=== PATIENT | female | born 1950 | race Caucasian/White ===

== ENCOUNTER 2018-04-16 19:08 | Emergency (ER) | payer MEDICARE, SELFPAY ==
[2018-04-16 19:09] VITALS: BP 141/67; PULSE 94; RESP 16; TEMP 35.8; O2SAT 96; BMI 32.5
--- NOTE | 2018-04-16 19:22 | ED.VISSUMM ---
- ER Visit Summary Date of Service: 04/16/18 Chief Complaint: Rash History of Present Illness: The patient is a 68 F who presents for evaluation of a rash. Patient states that yesterday she [place]owed [place] lawn [place]. Around 4 in the afternoon she felt a firmness on the right posterior forearm. She looked in there is an area of swelling that has since progressed more swelling and some erythema. She notes some drainage from the area which is dried. She also notes the same type of lesion left mid clavicle and on the left mandible. The clavicle the mandible have much less erythema. They also have an area where some serosanguineous fluid have drained and dried. She has been using the Benadryl cream. No constitutional symptoms or shortness of breath. Physical Examination: Afebrile vital signs are stable Gen: Well-nourished well-developed Head: Normocephalic atraumatic Eyes: Perrl EOMI ENT: TMs clear no rhinorrhea moist mucous membranes Neck: Supple no lymphadenopathy no JVD nontender CVS: Regular rate rhythm no murmurs normal S1-S2 Respiratory: No distress clear to auscultation bilaterally chest nontender Abdomen: Soft nontender nondistended normal bowel sounds no masses Back: Nontender Extremity: Nontender no edema Skin: Normal color the left posterior forearm shows an area of firmness are about the size of a quarter in the center of this is some fluid that has crusted would not characterize it is impetigo. There is surrounding erythema of about 3 cm in all directions from it. There is a much smaller lesion on the left mid clavicle and on the left mandible. Neuro: alert orientated ?3 CN II-XII intact normal strength sensation reflexes gait cerebellar Psych: Normal affect normal mood Emergency Department Course and Treatment: This strongly resembles a local reaction to insect bite. Recommend continued use of the Benadryl cream I am also will place the patient on prednisone. She was advised that her blood sugars will most likely rise temporarily while she is on it. Impression: 1. Local reaction to insect bite This note was generated with [employer] dictation software. It may contain incorrect words, spelling, and punctuation that were not noted in review of the chart prior to signing ED Disposition - Plan for ED Patient: Disposition: Home or Assisted Living Chief Complaint: Rash Instructions: ED Bite Sting Insect Local Allergic React Prescriptions: Prednisone 60 mg PO DAILY 5 Days #15 tab Referrals: [facility] Doctor,Out of [Primary Care Provider] - Additional Instructions: Do not squeeze the lesions. Do not scratch. This would eventually lead to infection. Expect her blood sugars to rise while on the prednisone Return if worsening or concerns or signs of infection.
[2018-04-16 19:36] VITALS: BP 138/65; PULSE 78; RESP 16; O2SAT 96
== END 2018-04-16 19:51 | disposition home or self-care (01) ==
LOC: ED 19:48
PROVIDERS: Emergency Provider Emergency Medicine
DX: T63.481A Toxic effect of venom of other arthropod, accidental (unintentional), initial encounter (principal); M79.89 Other specified soft tissue disorders; Y92.833 Campsite as the place of occurrence of the external cause; Z79.02 Long term (current) use of antithrombotics/antiplatelets; Z79.899 Other long term (current) drug therapy
CPT/HCPCS: 99282

== ENCOUNTER 2019-05-08 09:54 | Emergency (ER) | payer MEDICARE, SELFPAY ==
[2019-05-08 09:55] VITALS: BP 141/74; PULSE 80; RESP 16; TEMP 36; BMI 31.6
--- NOTE | 2019-05-08 10:18 | ED.VISSUMM ---
- ER Visit Summary Date of Service: 05/08/19 Chief Complaint: [Redness and swelling to right eyelid] History of Present Illness: The patient is a 69 F [the emergency department with complaint of redness and swelling to her right eyelid x4 days. Patient states that she was using a weed eater in the yin 4 days ago when she felt something brushed up against her right eye. Patient used her wet hand to brush up against the eyelid and ever since then she has had redness, swelling, and itching. Patient is not sure if she got into some poison hetal or poison oak. Patient is a diabetic. She denies any change in vision. She denies any injury to her globe.] Physical Examination: [HEENT-PERRLA, EOMI. Cranial nerves II through XII grossly intact. TMs clear. Mucous membranes moist. No adenopathy. Right upper eyelid-patient has erythema and edema of the eyelid. Patient has some excoriation over the medial portion of the eyelid. No weeping noted. Eye movements are painless. No abscess noted. Cardiovascular-regular rate and rhythm without murmur or ectopy Lungs-clear to auscultation, chest wall stable without crepitus or subcu emphysema Abdomen-normoactive bowel sounds, soft, nontender, no rebound or rigidity, no peritoneal signs. Extremities-intact ?4, normal range of motion, normal pulses, atraumatic] Test Results: [None indicated] Emergency Department Course and Treatment: [Patient was started on Keflex and prednisone] Treatment Plan: [I suspect likely a contact dermatitis however cannot rule out a cellulitis. Patient will be treated with prednisone and Keflex. She will monitor her blood glucose given that she is diabetic. Patient has been on prednisone before and she knows how to manage her blood sugars and can monitor her blood sugars.] Disposition: [Discharged home in stable condition.] Impression: [Contact dermatitis right upper eyelid Cellulitis right upper eyelid] This note was generated with [employer] dictation software. It may contain incorrect words, spelling, and punctuation that were not noted in review of the chart prior to signing ED Disposition - Plan for ED Patient: Referrals: [facility] Doctor,Out of [Primary Care Provider] -
--- NOTE | 2019-05-08 10:20 | DCINST.ED_ITS ---
ED Disposition - Plan for ED Patient: Instructions: Contact Dermatitis, Cellulitis Prescriptions: Prednisone [Deltasone] 20 mg PO BID #10 tab Prescription Printed Cephalexin [Keflex] 500 mg PO Q6 #40 cap Prescription Printed Referrals: [facility] Doctor,Out of [Primary Care Provider] -
[2019-05-08] MEDS: predniSONE 20 MG Tablet 40 MG PO (10:22)
[2019-05-08] MEDS: Cephalexin 250 MG Capsule 500 MG PO (10:22)
[2019-05-08 10:32] VITALS: RESP 15
== END 2019-05-08 10:38 | disposition home or self-care (01) ==
LOC: ED 10:19
PROVIDERS: Emergency Provider Emergency Medicine
DX: H00.031 Abscess of right upper eyelid (principal); L25.9 Unspecified contact dermatitis, unspecified cause; E11.9 Type 2 diabetes mellitus without complications; Z72.0 Tobacco use; Z86.73 Personal history of transient ischemic attack (TIA), and cerebral infarction without residual deficits; Z79.4 Long term (current) use of insulin; Z79.02 Long term (current) use of antithrombotics/antiplatelets
CPT/HCPCS: 99283

== ENCOUNTER 2021-03-17 00:33 | Observation (INO) | payer MEDICARE, SELFPAY ==
[2021-03-17] VITALS (18 sets, daily range): BP systolic 109–149; BP diastolic 57–90; PULSE 77–93; RESP 15–20; TEMP 36.3–36.8; O2SAT 95–100; BMI 32.3; BMI 31.7
--- NOTE | 2021-03-17 00:57 | EKG12_ITS ---
Test Reason : NUMB/TINGLE Blood Pressure : / mmHG Vent. Rate : 083 BPM Atrial Rate : 083 BPM P-R Int : 168 ms QRS Dur : 074 ms QT Int : 362 ms P-R-T Axes : 061 015 031 degrees QTc Int : 425 ms Normal sinus rhythm Normal ECG Confirmed by TOM ROMERO, MOISES ([id number]), staff editor ELIO THOMAS ([id number]) on 03/19/2021 9:24:14 AM Referred By: ANIKA Confirmed By:MOISES SANTOS MD
--- NOTE | 2021-03-17 00:57 | CT_ITS ---
We are attempting to reach an attending provider to discuss findings. An addendum with communication details will be sent when the communication is complete. HISTORY: Neuro deficit, acute, stroke suspected Technique:CT Head Stroke Protocol W/O Contrast Injection. Sagittal and coronal 2-D reformats were performed on the acquisition scanner. Number of Images including paperwork:242 Comparison: None available. Findings: Periventricular deep and subcortical white matter disease is present. Abnormal decreased density with loss of snider-white differentiation without mass effect is present within the left occipital and parietal lobes. This area extends for 6.9 cm in craniocaudal dimensions. Paranasal sinuses are clear. The brain is atrophic. Calcific ASCVD involves intracranial arteries. No acute intracranial edema or hemorrhage. No acute abnormality of orbits. Middle ear cavities and mastoid air cells are well aerated. Skull is normal. CT/STROKE Brain/Head without Cont IMPRESSION: 6.9 cm area of decreased density with loss of snider-white differentiation within the left occipital and parietal lobes. It is difficult to discern if this is subacute or chronic. I favor that this is subacute ischemia.. Chronic changes as above. ASPECT 8. Individualized dose optimization techniques were used for this CT. at 0149 Reported and signed by: Marcelo Bush MD Electronically Signed: Marcelo Bush MD at 1:48 EDT Tel , Service support ,
--- NOTE | 2021-03-17 00:59 | EX.ED.DYSGE1 ---
HPI History of Present Illness Chief Complaint: Numb/Ting Narrative Narrative: Patient stated 1 hour ago she developed left arm numbness and left hand numbness and tingling. It lasted for an hour and resolved history of stroke in the past. She is on Plavix. Remote stroke was 3 years ago. Left her with difficulty seeing out of her right eye which is chronic per patient now. Her numbness and tingling have resolved. She feels back to normal. No history of TIA per patient. PFSH PFS Medical History Diabetes Hyperlipemia Hypertension Stroke/cerebrovascular accident Home Medications atorvastatin 40 mg PO DAILY 04/16/18 [History Last Taken Unknown] clopidogrel 75 mg PO DAILY 04/16/18 [History Last Taken Unknown] Novolin N 20 unit SQ DAILY 05/08/19 [History Last Taken Unknown] cephalexin 500 mg PO Q6 #40 cap 05/08/19 [Rx Last Taken Unknown] insulin regular human 8 - 10 unit SUBCUT TIDCM 05/08/19 [History Last Taken Unknown] prednisone 20 mg PO BID #10 tab 05/08/19 [Rx Last Taken Unknown] Allergy/AdvReac Type Severity Reaction Status Date / Time No Known Allergies Allergy Verified 03/17/21 00:37 Social History Smoking Status: Current every day smoker ROS ROS ED ROS Narrative ROS General: Denies fever, chills, sweats Eyes: Denies visual changes, blurred vision, double vision ENT: Denies ear pain, rhinorrhea, sore throat Cardiovascular: Denies chest pain, palpitations, heart racing Respiratory: Denies dyspnea, cough, sputum, dyspnea on exertion, orthopnea,PND GI: Denies abdominal pain, nausea, vomiting, diarrhea, constipation, melena : Denies dysuria, hematuria, frequency Musculoskeletal: Denies myalgias, arthralgias, neck pain, back pain Skin: Denies rash, abscess, abrasions Neuro: See HPI Psych: Denies depression, anxiety Endo: Denies polyuria, polydipsia, polyphagia Heme: Denies easy bruising, easy bleeding, lymphadenopathy Allergy: Denies hives, swelling EXAM Physical Exam Narrative Exam Narrative: Vital signs reviewed General: Well-nourished well-developed Head: Normocephalic atraumatic Eyes: Pupils equal round and reactive to light extraocular movements intact ENT: TMs clear no hemotympanum no trauma Neck: Nontender full range of motion Cardiovascular: Regular rate rhythm no murmurs normal S1-S2 Respiratory: No distress clear to auscultation bilaterally chest nontender Abdomen: Soft nontender nondistended normal bowel sounds no masses Back: Nontender no CVA tenderness Extremities: Nontender active range of motion ?4 extremities no trauma Skin: Normal color no trauma Neuro alert oriented cranial nerves II through XII intact normal strength sensation reflexes. NIH stroke scale 0 Const Vital Signs: 03/17/21 00:34 03/17/21 01:14 Temperature 98.1 F Temperature Source Oral Pulse Rate 92 84 Respiratory Rate 18 16 Blood Pressure 149/71 H Blood Pressure Mean 97 Pulse Ox 100 98 Oxygen Delivery Method Room Air Room Air MDM MDM MDM Narrative Medical decision making narrative: I believe the patient likely had a TIA. Lab work CT head obtained. Patient monitored. Lab work unremarkable including CBC BMP. Mildly low PTT. CT head shows chronic changes on the left side consistent with her previous stroke. I do not feel this is acute. On reevaluation she remained stable without symptoms. Discussed with the patient hospitalist. Due to her recurrent TIA she is comfortable being admitted to the hospital for further evaluation and neurologic evaluation. She is not a candidate for TPA at this time as she is asymptomatic Lab Data Labs: Laboratory Results - last 24 hr 03/17/21 03/17/21 03/17/21 01:00 01:00 01:00 WBC 10.2 RBC 4.96 Hgb 14.5 Hct 44.5 MCV 89.7 MCH 29.2 MCHC 32.6 RDW Std Deviation 41.6 RDW Coeff of Will 12.8 Plt Count 261 MPV 9.6 Immature Gran % (Auto) 0.200 Neut % (Auto) 61.2 Lymph % (Auto) 27.2 [place] % (Auto) 6.6 Eos % (Auto) 4.1 Baso % (Auto) 0.7 Absolute Neuts (auto) 6.2 Absolute Lymphs (auto) 2.76 Nucleated RBC % 0 PT 13.0 INR 1.0 APTT 23.7 L Sodium 137 Potassium 4.4 Chloride 103 Carbon Dioxide 30.0 Anion Gap 4 L BUN 20 H Creatinine 0.96 Estim Creat Clear Calc 38.05 Est GFR (MDRD) Af Amer 74 Est GFR (MDRD) Non-Af 61 BUN/Creatinine Ratio 20.9 H Glucose 87 Calcium 9.2 Radiography Diagnostic Testing: Radiology Impression Brain CT 03/17/21 00:57 IMPRESSION: 6.9 cm area of decreased density with loss of snider-white differentiation within the left occipital and parietal lobes. It is difficult to discern if this is subacute or chronic. I favor that this is subacute ischemia.. Chronic changes as above. ASPECT 8. Individualized dose optimization techniques were used for this CT. at 0149 Reported and signed by: Marcelo Bush MD Electronically Signed: Marcelo Bush MD at 1:48 EDT Tel , Service support , ADDENDUM: 03/17/21 0158 IMPRESSION: 6.9 cm area of decreased density with loss of snider-white differentiation within the left occipital and parietal lobes. It is difficult to discern if this is subacute or chronic. I favor that this is subacute ischemia.. Chronic changes as above. ASPECT 8. Individualized dose optimization techniques were used for this CT. at 0149 Reported and signed by: Marcelo Bush MD N.B. : The above information has been verbally conveyed by Marcelo Bush MD to Feliz Joyce MD, on 03/17/2021 01:52:01 (ET). Electronically Signed: Marcelo Bush MD at 1:48 EDT Tel , Service support , Discharge Plan Triage Chief Complaint: Numb/Ting ED Provider: Feliz Joyce Dx/Rx/DC Orders Prescriptions: No Action atorvastatin 40 MG tablet 40 mg PO DAILY RF: 0 clopidogrel 75 MG tablet 75 mg PO DAILY RF: 0 insulin regular human 100 UNIT/ML solution 8 - 10 unit subcut TIDCM RF: 0 Novolin N 20 unit SQ DAILY RF: 0 prednisone 20 MG tablet 20 mg PO BID Qty: 10 RF: 0 cephalexin 500 MG capsule 500 mg PO Q6 Qty: 40 RF: 0 Primary Care Provider: Care Physician,No Primary
[2021-03-17 01:16] LABS: Absolute Lymphocyte Count 2.76 X10^3/uL (0.83-4.51); Absolute Neutrophil Count 6.2 X10^3/uL (2.0-7.7); Basophil# 0.07 X10^3/uL; Basophil% 0.7 % (0-1); Eosinophil# 0.42 X10^3/uL; Eosinophils% 4.1 % (0-5); Hematocrit 44.5 % (37-47); Hemoglobin 14.5 g/dL (12.0-15.0); Lymphocyte # 2.76 X10^3/ul (0.83-4.51); Lymphocyte % 27.2 % (19-41); Mean Corp Hgb Conc 32.6 g/dL (32-36); Mean Corpuscular Hgb 29.2 pg (27.0-32.0); Mean Corpuscular Volume 89.7 fL (81-99); Mean Platelet Vol. 9.6 fl (6.2-12.0); Monocyte# 0.67 X10^3/uL; Monocyte% 6.6 % (0-10); NRBC Flagged by Analyzer 0 % (0-5); Neutrophil # 6.22 X10^3/uL (2.7-7.7); Neutrophil % 61.2 % (47-70); Platelet Count 261 K/mm3 (150-450); RBC Distribution Width CV 12.8 % (11.6-14.6); RBC Distribution Width SD 41.6 fl (35.1-43.9); Red Blood Count 4.96 M/mm3 (4.2-5.4); White Blood Count 10.2 K/mm3 (4.4-11.0)
[2021-03-17 01:26] LABS: Partial Thromboplast Time 23.7 Seconds (24.1-36.2)
[2021-03-17 01:32] LABS: Anion Gap 4 (5-15); BUN 20 mg/dL (7-18); BUN/Creat Ratio 20.9 RATIO (10-20); Calcium,Total 9.2 mg/dL (8.5-10.1); Chloride 103 mmol/L (98-107); Creatinine, Serum 0.96 mg/dL (0.55-1.02); EST Glomerular Filtration Rate 61 mL/min (>60); Est Glom Filt Rate - Afr Amer 74 mL/min (>60); Estimated Creatinine Clearance 38.05 ml/min; Glucose 87 mg/dL (74-106); Potassium 4.4 mmol/L (3.5-5.1); Sodium Level 137 mmol/L (136-145)
--- NOTE | 2021-03-17 02:58 | HP.PCM.HOS_ITS ---
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 She denies any other symptoms. She denies any focal weakness. [facility] Medical History Diabetes Hyperlipemia Hypertension Stroke/cerebrovascular accident Home Medications atorvastatin 40 mg PO QHS 04/16/18 [History Last Taken 03/15/21] clopidogrel 75 mg PO QHS 04/16/18 [History Last Taken 03/15/21] Novolin N 20 unit SQ DAILY 05/08/19 [History Last Taken 03/16/21] insulin regular human 8 - 10 unit SUBCUT TIDCM 05/08/19 [History Last Taken Unknown] Allergy/AdvReac Type Severity Reaction Status Date / Time No Known Allergies Allergy Verified 03/17/21 00:37 Family History Other Cancer Heart disease Surgical History H/O: hysterectomy S/P herniorrhaphy Social History Smoking Status: Current every day smoker ROS ROS Narrative 12 point review of system is negative except as stated in HPI. Vital Signs Vital Signs Vital Signs: 03/17/21 00:34 03/17/21 01:14 Temperature 98.1 F Temperature Source Oral Pulse Rate 92 84 Respiratory Rate 18 16 Blood Pressure 149/71 H Blood Pressure Mean 97 Pulse Ox 100 98 Oxygen Delivery Method Room Air Room Air Physical Exam Narrative Alert and oriented x3 Nontraumatic; normocephalic Lung clear to auscultate Heart sounds S1-S2. No murmur, gallop or rubs. Abdomen bowel sounds present soft, nontender nondistended Extremity without edema cyanosis or clubbing. Neurology: Sensation intact. Left eye Quadrantanopia. Right hemianopia. Motor strength 5 out of 5 throughout except left upper extremity with strength 3 out of 5 that patient attributes to history of shoulder pain. No dysmetria. Lab / Micro Data Result Diagrams: 03/17/21 01:00 03/17/21 01:00 Labs: Laboratory Results - last 24 hr 03/17/21 03/17/21 03/17/21 01:00 01:00 01:00 WBC 10.2 RBC 4.96 Hgb 14.5 Hct 44.5 MCV 89.7 MCH 29.2 MCHC 32.6 RDW Std Deviation 41.6 RDW Coeff of Will 12.8 Plt Count 261 MPV 9.6 Immature Gran % (Auto) 0.200 Neut % (Auto) 61.2 Lymph % (Auto) 27.2 [place] % (Auto) 6.6 Eos % (Auto) 4.1 Baso % (Auto) 0.7 Absolute Neuts (auto) 6.2 Absolute Lymphs (auto) 2.76 Nucleated RBC % 0 PT 13.0 INR 1.0 APTT 23.7 L Sodium 137 Potassium 4.4 Chloride 103 Carbon Dioxide 30.0 Anion Gap 4 L BUN 20 H Creatinine 0.96 Estim Creat Clear Calc 38.05 Est GFR (MDRD) Af Amer 74 Est GFR (MDRD) Non-Af 61 BUN/Creatinine Ratio 20.9 H Glucose 87 Calcium 9.[address] 03/17/21 00:57 IMPRESSION: 6.9 cm area of decreased density with loss of snider-white differentiation within the left occipital and parietal lobes. It is difficult to discern if this is subacute or chronic. I favor that this is subacute ischemia.. Chronic changes as above. ASPECT 8. Individualized dose optimization techniques were used for this CT. at 0149 Reported and signed by: Marcelo Bush MD Electronically Signed: Marcelo Bush MD at 1:48 EDT Tel , Service support , ADDENDUM: 03/17/21 0158 IMPRESSION: 6.9 cm area of decreased density with loss of snider-white differentiation within the left occipital and parietal lobes. It is difficult to discern if this is subacute or chronic. I favor that this is subacute ischemia.. Chronic changes as above. ASPECT 8. Individualized dose optimization techniques were used for this CT. at 0149 Reported and signed by: Marcelo Bush MD N.B. : The above information has been verbally conveyed by Marcelo Bush MD to Feliz Joyce MD, on 03/17/2021 01:52:01 (ET). 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 CT of the head with a 6.9 cm area of decreased density with loss of snider-white differentiation within the left occipital and parietal lobes that was difficult to discern whether it was a subacute or chronic. With patient history of CVA 3 years ago and with residual right peripheral vision loss likely this is chronic. -Check Hba1c, Lipid level Physical therapy, and occupational therapy to work with patient. N.p.o. until bedside swallow eval. Daily aspirin ordered. Plavix continued. High intensity statin continued Permissive hypertension. Control blood pressure with labetalol for systolic blood pressure of more than 220 or diastolic blood pressure of more than 120. MRI/MRAM of head; brain; and neck. Echocardiogram ordered. Diabetes mellitus Patient with euglycemic on presentation. Hold off home prandial and basal insulin because patient is at risk of hypoglycemia. Accu-Chek QA CHS with correction scale insulin ordered. DVT prophylaxis Subcutaneous Lovenox ordered
--- NOTE | 2021-03-17 03:28 | MRI_ITS ---
STUDY: MRI BRAIN WITHOUT CONTRAST REASON FOR EXAM: Female, 71 years old. TIA TECHNIQUE: Standardized multiplanar fat and water weighted pulse sequences were obtained. COMPARISON: CT 03/17/2021 FINDINGS: There is moderate cerebral atrophy with widening of the extra-axial spaces and ventricular dilatation. There are multiple white matter hyperintensities, distributed throughout the deep white matter tracts of the cerebral hemispheres, consistent with moderate chronic white matter ischemic changes. Insufflation gliosis in the left occipital lobe consistent with a chronic infarct. There is no evidence for recent intracranial ischemia or other cause of cytotoxic edema on diffusion weighted imaging (DWI). Normal T2* images of the brain without demonstrated susceptibility artifact. There is no demonstrated hemosiderin stain. Normal bilateral basal ganglia. Normal thalami. There is no extra-axial fluid accumulation. Normal flow voids within the major intracranial circulation suggesting patency by spin echo criteria. Normal sella turcica, pituitary gland, infundibular stalk, optic chiasm and hypothalamus. Normal tectal plate and pineal gland. Normal midbrain, janki and medulla. Normal cerebellum. Normal basal cisterns. Normal bilateral temporal bones. Normal bilateral internal auditory canals. There are bilateral ocular lens implants with otherwise normal intraorbital contents. Normal visualized paranasal sinuses. Normal calvarium and skull base. Normal visualized soft tissue structures. Normal visualized upper cervical spine. MRI/Brain without Contrast IMPRESSION: Involutional changes of the brain, as described above. No acute infarct. Electronically Signed: Antonio Sam MD at 11:03 EDT Tel , Service support ,
--- NOTE | 2021-03-17 03:28 | ECHOCS_ITS ---
Reason For Study: TIA/CVA Procedure This was a 2D Doppler, Color Flow transthoracic echocardiogram. Technically difficult study, contrast injection and bubble study performed. Exam performed portable in patient room. Left Ventricle Normal LV size. Left ventricular systolic function is normal. The estimated ejection fraction is 65 %. Stage 1 diastolic dysfunction. No regional wall motion abnormalities noted. Right Ventricle Normal RV size. Normal systolic function. Atria Normal left atrium. Normal right atrium. Bubble contrast study negative for right to left interatrial shunt. Mitral Valve Normal mitral valve. Tricuspid Valve Normal tricuspid valve. Trivial tricuspid valve insufficiency. Aortic Valve Trisinus/trileaflet aortic valve. Pulmonic Valve Normal pulmonic valve. Great Vessels Normal aortic root. The pulmonary artery is normal size. Normal inferior vena cava. Pericardium/Pleural No pericardial effusion. Medication Diluted definity 2ml given slow IV push to enhance endocardial definition. Performed a rapid injection of agitated mix of 9 cc saline and 1cc air to assess for atrial septal defect. MMode/2D Measurements & Calculations LVIDd: 3.1 cm IVSd: 0.95 cm Ao root diam: 3.0 cm LVIDs: 1.8 cm LVPWd: 0.82 cm LA dimension: 2.8 cm RVDd: 2.9 cm FS: 41.7 % LAV(MOD-bp): 40.1 ml LA A4 area: 16.9 cm2 RA A4 area: 12.5 cm2 LAV(MOD-bp) Indexed: 23.3 ml/m2 LAV(MOD-sp2): 33.3 ml LAV(MOD-sp4): 44.7 ml Time Measurements MV dec time: 0.31 sec Doppler Measurements & Calculations MV E max tomas: 82.0 cm/sec Lat Peak E' Tomas: 10.6 cm/sec Med Peak E' Tomas: 8.6 cm/sec MV A max otmas: 106.2 cm/sec E/E' lat: 7.7 E/E' med: 9.5 MV E/A: 0.77 MV V2 max: 99.7 cm/sec MV P1/2t max tomas: 97.7 cm/sec Ao V2 max: 121.3 cm/sec MV max P.0 mmHg MV P1/2t: 58.4 msec Ao max P.9 mmHg MV V2 mean: 65.5 cm/sec MV dec slope: 490.4 cm/sec2 MV mean P.9 mmHg MV V2 VTI: 28.7 cm MVA(P1/2t): 3.8 cm2 LV V1 max: 111.6 cm/sec PA V2 max: 97.3 cm/sec LV V1 max P.0 mmHg ECHO/Echo Complete W/ Contrast Interpretation Summary Normal LV size. Left ventricular systolic function is normal. The estimated ejection fraction is 65 %. Stage 1 diastolic dysfunction. Contrast injection was performed. Ordering Physician: Quentin Ronquillo Referring Physician: Alva PCP noted Performed By: Yefri De Leon RCS
--- NOTE | 2021-03-17 03:28 | MRI_ITS ---
STUDY: MRA NECK WITHOUT CONTRAST REASON FOR EXAM: Female, 71 years old. TIA TECHNIQUE: Source images were obtained, MIPs were performed. The study was performed unenhanced. COMPARISON: None. FINDINGS: RIGHT CAROTID ARTERIES: Normal right common carotid artery (CCA). Normal right common carotid bulb. Normal origin of the right internal carotid (ICA) artery without a hemodynamically significant stenosis. Normal visualized cervical portion of the right internal carotid artery. Normal origin of the right external carotid artery (ECA). LEFT CAROTID ARTERIES: Normal left common carotid artery (CCA). Normal left common carotid bulb. Normal origin of the left internal carotid (ICA) artery without a hemodynamically significant stenosis. Normal visualized cervical portion of the left internal carotid artery. Normal origin of the left external carotid artery (ECA). VERTEBRAL ARTERIES: Normal antegrade flow within the bilateral vertebral artery without a hemodynamically significant stenosis. MRI/MRA Neck without Contrast IMPRESSION: Normal bilateral cervical carotid and vertebral arteries. Electronically Signed: Antonio Sam MD at 12:14 EDT Tel , Service support ,
--- NOTE | 2021-03-17 03:28 | MRI_ITS ---
STUDY: MRA OF THE HEAD WITHOUT CONTRAST REASON FOR EXAM: Female, 71 years old. TIA TECHNIQUE: 3-D [id number] (TOF) imaging was performed with MIPs. The study was performed unenhanced. COMPARISON: None. FINDINGS: Normal bilateral petrous carotid arteries. Normal right cavernous carotid artery with a normal supraclinoid bifurcation. Normal left cavernous carotid artery with a normal supraclinoid bifurcation. Normal right A1 segments of the anterior cerebral artery. Normal left A1 segments of the anterior cerebral artery. Normal intact anterior communicating artery (ACOM). Normal bilateral A2 segments of the anterior cerebral arteries. Normal right M1 and M2 segments of the middle cerebral arteries, with a normal M1 bifurcation. Normal left M1 and M2 segments of the middle cerebral arteries, with a normal M1 bifurcation. Normal right posterior communicating artery (PCOM). Normal left posterior communicating artery (PCOM). Normal bilateral vertebral arteries. Normal basilar artery with a normal basilar bifurcation. The visualized bilateral superior cerebellar (SCA) arteries are normal. Normal bilateral P1, P2 and visualized P3 segments of the posterior cerebral arteries. There is no demonstrated aneurysm of the [place]. There is no major vessel occlusion or hemodynamically significant stenosis. There is no demonstrated abnormality of the visualized brain. MRI/MRA Head ONLY without Contrast IMPRESSION: Normal MRA of the head Electronically Signed: Antonio Sam MD at 11:00 EDT Tel , Service support ,
[2021-03-17 04:06] LABS: Cholesterol 175 mg/dL (200); High Density Lipoprotein 63 mg/dL; Triglycerides 142 mg/dL; Very Low Density Lipoprotein 28 mg/dL (5-40)
[2021-03-17 06:51] LABS: Bedside Glucose 136 mg/dL (70-110)
[2021-03-17 08:23] LABS: Hemoglobin A1c 7.5 % (3.8-5.6)
[2021-03-17] MEDS: Enoxaparin 40 MG/0.4 ML Syringe SC (08:43)
[2021-03-17] MEDS: Aspirin 81 MG TAB.CHEW PO (08:44)
[2021-03-17 09:10] LABS: Bedside Glucose 134 mg/dL (70-110)
[2021-03-17] MEDS: Insulin Lispro 100 UNIT/ML INSULN.PEN SC ×3 (12:01→21:47)
[2021-03-17] MEDS: Mag Hydrox/Al Hydrox/Simeth 30 ML UDC PO (12:45)
[2021-03-17 13:00] LABS: Bedside Glucose 218 mg/dL (70-110)
--- NOTE | 2021-03-17 16:26 | PN.HOSP_ITS ---
Subjective Subjective Feels better overall but still with some left tongue and left arm numbness. October to when she has had a stroke before as she was having ocular symptoms at that time. Objective Data Objective Data Vital Signs: Vital Signs Temp Pulse Resp BP Pulse Ox 36.8 C 80 15 117/63 97 03/17/21 15:45 03/17/21 15:45 03/17/21 15:45 03/17/21 15:45 03/17/21 15:45 Oxygen Delivery Method Room Air Weight: 73.8 kg Body Mass Index (BMI) 31.7 Intake & Output: Intake and Output for Last 24 Hours 03/15/21 03/16/21 03/17/21 23:59 23:59 23:59 Intake Total 600 / 600 Balance 600 / 600 Lab / Micro Data Attestation: I reviewed the patient's lab results. Result Diagrams: 03/17/21 01:00 03/17/21 01:00 Labs: Laboratory Results - last 24 hr 03/17/21 03/17/21 03/17/21 01:00 01:00 01:00 WBC 10.2 RBC 4.96 Hgb 14.5 Hct 44.5 MCV 89.7 MCH 29.2 MCHC 32.6 RDW Std Deviation 41.6 RDW Coeff of Will 12.8 Plt Count 261 MPV 9.6 Immature Gran % (Auto) 0.200 Neut % (Auto) 61.2 Lymph % (Auto) 27.2 Gove % (Auto) 6.6 Eos % (Auto) 4.1 Baso % (Auto) 0.7 Absolute Neuts (auto) 6.2 Absolute Lymphs (auto) 2.76 Nucleated RBC % 0 PT 13.0 INR 1.0 APTT 23.7 L Sodium 137 Potassium 4.4 Chloride 103 Carbon Dioxide 30.0 Anion Gap 4 L BUN 20 H Creatinine 0.96 Estim Creat Clear Calc 38.05 Est GFR (MDRD) Af Amer 74 Est GFR (MDRD) Non-Af 61 BUN/Creatinine Ratio 20.9 H Glucose 87 Hemoglobin A1c Calcium 9.2 Triglycerides Cholesterol LDL Cholesterol VLDL Cholesterol HDL Cholesterol POC Glucose 03/17/21 03/17/21 03/17/21 01:00 01:10 06:32 WBC RBC Hgb Hct MCV MCH MCHC RDW Std Deviation RDW Coeff of Will Plt Count MPV Immature Gran % (Auto) Neut % (Auto) Lymph % (Auto) Gove % (Auto) Eos % (Auto) Baso % (Auto) Absolute Neuts (auto) Absolute Lymphs (auto) Nucleated RBC % PT INR APTT Sodium Potassium Chloride Carbon Dioxide Anion Gap BUN Creatinine Estim Creat Clear Calc Est GFR (MDRD) Af Amer Est GFR (MDRD) Non-Af BUN/Creatinine Ratio Glucose Hemoglobin A1c 7.5 H Calcium Triglycerides 142 Cholesterol 175 LDL Cholesterol 84 VLDL Cholesterol 28 HDL Cholesterol 63 POC Glucose 136 H 03/17/21 03/17/21 08:34 11:44 WBC RBC Hgb Hct MCV MCH MCHC RDW Std Deviation RDW Coeff of Will Plt Count MPV Immature Gran % (Auto) Neut % (Auto) Lymph % (Auto) Gove % (Auto) Eos % (Auto) Baso % (Auto) Absolute Neuts (auto) Absolute Lymphs (auto) Nucleated RBC % PT INR APTT Sodium Potassium Chloride Carbon Dioxide Anion Gap BUN Creatinine Estim Creat Clear Calc Est GFR (MDRD) Af Amer Est GFR (MDRD) Non-Af BUN/Creatinine Ratio Glucose Hemoglobin A1c Calcium Triglycerides Cholesterol LDL Cholesterol VLDL Cholesterol HDL Cholesterol POC Glucose 134 H 218 H Radiography Diagnostic Testing: Radiology Impression Brain CT 03/17/21 00:57 IMPRESSION: 6.9 cm area of decreased density with loss of snider-white differentiation within the left occipital and parietal lobes. It is difficult to discern if this is subacute or chronic. I favor that this is subacute ischemia.. Chronic changes as above. ASPECT 8. Individualized dose optimization techniques were used for this CT. at 0149 Reported and signed by: Marcelo Bush MD Electronically Signed: Marcelo Bush MD at 1:48 EDT Tel , Service support , ADDENDUM: 03/17/21 0158 IMPRESSION: 6.9 cm area of decreased density with loss of snider-white differentiation within the left occipital and parietal lobes. It is difficult to discern if this is subacute or chronic. I favor that this is subacute ischemia.. Chronic changes as above. ASPECT 8. Individualized dose optimization techniques were used for this CT. at 0149 Reported and signed by: Marcelo Bush MD N.B. : The above information has been verbally conveyed by Marcelo Bush MD to Feliz Joyce MD, on 03/17/2021 01:52:01 (ET). Electronically Signed: Marcelo Bush MD at 1:48 EDT Tel , Service support , Brain MRI 03/17/21 03:28 IMPRESSION: Involutional changes of the brain, as described above. No acute infarct. Electronically Signed: Antonio Sam MD at 11:03 EDT Tel , Service support , Head MRA 03/17/21 03:28 IMPRESSION: Normal MRA of the head Electronically Signed: Antonio Sam MD at 11:00 EDT Tel , Service support , Neck MRA 03/17/21 03:28 IMPRESSION: Normal bilateral cervical carotid and vertebral arteries. Electronically Signed: Antonio Sam MD at 12:14 EDT Tel , Service support , Physical Exam Const alert HEENT Head and Scalp: normocephalic Eyes PERRL Resp normal respiratory effort and clear to auscultation bilaterally Cardio regular rate, regular rhythm, S1 normal heart sound and S2 normal heart sound GI normal to inspection, nondistended, normoactive bowel sounds, non-tender and non-distended Extremity normal to inspection Neuro Neuro Narrative: Some weakness of the left upper extremity but per that may be attributable to the patient's known rotator cuff tear on that side. Sensation grossly intact throughout. Psych affect normal Assessment & Plan Assessment/Plan (1) Brain TIA: PLAN: 1. Possible TIA * MRI negative for any strokelike process * Will consult [facility] teleneurology for further recommendations. Patient does endorse that she is having headaches so could this could be a migraine variant. * Follow-up echocardiogram * Started on clopidogrel 2. History of prior stroke * Patient with right-sided visual field deficits post that stroke. No new deficits in the visual lei at this time * Continue with aspirin and atorvastatin 3. Diabetes mellitus type 2 * Fair control * Signs scale insulin at this time 4. VTE prophylaxis with low millicurie heparin Visit Charges OBSV E&M: 46605 Subsequent observation care L2
--- NOTE | 2021-03-17 16:28 | TELEMED_ITS ---
SOC Telemed has confirmed receipt of a request for visit. This document confirms receipt of the order initiating the consult. To find the results of the consultation, please view the patient's reports for the scanned Telemed Consult.
[2021-03-17 17:26] LABS: Bedside Glucose 150 mg/dL (70-110)
[2021-03-17] MEDS: Clopidogrel Bisulfate 75 MG Tablet PO (21:37)
[2021-03-17] MEDS: Atorvastatin Calcium 40 MG Tablet PO (21:37)
[2021-03-17] MEDS: Famotidine 200 MG/20 ML MDV 20 MG in 0.9% Normal Saline (Pres. free 8 ML 300 MG IV (22:04)
[2021-03-17 22:05] LABS: Bedside Glucose 241 mg/dL (70-110)
[2021-03-17] MEDS: Ondansetron 4 MG/2 ML Vial IV (22:20)
[2021-03-18] VITALS (7 sets, daily range): BP systolic 111–139; BP diastolic 63–68; PULSE 68–82; RESP 15–16; TEMP 36.5–37.2; O2SAT 94–96; BMI 31.7
[2021-03-18] MEDS: Insulin Lispro 100 UNIT/ML INSULN.PEN SC ×2 (07:07→11:42)
[2021-03-18 07:16] LABS: Bedside Glucose 168 mg/dL (70-110)
[2021-03-18] MEDS: Aspirin 81 MG TAB.CHEW PO (08:46)
[2021-03-18] MEDS: 0.9% Saline Lock 10 ML Syringe IV (08:47)
[2021-03-18] MEDS: Enoxaparin 40 MG/0.4 ML Syringe SC (08:47)
[2021-03-18] MEDS: Famotidine 200 MG/20 ML MDV 20 MG in 0.9% Normal Saline (Pres. free 8 ML IV (08:47)
--- NOTE | 2021-03-18 11:37 | CASEMGMT ---
PHQ-9 completed. Though pt does not show on PHQ-9 that she struggles w/depression, pt did mention feeling down over the loss of a friend recently. Pt went on to speak about the loss of her mother 10 years ago, and the loss of her sister and brother in law 2 years ago. Support offered. SW offered counseling resources, pt declined. Overall pt states she has had a good life. She states she has five children who are supportive, and has many grandchildren and great grandchildren on the way. Pt expressed that family can bring on stress at times, but overall family is supportive. Pt did take information on the stroke support group, and agreed to be on the mailing list. No further social media editor needs anticipated. NAEEM Go
[2021-03-18 11:50] LABS: Bedside Glucose 249 mg/dL (70-110)
--- NOTE | 2021-03-18 11:52 | PCM.DC ---
Discharge Instructions Follow Up Care Test Results: Test results from this visit will be discussed in further detail at your follow-up appointment, if applicable. Discharge Plan Admission Admit Date/Time: 03/17/21 02:57 Attending Provider: Bogdan Vanegas Primary Care Provider: Devon Cuadra Discharge Orders/Prescriptions Prescriptions: New aspirin 81 mg tablet,delayed release (DR/EC) 81 mg PO DAILY Qty: 30 RF: 0 furosemide [Lasix] 40 mg tablet 40 mg PO DAILY Qty: 30 RF: 0 Continued atorvastatin 40 MG tablet 40 mg PO QHS RF: 0 clopidogrel 75 MG tablet 75 mg PO QHS RF: 0 insulin regular human 100 UNIT/ML solution 8 - 10 unit subcut TIDCM RF: 0 Novolin N 20 unit SQ DAILY RF: 0 omeprazole 20 mg Capsule,Delayed Release(Dr/Ec) 20 mg PO BID RF: 0 Referrals / Follow Up: Devon Cuadra MD [Primary Care Provider] - Care Physician,No Primary [NON-STAFF] - Disposition Disposition (needs filled in before D/C Order can be placed): Home, self care
--- NOTE | 2021-03-18 12:30 | CASEMGMT ---
Addendum entered by Elvia Mccarty 03/18/21 12:36: Noted outpt OT was recommended for pt. Pt states she does not want to do this. She is aware that if she should change her mind once home, she can contact her PCP. Pt verbalized understanding. Original Note: KEE PANG in to discuss PEREZ form with patient. KEE PANG explained PEREZ form, patient voiced understanding. Pt signed form and filed in chart. Pt provided with a copy of signed PEREZ form. Patient had no further questions or concerns at this time.
--- NOTE | 2021-03-18 12:31 | PHA.DC.MC ---
Pharmacy Service has performed discharge medication reconciliation and counseling for this patient. 1. ASPIRIN 81MG PO DAILY 2. FUROSEMIDE 40MG PO DAILY The patient's discharge medication list was reviewed for discrepancies and discrepancies were resolved. Home Medications atorvastatin 40 mg PO QHS 04/16/18 clopidogrel 75 mg PO QHS 04/16/18 Novolin N 20 unit SQ DAILY 05/08/19 insulin regular human 8 - 10 unit SUBCUT TIDCM 05/08/19 omeprazole 20 mg PO BID 03/17/21 aspirin 81 mg PO DAILY #30 tab 03/18/21 furosemide [Lasix] 40 mg PO DAILY #30 tab 03/18/21 The patient was counseled on the following discharge medications and changes in medications for homegoing were reviewed. The Reason for Use, instructions for use, and potential side effects were reviewed for all new medications. The patient's questions regarding all of their medications were answered. The patient was able to verbally demonstrate an understanding of their discharge medications. Patient was counseled by pharmacy informatics manager
--- NOTE | 2021-03-18 13:01 | DS.PCM_ITS ---
Providers Date of Admission: 03/17/21 Primary Care Physician: Dr. Devon Cuadra MD Reason For Visit: TIA Diagnosis Discharge Diagnosis (1) Brain TIA: Status: Acute Code(s): G45.9 - Transient cerebral ischemic attack, unspecified Medications at Discharge Home Medications atorvastatin 40 mg PO QHS 04/16/18 clopidogrel 75 mg PO QHS 04/16/18 Novolin N 20 unit SQ DAILY 05/08/19 insulin regular human 8 - 10 unit SUBCUT TIDCM 05/08/19 omeprazole 20 mg PO BID 03/17/21 aspirin 81 mg PO DAILY #30 tab 03/18/21 furosemide [Lasix] 40 mg PO DAILY #30 tab 03/18/21 Hospital Course Summary of Care Provided Minutes Spent on Discharge: 35 Hospital Course: 1) TIA Patient is a 71-year-old female who presented to the ED at [facility] on 03/17/2021 with a chief complaint of hand and oral numbness. Patient was admitted for possible CVA. Brain MRI, head MRA, neck MRA were unremarkable and showed no stenosis or acute infarct. SOC telemetry neurology consult recommended continuation of aspirin, Plavix and statin regimen. Patient does not wish to go to shelter facility for placement, and is recommended for outpatient therapy per PT/OT. Plan; continue Plavix and statin. Aspirin initiated on discharge. Follow-up with neurology upon discharge. 2) Diabetes Hemoglobin A1c 7.5, POC glucose 168. Patient reports that she has been working with her primary care provider to help manage her diabetes. Does not wish to have medications adjusted at this time. Plan; follow-up your primary care provider within the next 1 to 2 weeks. Patient seen by Dean Morin PA-C, under the supervision of Dr. Vanegas. Physical Exam Narrative Patient is a 71-year-old female comfortably resting in bed, alert and oriented x3. Patient reports resolution of her oral and hand numbness on admission. Denies any progression of symptoms. Denies chest pain, shortness of breath, headache, vision changes, fever, chills, N/V/D. Const alert, oriented x3 and no apparent distress HEENT normocephalic, head/scalp atraumatic and hearing grossly normal bilaterally Eyes PERRL and EOMs intact bilaterally Neck no lymphadenopathy, supple and no JVD Resp normal respiratory effort, no retractions, no use of accessory muscles and clear to auscultation bilaterally Cardio regular rate, regular rhythm, no murmurs and no JVD GI normal to inspection, nondistended, normoactive bowel sounds, soft to palpation, non-tender and non-distended Extremity normal to inspection, full ROM and no clubbing, cyanosis or edema Skin no rashes or lesions noted and no wounds Neuro CN's II-XII intact bilaterally Psych affect normal ABG / Lab / Microbiology Data Result Diagrams: 03/17/21 01:00 03/17/21 01:00 Laboratory: Laboratory Results - last 24 hr 03/17/21 03/17/21 03/18/21 16:28 21:45 07:05 POC Glucose 150 H 241 H 168 H 03/18/21 11:40 POC Glucose 249 H Meaningful Use Info Meaningful Use Diagnoses (Choose all that apply): None applicable CVA Therapy Assessed for PT,OT and/or ST?: Yes Ischemic Stroke Antithrombotic order at d/c?: Yes Dx of Atrial fib/flutter?: No Statins at discharge?: Yes Discharge Plan Admission Admit Date/Time: 03/17/21 02:57 Attending Provider: Bogdan Vanegas Primary Care Provider: Devon Cuadra Discharge Orders/Prescriptions Prescriptions: New aspirin 81 mg tablet,delayed release (DR/EC) 81 mg PO DAILY Qty: 30 RF: 0 furosemide [Lasix] 40 mg tablet 40 mg PO DAILY Qty: 30 RF: 0 Continued atorvastatin 40 MG tablet 40 mg PO QHS RF: 0 clopidogrel 75 MG tablet 75 mg PO QHS RF: 0 insulin regular human 100 UNIT/ML solution 8 - 10 unit subcut TIDCM RF: 0 Novolin N 20 unit SQ DAILY RF: 0 omeprazole 20 mg Capsule,Delayed Release(Dr/Ec) 20 mg PO BID RF: 0 Referrals / Follow Up: Devon Cuadra MD [Primary Care Provider] - Care Physician,No Primary [NON-STAFF] - Disposition Disposition (needs filled in before D/C Order can be placed): Home, self care
== END 2021-03-18 11:58 | disposition home or self-care (01) ==
LOC: ED 02:44 → PCU 03:07
PROVIDERS: Admitting Provider Hospitalist; Emergency Provider Emergency Medicine; PCP Family Medicine; Visit Provider Internal Medicine
DX: G45.9 Transient cerebral ischemic attack, unspecified (principal); I10 Essential (primary) hypertension; E78.5 Hyperlipidemia, unspecified; E11.9 Type 2 diabetes mellitus without complications; F17.200 Nicotine dependence, unspecified, uncomplicated; R29.700 NIHSS score 0; Z79.02 Long term (current) use of antithrombotics/antiplatelets; Z79.899 Other long term (current) drug therapy; Z79.52 Long term (current) use of systemic steroids; Z79.4 Long term (current) use of insulin; I69.398 Other sequelae of cerebral infarction; R20.2 Paresthesia of skin; H54.7 Unspecified visual loss; R53.1 Weakness
CPT/HCPCS: 70450; 70544; 70547; 70551; 80048; 80061; 82962; 83036; 85025; 85610; 85730; 93005; 93306; 94762; 96372; 96374; 96375; 96376; 97161; 97166; 97802; 99218; 99285; Q9957; A4216; C8929; G0378; J2405; J3490

== ENCOUNTER 2025-07-02 14:24 | Emergency (ER) | payer MEDICARE, SELFPAY ==
[2025-07-02 14:25] VITALS: BP 117/59; PULSE 111; RESP 15; TEMP 37.6; O2SAT 92; BMI 26.7
[2025-07-02 14:30] VITALS: BP 113/59; PULSE 107; RESP 16; O2SAT 94
--- NOTE | 2025-07-02 14:30 | EKG12_ITS ---
Test Reason : Blood Pressure : */* mmHG Vent. Rate : 103 BPM Atrial Rate : 103 BPM P-R Int : 164 ms QRS Dur : 68 ms QT Int : 296 ms P-R-T Axes : 47 17 8 degrees QTcB Int : 387 ms Sinus tachycardia Otherwise normal ECG Confirmed by Hector Trinidad ([id number]), general expeditor CLAUDIA CHANG ([id number]) on 07/04/2025 10:35:38 AM Referred By: Confirmed By: Hector Trinidad
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
[2025-07-02] MEDS: 0.9% Normal Saline (1000mL) 1,000 ML 999 ML IV (14:57)
[2025-07-02 15:00] LABS: Hematocrit 24.1 % (37-47); Hemoglobin 8.0 g/dL (12.0-15.0); Immature Granulocytes Count 0.270 X10^3/uL (0.0-0.0); Mean Corp Hgb Conc 33.2 g/dL (32-36); Mean Corpuscular Volume 81.7 fL (81-99); Mean Platelet Vol. 9.5 fl (6.2-12.0); NRBC Flagged by Analyzer 0.6 % (0-5); POSITIVE DIFFERENTIAL YES; POSITIVE MORPHOLOGY YES; Platelet Count 179 K/mm3 (150-450); RBC Distribution Width CV 13.4 % (11.6-14.6); RBC Distribution Width SD 37.1 fl (35.1-43.9); Red Blood Count 2.95 M/mm3 (4.2-5.4); White Blood Count 7.1 K/mm3 (4.4-11.0)
[2025-07-02 15:00] LABS: Mucous, Urine 0 SEEN /hpf (<or=2+); Red Blood Cells-Urine 0 SEEN /hpf (0-5); Squamous Epithelial Cells - UA 0 SEEN /hpf (5-10)
[2025-07-02 15:01] LABS: Color, Urine Yellow (Yellow); Glucose, Dipstick 250 mg/dl (Normal); Ketone-Dipstick Negative (Negative); Leukocyte Esterase-Dipstick Negative /ul (Negative); Nitrite-Dipstick Negative (Negative); Occult Blood-Urine Negative /ul (Negative); Protein-Dipstick 30 mg/dl (Negative); Specific Gravity, Urine 1.015 (1.002-1.030); Urine Bilirubin Dipstick Negative (Negative)
[2025-07-02 15:10] LABS: Prothrombin Time (Protime)PT. 15.1 SECONDS (11.7-14.9)
[2025-07-02 15:11] LABS: Partial Thromboplast Time 25.2 Seconds (24.1-36.2)
--- NOTE | 2025-07-02 15:14 | CT_ITS ---
PROCEDURE: CT BRAIN/HEAD WITHOUT CONTRAST 07/02/2025 REASON FOR EXAM: ALOC TECHNIQUE: Procedure Code: CTBR Modality: CT Procedure: BRAIN/HEAD WITHOUT CONTRAST Coronal and Sagittal reconstruction series were provided. One or more dose reduction techniques were used (e.g., Automated exposure control, adjustment of the mA and/or kV according to patient size, use of iterative reconstruction technique. RADIATION DOSE SUMMARY: CTDlvol: 44.99 mGy DLP: 812.98 mGycm COMPARISON: Brain MRI and CT dated 03/17/2021. FINDINGS: No acute intracranial hemorrhage, extra-axial collection, mass effect or evidence of acute infarct. Mild generalized brain parenchymal volume loss, and moderate chronic small- vessel ischemic changes throughout the supratentorial white matter, as well as stable appearing chronic encephalomalacia/gliosis in the left paramedian parieto-occipital lobes from remote infarct. Absent cachil dehe ocular lenses. Atherosclerotic vascular calcifications. Intact skull base and calvarium. Well-aerated paranasal sinuses and bilateral mastoid air cells. CT/Brain/Head without Contrast IMPRESSION: No evidence of acute intracranial pathology. Stable appearing moderate chronic small-vessel ischemic changes and chronic left parieto-occipital encephalomalacia/gliosis. Reading Location: [id number]
[2025-07-02 15:22] LABS: Differential Indicated SCAN CRITERIA MET
[2025-07-02 15:23] LABS: AST(SGOT) 15 U/L (<=31); Alanine Aminotransfer ALT/SGPT 15 U/L (<=34); Albumin, Serum 3.6 g/dL (3.4-4.8); Alkaline Phosphatase 118 U/L (35-104); Anion Gap 10 (5-15); BUN 22 mg/dL (4-19); BUN/Creat Ratio 18.4 RATIO (10-20); Calcium,Total 9.0 mg/dL (7.6-11.0); Carbon Dioxide 29.2 mmol/L (21.0-32.0); Chloride 92 mmol/L (98-108); Estimated Creatinine Clearance 32.28 ml/min (50-250); Globulin 2.9 g/dL (2.2-4.2); Glucose 223 mg/dL (70-99); Potassium 4.5 mmol/L (3.3-5.1)
[2025-07-02 15:25] LABS: Polychromasia 1+
--- NOTE | 2025-07-02 15:25 | RAD_ITS ---
PROCEDURE: CHEST PA AND LATERAL 07/02/2025 REASON FOR EXAM: WEAKNESS TECHNIQUE: Procedure Code: RADCXR Modality: DX Procedure: CHEST PA AND LATERAL COMPARISON: None FINDINGS: The cardiomediastinal silhouette is within normal limits. Mild atelectasis at the left lung base. Chronic appearing interstitial prominence. Exaggerated kyphosis of the thoracic spine. Generalized osteopenia. Chemo port is in place, distal catheter tip overlies right atrium. RAD/Chest PA and Lateral IMPRESSION: Left basilar atelectasis Reading Location: [id number]
--- OUTSIDE RECORDS SUMMARY | 2025-07-02 15:29 | XMS RPT_ITS | CCD ---
Author Organization [facility]iniSy[facility] Care Team Providers Care Clinical Documentation Nurse Name Role Phone Azul Huddleston Unavailable [phone] Dominick Sanchez Unavailable Unavail able Dominick Sanchez Unavailable Unavail able Bertram Esqueda Unavailable Unavailable Bertram Esqueda Unavailable Unavailable BrigidShanice murphy Unavailable Unavailable BrigidShanice murphyja Unavailable Unavailable SILVINO LACEY Unavailable Unavailable AZUL HUDDLESTON Unavailable Unavailabl e Navneet Villegas Unavailable Navneet Villegas Primary Care Provider [phone] Navneet Villegas Primary Care Provider Navneet Villegas Primary Care Provider Azul Huddleston Primary Care Provider [phone] Devon Cuadra Primary Care Provider [phone] Devon Cuadra MD Primary Care Provider Azul Huddleston MD Primary Care Provider Jose Luna MD Primary Care Provider Azul Huddleston MD Primary Care Provider Jose Luna MD Primary Care Provider Jose Luna MD Primary Care Provider [phone] JOSE MANUEL PRABHAKAR Attending Unavailable JOSE LUNA Primary Care Unavailable ZULEIKA WONG Attending Unavailable DENIZ ECHAVARRIA Referring Unavailabl e JOSE LUNA Primary Care Unavailable JOSE MANUEL PRABHAKAR Admitting Unavailable [place], JOSE Primary Care Unavailable JOSE MANUEL PRABHAKAR Attending Unavailable Jordi RN, Maria Fernanda Cheng Unavailable Un available SELF, SELF Referring Unavailable [facility], JOSE M Primary Care Unavailable [place], JOSE M Attending Unavailable SELF, SELF Referring Unavailable [place], JOSE M Primary Care Unavailable [place], JOSE M Attending Unavailable [place], JOSE M Primary Care Unavailable ZALOOL, JESSICA Nicole Attending Unavailable [place], JOSE M Referring Unavailable ZALOOL, JESSICA Nicole Attending Unavailable [place], JOSE M Primary Care Unavailable ZALOOL, JESSICA Nicole Referring Unavailable [place], JOSE M Attending Unavailable [place], JOSE M Primary Care Unavailable SELF, SELF Referring Unavailable [place], JOSE M Primary Care Unavailable ELIO SHIRLEY Attending Unavailable [place], JOSE M Referring Unavailable ZALOOL, JESSICA Nicole Attending Unavailable ZALOOL, JESSICA Nicole Referring Unavailable [place], JOSE M Primary Care Unavailable [facility], JOSE M Attending Unavailable [facility], JOSE M Primary Care Unavailable SELF, SELF Referring Unavailable GORDY POTTER Attending Unavailable [place], JOSE Primary Care Unavailable [facility], JOSE Primary Care Unavailable ITALIA, DENIZ Attending Unavailabl e ITALIA, DENIZ Attending Unavailabl e [facility], JOSE Primary Care Unavailable ANNY FERNANDEZ Admitting Unavailable ANNY FERNANDEZ Referring Unavailable ERMINY HOLLOWAY, AZUL Primary Care Unavailabl e ERMINY HOLLOWAY, AZUL Primary Care Unavailabl ANNY Martinez Attending Unavailable GORDY POTTER Attending Unavailable [facility], JOSE Primary Care Unavailable GORDY POTTER Attending Unavailable [facility], JOSE Primary Care Unavailable MYRA NICE Attending Unavailable ERMINY HOLLOWAY, AZUL Primary Care Unavailabl e [place], JOSE Primary Care Unavailable ITALIA, DENIZ Attending Unavailabl e [facility], JOSE Primary Care Unavailable ARSNEY, NICK ABHIJIT Referring Unavailable ARSHIAN, NICK ABHIJIT Admitting Unavailable [facility] Consulting Maricruz lew [facility] Attending Unavailable TODD DE LEON Admitting Unavailable [facility], JOSE Primary Care Unavailable ITALIA, DENIZ Consulting Unavailabl e EZIKE, JOCE SHANNAICETUS Consulting Unavaila ble ELLEN BONILLA Consulting Unavailab le Tylor ROMERO, [facility] Primary Care Provider Tylor ROMERO, [facility] Unavailable ELLEN BONILLA Admitting Unavailab le ELLEN BONILLA Attending Unavailab le [facility], [facility] Primary Care Unavailable FERMIN COVARRUBIAS Attending Unavailable ELLEN BONILLA Admitting Unavailab le [facility], [facility] Primary Care Unavailable [facility], [facility] Primary Care Unavailable [facility], DENIZ Referring Unavailabl e ITALIA, DENIZ Admitting Unavailabl e ITALIA, DENIZ Referring Unavailabl e ITALIA, DENIZ Admitting Unavailabl e [place], [facility] Primary Care Unavailable [facility], DENIZ Admitting Unavailabl e ITALIA, DENIZ Referring Unavailabl e [place], [facility] Primary Care Unavailable [facility], DENIZ Admitting Unavailabl e ITALIA, DENIZ Referring Unavailabl e [place], [facility] Primary Care Unavailable ELLEN BONILLA Attending Unavailab le [facility], [facility] Primary Care Unavailable ELLEN BONILLA Admitting Unavailab le ELLEN BONILLA Attending Unavailab le [facility], [facility] Primary Care Unavailable KIM SALGADO Attending Unavailable [facility] Admitting Unavailable [facility], [facility] Primary Care Unavailable [facility], DENIZ Consulting Unavailabl e ELLEN BONILLA Consulting Unavailab le [facility], [facility] Primary Care Unavailable [facility], DENIZ Referring Unavailabl e ITALIA, DENIZ Admitting Unavailabl e [facility], [facility] Primary Care Unavailable ELLEN BONILLA Admitting Unavailab le [facility], [facility] Primary Care Unavailable [facility], DENIZ Referring Unavailabl e ITALIA, DENIZ Admitting Unavailabl e [facility], [facility] Primary Care Unavailable ELLEN BONILLA Admitting Unavailab le condition, and creating a complication requiring operation were discussed with the patient. The patient concurred with the proposed plan, giving consent. Supporting Documentation Indications: pain Procedure Details Location: shoulder - L subacromial bursa Local Anesthetic Used: mL of ethyl chloride (cold spray) Preparation: Patient was prepped in the usual sterile fashion with alcohol. Needle size: 22 G Approach: posterior Medication Verification: I have personally verified and performed the final check of the medication(s) used in this procedure prior to administration. The following items were included during the verification process for medication(s) administered: drug name, strength, volume, expiration, physical integrity and appearance of the medication(s). Medications administered: 2 mL bupivacaine 0.5 %; 4 mL lidocaine 10 mg/mL; 40 mg methylPREDNISolone acetate 40 MG/ML Patient tolerance: patient tolerated the procedure well with no immediate complications [facility] Work Phone: CBC with Diffon 12-25-2017 Basophils Auto #/vol (Bld) 0.0 K/mcL Normal 0-0.2 [facility] Comment on above: Performed By: #### C BCWOD, PT, PTT, CHEM8, LIPID ####Unless otherwise noted, all testing performed by [address] [phone]: [id number] Director: Juan Mcbride M.D. Basophils/100 WBC Auto (Bld) 0.3 % Normal [facility] Comment on above: Performed By: #### C BCWOD, PT, PTT, CHEM8, LIPID ####Unless otherwise noted, all testing performed by [address] [phone]: [id number] Director: Juan Mcbride M.D. Eosinophils 0.0 K/mcL Normal 0-0.5 [facility] Comment on above: Performed By: #### C BCWOD, PT, PTT, CHEM8, LIPID ####Unless otherwise noted, all testing performed by [address] [phone]: [id number] Director: Juan Mcbride M.D. Eosinophils/100 leukocytes 0.1 % Normal [facility] Comment on above: Performed By: #### C BCWOD, PT, PTT, CHEM8, LIPID ####Unless otherwise noted, all testing performed by [phone]: [id number] Director: Juan Mcbride M.D. Erythrocyte distribution width Auto Ratio (RBC) 13.2 % Normal 10.0-14.4 [facility] Comment on above: Performed By: #### C BCWOD, PT, PTT, CHEM8, LIPID ####Unless otherwise noted, all testing performed by [place] [phone]: [id number] Director: Juan Mcbride M.D. Erythrocyte morphology Normal Normal Normal [facility] Comment on above: Performed By: #### C BCWOD, PT, PTT, CHEM8, LIPID ####Unless otherwise noted, all testing performed by [place] [phone]: [id number] Director: Juan Mcbride M.D. Erythrocytes (RBC) 5.05 M/mcL High 3.7-5.0 [facility] Comment on above: Performed By: #### C BCWOD, PT, PTT, CHEM8, LIPID ####Unless otherwise noted, all testing performed by [address] [phone]: [id number] Director: Juan Mcbride M.D. Hematocrit (HCT) 44.5 % Normal 34.4-44.8 [facility] Comment on above: Performed By: #### C BCWOD, PT, PTT, CHEM8, LIPID ####Unless otherwise noted, all testing performed by [address] [phone]: [id number] Director: Juan Mcbride M.D. Hemoglobin mass conc (Bld) 15.4 g/dL Normal 11.6-15.4 [facility] Comment on above: Performed By: #### C BCWOD, PT, PTT, CHEM8, LIPID ####Unless otherwise noted, all testing performed by [address] [phone]: [id number] Director: Juan Mcbride M.D. Lymphocytes 0.8 K/mcL Low 1.0-3.7 [facility] Comment on above: Performed By: #### C BCWOD, PT, PTT, CHEM8, LIPID ####Unless otherwise noted, all testing performed by [address] [phone]: [id number] Director: Juan Mcbride M.D. Lymphocytes/100 leukocytes 26.1 % Normal [facility] Comment on above: Performed By: #### C BCWOD, PT, PTT, CHEM8, LIPID ####Unless otherwise noted, all testing performed by [address] [phone]: [id number] Director: Juan Mcbride M.D. MCH 30.4 pg Normal 27.9-33.9 [facility] Comment on above: Performed By: #### C BCWOD, PT, PTT, CHEM8, LIPID ####Unless otherwise noted, all testing performed by [address] [phone]: [id number] Director: Juan Mcbride M.D. [facility] mass conc (RBC) 34.5 g/dL Normal 33.1-35.1 [facility] Comment on above: Performed By: #### C BCWOD, PT, PTT, CHEM8, LIPID ####Unless otherwise noted, all testing performed by [address] [phone]: [id number] Director: Juan Mcbride M.D. MCV 88.1 fL Normal 82.6-98.9 [facility] Comment on above: Performed By: #### C BCWOD, PT, PTT, CHEM8, LIPID ####Unless otherwise noted, all testing performed by [address] [phone]: [id number] Director: Juan Mcbride M.D. Monocytes 0.5 K/mcL Normal 0.1-0.6 [facility] Comment on above: Performed By: #### C BCWOD, PT, PTT, CHEM8, LIPID ####Unless otherwise noted, all testing performed by [address] [phone]: [id number] Director: Juan Mcbride M.D. Monocytes/100 leukocytes 15.6 % Normal [facility] Comment on above: Performed By: #### C BCWOD, PT, PTT, CHEM8, LIPID ####Unless otherwise noted, all testing performed by [address] [phone]: [id number] Director: Juan Mcbride M.D. Neutrophils 1.8 K/mcL Normal 1.2-6.9 [facility] Comment on above: Performed By: #### C BCWOD, PT, PTT, CHEM8, LIPID ####Unless otherwise noted, all testing performed by [place] [phone]: [id number] Director: Juan Mcbride M.D. Platelet mean volume (PMV) 7.9 fL Normal 7.0-10.6 [facility] Comment on above: Performed By: #### C BCWOD, PT, PTT, CHEM8, LIPID ####Unless otherwise noted, all testing performed by [phone]: [id number] Director: Juan Mcbride M.D. Platelets 143 K/mcL Low 162-402 [facility] Comment on above: Performed By: #### C BCWOD, PT, PTT, CHEM8, LIPID ####Unless otherwise noted, all testing performed by [address] [phone]: [id number] Director: Juan Mcbride M.D. Segmented Neut % 57.9 % Normal [facility] Comment on above: Result Comment: Smea r reviewed to verify automated differential> Performed By: #### C BCWOD, PT, PTT, CHEM8, LIPID ####Unless otherwise noted, all testing performed by [address] [phone]: [id number] Director: Juan Mcbride M.D. WBC (Leukocytes) 3.1 K/mcL Low 3.4-10.6 [facility] Comment on above: Performed By: #### C BCWOD, PT, PTT, CHEM8, LIPID ####Unless otherwise noted, all testing performed by [address] [phone]: [id number] Director: Juan Mcbride M.D. CHEST (ONE VIEW ONLY)on 12-04 CHEST (ONE VIEW ONLY) Final ReportAccession No: [id number] Performed: Dec 25 2017 6:44PMExamination: CHEST (ONE VIEW ONLY)EXAM: CHEST (ONE VIEW ONLY)CLINICAL HISTORY: 67-year-old female presenting with febrile illness.TECHNIQUE: 1 view chest x-ray.COMPARISON: None.FINDINGS: Lungs are hyperinflated with chronic coarsening of theinterstitium.No pneumothorax, pleural effusion or focal airspace consolidation. Heartisnormal in size. Bony thorax is unremarkable.IMPRESSION:1 . No focal airspace consolidation.2. Radiographic findings suggestive of COPD.Interpreting Physician: VIVIAN MAYA D.O.Trans: lwolfe : cc: Normal [facility] Comprehensive Metabolic Pane emi 12-25-2017 Alanine aminotransferase (ALT) 26 U/L Normal 14-65 [facility] Comment on above: Result Comment: This test result might be falsely depressed or falsely elevated onsamples drawn from patients taking Sulfasalazine and Sulfapyridine.Venipuncture should occur prior to taking either of these drugs. Performed By: #### C BCWOD, PT, PTT, CHEM8, LIPID ####Unless otherwise noted, all testing performed by [address] [phone]: [id number] Director: Juan Mcbride M.D. Albumin 3.5 g/dL Normal 3.2-5.2 [facility] Comment on above: Performed By: #### C BCWOD, PT, PTT, CHEM8, LIPID ####Unless otherwise noted, all testing performed by [address] [phone]: [id number] Director: Juan Mcbride M.D. Alkaline phosphatase (ALP) 97 U/L Normal 40-150 [facility] Comment on above: Performed By: #### C BCWOD, PT, PTT, CHEM8, LIPID ####Unless otherwise noted, all testing performed by [address] [phone]: [id number] Director: Juan Mcbride M.D. Aspartate aminotransferase (AST) 37 U/L Normal 0-45 [facility] Comment on above: Result Comment: This test result might be falsely depressed or falsely elevated onsamples drawn from patients taking Sulfasalazine and Sulfapyridine.Venipuncture should occur prior to taking either of these drugs. Performed By: #### C BCWOD, PT, PTT, CHEM8, LIPID ####Unless otherwise noted, all testing performed by [address] [phone]: [id number] Director: Juan Mcbride M.D. Bilirubin (total) 0.6 mg/dL Normal 0.3-1.2 [facility] Comment on above: Performed By: #### C BCWOD, PT, PTT, CHEM8, LIPID ####Unless otherwise noted, all testing performed by [address] [phone]: [id number] Director: Juan Mcbride M.D. Calcium 8.4 mg/dL Normal 8.4-10.2 [facility] Comment on above: Performed By: #### C BCWOD, PT, PTT, CHEM8, LIPID ####Unless otherwise noted, all testing performed by [address] [phone]: [id number] Director: Juan Mcbride M.D. Chloride 100 mmol/L Normal 98-108 [facility] Comment on above: Performed By: #### C BCWOD, PT, PTT, CHEM8, LIPID ####Unless otherwise noted, all testing performed by [address] [phone]: [id number] Director: Juan Mcbride M.D. CO2 22 mmol/L Normal 21-32 [facility] Comment on above: Performed By: #### C BCWOD, PT, PTT, CHEM8, LIPID ####Unless otherwise noted, all testing performed by [place] [phone]: [id number] Director: Juan Mcbride M.D. Creatinine 0.73 mg/dL Normal 0.60-1.20 [facility] Comment on above: Performed By: #### C BCWOD, PT, PTT, CHEM8, LIPID ####Unless otherwise noted, all testing performed by [address] [phone]: [id number] Director: Juan Mcbride M.D. eGFR (black) mL/min/{1.73_m2} Normal [facility] Comment on above: Result Comment: Afri can Syrian GFR Calc Performed By: #### C BCWOD, PT, PTT, CHEM8, LIPID ####Unless otherwise noted, all testing performed by [place] [address] [place], [place] [phone]: [id number] Director: Juan Mcbride M.D. eGFR (non-black) mL/min/{1.73_m2} Normal [facility] Comment on above: Result Comment: Non- GFR CalceGFR is an estimated Glomerular Filtration Rate based on the valueof the patient's serum creatinine. In outpatients, eGFR should be usedas a helpful tool in screening for CKD. In inpatients or patients withacute renal failure, eGFR represents the GFR at the moment of the drawand should be used with caution. Performed By: #### C BCWOD, PT, PTT, CHEM8, LIPID ####Unless otherwise noted, all testing performed by [address], [place] [phone]: [id number] Director: Juan Mcbried M.D. Glucose mass conc 104 mg/dL High 70-99 [facility] Comment on above: Result Comment: This test result might be falsely depressed or falsely elevated onsamples drawn from patients taking Sulfasalazine and Sulfapyridine.Venipuncture should occur prior to taking either of these drugs. Performed By: #### C BCWOD, PT, PTT, CHEM8, LIPID ####Unless otherwise noted, all testing performed by [place] [address] [facility].[place], [place] [phone]: [id number] Director: Juan Mcbride M.D. Potassium molar conc 4.0 mmol/L Normal 3.5-5.1 [facility] Comment on above: Performed By: #### C BCWOD, PT, PTT, CHEM8, LIPID ####Unless otherwise noted, all testing performed by [place] [address] [facility], [place] [phone]: [id number] Director: Juan Mcbride M.D. Protein 7.4 g/dL Normal 6.0-8.0 [facility] Comment on above: Performed By: #### C BCWOD, PT, PTT, CHEM8, LIPID ####Unless otherwise noted, all testing performed by [address] [phone]: [id number] Director: Juan Mcbride M.D. Sodium 132 mmol/L Low 135-145 [facility] Comment on above: Performed By: #### C BCWOD, PT, PTT, CHEM8, LIPID ####Unless otherwise noted, all testing performed by [address] [phone]: [id number] Director: Juan Mcbride M.D. Urea nitrogen 14 mg/dL Normal 8-25 [facility] Comment on above: Performed By: #### C BCWOD, PT, PTT, CHEM8, LIPID ####Unless otherwise noted, all testing performed by [address] [phone]: [id number] Director: Juan Mcbride M.D. Influenza A,B Rapid Molecula victor hugo 12-25-2017 Influenza A Rapid Molecular Not Detected Normal Not Detected [facility] Comment on above: Performed By: #### C BCWOD, PT, PTT, CHEM8, LIPID ####Unless otherwise noted, all testing performed by [address] [phone]: [id number] Director: Juan Mcbride M.D. Influenza B Rapid Molecular Detected Abnormal Not Detected [facility] Comment on above: Performed By: #### C BCWOD, PT, PTT, CHEM8, LIPID ####Unless otherwise noted, all testing performed by [address] [phone]: [id number] Director: Juan Mcbride M.D. Basic Metabolic Panelon - Calcium 8.4 mg/dL Normal 8.4-10.2 [facility] Comment on above: Performed By: #### C BCWOD, PT, PTT, CHEM8, LIPID ####Unless otherwise noted, all testing performed by [place] [phone]: [id number] Director: Juan Mcbride M.D. Chloride 105 mmol/L Normal 98-108 [facility] Comment on above: Performed By: #### C BCWOD, PT, PTT, CHEM8, LIPID ####Unless otherwise noted, all testing performed by [place] [phone]: [id number] Director: Juan Mcbride M.D. CO2 26 mmol/L Normal 21-32 [facility] Comment on above: Performed By: #### C BCWOD, PT, PTT, CHEM8, LIPID ####Unless otherwise noted, all testing performed by [address] [phone]: [id number] Director: Juan Mcbride M.D. Creatinine 0.91 mg/dL Normal 0.60-1.20 [facility] Comment on above: Performed By: #### C BCWOD, PT, PTT, CHEM8, LIPID ####Unless otherwise noted, all testing performed by [address] [phone]: [id number] Director: Juan Mcbride M.D. eGFR (black) mL/min/{1.73_m2} Normal [facility] Comment on above: Result Comment: Afri can Syrian GFR Calc Performed By: #### C BCWOD, PT, PTT, CHEM8, LIPID ####Unless otherwise noted, all testing performed by [address] [phone]: [id number] Director: Juan Mcbride M.D. eGFR (non-black) mL/min/{1.73_m2} Normal [facility] Comment on above: Result Comment: Non- GFR CalceGFR is an estimated Glomerular Filtration Rate based on the valueof the patient's serum creatinine. In outpatients, eGFR should be usedas a helpful tool in screening for CKD. In inpatients or patients withacute renal failure, eGFR represents the GFR at the moment of the drawand should be used with caution. Performed By: #### C BCWOD, PT, PTT, CHEM8, LIPID ####Unless otherwise noted, all testing performed by [address] [phone]: [id number] Director: Juan Mcbride M.D. Glucose mass conc 182 mg/dL High 70-99 [facility] Comment on above: Result Comment: This test result might be falsely depressed or falsely elevated onsamples drawn from patients taking Sulfasalazine and Sulfapyridine.Venipuncture should occur prior to taking either of these drugs. Performed By: #### C BCWOD, PT, PTT, CHEM8, LIPID ####Unless otherwise noted, all testing performed by [address], [place] [phone]: [id number] Director: Juan Mcbride M.D. Potassium molar conc 3.9 mmol/L Normal 3.5-5.1 [facility] Comment on above: Performed By: #### C BCWOD, PT, PTT, CHEM8, LIPID ####Unless otherwise noted, all testing performed by [address] [phone]: [id number] Director: Juan Mcbride M.D. Sodium 139 mmol/L Normal 135-145 [facility] Comment on above: Performed By: #### C BCWOD, PT, PTT, CHEM8, LIPID ####Unless otherwise noted, all testing performed by [place] [phone]: [id number] Director: Juan Mcbride M.D. Urea nitrogen 24 mg/dL Normal 8-25 [facility] Comment on above: Performed By: #### C BCWOD, PT, PTT, CHEM8, LIPID ####Unless otherwise noted, all testing performed by [address] [phone]: [id number] Director: Juan Mcbride M.D. CBC with Diffon 09-17-2017 Basophils Auto #/vol (Bld) 0.1 K/mcL Normal 0-0.2 [facility] Comment on above: Performed By: #### C BCWOD, PT, PTT, CHEM8, LIPID ####Unless otherwise noted, all testing performed by [address] [phone]: [id number] Director: Juan Mcbride M.D. Basophils/100 WBC Auto (Bld) 0.9 % Normal [facility] Comment on above: Performed By: #### C BCWOD, PT, PTT, CHEM8, LIPID ####Unless otherwise noted, all testing performed by [address] [phone]: [id number] Director: Juan Mcbride M.D. Eosinophils 0.4 K/mcL Normal 0-0.5 [facility] Comment on above: Performed By: #### C BCWOD, PT, PTT, CHEM8, LIPID ####Unless otherwise noted, all testing performed by [address] [phone]: [id number] Director: Juan Mcbride M.D. Eosinophils/100 leukocytes 5.4 % Normal [facility] Comment on above: Performed By: #### C BCWOD, PT, PTT, CHEM8, LIPID ####Unless otherwise noted, all testing performed by [address] [phone]: [id number] Director: Juan Mcbride M.D. Erythrocyte distribution width Auto Ratio (RBC) 12.9 % Normal 10.0-14.4 [facility] Comment on above: Performed By: #### C BCWOD, PT, PTT, CHEM8, LIPID ####Unless otherwise noted, all testing performed by [address] [phone]: [id number] Director: Juan Mcbride M.D. Erythrocytes (RBC) 4.88 M/mcL Normal 3.7-5.0 [facility] Comment on above: Performed By: #### C BCWOD, PT, PTT, CHEM8, LIPID ####Unless otherwise noted, all testing performed by [address] [phone]: [id number] Director: Juan Mcbride M.D. Hematocrit (HCT) 43.9 % Normal 34.4-44.8 [facility] Comment on above: Performed By: #### C BCWOD, PT, PTT, CHEM8, LIPID ####Unless otherwise noted, all testing performed by [address] [phone]: [id number] Director: Juan Mcbride M.D. Hemoglobin mass conc (Bld) 14.7 g/dL Normal 11.6-15.4 [facility] Comment on above: Performed By: #### C BCWOD, PT, PTT, CHEM8, LIPID ####Unless otherwise noted, all testing performed by [address] [phone]: [id number] Director: Juan Mcbride M.D. Lymphocytes 3.5 K/mcL Normal 1.0-3.7 [facility] Comment on above: Performed By: #### C BCWOD, PT, PTT, CHEM8, LIPID ####Unless otherwise noted, all testing performed by [address] [phone]: [id number] Director: Juan Mcbride M.D. Lymphocytes/100 leukocytes 49.5 % Normal [facility] Comment on above: Performed By: #### C BCWOD, PT, PTT, CHEM8, LIPID ####Unless otherwise noted, all testing performed by [place] [phone]: [id number] Director: Juan Mcbride M.D. MCH 30.1 pg Normal 27.9-33.9 [facility] Comment on above: Performed By: #### C BCWOD, PT, PTT, CHEM8, LIPID ####Unless otherwise noted, all testing performed by [address] [phone]: [id number] Director: Juan Mcbride M.D. MCHC mass conc (RBC) 33.5 g/dL Normal 33.1-35.1 [facility] Comment on above: Performed By: #### C BCWOD, PT, PTT, CHEM8, LIPID ####Unless otherwise noted, all testing performed by [address] [phone]: [id number] Director: Juan Mcbride M.D. MCV 89.9 fL Normal 82.6-98.9 [facility] Comment on above: Performed By: #### C BCWOD, PT, PTT, CHEM8, LIPID ####Unless otherwise noted, all testing performed by [address] [phone]: [id number] Director: Juan Mcbride M.D. Monocytes 0.6 K/mcL Normal 0.1-0.6 [facility] Comment on above: Performed By: #### C BCWOD, PT, PTT, CHEM8, LIPID ####Unless otherwise noted, all testing performed by [address] [phone]: [id number] Director: Juan Mcbride M.D. Monocytes/100 leukocytes 7.8 % Normal [facility] Comment on above: Performed By: #### C BCWOD, PT, PTT, CHEM8, LIPID ####Unless otherwise noted, all testing performed by [address]8509CLIA: [id number] Director: Juan Mcbride M.D. Neutrophils 2.6 K/mcL Normal 1.2-6.9 [facility] Comment on above: Performed By: #### C BCWOD, PT, PTT, CHEM8, LIPID ####Unless otherwise noted, all testing performed by [address]8509CLIA: [id number] Director: Juan Mcbride M.D. Platelet mean volume (PMV) 8.4 fL Normal 7.0-10.6 [facility] Comment on above: Performed By: #### C BCWOD, PT, PTT, CHEM8, LIPID ####Unless otherwise noted, all testing performed by [address]8509CLIA: [id number] Director: Juan Mcbride M.D. Platelets 226 K/mcL Normal 162-402 [facility] Comment on above: Performed By: #### C BCWOD, PT, PTT, CHEM8, LIPID ####Unless otherwise noted, all testing performed by [address]8509CLIA: [id number] Director: Juan Mcbride M.D. Segmented Neut % 36.4 % Normal [facility] Comment on above: Performed By: #### C BCWOD, PT, PTT, CHEM8, LIPID ####Unless otherwise noted, all testing performed by [address] [phone]: [id number] Director: Juan Mcbride M.D. WBC (Leukocytes) 7.1 K/mcL Normal 3.4-10.6 [facility] Comment on above: Performed By: #### C BCWOD, PT, PTT, CHEM8, LIPID ####Unless otherwise noted, all testing performed by [address] [phone]: [id number] Director: Juan Mcbride M.D. Glucose, POCon 09-17-2017 Glucose mass conc 221 mg/dL High 80-115 [facility] Comment on above: Performed By: #### C BCWOD, PT, PTT, CHEM8, LIPID ####Unless otherwise noted, all testing performed by [address] [phone]: [id number] Director: Juan Mcbride M.D. Glucose mass conc 87 mg/dL Normal 80-115 [facility] Comment on above: Performed By: #### C BCWOD, PT, PTT, CHEM8, LIPID ####Unless otherwise noted, all testing performed by [address] [phone]: [id number] Director: Juan Mcbride M.D. Glucose mass conc 175 mg/dL High 80-[address] [place] [address] Comment on above: Performed By: #### G LUX ####Unless otherwise noted, all testing performed by [address], [place] [phone]: [id number] Director: Juan Mcbride M.D. Basic Metabolic Panelon - Calcium 9.0 mg/dL Normal 8.4-10.2 [facility] Comment on above: Performed By: #### C BCWOD, PT, PTT, CHEM8, LIPID ####Unless otherwise noted, all testing performed by [address] [phone]: [id number] Director: Juan Mcbride M.D. Chloride 106 mmol/L Normal 98-108 [facility] Comment on above: Performed By: #### C BCWOD, PT, PTT, CHEM8, LIPID ####Unless otherwise noted, all testing performed by [address] [phone]: [id number] Director: Juan Mcbride M.D. CO2 27 mmol/L Normal 21-32 [facility] Comment on above: Performed By: #### C BCWOD, PT, PTT, CHEM8, LIPID ####Unless otherwise noted, all testing performed by [address] [phone]: [id number] Director: Juan Mcbride M.D. Creatinine 0.77 mg/dL Normal 0.60-1.20 [facility] Comment on above: Performed By: #### C BCWOD, PT, PTT, CHEM8, LIPID ####Unless otherwise noted, all testing performed by [address] [phone]: [id number] Director: Juan Mcbride M.D. eGFR (black) mL/min/{1.73_m2} Normal [facility] Comment on above: Result Comment: Afri can Syrian GFR Calc Performed By: #### C BCWOD, PT, PTT, CHEM8, LIPID ####Unless otherwise noted, all testing performed by [address] [phone]: [id number] Director: Juan Mcbride M.D. eGFR (non-black) mL/min/{1.73_m2} Normal [facility] Comment on above: Result Comment: Non- GFR CalceGFR is an estimated Glomerular Filtration Rate based on the valueof the patient's serum creatinine. In outpatients, eGFR should be usedas a helpful tool in screening for CKD. In inpatients or patients withacute renal failure, eGFR represents the GFR at the moment of the drawand should be used with caution. Performed By: #### C BCWOD, PT, PTT, CHEM8, LIPID ####Unless otherwise noted, all testing performed by [address] [phone]: [id number] Director: Juan Mcbride M.D. Glucose mass conc 94 mg/dL Normal 70-99 [facility] Comment on above: Result Comment: This test result might be falsely depressed or falsely elevated onsamples drawn from patients taking Sulfasalazine and Sulfapyridine.Venipuncture should occur prior to taking either of these drugs. Performed By: #### C BCWOD, PT, PTT, CHEM8, LIPID ####Unless otherwise noted, all testing performed by [address] [phone]: [id number] Director: Juan Mcbride M.D. Potassium molar conc 5.0 mmol/L Normal 3.5-5.1 [facility] Comment on above: Performed By: #### C BCWOD, PT, PTT, CHEM8, LIPID ####Unless otherwise noted, all testing performed by [address] [phone]: [id number] Director: Juan Mcbride M.D. Sodium 139 mmol/L Normal 135-145 [facility] Comment on above: Performed By: #### C BCWOD, PT, PTT, CHEM8, LIPID ####Unless otherwise noted, all testing performed by [address] [phone]: [id number] Director: Juan Mcbride M.D. Urea nitrogen 18 mg/dL Normal 8-25 [facility] Comment on above: Performed By: #### C BCWOD, PT, PTT, CHEM8, LIPID ####Unless otherwise noted, all testing performed by [address] [phone]: [id number] Director: Juan Mcbride M.D. CBC w/o Diffon 09-16-2017 Erythrocyte distribution width Auto Ratio (RBC) 12.9 % Normal 10.0-14.4 [facility] Comment on above: Performed By: #### C BCWOD, PT, PTT, CHEM8, LIPID ####Unless otherwise noted, all testing performed by [address] [phone]: [id number] Director: Juan Mcbride M.D. Erythrocytes (RBC) 5.34 M/mcL High 3.7-5.0 [facility] Comment on above: Performed By: #### C BCWOD, PT, PTT, CHEM8, LIPID ####Unless otherwise noted, all testing performed by [address] [phone]: [id number] Director: Juan Mcbride M.D. Hematocrit (HCT) 48.4 % High 34.4-44.8 [facility] Comment on above: Performed By: #### C BCWOD, PT, PTT, CHEM8, LIPID ####Unless otherwise noted, all testing performed by [address] [phone]: [id number] Director: Juan Mcbride M.D. Hemoglobin mass conc (Bld) 16.4 g/dL High 11.6-15.4 [facility] Comment on above: Performed By: #### C BCWOD, PT, PTT, CHEM8, LIPID ####Unless otherwise noted, all testing performed by [address] [phone]: [id number] Director: Juan Mcbride M.D. MCH 30.8 pg Normal 27.9-33.9 [facility] Comment on above: Performed By: #### C BCWOD, PT, PTT, CHEM8, LIPID ####Unless otherwise noted, all testing performed by [address] [phone]: [id number] Director: Juan Mcbride M.D. MCHC mass conc (RBC) 33.9 g/dL Normal 33.1-35.1 [facility] Comment on above: Performed By: #### C BCWOD, PT, PTT, CHEM8, LIPID ####Unless otherwise noted, all testing performed by [facility] [phone]: [id number] Director: Juan Mcbride M.D. MCV 90.7 fL Normal 82.6-98.9 [facility] Comment on above: Performed By: #### C BCWOD, PT, PTT, CHEM8, LIPID ####Unless otherwise noted, all testing performed by [address] [phone]: [id number] Director: Juan Mcbride M.D. Platelet mean volume (PMV) 8.1 fL Normal 7.0-10.6 [facility] Comment on above: Performed By: #### C BCWOD, PT, PTT, CHEM8, LIPID ####Unless otherwise noted, all testing performed by [address] [phone]: [id number] Director: Juan Mcbride M.D. Platelets 257 K/mcL Normal 162-402 [facility] Comment on above: Performed By: #### C BCWOD, PT, PTT, CHEM8, LIPID ####Unless otherwise noted, all testing performed by [address] [phone]: [id number] Director: Juan Mcbride M.D. WBC (Leukocytes) 7.0 K/mcL Normal 3.4-10.6 [facility] Comment on above: Performed By: #### C BCWOD, PT, PTT, CHEM8, LIPID ####Unless otherwise noted, all testing performed by [address] [phone]: [id number] Director: Juan Mcbride M.D. CT BRAIN STROKE PROTOCOLon 1 11-16-2016 CT BRAIN STROKE PROTOCOL Final ReportAccession No: [id number] Performed: Sep 16 2017 12:33PMExamination: CT BRAIN STROKE PROTOCOLCLINICAL HISTORY: 67-year-old female with unsteady gait, headache andright facial droop.CT BRAIN WITHOUT CONTRAST 09/16/2017 12:33 PMCOMPARISON: 01/26/[address]TECHNIQUE: Utilizing a multichannel CT scanner, contiguous helical axialimaging was performed, with subcentimeter collimation, from the skullbase through the skull vertex. Then 3 x 3 mm axial reformat images wereperformed.FINDINGS: The lateral ventricles are mildly enlarged. The third andfourth ventricles are normal size and position. There is periventricularand subcortical hypodensity. There is encephalomalacia of the left medialoccipital lobe. There are no masses or mass effect. There are noparenchymal hemorrhages or extra-axial fluid collections. The cerebellumand brainstem are normal. Visualized paranasal sinuses and mastoid aircells are clear. There is atherosclerotic calcification of theintracavernous portions of the internal carotid arteries. Osseouscalvarium is normal.IMPRESSION:1. No acute intracranial pathology.2. Mild cerebral atrophy.3. Periventricular and subcortical white matter changes consistent withdemyelination/dysmyel ination and/or microangiopathic ischemic changes ofaging.4. Remote left occipital lobe infarct.5. Atherosclerosis.Wet reading rendered per stroke protocol alert protocol. On 09/16/2017 at12:40, Anny Walters, Aligning Inspector in [facility] Emergency Roomconfirmed receipt of this Wet Reading report via [employer].Interpreting Physician: AVNI PLASCENCIA M.D.Trans: [id number] : cc: Normal [facility] Glucose, POCon 09-16-2017 Glucose mass conc 222 mg/dL High 80-115 [facility] Comment on above: Performed By: #### G LUX ####Unless otherwise noted, all testing performed by [place] [address], [place] [phone]: [id number] Director: Juan Mcbride M.D. Glucose mass conc 92 mg/dL Normal 80-115 [facility] Comment on above: Performed By: #### G LUX ####Unless otherwise noted, all testing performed by [address] [phone]: [id number] Director: Juan Mcbride M.D. Hemoglobin A1Con 09-16-2017 Hemoglobin A1c/Hemoglobin.total mass fraction (Bld) 7.4 % High 4.1-6.5 [facility] Comment on above: Performed By: #### H BA1C ####Unless otherwise noted, all testing performed by [address] [phone]: [id number] Director: Juan Mcbride M.D. Lipid Panelon 09-16-2017 Cholesterol 217 mg/dL High 100-199 [facility] Comment on above: Performed By: #### C BCWOD, PT, PTT, CHEM8, LIPID ####Unless otherwise noted, all testing performed by [address] [phone]: [id number] Director: Juan Mcbride M.D. Cholesterol in VLDL mass conc 26 mg/dL Normal 5-40 [facility] Comment on above: Performed By: #### C BCWOD, PT, PTT, CHEM8, LIPID ####Unless otherwise noted, all testing performed by [address] [phone]: [id number] Director: Juan Mcbride M.D. Cholesterol to HDL Ratio 4.0 {ratio} Normal 3.2-5.0 [facility] Comment on above: Result Comment: Jan mota Coronary Heart Disease Risk Factor (CHDRF):Average risk= 4.41/2 Average risk= 3.32 times Average risk= 7.1 Performed By: #### C BCWOD, PT, PTT, CHEM8, LIPID ####Unless otherwise noted, all testing performed by [place] [phone]: [id number] Director: Juan Mcbride M.D. HDL Cholesterol 55 mg/dL Normal 40-59 [facility] Comment on above: Performed By: #### C BCWOD, PT, PTT, CHEM8, LIPID ####Unless otherwise noted, all testing performed by [place] [phone]: [id number] Director: Juan Mcbride M.D. LDL Cholesterol 136 mg/dL Normal 10-150 [facility] Comment on above: Performed By: #### C BCWOD, PT, PTT, CHEM8, LIPID ####Unless otherwise noted, all testing performed by [phone]: [id number] Director: Juan Mcbride M.D. Triglyceride 130 mg/dL High 25-120 [facility] Comment on above: Performed By: #### C BCWOD, PT, PTT, CHEM8, LIPID ####Unless otherwise noted, all testing performed by [place] [phone]: [id number] Director: Juan Mcbride M.D. MRI BRAIN W/O CONTon -15-2 017 MRI BRAIN W/O CONT Final ReportAccession No: [id number] Performed: Sep 16 2017 7:31PMExamination: MRI BRAIN W/O [id number] female with headache, right facial droop and unsteady gait.MRI BRAIN WITHOUT CONTRAST 09/16/2017 7:31 PMTECHNIQUE: Multiplanar multisequence MR images of the brain withoutcontrast were obtained.COMPARISON: 01/24/2017 brain MRI.FINDINGS: The lateral ventricles are mildly enlarged. The third andfourth ventricles are normal size and position. Cortical sulci andsylvian fissures are prominent. There is periventricular and subcorticalhyperintense T2 signal. There is encephalomalacia involving the medialleft occipital lobe with adjacent gliosis. Increased T2 signal at theperiphery of this infarct on echo planar sequences is consistent with G8butct through. No restricted diffusion is appreciated. No masses or masseffect. No acute parenchymal hemorrhages or extra-axial fluidcollections. The cerebellum and brainstem are unremarkable. The paranasalsinuses and mastoid air cells are clear. The arterial and venous vascularflow voids are well-maintained. Osseous calvarium is normal.IMPRESSION:1. No acute intracranial pathology.2. Mild cerebral atrophy.3. Periventricular and subcortical white matter changes consistent withdemyelination/dysmyel ination and/or microangiopathic ischemic changes ofaging.4. Remote left occipital infarct.Interpreting Physician: AVNI PLASCENCIA M.D.Trans: : cc: Normal [facility] Partial Thromboplastin Timeo n 09-16-2017 aPTT 25.5 s Normal 22.0-36.0 [facility] Comment on above: Result Comment: Trice chung therapeutic range for PTT is 68-104 sec. Performed By: #### C BCWOD, PT, PTT, CHEM8, LIPID ####Unless otherwise noted, all testing performed by [place] [address] [place], [place] [phone]: [id number] Director: Juan Mcbride M.D. Protimeon 09-16-2017 INR Coag RelTime (PPP) 1.01 {INR} Normal [facility] Comment on above: Result Comment: The [employer] recommended therapeutic rangefor Warfarin (Coumadin) therapy goals:PROPHYLAXIS/TREATMENT of:INRVenous Thrombosis, Pulmonary Embolism2.0-3.0Prevention of VTE (Orthopedic Surgery)2.0-3.0Atrial Fibrillation2.0-3.0Myocardial Infarction2.0-3.0Mechanical Prosthetic Heart Valves (Aortic position)2.0-3.0Mechanical Prosthetic Heart Valves (Mitral Position)2.5-3.5American College of Chest [employer] evidence-based clinical practiceguidelines. CHEST. 2012 (9th ed) Performed By: #### C BCWOD, PT, PTT, CHEM8, LIPID ####Unless otherwise noted, all testing performed by [address] [phone]: [id number] Director: Juan Mcbride M.D. Prothrombin time (PT) Coag time (PPP) 13.0 s Normal 11.8-14.2 [facility] Comment on above: Performed By: #### C BCWOD, PT, PTT, CHEM8, LIPID ####Unless otherwise noted, all testing performed by [address] [phone]: [id number] Director: Juan Mcbride M.D. Vital Signs Date Time Vital Sign Value Performing Clinician Facility 06-28-2025 08:01-0400 Body temperature 98.29 [degF] Kim Salgado MD Work Phone: [facility] 06-28-2025 08:01-0400 Diastolic blood pressure 66 mm[Hg] Kim Salgado MD Work Phone: [facility] 06-28-2025 08:01-0400 Heart rate 80 /min Kim Salgado MD Work Phone: [facility] 06-28-2025 08:01-0400 Respiratory rate 18 /min Kim Salgado MD Work Phone: [facility] 06-28-2025 08:01-0400 SaO2% (BldA) [Mass fraction] 95 % Kim Salgado MD Work Phone: [facility] 06-28-2025 08:01-0400 Systolic blood pressure 107 mm[Hg] Kim Salgado MD Work Phone: [facility] 06-27-2025 20:03-0400 SaO2% (BldA) [Mass fraction] 93.7 % Kim Salgado MD Work Phone: [facility] 06-27-2025 00:17-0400 Body mass index (BMI) [Ratio] 27.38 kg/m2 Kim Salgado MD Work Phone: [facility] 06-27-2025 00:17-0400 Body weight 63.6 kg Kim Salgado MD Work Phone: [facility] 06-26-2025 20:52-0400 Body height 152.4 cm Kim Salgado MD Work Phone: [facility] 06-26-2025 15:05-0400 Body mass index (BMI) [Ratio] 23 kg/m2 Ellen Bonilla MD Work Phone: [facility] 06-26-2025 15:05-0400 Body weight 60.78 kg Ellen Bonilla MD Work Phone: [facility] 06-26-2025 15:05-0400 Diastolic blood pressure 66 mm[Hg] Ellen Bonilla MD Work Phone: [facility] 06-26-2025 15:05-0400 Heart rate 96 /min Ellen Bonilla MD Work Phone: [facility] 06-26-2025 15:05-0400 Systolic blood pressure 108 mm[Hg] Ellen Bonilla MD Work Phone: [facility] 06-22-2025 15:15-0400 Body mass index (BMI) [Ratio] 23.34 kg/m2 Ellen Bonilla MD Work Phone: [facility] 06-22-2025 15:15-0400 Body weight 61.69 kg Ellen Bonilla MD Work Phone: [facility] 06-22-2025 15:15-0400 Diastolic blood pressure 65 mm[Hg] Ellen Bonilla MD Work Phone: [facility] 06-22-2025 15:15-0400 Heart rate 75 /min Ellen Bonilla MD Work Phone: [facility] 06-22-2025 15:15-0400 SaO2% (BldA) [Mass fraction] 100 % Ellen Bonilla MD Work Phone: [facility] 06-22-2025 15:15-0400 Systolic blood pressure 109 mm[Hg] Ellen Bonilla MD Work Phone: [facility] 06-21-2025 09:20-0400 Body temperature 98.01 [degF] [facility] 06-21-2025 09:20-0400 Diastolic blood pressure 68 mm[Hg] [facility] 06-21-2025 09:20-0400 Heart rate 80 /min [facility] 06-21-2025 09:20-0400 Respiratory rate 18 /min [facility] 06-21-2025 09:20-0400 SaO2% (BldA) [Mass fraction] 98 % [facility] 06-21-2025 09:20-0400 Systolic blood pressure 117 mm[Hg] [facility] 06-20-2025 15:18-0400 Body mass index (BMI) [Ratio] 23.41 kg/m2 Fermin Covarrubias DO Work Phone: [facility] 06-20-2025 15:18-0400 Body weight 61.87 kg Fermin Covarrubias DO Work Phone: [facility] 06-20-2025 15:18-0400 Diastolic blood pressure 60 mm[Hg] Fermin Covarrubias DO Work Phone: [facility] 06-20-2025 15:18-0400 Heart rate 86 /min Enriqueakir Hasan DO Work Phone: [facility] 06-20-2025 15:18-0400 SaO2% (BldA) [Mass fraction] 99 % Shaakir Hasan DO Work Phone: [facility] 06-20-2025 15:18-0400 Systolic blood pressure 102 mm[Hg] Enriqueakir Hasan DO Work Phone: [facility] 06-16-2025 15:23-0400 Body mass index (BMI) [Ratio] 25.92 kg/m2 Shaakir Hasan DO Work Phone: [facility] 06-16-2025 15:23-0400 Body weight 68.49 kg Enriqueakir Hasan DO Work Phone: [facility] 06-16-2025 15:23-0400 Diastolic blood pressure 89 mm[Hg] Enriqueakir Hasan DO Work Phone: [facility] 06-16-2025 15:23-0400 Heart rate 85 /min Enriqueakir Hasan DO Work Phone: [facility] 06-16-2025 15:23-0400 SaO2% (BldA) [Mass fraction] 98 % Enriqueakir Hasan DO Work Phone: [facility] 06-16-2025 15:23-0400 Systolic blood pressure 139 mm[Hg] Enriqueakir Hasan DO Work Phone: [facility] 06-16-2025 12:18-0400 Diastolic blood pressure 79 mm[Hg] [facility] 06-16-2025 12:18-0400 Heart rate 84 /min [facility] 06-16-2025 12:18-0400 SaO2% (BldA) [Mass fraction] 96 % [facility] 06-16-2025 12:18-0400 Systolic blood pressure 131 mm[Hg] [facility] 06-16-2025 09:47-0400 Body temperature 97.5 [degF] [facility] 06-16-2025 09:47-0400 Respiratory rate 16 /min [facility] 06-15-2025 09:52-0400 Body temperature 97.39 [degF] [facility] 06-15-2025 09:52-0400 Diastolic blood pressure 65 mm[Hg] [facility] 06-15-2025 09:52-0400 Heart rate 66 /min [facility] 06-15-2025 09:52-0400 Respiratory rate 16 /min [facility] 06-15-2025 09:52-0400 SaO2% (BldA) [Mass fraction] 96 % [facility] [facility] 06-[facility]-2025 09:52-0400 Systolic blood pressure 100 mm[Hg] [facility] 06-14-2025 14:42-0400 Body mass index (BMI) [Ratio] 24.55 kg/m2 Enriqueakir Hasan DO Work Phone: [facility] 06-14-2025 14:42-0400 Body weight 64.86 kg Shaakir Hasan DO Work Phone: [facility] 06-14-2025 14:42-0400 Diastolic blood pressure 69 mm[Hg] Shaakir Hasan DO Work Phone: [facility] 06-14-2025 14:42-0400 Heart rate 81 /min Shaakir Hasan DO Work Phone: [facility] 06-14-2025 14:42-0400 SaO2% (BldA) [Mass fraction] 95 % Shaakir Hasan DO Work Phone: [facility] 06-14-2025 14:42-0400 Systolic blood pressure 126 mm[Hg] Shaakir Hasan DO Work Phone: [facility] 06-14-2025 09:53-0400 Body temperature 97.7 [degF] [facility] 06-14-2025 09:53-0400 Diastolic blood pressure 70 mm[Hg] [facility] 06-14-2025 09:53-0400 Heart rate 73 /min [facility] 06-14-2025 09:53-0400 SaO2% (BldA) [Mass fraction] 98 % [facility] 06-14-2025 09:53-0400 Systolic blood pressure 113 mm[Hg] [facility] 06-13-2025 15:14-0400 Body mass index (BMI) [Ratio] 24.48 kg/m2 [facility] 06-13-2025 15:14-0400 Body weight 64.7 kg [facility] 06-07-2025 14:12-0400 Body height 162.6 cm Deniz Echavarria MD Work Phone: [facility] 06-07-2025 14:12-0400 Body mass index (BMI) [Ratio] 23.69 kg/m2 Deniz Echavarria MD Work Phone: [facility] 06-07-2025 14:12-0400 Body temperature 97.59 [degF] Deniz Echavarria MD Work Phone: [facility] 06-07-2025 14:12-0400 Body weight 62.6 kg Deniz Echavarria MD Work Phone: [facility] 06-07-2025 14:12-0400 Diastolic blood pressure 76 mm[Hg] Deniz Echavarria MD Work Phone: [facility] 06-07-2025 14:12-0400 Heart rate 84 /min Deniz Echavarria MD Work Phone: [facility] 06-07-2025 14:12-0400 SaO2% (BldA) [Mass fraction] 98 % Deniz Echavarria MD Work Phone: [facility] 06-07-2025 14:12-0400 Systolic blood pressure 127 mm[Hg] Deniz Echavarria MD Work Phone: [facility] 06-01-2025 13:20-0400 Diastolic blood pressure 79 mm[Hg] Ellen Bonilla MD Work Phone: [facility] 06-01-2025 13:20-0400 Heart rate 88 /min Ellen Bonilla MD Work Phone: [facility] 06-01-2025 13:20-0400 SaO2% (BldA) [Mass fraction] 98 % Ellen Bonilla MD Work Phone: [facility] 06-01-2025 13:20-0400 Systolic blood pressure 135 mm[Hg] Ellen Bonilla MD Work Phone: [facility] 05-31-2025 13:47-0400 Body temperature 97.7 [degF] [facility] 05-31-2025 13:47-0400 Diastolic blood pressure 69 mm[Hg] [facility] 05-31-2025 13:47-0400 Heart rate 85 /min [facility] 05-31-2025 13:47-0400 Respiratory rate 14 /min [facility] 05-31-2025 13:47-0400 SaO2% (BldA) [Mass fraction] 98 % [facility] 05-31-2025 13:47-0400 Systolic blood pressure 112 mm[Hg] [facility] 05-26-2025 13:00-0400 Body temperature 97.7 [degF] [facility] 05-26-2025 13:00-0400 Diastolic blood pressure 74 mm[Hg] [facility] 05-26-2025 13:00-0400 Heart rate 65 /min [facility] 05-26-2025 13:00-0400 Respiratory rate 16 /min [facility] 05-26-2025 13:00-0400 SaO2% (BldA) [Mass fraction] 100 % [facility] 05-26-2025 13:00-0400 Systolic blood pressure 140 mm[Hg] [facility] 05-25-2025 13:05-0400 Body temperature 97.39 [degF] [facility] 05-25-2025 13:05-0400 Diastolic blood pressure 75 mm[Hg] [facility] 05-25-2025 13:05-0400 Heart rate 69 /min [facility] 05-25-2025 13:05-0400 Respiratory rate 18 /min [facility] 05-25-2025 13:05-0400 SaO2% (BldA) [Mass fraction] 100 % [facility] 05-25-2025 13:05-0400 Systolic blood pressure 148 mm[Hg] [facility] 05-24-2025 08:02-0400 Body mass index (BMI) [Ratio] 23.76 kg/m2 [facility] 05-24-2025 08:02-0400 Body weight 62.78 kg [facility] 05-22-2025 09:58-0400 Body height 152.4 cm Jose Luna MD Work Phone: [facility] 05-22-2025 09:58-0400 Body mass index (BMI) [Ratio] 26.13 kg/m2 Jose Luna MD Work Phone: [facility] 05-22-2025 09:58-0400 Body temperature 97 [degF] Jose Luna MD Work Phone: [facility] 05-22-2025 09:58-0400 Body weight 60.69 kg Jose Luna MD Work Phone: [facility] 05-22-2025 09:58-0400 Diastolic blood pressure 64 mm[Hg] Jose Luna MD Work Phone: [facility] 05-22-2025 09:58-0400 Heart rate 83 /min Jose Luna MD Work Phone: [facility] 05-22-2025 09:58-0400 Respiratory rate 18 /min Jose Luna MD Work Phone: [facility] 05-22-2025 09:58-0400 SaO2% (BldA) [Mass fraction] 98 % Jose Luna MD Work Phone: [facility] 05-22-2025 09:58-0400 Systolic blood pressure 122 mm[Hg] Jose Luna MD Work Phone: [facility] 05-15-2025 12:58-0400 Body mass index (BMI) [Ratio] 23.34 kg/m2 Gordy Rob DO Work Phone: [facility] 05-15-2025 12:58-0400 Body weight 61.69 kg Gordy Rob DO Work Phone: [facility] 05-15-2025 12:58-0400 Diastolic blood pressure 73 mm[Hg] Gordy Rob DO Work Phone: [facility] 05-15-2025 12:58-0400 Heart rate 78 /min Gordy Rob DO Work Phone: [facility] 05-15-2025 12:58-0400 SaO2% (BldA) [Mass fraction] 98 % Gordy Rob DO Work Phone: [facility] 05-15-2025 12:58-0400 Systolic blood pressure 128 mm[Hg] Gordy Rob DO Work Phone: [facility] 05-10-2025 09:27-0400 Body height 162.6 cm Deniz Echavarria MD Work Phone: [facility] 05-10-2025 09:27-0400 Body mass index (BMI) [Ratio] 23.48 kg/m2 Deniz cEhavarria MD Work Phone: [facility] 05-10-2025 09:27-0400 Body temperature 98.1 [degF] Deniz Echavarria MD Work Phone: [facility] 05-10-2025 09:27-0400 Body weight 62.05 kg Deniz Echavarria MD Work Phone: [facility] 05-10-2025 09:27-0400 Diastolic blood pressure 75 mm[Hg] Deniz Echavarria MD Work Phone: [facility] 05-10-2025 09:27-0400 Heart rate 82 /min Deniz Echavarria MD Work Phone: [facility] 05-10-2025 09:27-0400 SaO2% (BldA) [Mass fraction] 97 % Deniz Echavarria MD Work Phone: [facility] 05-10-2025 09:27-0400 Systolic blood pressure 134 mm[Hg] Deniz Echavarria MD Work Phone: [facility] 04-17-2025 14:19-0400 Body height 152.4 cm Ellen Bonilla MD Work Phone: [facility] 04-17-2025 14:19-0400 Body mass index (BMI) [Ratio] 26.95 kg/m2 Ellen Bonilla MD Work Phone: [facility] 04-17-2025 14:19-0400 Body weight 62.6 kg Ellen Bonilla MD Work Phone: [facility] 04-17-2025 14:19-0400 Diastolic blood pressure 79 mm[Hg] Ellen Bonilla MD Work Phone: [facility] 04-17-2025 14:19-0400 Heart rate 84 /min Ellen Bonilla MD Work Phone: [facility] 04-17-2025 14:19-0400 SaO2% (BldA) [Mass fraction] 10 % Ellen Bonilla MD Work Phone: [facility] 04-17-2025 14:19-0400 Systolic blood pressure 125 mm[Hg] Ellen Bonilla MD Work Phone: [facility] 04-13-2025 08:22-0400 Body height 152.4 cm Zuleika Wong ACADEMIC SUPPORT ASSISTANT Work Phone: [facility] 04-13-2025 08:22-0400 Body mass index (BMI) [Ratio] 26.17 kg/m2 Zuleika Wong ACADEMIC SUPPORT ASSISTANT Work Phone: [facility] 04-13-2025 08:22-0400 Body weight 60.78 kg Zuleika Wong ACADEMIC SUPPORT ASSISTANT Work Phone: [facility] 04-13-2025 08:22-0400 Diastolic blood pressure 77 mm[Hg] Zuleika Wong ACADEMIC SUPPORT ASSISTANT Work Phone: [facility] 04-13-2025 08:22-0400 Heart rate 83 /min Zuleika Wong ACADEMIC SUPPORT ASSISTANT Work Phone: [facility] 04-13-2025 08:22-0400 SaO2% (BldA) [Mass fraction] 96 % Zuleika Wong ACADEMIC SUPPORT ASSISTANT Work Phone: [facility] Comment on above: room air 04-13-2025 08:22-0400 Systolic blood pressure 133 mm[Hg] Zuleika Wong ACADEMIC SUPPORT ASSISTANT Work Phone: [facility] 04-07-2025 13:06-0400 Body height 152.4 cm Deniz Echavarria MD Work Phone: [facility] 04-07-2025 13:06-0400 Body mass index (BMI) [Ratio] 26.56 kg/m2 Deniz Echavarria MD Work Phone: [facility] 04-07-2025 13:06-0400 Body temperature 98.01 [degF] Deniz Echavarria MD Work Phone: [facility] 04-07-2025 13:06-0400 Body weight 61.69 kg Deniz Echavarria MD Work Phone: [facility] 04-07-2025 13:06-0400 Diastolic blood pressure 73 mm[Hg] Deniz Echavarria MD Work Phone: [facility] 04-07-2025 13:06-0400 Heart rate 88 /min Deniz Echavarria MD Work Phone: [facility] 04-07-2025 13:06-0400 SaO2% (BldA) [Mass fraction] 95 % Deniz Echavarria MD Work Phone: [facility] 04-07-2025 13:06-0400 Systolic blood pressure 111 mm[Hg] Deniz Echavarria MD Work Phone: [facility] 03-23-2025 14:53-0400 Body height 152.4 cm Jose Luna MD Work Phone: [facility] 03-23-2025 14:53-0400 Body mass index (BMI) [Ratio] 26.6 kg/m2 Jose Luna MD Work Phone: [facility] 03-23-2025 14:53-0400 Body temperature 96.91 [degF] Jose Luna MD Work Phone: [facility] 03-23-2025 14:53-0400 Body weight 61.78 kg Jose Luna MD Work Phone: [facility] 03-23-2025 14:53-0400 Diastolic blood pressure 62 mm[Hg] Jose Luna MD Work Phone: [facility] 03-23-2025 14:53-0400 Heart rate 74 /min Jose Luna MD Work Phone: [facility] 03-23-2025 14:53-0400 Respiratory rate 18 /min Jose Luna MD Work Phone: [facility] 03-23-2025 14:53-0400 SaO2% (BldA) [Mass fraction] 99 % Jose Luna MD Work Phone: [facility] 03-23-2025 14:53-0400 Systolic blood pressure 138 mm[Hg] Jose Luna MD Work Phone: [facility] 01-30-2025 13:12-0400 Body height 152.4 cm Jessica Boykin DO Work Phone: [facility] 01-30-2025 13:12-0400 Body mass index (BMI) [Ratio] 28.36 kg/m2 Jessica Boykin DO Work Phone: [facility] 01-30-2025 13:12-0400 Body weight 65.86 kg Jessica Boykin DO Work Phone: [facility] 01-18-2025 13:30-0400 Body height 152.4 cm Anny Fernandez CNP Work Phone: [facility] 01-18-2025 13:30-0400 Body mass index (BMI) [Ratio] 28.71 kg/m2 Anny Fernandez CNP Work Phone: [facility] 01-18-2025 13:30-0400 Body weight 66.68 kg Anny Fernandez CNP Work Phone: [facility] 11-14-2024 15:14-0500 Body height 152.4 cm Jose Luna MD Work Phone: [facility] [employer] [facility] 11-14-2024 15:14-0500 Body mass index (BMI) [Ratio] 28.2 kg/m2 Jose Luna MD Work Phone: [facility] [employer] [facility] 11-14-2024 15:14-0500 Body temperature 96.8 [degF] Jose Luna MD Work Phone: [facility] [employer] [facility] 11-14-2024 15:14-0500 Body weight 65.5 kg Jose Luna MD Work Phone: [facility] [employer] [facility] 11-14-2024 15:14-0500 Diastolic blood pressure 70 mm[Hg] Jose Luna MD Work Phone: [facility] [employer] [facility] 11-14-2024 15:14-0500 Heart rate 89 /min Jose Luna MD Work Phone: [employer] [facility] 11-14-2024 15:14-0500 SaO2% (BldA) [Mass fraction] 99 % Jose Luna MD Work Phone: [employer] [facility] 11-14-2024 15:14-0500 Systolic blood pressure 128 mm[Hg] Jose Luna MD Work Phone: [facility] 08-22-2024 14:04-0400 Body height 152.4 cm Jose Luna MD Work Phone: [facility] 08-22-2024 14:04-0400 Body mass index (BMI) [Ratio] 28.51 kg/m2 Jose Luna MD Work Phone: [facility] [employer] [facility] 08-22-2024 14:04-0400 Body temperature 97.81 [degF] Jose Luna MD Work Phone: [facility] 08-22-2024 14:04-0400 Body weight 66.22 kg Jose Luna MD Work Phone: [facility] 08-22-2024 14:04-0400 Diastolic blood pressure 68 mm[Hg] Jose Luna MD Work Phone: [facility] 08-22-2024 14:04-0400 Heart rate 84 /min Jose Luna MD Work Phone: [facility] 08-22-2024 14:04-0400 Respiratory rate 18 /min Jose Luna MD Work Phone: [facility] 08-22-2024 14:04-0400 SaO2% (BldA) [Mass fraction] 97 % Jose Luna MD Work Phone: [facility] 08-22-2024 14:04-0400 Systolic blood pressure 124 mm[Hg] Jose Luna MD Work Phone: [facility] 05-23-2024 14:07-0400 Body height 152.4 cm Jose Luna MD Work Phone: [facility] 05-23-2024 14:07-0400 Body mass index (BMI) [Ratio] 31.56 kg/m2 Jose Luna MD Work Phone: [facility] 05-23-2024 14:07-0400 Body temperature 97.7 [degF] Jose Luna MD Work Phone: [facility] 05-23-2024 14:07-0400 Body weight 73.3 kg Jose Luna MD Work Phone: [facility] 05-23-2024 14:07-0400 Diastolic blood pressure 58 mm[Hg] Jsoe Luna MD Work Phone: [facility] 05-23-2024 14:07-0400 Heart rate 107 /min Jose Luna MD Work Phone: [facility] 05-23-2024 14:07-0400 Respiratory rate 18 /min Jose Luna MD Work Phone: [facility] 05-23-2024 14:07-0400 SaO2% (BldA) [Mass fraction] 96 % Jose Luna MD Work Phone: [facility] 05-23-2024 14:07-0400 Systolic blood pressure 118 mm[Hg] Jose Luna MD Work Phone: [facility] 04-25-2024 14:13-0400 Body height 152.4 cm Marcio Joon Family Med Nurse [facility] 04-25-2024 14:13-0400 Body mass index (BMI) [Ratio] 32.22 kg/m2 Marcio Joon [facility] Nurse [facility] 04-25-2024 14:13-0400 Body temperature 97.39 [degF] Marcio Joon Family Med Nurse [facility] 04-25-2024 14:13-0400 Body weight 74.84 kg Marcio Joon Family [facility] Nurse [facility] 04-25-2024 14:13-0400 Diastolic blood pressure 62 mm[Hg] Marcio Joon Family Med Nurse [facility] 04-25-2024 14:13-0400 Heart rate 76 /min Marcio [facility] Med Nurse [facility] 04-25-2024 14:13-0400 Respiratory rate 18 /min Marcio Joon [facility] Med Nurse [facility] 04-25-2024 14:13-0400 SaO2% (BldA) [Mass fraction] 96 % Marcio Joon Family Med Nurse [facility] 04-25-2024 14:13-0400 Systolic blood pressure 130 mm[Hg] Marcio Joon Family Med Nurse [facility] 03-23-2024 14:09-0400 Body height 152.4 cm Marcio Joon Family Med Nurse [facility] 03-23-2024 14:09-0400 Body mass index (BMI) [Ratio] 32.61 kg/m2 Marcio Joon Family Med Nurse [facility] 03-23-2024 14:09-0400 Body temperature 97.7 [degF] Marcio Joon Family Med Nurse [facility] 03-23-2024 14:09-0400 Body weight 75.75 kg Marcio Joon Family Med Nurse [facility] 03-23-2024 14:09-0400 Diastolic blood pressure 60 mm[Hg] Marcio Joon Family Med Nurse [facility] 03-23-2024 14:09-0400 Heart rate 87 /min Marcio Joon Family Med Nurse [facility] 03-23-2024 14:09-0400 SaO2% (BldA) [Mass fraction] 98 % Marcio Joon Family Med Nurse [facility] 03-23-2024 14:09-0400 Systolic blood pressure 130 mm[Hg] Marcio Joon Family Med Nurse [facility] 02-19-2024 13:17-0400 Body height 152.4 cm Jose Luna MD Work Phone: [facility] 02-19-2024 13:17-0400 Body mass index (BMI) [Ratio] 31.29 kg/m2 Jose Luna MD Work Phone: [facility] 02-19-2024 13:17-0400 Body temperature 97 [degF] Jose Luna MD Work Phone: [facility] 02-19-2024 13:17-0400 Body weight 72.67 kg Jose Luna MD Work Phone: [facility] [employer] [facility] 02-19-2024 13:17-0400 Diastolic blood pressure 78 mm[Hg] Jose Luna MD Work Phone: [facility] [employer] [facility] 02-19-2024 13:17-0400 Heart rate 74 /min Jose Luna MD Work Phone: [facility] 02-19-2024 13:17-0400 Respiratory rate 18 /min Jose Luna MD Work Phone: [facility] 02-19-2024 13:17-0400 SaO2% (BldA) [Mass fraction] 98 % Jose Luna MD Work Phone: [facility] [employer] [facility] 02-19-2024 13:17-0400 Systolic blood pressure 126 mm[Hg] Jose Luna MD Work Phone: [facility] 11-16-2023 14:51-0500 Body height 152.4 cm Jose Luan MD Work Phone: [facility] 11-16-2023 14:51-0500 Body mass index (BMI) [Ratio] 32.19 kg/m2 Jose Luna MD Work Phone: [facility] [employer] [facility] 11-16-2023 14:51-0500 Body temperature 96.8 [degF] Jose Luna MD Work Phone: [facility] 11-16-2023 14:51-0500 Body weight 74.75 kg Jose Luna MD Work Phone: [facility] 11-16-2023 14:51-0500 Diastolic blood pressure 64 mm[Hg] Jose Luna MD Work Phone: [facility] 11-16-2023 14:51-0500 Heart rate 94 /min Jose Luna MD Work Phone: [facility] 11-16-2023 14:51-0500 SaO2% (BldA) [Mass fraction] 95 % Jose Luna MD Work Phone: [facility] 11-16-2023 14:51-0500 Systolic blood pressure 124 mm[Hg] Jose Luna MD Work Phone: [facility] 06-23-2022 13:51-0400 Body height 152.4 cm Jessica Boykin DO Work Phone: [facility] 06-23-2022 13:51-0400 Body mass index (BMI) [Ratio] 29.49 kg/m2 Jessica Boykin DO Work Phone: [facility] 06-23-2022 13:51-0400 Body weight 68.49 kg Jessica Boykin DO Work Phone: [facility] 06-23-2022 13:51-0400 Diastolic blood pressure 100 mm[Hg] Jessica Boykin DO Work Phone: [facility] 06-23-2022 13:51-0400 Systolic blood pressure 160 mm[Hg] Jessica Boykin DO Work Phone: [facility] 05-27-2022 11:29-0400 Body height 152.4 cm Devon Cuadra MD Work Phone: [facility] 05-27-2022 11:29-0400 Body mass index (BMI) [Ratio] 29.29 kg/m2 Devon Cuadra MD Work Phone: [facility] 05-27-2022 11:29-0400 Body temperature 97.39 [degF] Devon Cuadra MD Work Phone: [facility] 05-27-2022 11:29-0400 Body weight 68.04 kg Devon Cuadra MD Work Phone: [facility] 05-27-2022 11:29-0400 Diastolic blood pressure 76 mm[Hg] Devon Cuadra MD Work Phone: [facility] 05-27-2022 11:29-0400 Heart rate 80 /min Devon Cuadra MD Work Phone: [facility] 05-27-2022 11:29-0400 Respiratory rate 18 /min Devon Cuadra MD Work Phone: [facility] 05-27-2022 11:29-0400 SaO2% (BldA) [Mass fraction] 99 % Devon Cuadra MD Work Phone: [facility] 05-27-2022 11:29-0400 Systolic blood pressure 126 mm[Hg] Devon Cuadra MD Work Phone: [facility] 01-28-2022 13:43-0400 Body height 152.4 cm Devon Cuadra MD Work Phone: [facility] 01-28-2022 13:43-0400 Body mass index (BMI) [Ratio] 29.29 kg/m2 Devon Cuadra MD Work Phone: [facility] 01-28-2022 13:43-0400 Body temperature 98.2 [degF] Devon Cuadra MD Work Phone: [facility] 01-28-2022 13:43-0400 Body weight 68.04 kg Devon Cuadra MD Work Phone: [facility] 01-28-2022 13:43-0400 Diastolic blood pressure 70 mm[Hg] Devon Cuadra MD Work Phone: [facility] 01-28-2022 13:43-0400 Heart rate 93 /min Devon Cuadra MD Work Phone: [facility] 01-28-2022 13:43-0400 SaO2% (BldA) [Mass fraction] 97 % Devon Cuadra MD Work Phone: [facility] 01-28-2022 13:43-0400 Systolic blood pressure 124 mm[Hg] Devon Cuadra MD Work Phone: [facility] 01-04-2021 10:24-0500 BMI (Body Mass Index) 31.48 kg/m2 [facility] 01-04-2021 10:24-0500 Body Temperature 97.59 [degF] [facility] 01-04-2021 10:24-0500 Body weight 73.12 kg [facility] 01-04-2021 10:24-0500 BP Diastolic 80 mm[Hg] [facility] 01-04-2021 10:24-0500 BP Systolic 122 mm[Hg] [facility] 01-04-2021 10:24-0500 Height 152.4 cm [facility] 01-04-2021 10:24-0500 Pulse (Heart Rate) 84 /min [facility] 01-04-2021 10:24-0500 Pulse Oximetry 96 % [facility] 01-04-2021 10:24-0500 Respiratory Rate 16 /min [facility] 12-24-2020 14:45-0500 BMI (Body Mass Index) 30.46 kg/m2 [facility] 12-24-2020 14:45-0500 Body Temperature 97.3 [degF] [facility] 12-24-2020 14:45-0500 Body weight 73.12 kg [facility] 12-24-2020 14:45-0500 Height 154.9 cm [facility] 12-11-2020 13:33-0500 BMI (Body Mass Index) 30.35 kg/m2 [facility] 12-11-2020 13:33-0500 Body Temperature 97.59 [degF] [facility] 12-11-2020 13:33-0500 Body weight 72.39 kg [facility] 12-11-2020 13:33-0500 BP Diastolic 76 mm[Hg] [facility] 12-11-2020 13:33-0500 BP Systolic 118 mm[Hg] [facility] 12-11-2020 13:33-0500 Height 154.4 cm [facility] 12-11-2020 13:33-0500 Pulse (Heart Rate) 93 /min [facility] 12-11-2020 13:33-0500 Pulse Oximetry 98 % [facility] 12-11-2020 13:33-0500 Respiratory Rate 16 /min [facility] 08-21-2020 11:12-0400 BMI (Body Mass Index) 30.7 kg/m2 [facility] 08-21-2020 11:12-0400 Body Temperature 97.81 [degF] [facility] 08-21-2020 11:12-0400 Body weight 71.31 kg [facility] 08-21-2020 11:12-0400 Height 152.4 cm [facility] 05-22-2020 10:58-0400 BMI (Body Mass Index) 30.94 kg/m2 [facility] 05-22-2020 10:58-0400 Body Temperature 98.6 [degF] [facility] 05-22-2020 10:58-0400 Body weight 71.85 kg [facility] 05-22-2020 10:58-0400 Height 152.4 cm [facility] 02-21-2020 14:50-0400 BMI (Body Mass Index) 30.5 kg/m2 [facility] 02-21-2020 14:50-0400 Body Temperature 97.9 [degF] [facility] 02-21-2020 14:50-0400 Body weight 70.85 kg [facility] 02-21-2020 14:50-0400 Height 152.4 cm [facility] 11-04-2019 13:26-0500 BMI (Body Mass Index) 31.29 kg/m2 [facility] 11-04-2019 13:26-0500 Body weight 72.[address] [facility] 11-04-2019 13:26-0500 BP Diastolic 80 mm[Hg] [facility] 11-04-2019 13:26-0500 BP Systolic 132 mm[Hg] [facility] 11-04-2019 13:26-[address] [facility] 11-04-2019 13:26-0500 Pulse (Heart Rate) 82 /min [facility] 11-04-2019 13:26-0500 Pulse Oximetry 95 % [facility] 11-04-2019 13:26-0500 Respiratory Rate 16 /min [facility] 10-21-2019 08:49-0500 BMI (Body Mass Index) 31.83 kg/m2 [facility] 10-21-2019 08:49-0500 Body Temperature 97.7 [degF] [facility] 10-21-2019 08:49-0500 Body weight 73.94 kg [facility] 10-21-2019 08:49-0500 Height 152.4 cm [facility] 05-30-2019 14:34-0400 BMI (Body Mass Index) 32.09 kg/m2 [facility] 05-30-2019 14:34-0400 Body Temperature 98.71 [degF] [facility] 05-30-2019 14:34-0400 Body weight 74.53 kg [facility] 05-30-2019 14:34-0400 BP Diastolic 79 mm[Hg] [facility] 05-30-2019 14:34-0400 BP Systolic 123 mm[Hg] [facility] 05-30-2019 14:34-0400 Height 152.4 cm [facility] 05-30-2019 14:34-0400 Pulse (Heart Rate) 96 /min [facility] 03-14-2019 08:58-0400 BMI (Body Mass Index) 32.48 kg/m2 [facility] 03-14-2019 08:58-0400 Height 152.4 cm [facility] 03-14-2019 08:58-0400 Weight 75.43 kg [facility] 03-11-2019 08:49-0400 BMI (Body Mass Index) 32.48 kg/m2 [facility] 08:49-0400 BP Diastolic 70 mm[facility]Hg[facility] 08:49-0400 BP Systolic 124 mm[Hg] [facility] 03-11-2019 08:49-0400 Height 152.4 cm [facility] 03-11-2019 08:49-0400 Pulse (Heart Rate) 80 /min [facility] 03-11-2019 08:49-0400 Respiratory Rate 16 /[facility] 03-11-2019 08:49-0400 Weight 75.43 kg [facility] 03-02-2019 11:12-0400 BMI (Body Mass Index) 32.81 kg/m2 [facility] 03-02-2019 11:12-0400 Body Temperature 98.29 [degF] [facility] 03-02-2019 11:12-0400 BP Diastolic 84 mm[Hg] [facility] 03-02-2019 11:12-0400 BP Systolic 129 mm[Hg] [facility] 03-02-2019 11:12-0400 Height 152.4 cm [facility] 03-02-2019 11:12-0400 Pulse (Heart Rate) 90 /min [facility] 03-02-2019 11:12-0400 Pulse Oximetry 97 % [facility] 03-02-2019 11:12-0400 Weight 76.2 kg [facility] 02-25-2019 09:48-0400 BMI (Body Mass Index) 32.88 kg/m2 [facility] 02-25-2019 09:48-0400 Body Temperature 97.81 [degF] [facility] 02-25-2019 09:48-0400 Height 152.4 cm [facility] 02-25-2019 09:48-0400 Weight 76.37 kg [facility] 01-18-2019 09:50-0400 BMI (Body Mass Index) 33.14 kg/m2 [facility] 01-18-2019 09:50-0400 Body weight 76.97 kg [facility] 01-18-2019 09:50-0400 BP Diastolic 68 mm[Hg] [facility] 01-18-2019 09:50-0400 BP Systolic 114 mm[Hg] [facility] 01-18-2019 09:50-0400 Height 152.4 cm [facility] 01-18-2019 09:50-0400 Pulse (Heart Rate) 76 /min [facility] 01-18-2019 09:50-0400 Respiratory Rate 24 /min [facility] 12-08-2018 11:15-0500 BMI (Body Mass Index) 32.42 kg/m2 [facility] Work Phone: 12-08-2018 11:15-0500 Body Temperature 98.29 [degF] [facility] Work Phone: 12-08-2018 11:15-0500 Body weight 75.3 kg [facility] Work Phone: 12-08-2018 11:15-0500 BP Diastolic 79 mm[Hg] [facility] Work Phone: 12-08-2018 11:15-0500 BP Systolic 122 mm[Hg] [facility] Work Phone: 12-08-2018 11:15-0500 Height 152.4 cm [facility] Work Phone: 12-08-2018 11:15-0500 Pulse (Heart Rate) 87 /min [facility] Work Phone: 12-08-2018 11:15-0500 Pulse Oximetry 97 % [facility] Work Phone: 11-17-2018 13:01-0500 BMI (Body Mass Index) 32.75 kg/m2 Marlo Davenport [facility] Work Phone: 11-17-2018 13:01-0500 Body Temperature 97.9 [degF] [facility] [place] Work Phone: 11-17-2018 13:01-0500 Height 152.4 cm [facility] [place] Work Phone: 11-17-2018 13:01-0500 Weight 76.07 kg [facility] [place] Work Phone: 10-20-2018 08:32-0500 BMI (Body Mass Index) 32.75 kg/m2 [facility] Work Phone: 10-20-2018 08:32-0500 BP Diastolic 70 mm[Hg] [facility] Work Phone: 10-20-2018 08:32-0500 BP Systolic 124 mm[Hg] [facility] Work Phone: 10-20-2018 08:32-0500 Height 152.4 cm [facility] Work Phone: 10-20-2018 08:32-0500 Pulse (Heart Rate) 80 /min [facility] Work Phone: 10-20-2018 08:32-0500 Pulse Oximetry 97 % [facility] Work Phone: 10-20-2018 08:32-0500 Respiratory Rate 18 /min [facility] Work Phone: 10-20-2018 08:32-0500 Weight 76.07 kg [facility] Work Phone: 10-19-2018 10:07-0500 BMI (Body Mass Index) 32.6 kg/m2 [facility] Work Phone: 10-19-2018 10:07-0500 BP Diastolic 90 mm[Hg] [facility] Work Phone: 10-19-2018 10:07-0500 BP Systolic 136 mm[Hg] [facility] Work Phone: 10-19-2018 10:07-0500 Height 152.4 cm [facility] Work Phone: 10-19-2018 10:07-0500 Pulse (Heart Rate) 84 /min [facility] Work Phone: 10-19-2018 10:07-0500 Respiratory Rate 20 /min [facility] Work Phone: 10-19-2018 10:07-0500 Weight 75.7 kg [facility] Work Phone: Encounters Encounter Date Encounter Type Care Provider Facility Start: 06-30-2025 End: 06-30-2025 Orders Only Deniz Echavarria MD Work Phone: [facility] Start: 06-29-2025 End: 06-29-2025 Orders Only Mino Wilson [facility],PharmD [facility] Comment on above: 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) Start: 06-26-2025 End: 06-30-2025 Emergency department patient visit [facility] Start: 06-26-2025 End: 06-28-2025 Evaluation and management of inpatient [facility] Start: 06-26-2025 End: 06-26-2025 Patient encounter procedure Ellen Bonilla MD Work Phone: [facility] Start: 06-26-2025 End: 06-26-2025 ambulatory Ellen Bonilla MD Work Phone: [facility] Comment on above: 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) Start: 06-26-2025 End: 06-26-2025 [facility] Start: 06-23-2025 End: 06-23-2025 ambulatory ELLEN [facility] Start: 06-23-2025 End: 06-23-2025 ambulatory ELLEN WADDELL [facility] Start: 06-22-2025 End: 06-22-2025 Patient encounter procedure Ellen Bonilla MD Work Phone: [facility] Start: 06-22-2025 End: 06-22-2025 ambulatory Ellen Bonilla MD Work Phone: [facility] Comment on above: 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) Start: 06-22-2025 End: 06-22-2025 [facility] Start: 06-21-2025 End: 06-21-2025 Patient encounter procedure Deniz Echavarria MD Work Phone: [facility] Comment on above: 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) Start: 06-21-2025 End: 06-21-2025 ambulatory Chair 8 Oncology Infusion [facility] Start: 06-20-2025 End: 06-20-2025 Patient encounter procedure Fermin Covarrubias DO Work Phone: [facility] Start: 06-20-2025 End: 06-20-2025 ambulatory Ellen Bonilla MD Work Phone: [facility] Comment on above: 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) Start: 06-20-2025 End: 06-21-2025 Documentation procedure Jennifer Ryan CNP Work Phone: [facility] Start: 06-20-2025 ambulatory [facility] Start: 06-20-2025 End: 06-20-2025 Nursing evaluation of patient and report Deniz Echavarria MD Work Phone: [facility] Comment on above: 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) Start: 06-20-2025 End: 06-20-2025 ambulatory [facility] Start: 06-19-2025 End: 06-19-2025 [facility] Start: 06-19-2025 End: 06-19-2025 [facility] Start: 06-16-2025 End: 06-16-2025 Patient encounter procedure Fermin Covarrubias DO Work Phone: [facility] Start: 06-16-2025 End: 06-16-2025 ambulatory Fermin Covarrubias DO Work Phone: [facility] Comment on above: 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) Start: 06-16-2025 End: 06-16-2025 Documentation procedure Breana Hubbard RD [facility] Comment on above: Nutrition Counseling Start: 06-16-2025 End: 06-16-2025 Patient encounter procedure Deniz Echavarria MD Work Phone: [facility] Comment on above: 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) Start: 06-16-2025 End: 06-16-2025 ambulatory Chair 2 Oncology Infusion [facility] Start: 06-15-2025 End: 06-15-2025 Coordination of care plan Maria Fernanda Bacon RN [facility] Comment on above: 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) Start: 06-15-2025 End: 06-15-2025 ambulatory [facility] Start: 06-15-2025 End: 06-15-2025 ambulatory Chair 12 Oncology Infusion [facility] Start: 06-15-2025 End: 06-15-2025 Patient encounter procedure Deniz Echavarria MD Work Phone: [facility] Comment on above: 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) Start: 06-15-2025 End: 06-15-2025 ambulatory [facility] Start: 06-14-2025 End: 06-14-2025 ambulatory Ellen Bonilla MD Work Phone: [facility] Comment on above: 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) Start: 06-14-2025 End: 06-14-2025 Patient encounter procedure Fermin Rebeccashanna BOSTON Work Phone: [facility] Start: 06-14-2025 End: 06-14-2025 [facility] Start: 06-14-2025 End: 06-14-2025 Patient encounter procedure Deniz Echavarria MD Work Phone: [facility] Comment on above: 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); Abnormal glucose Start: 06-14-2025 End: 06-14-2025 ambulatory Chair 16 Oncology Infusion [facility] Start: 06-13-2025 End: 06-13-2025 [facility] Start: 06-13-2025 End: 06-13-2025 Nursing evaluation of patient and report Deniz Echavarria MD Work Phone: [facility] Comment on above: 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) Start: 06-09-2025 End: 06-09-2025 Patient encounter procedure Deniz Echavarria MD Work Phone: [facility] Comment on above: 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) Start: 06-09-2025 End: 06-09-2025 ambulatory Chair 1 Oncology Infusion [facility] Start: 06-08-2025 End: 06-08-2025 Orders Only Deniz Echavarria MD Work Phone: [facility] Comment on above: 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) Start: 06-07-2025 End: 06-07-2025 Patient encounter procedure Deniz Echavarria MD Work Phone: [facility] Comment on above: 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) Start: 06-07-2025 End: 06-07-2025 Office outpatient visit 25 minutes Deniz Echavarria MD Work Phone: [facility] Comment on above: 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) Start: 06-06-2025 End: 06-06-2025 ambulatory [facility] Start: 06-01-2025 End: 06-01-2025 ambulatory Ellen Bonilla MD Work Phone: [facility] Comment on above: Arrived Start: 06-01-2025 End: 06-01-2025 Patient encounter procedure Ellen Bonilla MD Work Phone: [facility] Start: 05-31-2025 End: 05-31-20[facility] Start: 05-31-2025 End: 05-31-2025 Patient encounter procedure Deniz Echavarria MD Work Phone: [facility] Comment on above: 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) Start: 05-31-2025 End: 05-31-2025 ambulatory Chair 4 Oncology Infusion [facility] Start: 05-30-2025 End: 05-30-2025 Nursing evaluation of patient and report Deniz Echavarria MD Work Phone: [facility] Comment on above: 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) Start: 05-30-2025 End[facility] Start: 05-29-2025 End: 05-29-2025 Orders Only Mino Wilson [facility],PharmD [facility] Comment on above: 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) Start: 05-26-2025 End: 05-26-2025 Telemedicine consultation with patient Gordy Potter DO Work Phone: [facility] Comment on above: Neoplasm related shana n (Primary Dx) Start: 05-26-2025 End: 05-26-2025 Patient encounter procedure Deniz Echavarria MD Work Phone: [facility] Comment on above: 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) Start: 05-26-2025 End: 05-26-2025 ambulatory Chair 3 Oncology Infusion [facility] Start: 05-25-2025 End: 05-25-2025 Patient encounter procedure Deniz Echavarria MD Work Phone: [facility] Comment on above: 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) Start: 05-25-2025 End: 05-25-2025 ambulatory Chair 13 Mh Oncology Infusion [facility] Start: 05-24-2025 End: 05-24-2025 Refill Ludy Geronimo RN [facility] Comment on above: 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) (Primary Dx) 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) Nutrition Counseling Start: 05-24-2025 ambulatory [facility] Start: 05-22-2025 End: 06-23-2025 Coordination of care plan Ronit Desai RN [facility] Start: 05-22-2025 End: 05-22-2025 Office outpatient visit 15 minutes Jose Luna MD Work Phone: [facility] Comment on above: Hyperlipidemia LDL g oal <70; Edema leg; Type 2 diabetes mellitus with hyperglycemia, with long-term current use of insulin; Seasonal allergic rhinitis due to pollen; Rash; Urinary incontinence, unspecified type Start: 05-22-2025 ambulatory [facility] Start: 05-19-2025 End: 05-19-2025 ambulatory [facility] Start: 05-17-2025 End: 06-17-2025 ambulatory [facility] Start: 05-15-2025 End: 05-15-2025 Office outpatient new 45 minutes Gordy Mandujanota Work Phone: [facility] Comment on above: Lumbar radiculopathy (Primary Dx); Neoplasm related pain Start: 05-15-2025 End: 05-15-2025 ambulatory [facility] Start: 05-15-2025 ambulatory [facility] Start: 05-11-2025 End: 05-11-2025 Orders Only Deniz Echavarria MD Work Phone: [facility] Start: 05-10-2025 End: 05-10-2025 Orders Only Mino Wilson [facility],PharmD [facility] Start: 05-10-2025 End: 05-10-2025 Office outpatient visit 40 minutes Deniz Echavarria MD Work Phone: [facility] Comment on above: 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) (Primary Dx); Other specified pleural conditions; Fatigue, unspecified type; Neuropathy; Goals of care, counseling/discussion Start: 05-09-2025 End: 05-09-2025 Documentation procedure Ellen Bonilla MD Work Phone: [facility] Start: 04-27-2025 End: 04-27-2025 [facility] Start: 04-25-2025 End: 04-25-2025 ambulatory JOSE MANUEL PRABHAKAR [facility] Start: 04-24-2025 End: 04-24-2025 Admission to same day surgery center Zuleika Wong CNP Work Phone: [facility] Start: 04-18-2025 End: 04-18-2025 ambulatory PURVI LONDONOGenie HUMPHREYS [facility] Start: 04-18-2025 End: 04-18-2025 ambulatory ZULEIKA KAY [facility] Start: 04-17-2025 End: 04-17-2025 Patient encounter procedure Ellen Bonilla MD Work Phone: [facility] Start: 04-17-2025 End: 05-18-2025 ambulatory Deniz Echavarria MD Work Phone: [facility] Comment on above: 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); Cavitating mass in right upper lung lobe; Paratracheal lymphadenopathy; Pulmonary mass Start: 04-13-2025 End: 04-13-2025 Office outpatient new 60 minutes Zuleika Wong [employer] Work Phone: [facility] Comment on above: Thoracic lymphadenop athy (Primary Dx); Cavitating mass in right upper lung lobe; Right upper lobe pulmonary nodule Start: 04-13-2025 End: 04-13-2025 ambulatory JOSE MANUEL PRABHAKAR [facility] Start: 04-07-2025 End: 04-07-2025 Office outpatient new 60 minutes Deniz Echavarria MD Work Phone: [facility] Comment on above: Cavitating mass in r ight upper lung lobe (Primary Dx); Paratracheal lymphadenopathy; Goals of care, counseling/discussion; Tobacco use disorder Start: 04-07-2025 End: 04-07-2025 ambulatory DENIZ WHITMANNATHAN [facility] Start: 04-06-2025 End: 04-06-2025 ambulatory PURVI HUMPHREYS [facility] Start: 03-28-2025 End: 03-28-2025 Documentation procedure Jennifer Ryan CNP Work Phone: [facility] [place] Start: 03-23-2025 ambulatory [facility] Start: 03-23-2025 End: 03-23-2025 Office outpatient visit 25 minutes Jose Luna MD Work Phone: [facility] Comment on above: Type 2 diabetes jones itus with hyperglycemia, with long-term current use of insulin (Primary Dx); Yeast infection of the skin; Class 1 obesity due to excess calories with body mass index (BMI) of 32.0 to 32.9 in adult, unspecified whether serious comorbidity present; Neuropathy; Gastroesophageal reflux disease without esophagitis; Pulmonary mass Start: 02-06-2025 ambulatory JESSICA BOYKIN [facility] Start: 02-06-2025 End: 02-06-2025 Subsequent hospital visit by physician Jessica Boykin DO Work Phone: [facility] CT Scan Comment on above: Arrived Start: 02-03-2025 ambulatory JESSICA BOYKIN [facility] Start: 01-30-2025 End: 01-30-2025 Office outpatient visit 25 minutes Jessica Boykin DO Work Phone: [facility] Comment on above: Abdominal pain, gene ralized (Primary Dx); Abdominal wall bulge Start: 01-30-2025 ambulatory JOSE M [facility] Start: 01-18-2025 End: 01-22-2025 ambulatory ANNY FERNANDEZ [facility] Start: 01-18-2025 End: 01-18-2025 Office outpatient new 45 minutes Anny Nury Fernandez [facility] Work Phone: [facility] Comment on above: Primary osteoarthrit is of left shoulder (Primary Dx) Start: 01-18-2025 ambulatory [facility] Start: 01-04-2025 ambulatory JOSE LUNA [facility] Start: 11-14-2024 End: 11-14-2024 Office outpatient visit 25 minutes Jose Luna MD Work Phone: [facility] Comment on above: Chronic venous insuf ficiency (Primary Dx); Hyperlipidemia LDL goal <70; Cerebral ischemia-Moderate to severe; Edema leg; Type 2 diabetes mellitus with hyperglycemia, with long-term current use of insulin; Seasonal allergic rhinitis due to pollen; Gastroesophageal reflux disease without esophagitis; Class 1 obesity due to excess calories with body mass index (BMI) of 32.0 to 32.9 in adult, unspecified whether serious comorbidity present; Neuropathy; Urinary incontinence, unspecified type Start: 11-14-2024 ambulatory SELF SELF [facility] Start: 08-22-2024 End: 08-22-2024 Patient encounter procedure Jose Luna MD Work Phone: [facility] Comment on above: Type 2 diabetes jones itus with hyperglycemia, with long-term current use of insulin (Primary Dx); Gastroesophageal reflux disease without esophagitis; Class 1 obesity due to excess calories with body mass index (BMI) of 32.0 to 32.9 in adult, unspecified whether serious comorbidity present; Neuropathy; Abdominal wall hernia; Family history of BRCA gene mutation Start: 08-22-2024 ambulatory SELF SELF [facility] Start: 05-23-2024 End: 05-23-2024 Office outpatient visit 25 minutes Jose Luna MD Work Phone: [facility] Comment on above: Hyperlipidemia LDL g oal <70; Cerebral ischemia-Moderate to severe; Type 2 diabetes mellitus with hyperglycemia, with long-term current use of insulin; Edema leg; Seasonal allergic rhinitis due to pollen; Class 1 obesity due to excess calories with body mass index (BMI) of 32.0 to 32.9 in adult, unspecified whether serious comorbidity present; Neuropathy; Urinary incontinence, unspecified type; Yeast infection of the skin Start: 05-03-2024 End: 05-03-2024 Subsequent hospital visit by physician Jose Luna MD Work Phone: [facility] Echocardiography Comment on above: Arrived Start: 04-25-2024 End: 04-25-2024 Clinical Support Encounter Jose Luna MD Work Phone: [facility] Comment on above: Class 1 obesity due to excess calories with body mass index (BMI) of 32.0 to 32.9 in adult, unspecified whether serious comorbidity present (Primary Dx) Start: 03-23-2024 End: 03-23-2024 Clinical Support Encounter [facility] Nurse [place] [facility] Comment on above: Class 1 obesity due to excess calories with body mass index (BMI) of 32.0 to 32.9 in adult, unspecified whether serious comorbidity present (Primary Dx) Start: 02-23-2024 End: 02-23-2024 Subsequent hospital visit by physician Jose Luna MD Work Phone: [facility] Mammography Comment on above: Arrived Start: 02-19-2024 End: 02-19-2024 Office outpatient visit 15 minutes Jose Luna MD Work Phone: [facility] Comment on above: Type 2 diabetes jones itus with hyperglycemia, with long-term current use of insulin (Primary Dx); Class 1 obesity due to excess calories with body mass index (BMI) of 32.0 to 32.9 in adult, unspecified whether serious comorbidity present; Neuropathy; Chronic obstructive pulmonary disease, unspecified COPD type; Osteoarthritis of spine with radiculopathy, lumbar region; Edema leg; Breast cancer screening by mammogram Start: 11-16-2023 End: 11-16-2023 Office outpatient visit 25 minutes Jose Luna MD Work Phone: [facility] Comment on above: Type 2 diabetes jones itus with hyperglycemia, with long-term current use of insulin (Primary Dx); Hyperlipidemia LDL goal <70; Anxiety; Cerebral ischemia-Moderate to severe; Edema leg; Seasonal allergic rhinitis due to pollen; Gastroesophageal reflux disease without esophagitis; Neuropathy; Class 1 obesity due to excess calories with body mass index (BMI) of 32.0 to 32.9 in adult, unspecified whether serious comorbidity present; Urinary incontinence, unspecified type; Yeast infection of the skin; Rash; Cigarette nicotine dependence without complication Start: 07-15-2022 End: 07-15-2022 Subsequent hospital visit by physician Jessica Boykin DO Work Phone: [facility] CT Scan Comment on above: Arrived Start: 06-23-2022 End: 06-23-2022 Office consultation new/estab patient 60 min Jessica Boykin DO Work Phone: [facility] General Surgery Comment on above: History of hernia re pair (Primary Dx); Epigastric pain Start: 05-27-2022 End: 05-27-2022 Office outpatient visit 25 minutes Devon Cuadra MD Work Phone: [facility] Comment on above: Type 2 diabetes jones itus with hyperglycemia, with long-term current use of insulin (Primary Dx); Hyperlipidemia LDL goal <70; Cerebral ischemia-Moderate to severe; Seasonal allergic rhinitis due to pollen; Gastroesophageal reflux disease without esophagitis; Neuropathy; Ventral hernia without obstruction or gangrene Start: 01-28-2022 End: 01-28-2022 Office outpatient visit 15 minutes Devon Cuadra MD Work Phone: [facility] Comment on above: Seasonal allergic rh initis due to pollen (Primary Dx); Class 1 obesity due to excess calories with serious comorbidity and body mass index (BMI) of 30.0 to 30.9 in adult Start: 01-04-2021 End: 01-04-2021 Office outpatient visit 25 minutes Puvri Humphreys Work Phone: [facility] Comment on above: Type 2 diabetes jones itus, uncontrolled, with neuropathy (Primary Dx); Chronic left shoulder pain; Family history of ischemic heart disease; Preop examination Start: 12-24-2020 End: 12-24-2020 Office outpatient visit 40 minutes Marlo Davenport Work Phone: [facility] Orthopedics Comment on above: Impingement syndrome of left shoulder (Primary Dx); Biceps tendinitis, left; Arthritis of left acromioclavicular joint Start: 12-11-2020 End: 12-11-2020 Office outpatient visit 15 minutes Devon Cuadra Work Phone: [facility] Family Medicine Comment on above: Type 2 diabetes jones itus, uncontrolled, with neuropathy (Primary Dx) Start: 12-08-2020 End: 12-08-2020 Orders Only Yesenia Montero Camille Work Phone: [facility] Start: 08-21-2020 End: 08-21-2020 Office outpatient visit 15 minutes Marlo Davenport Work Phone: [facility] Orthopedic Comment on above: Impingement syndrome of right shoulder (Primary Dx); Impingement syndrome of left shoulder Start: 05-22-2020 End: 05-22-2020 Office outpatient visit 15 minutes Marlo Davenport Work Phone: [facility] Orthopedic Comment on above: Impingement syndrome of right shoulder (Primary Dx); Impingement syndrome of left shoulder Start: 02-21-2020 End: 02-21-2020 Office outpatient visit 15 minutes Marlo Davenport Work Phone: [facility] Orthopedic Comment on above: Impingement syndrome of right shoulder (Primary Dx); Impingement syndrome of left shoulder Start: 11-04-2019 End: 11-04-2019 Office outpatient visit 15 minutes Sherry Bee Work Phone: [facility] Clinic Comment on above: Lumbar facet arthrop athy (Primary Dx); Chronic pain syndrome Start: 10-21-2019 End: 10-21-2019 Office outpatient visit 25 minutes Marlo Davenport Work Phone: [facility] Orthopedic Comment on above: Left shoulder pain, unspecified chronicity (Primary Dx); Impingement syndrome of left shoulder; Impingement syndrome of right shoulder Start: 10-21-2019 End: 10-21-2019 Subsequent hospital visit by physician Marlo Davenport Work Phone: [facility] Radiology Start: 09-06-2019 End: 09-06-2019 Letter encounter Navneet Armando Villegas Work Phone: [facility] Start: 09-06-2019 End: 09-06-2019 Patient encounter procedure Navneet Bakari [facility] Start: 05-30-2019 End: 05-30-2019 Office outpatient visit 25 minutes Navneet Villegas Work Phone: [facility] Comment on above: Type 2 diabetes jones itus, uncontrolled, with neuropathy- Insulin requiring (Primary Dx); Hyperlipidemia LDL goal <70; Vitamin D deficiency; Chronic midline low back pain with bilateral sciatica; Carotid artery stenosis, asymptomatic, bilateral-<50% bilateral stenosis; Chronic obstructive pulmonary disease, unspecified COPD type; Cerebral ischemia-Moderate to severe; Gastroesophageal reflux disease without esophagitis; Tinea cruris; Smoker; Tobacco abuse counseling Start: 05-25-2019 End: 05-25-2019 Letter encounter Navneet Villegas Work Phone: [facility] Start: 05-25-2019 End: 05-25-2019 Telephone encounter Navneet Villegas Work Phone: [facility] Comment on above: Appointment (Patient had to cancel her appt today) Start: 05-19-2019 End: 05-19-2019 Subsequent hospital visit by physician Jameson Cabrera Work Phone: [facility] Diagnostic Radiology Comment on above: Arrived Low back pain, unspe cified back pain laterality, unspecified chronicity, with sciatica presence unspecified; Cervicalgia Start: 04-09-2019 End: 04-09-2019 Telephone encounter Robbin Barrientos Work Phone: [facility] Neurology Comment on above: Results Start: 04-07-2019 End: 04-07-2019 Patient encounter procedure Robbin Barrientos Work Phone: [facility] Comment on above: Arrived Start: 03-14-2019 End: 03-14-2019 Office outpatient visit 15 minutes Marlo Davenport Work Phone: [facility] Orthopedics Comment on above: Shoulder impingement , left (Primary Dx); Osteoarthritis of AC (acromioclavicular) joint; Bicipital tendinitis, left; Rotator cuff tendinitis, left Start: 03-11-2019 End: 03-11-2019 Office outpatient visit 15 minutes Robbin Barrientos Work Phone: [facility] Neurology Comment on above: Left arm weakness (P rimary Dx); Pain of left arm; Small fiber polyneuropathy; Vasovagal syncope; History of arterial ischemic stroke; Nonintractable headache, unspecified chronicity pattern, unspecified headache type; Idiopathic small fiber peripheral neuropathy; Neuropathic pain Start: 03-09-2019 End: 03-09-2019 Patient encounter procedure Marlo Davenport Work Phone: [facility] Comment on above: Arrived Start: 03-02-2019 End: 03-02-2019 Telephone encounter Robbin Barrientos Work Phone: [facility] Neurology Comment on above: Other (Needs Surgica l Clearance ) Start: 03-02-2019 End: 03-02-2019 Office outpatient visit 25 minutes Navneet Villegas Work Phone: [facility] Medicine Comment on above: Type 2 diabetes jones itus, uncontrolled, with neuropathy- Insulin requiring (Primary Dx); Hyperlipidemia LDL goal <70; Chronic midline low back pain with bilateral sciatica; Carotid artery stenosis, asymptomatic, bilateral-<50% bilateral stenosis; Cerebral ischemia-Moderate to severe; Chronic obstructive pulmonary disease, unspecified COPD type; Chronic pain in left shoulder; Menopause; Urinary frequency; Smoker; Tobacco abuse counseling; Electronic cigarette use; Tinea cruris; Vitamin D deficiency Start: 02-25-2019 End: 02-25-2019 Office outpatient visit 15 minutes Marlo Davenport Work Phone: [facility] Orthopedics Comment on above: Acute pain of left s hillary Start: 02-13-2019 Refill Bertram Esqueda DO Work Phone: [facility] Primary Care Physicians Comment on above: Type 2 diabetes jones itus with other circulatory complication, with long-term current use of insulin (HCC) Start: 01-21-2019 End: 01-21-2019 Patient encounter procedure Other Other [facility] Start: 01-18-2019 End: 01-18-2019 Office outpatient visit 25 minutes Robbin Barrientos Work Phone: [facility] Neurology Comment on above: Idiopathic small fib er peripheral neuropathy (Primary Dx); Nonintractable headache, unspecified chronicity pattern, unspecified headache type; Neuropathic pain Start: 12-14-2018 End: 12-14-2018 Patient encounter procedure Navneet Villegas Work Phone: [facility] Mammography Comment on above: Arrived Start: 12-08-2018 End: 12-08-2018 Office outpatient visit 25 minutes Navneet Villegas Work Phone: [facility] Family Medicine Comment on above: Type 2 diabetes jones itus, uncontrolled, with neuropathy- Insulin requiring (Primary Dx); Hyperlipidemia LDL goal <70; Hemorrhagic cerebrovascular accident (CVA); Chronic obstructive pulmonary disease, unspecified COPD type; Gastroesophageal reflux disease without esophagitis; Chronic midline low back pain with bilateral sciatica; Menopause; Primary osteoarthritis of both hips; Polyp of colon, unspecified part of colon, unspecified type Start: 11-17-2018 End: 11-17-2018 Patient encounter procedure Marlo Davenport Work Phone: [facility] Radiology Start: 11-17-2018 End: 11-17-2018 Office outpatient new 30 minutes Marlo Davenport Work Phone: [facility] Orthopedics Comment on above: Left shoulder pain, unspecified chronicity (Primary Dx); Shoulder impingement, left Start: 10-27-2018 End: 10-27-2018 Patient encounter procedure Robbin Barrientos Work Phone: [facility] CT Scan Comment on above: Arrived Nonintractable heada matthew, unspecified chronicity pattern, unspecified headache type; Syncope, unspecified syncope type; Abnormal carotid duplex scan; Idiopathic small fiber peripheral neuropathy; Left arm weakness; Left shoulder pain, unspecified chronicity Start: 10-20-2018 End: 10-20-2018 Office outpatient visit 25 minutes Chantel Rice Work Phone: [facility] Cardiology Comment on above: Benign essential hyp ertension (Primary Dx); Dyslipidemia; Tobacco dependence due to cigarettes; Syncope, unspecified syncope type; Chest pain, unspecified type Start: 10-19-2018 End: 10-19-2018 Office outpatient visit 25 minutes Robbin Barrientos Work Phone: [facility] Neurology Comment on above: Nonintractable heada matthew, unspecified chronicity pattern, unspecified headache type (Primary Dx); Syncope, unspecified syncope type; Abnormal carotid duplex scan; Idiopathic small fiber peripheral neuropathy; Left arm weakness; Left shoulder pain, unspecified chronicity Start: 09-15-2018 End: 09-15-2018 Patient encounter procedure Robbin Barrientos Work Phone: [facility] Ultrasound Comment on above: Arrived Start: 12-25-2017 End: 12-25-2017 Emergency department patient visit Shanice Albertluz marina Rainey Facility:[facility] Start: 09-29-2017 Ambulatory Bertram Esqueda Facili ty:[facility] Start: 09-29-2017 End: 09-29-2017 Ambulatory Bertram Esqueda Work Phone: [facility] Start: 09-16-2017 End: 09-16-2017 Emergency department patient visit Dominick Sanchez Facility:[facility] Start: 09-16-2017 Ambulatory [facility] Procedures Date Procedure Procedure Detail Performing Clinician Start: 06-28-2025 Glucose measurement Todd De Leon MD Work Phone: Start: 06-28-2025 Glucose measurement Todd De Leon MD Work Phone: Start: 06-28-2025 Complete blood count with white cell differential, manual Britton Garcia ACADEMIC SUPPORT ASSISTANT Work Phone: Start: 06-28-2025 Comprehensive metabolic panel Britton Garcia CNP Work Phone: Start: 06-28-2025 Drug screen quantitative vancomycin Shakila Givens [facility],PharmD Start: 06-28-2025 Red blood cell morphology Britton pham ACADEMIC SUPPORT ASSISTANT Work Phone: Start: 06-28-2025 Glucose measurement Todd De Leon MD Work Phone: Start: 06-27-2025 Glucose measurement Todd De Leon MD Work Phone: Start: 06-27-2025 Glucose measurement Todd De Leon MD Work Phone: Start: 06-27-2025 OBTAIN ARTERIAL BLOOD GASES AND PERFORM Luis A Fischer DO Work Phone: Start: 06-27-2025 Ct thorax w/o contrast material Luis A Herson Fischer DO Work Phone: Start: 06-27-2025 Ct head/brain w/o contrast material Luis A Fischer DO Work Phone: Start: 06-27-2025 Complete blood count with white cell differential, manual Luis Aneftali Fischer DO Work Phone: Start: 06-27-2025 Comprehensive metabolic panel Luis A Herson Fischer DO Work Phone: Start: 06-27-2025 Red blood cell morphology Luis Aneftali Fischer DO Work Phone: Start: 06-27-2025 Gases blood ph direct jeremias xcpt pulse oximitry [facility] Start: 06-27-2025 End: 06-27-2025 Glucose measurement Todd De Leon MD Work Phone: Start: 06-27-2025 Basic metabolic panel calcium total Rosa Barrios MD Work Phone: Start: 06-27-2025 End: 06-27-2025 Glucose measurement Todd De Leon MD Work Phone: Start: 06-27-2025 End: 06-27-2025 Assay of lactate Rosa Barrios MD Work Phone: Start: 06-27-2025 Glucose measurement Todd De Leon MD Work Phone: Start: 06-27-2025 Glucose measurement Todd De Leon MD Work Phone: Start: 06-27-2025 Culture bacterial quanttative colony count urine Nick Garciaan DO Work Phone: Start: 06-27-2025 C-reactive protein Joce Arriola MD Work Phone: Start: 06-27-2025 Complete blood count with white cell differential, manual Todd De Leon MD Work Phone: Start: 06-27-2025 Comprehensive metabolic panel Todd De Leon MD Work Phone: Start: 06-27-2025 Red blood cell morphology Todd Evans Work Phone: Start: 06-27-2025 Glucose measurement Todd De Leon MD Work Phone: Start: 06-26-2025 Electrocardiogram Nick Garciaan D O Work Phone: Start: 06-26-2025 Iadna s aureus methicillin resist amp probe tq Kaela Reyes [facility],PharmD Start: 06-26-2025 Complete blood count with white cell differential, manual Nick Burgosn Demetriushian DO Work Phone: Start: 06-26-2025 Potassium serum plasma/whole blood Nick Romohian DO Work Phone: Start: 06-26-2025 Red blood cell morphology Nick Abhijit Ars hian DO Work Phone: Start: 06-26-2025 Gases blood ph direct jeremias xcpt pulse oximitry Nick Romohian DO Work Phone: Start: 06-26-2025 Assay of lactate Nick Burgosn Demetriushian D O Work Phone: Start: 06-26-2025 Culture bacterial blood aerobic w/id isolates Nick Abhijit Arshian DO Work Phone: Start: 06-26-2025 Blood group typing Nick Abhijit Arshian D O Work Phone: Start: 06-26-2025 Ecg routine ecg w/least 12 lds w/i&r Nick Qiu DO Work Phone: Start: 06-26-2025 Ct angio abd&plvis cntrst mtrl w/wo cntrst img Debra Hernandezir ACADEMIC SUPPORT ASSISTANT Work Phone: Start: 06-26-2025 Ct angiography neck w/contrast/noncontrast Debramalik Boudreauxis [place] ACADEMIC SUPPORT ASSISTANT Work Phone: Start: 06-26-2025 Ct cervical spine w/o contrast material Debra Glynnis [place] ACADEMIC SUPPORT ASSISTANT Work Phone: Start: 06-26-2025 Ct head/brain w/o contrast material Debra Glynnis [place] ACADEMIC SUPPORT ASSISTANT Work Phone: Start: 06-26-2025 Radiologic examination pelvis 1/2 views Nick Qiu DO Work Phone: Start: 06-26-2025 Radiologic exam chest single view Nick Qiu DO Work Phone: Start: 06-26-2025 Blood ethanol measurement Nick person DO Work Phone: Start: 06-26-2025 C-reactive protein Nick Garciaan D O Work Phone: Start: 06-26-2025 Comprehensive metabolic panel Debra Caballero ACADEMIC SUPPORT ASSISTANT Work Phone: Start: 06-26-2025 RADIATION THERAPY - UNVERIFIED DATA IMPORTED FROM [facility] Treatment Results Radiation Oncology Start: 06-23-2025 RADIATION THERAPY - UNVERIFIED DATA IMPORTED FROM [facility] Treatment Results Radiation Oncology Start: 06-20-2025 Complete blood count with white cell differential, manual Deniz Echavarria MD Work Phone: Start: 06-20-2025 Comprehensive metabolic panel Deniz Echavarria MD Work Phone: Start: 06-16-2025 Glucose measurement Deniz Echavarria MD Work Phone: Start: 06-16-2025 Glucose measurement Deniz Echavarria MD Work Phone: Start: 06-16-2025 End: 06-16-2025 Glucose measurement Deniz Echavarria MD Work Phone: Start: 06-14-2025 Glucose measurement Deniz Echavarria MD Work Phone: Start: 06-14-2025 Glucose measurement Deniz Echavarria MD Work Phone: Start: 06-13-2025 Complete blood count with white cell differential, manual Deniz Echavarria MD Work Phone: Start: 06-13-2025 Comprehensive metabolic panel Deniz Echavarria MD Work Phone: Start: 06-13-2025 Red blood cell morphology Deniz moreno MD Work Phone: Start: 06-06-2025 Complete blood count with white cell differential, manual Deniz Echavarria MD Work Phone: Start: 06-06-2025 Comprehensive metabolic panel Deniz Echavarria MD Work Phone: Start: 06-06-2025 Red blood cell morphology Deniz moreno MD Work Phone: Start: 05-30-2025 Complete blood count with white cell differential, manual Deniz Echavarria MD Work Phone: Start: 05-30-2025 Comprehensive metabolic panel Deniz Echavarria MD Work Phone: Start: 05-24-2025 Complete blood count with white cell differential, manual Deniz Echavarria MD Work Phone: Start: 05-24-2025 Comprehensive metabolic panel Deniz Echavarria MD Work Phone: Start: 05-22-2025 Hemoglobin glycosylated a1c Jose menard MD Work Phone: Start: 02-06-2025 Ct abdomen & pelvis w/contrast material Jessica Boykin DO Work Phone: Start: 01-19-2025 Arthrocentesis aspir&/inj major jt/bursa w/o us Anny Fernandez ACADEMIC SUPPORT ASSISTANT Work Phone: Start: 11-14-2024 Hemoglobin glycosylated a1c Jose menard MD Work Phone: Start: 08-22-2024 Hemoglobin glycosylated a1c Jose menard MD Work Phone: Start: 05-23-2024 Hemoglobin glycosylated a1c Jose menard MD Work Phone: Start: 02-23-2024 Mammography Marcio Joon [facility] Nurse [facility] Start: 11-16-2023 Hemoglobin glycosylated a1c Jose menard MD Work Phone: Start: 01-04-2021 Hemoglobin glycosylated a1c Purvi Delvisbe ll Work Phone: Start: 08-21-2020 Intra-articular injection Marlo Davenport Work Phone: Start: 08-21-2020 Intra-articular injection Marlo L Issac Work Phone: Start: 05-22-2020 Intra-articular injection Marlo L Issac Work Phone: Start: 05-22-2020 Intra-articular injection Marlo L Issac Work Phone: Start: 02-21-2020 Intra-articular injection Marlo L Issac Work Phone: Start: 02-21-2020 Intra-articular injection Marlo L Issac Work Phone: Start: 10-21-2019 Intra-articular injection Marlo L Issac Work Phone: Start: 10-21-2019 Intra-articular injection Marlo L Issac Work Phone: Start: 05-19-2019 LABS (OUTSIDE) Historical Provider Start: 05-19-2019 OUTSIDE RADIOLOGY Historical Provider Start: 03-14-2019 Intra-articular injection Marlo Davenport Work Phone: Start: 03-02-2019 PULMONARY FUNCTION TEST (SCANNED) Navneet Roberts Bakari Work Phone: Start: 12-15-2018 Mammography Robbin Barrientos Start: 12-14-2018 Mammography Navneet Villegas Start: 11-17-2018 End: 11-17-2018 Intra-articular injection Marlo Davenport Work Phone: Start: 09-15-2018 End: 09-15-2018 Imaging of carotid arteries Robbin hein Work Phone: Start: 06-08-2018 H/O: hysterectomy S/P hysterectomy with oophorectomy Devon Cuadra MD Work Phone: Start: 06-08-2018 H/O: surgery S/P hysterectomy with oophorectomy Jose Luna MD Work Phone: Start: 06-08-2018 History of cataract extraction Status post cataract extraction and insertion of intraocular lens Devon Cuadra MD Work Phone: Plan of Treatment Date Care Activity Detail Author Start: 06-26-2035 Tetanus vaccination Tetanus: Every 10yrs [facility] Start: 06-08-2028 Tetanus vaccination TETANUS [facility] Start: 06-28-2026 eGFR Diabetes eGFR Diabetes [facility] Start: 06-20-2026 eGFR Diabetes eGFR Diabetes [facility] Start: 06-13-2026 eGFR Diabetes eGFR Diabetes [facility] Start: 06-06-2026 eGFR Diabetes eGFR Diabetes [facility] Start: 05-30-2026 eGFR Diabetes eGFR Diabetes [facility] Start: 05-24-2026 eGFR Diabetes eGFR Diabetes [facility] Start: 05-10-2026 eGFR Diabetes eGFR Diabetes [facility] Start: 04-24-2026 eGFR Diabetes eGFR Diabetes [facility] Start: 04-12-2026 End: 04-13-2026 CT Chest WO contrast CT Chest Without Contrast Imaging Routine Cavitating mass in right upper lung lobe Expected: 04/12/2026, Expires: 04/13/2026 [facility] Comment on above: Expected: 04/12/2026, Expires: Start: 02-03-2026 Lipid panel LIPIDS [facility] Start: 02-03-2026 Potassium [Moles/volume] in Serum or Plasma POTASSIUM [facility] Start: 11-22-2025 Hemoglobin A1c measurement [facility] Start: 08-22-2025 End: 05-22-2026 CBC,PLATELETS CBC,PLATELETS Lab Routine Type 2 diabetes mellitus with hyperglycemia, with long-term current use of insulin Expected: 08/22/2025, Expires: 05/22/2026 [facility] Comment on above: Expected: 08/22/2025, Expires: Start: 08-22-2025 End: 05-22-2026 Comprehensive metabolic 2000 panel - Serum or Plasma COMPREHENSIVE METABOLIC PANEL Lab Routine Hyperlipidemia LDL goal <70 Type 2 diabetes mellitus with hyperglycemia, with long-term current use of insulin Expected: 08/22/2025, Expires: 05/22/2026 [facility] Comment on above: Expected: 08/22/2025, Expires: Start: 08-22-2025 End: 05-22-2026 Hemoglobin A1c/Hemoglobin.total in Blood HEMOGLOBIN A1C Lab Routine Type 2 diabetes mellitus with hyperglycemia, with long-term current use of insulin Expected: 08/22/2025, Expires: 05/22/2026 [facility] Comment on above: Expected: 08/22/2025, Expires: Start: 08-22-2025 End: 05-22-2026 LIPID PANEL W CALCULATED LDL LIPID PANEL W CALCULATED LDL Lab Routine Hyperlipidemia LDL goal <70 Type 2 diabetes mellitus with hyperglycemia, with long-term current use of insulin Expected: 08/22/2025, Expires: 05/22/2026 [facility] Comment on above: Expected: 08/22/2025, Expires: Start: 08-22-2025 Medicare Wellness Visit Medicare Wellness Visit [facility] Start: 08-22-2025 End: 08-22-2025 Patient encounter procedure 08/22/2025 2:00 PM EDT Office Visit [facility] Medicine [address] [place] [id number] Jose Luna MD [address] [place] [address] [facility] Start: 08-05-2025 Hemoglobin A1c measurement [facility] Start: 07-20-2025 End: 07-20-2025 ambulatory 07/20/2025 3:15 PM EDT Radiation Oncology [facility] Radiation Oncology [address] [place] [phone] Ellen Bonilla MD [address] [place] [address] [facility] Start: 07-13-2025 End: 07-13-2025 ambulatory 07/13/2025 3:15 PM EDT Radiation Oncology [facility] [address] [place] [phone] Ellen Bonilla MD [address] [place] [address] [facility] Start: 07-11-2025 End: 07-11-2025 ambulatory [facility] Start: 07-10-2025 End: 07-10-2025 ambulatory [facility] Start: 07-07-2025 End: 07-07-2025 Patient encounter procedure [facility] Start: 07-07-2025 End: 07-07-2025 ambulatory [facility] Start: 07-06-2025 End: 07-06-2025 ambulatory 07/06/2025 3:15 PM EDT Radiation Oncology [facility] [address] [place] [phone] Ellen Bonilla MD [address] [place] [address] [facility] Start: 07-06-2025 End: 07-06-2025 Patient encounter procedure 07/06/2025 2:15 PM EDT Office Visit [facility] [address] [place] [phone] Deniz Echavarria MD [address] [place] [address] [facility] Start: 07-06-2025 End: 07-06-2025 Patient encounter procedure 07/06/2025 10:30 AM EDT Infusion/Injection [address] [phone] Deniz Echavarria MD [address] [place] [address] Discharge Disposition: Home [facility] Start: 07-06-2025 End: 07-06-2025 ambulatory [facility] Start: 07-05-2025 End: 07-05-2025 ambulatory 07/05/2025 3:15 PM EDT Radiation Oncology [facility] [address] [place] [phone] Fermin Covarrubias, DO [address] [facility] [place] [address] [facility] Start: 07-05-2025 End: 07-05-2025 Patient encounter procedure [facility] Start: 07-05-2025 End: 07-05-2025 ambulatory [facility] Start: 07-04-2025 End: 07-04-2025 Nursing evaluation of patient and report 07/04/2025 9:30 AM EDT Nurse Only [address] [phone] Deniz Echavarria MD [address] [place] [address] Discharge Disposition: Home [facility] Start: 07-04-2025 End: 07-04-2025 ambulatory [facility] Start: 07-03-2025 Influenza vaccination [facility] [employer] [facility] Start: 06-30-2025 End: 06-30-2025 ambulatory [facility] Start: 06-29-2025 End: 06-29-2025 ambulatory 06/29/2025 3:15 PM EDT Radiation Oncology [facility] [address] [place] [address] Ellen Bonilla MD [address] [place] [address] [facility] Start: 06-29-2025 End: 06-29-2025 ambulatory [facility] Start: 06-28-2025 End: 06-28-2025 ambulatory [facility] Start: 06-27-2025 End: 06-27-2025 Nursing evaluation of patient and report [facility] Start: 06-27-2025 End: 06-27-2025 ambulatory [facility] Start: 06-26-2025 End: 06-26-2025 ambulatory 06/26/2025 3:15 PM EDT Radiation Oncology [facility] [address] [place] [address] Ellen Bonilla MD [address] [place] [address] [facility] Start: 06-26-2025 End: 06-26-2025 ambulatory [facility] Start: 06-23-2025 End: 06-23-2025 ambulatory [facility] Start: 06-22-2025 End: 06-22-2025 ambulatory 06/22/2025 3:15 PM EDT Radiation Oncology [facility] [address] [place] [address] Ellen Bonilla MD [address] [place] [address] [facility] Start: 06-22-2025 End: 06-22-2025 ambulatory [facility] Start: 06-21-2025 End: 06-21-2025 [facility]iation On[facility] Start: 06-20-2025 End: 06-20-2025 Nursing evaluation of patient and report 06/20/2025 9:00 AM EDT Nurse Only [facility] [address] [place] [phone] Deniz Echavarria MD [address] [facility] [place] [address] Discharge Disposition: Home [facility] Start: 06-20-2025 End: 06-20-2025 ambulatory [facility] Start: 06-19-2025 End: 06-19-2025 [facility]iation [facility] Start: 06-16-2025 End: 06-16-2025 ambulatory 06/16/2025 3:15 PM EDT Radiation Oncology [facility] [address] [place] [phone] Fermin Covarrubias, [address] [place] [address] [place] [address] [facility] Start: 06-16-2025 End: 06-16-2025 Patient encounter procedure [facility] Comment on above: 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) (Primary Dx) Start: 06-16-2025 End: 06-16-2025 ambulatory [facility] Start: 06-15-2025 End: 06-15-2025 Patient encounter procedure [facility] Start: 06-15-2025 End: 06-15-2025 ambulatory [facility] Comment on above: Arrived Start: 06-14-2025 End: 06-14-2025 Patient encounter procedure [facility] Comment on above: 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) (Primary Dx) Start: 06-14-2025 End: 06-14-2025 ambulatory [facility] Start: 06-13-2025 End: 06-13-2025 Patient encounter procedure 06/13/2025 3:30 PM EDT Appointment [facility] [address], 3rd [place] [address] Deniz Echavarria MD [address] [place] [address] [facility] Start: 06-13-2025 End: 06-13-2025 Nursing evaluation of patient and report [facility] Start: 06-09-2025 End: 06-09-2025 Patient encounter procedure [facility] Start: 06-08-2025 End: 06-08-2025 Patient encounter procedure 06/08/2025 10:30 AM EDT Infusion/Injection [facility] [place] [address] [place] [address] Deniz Echavarria MD [address] [place], [place] [address] [address] Discharge Disposition: Home [facility] Start: 06-07-2025 End: 06-07-2025 Patient encounter procedure [facility] Start: 06-06-2025 End: 06-06-2025 Nursing evaluation of patient and report [facility] Start: 06-01-2025 End: 06-01-2025 ambulatory [facility] Start: 05-31-2025 End: 05-31-2025 Patient encounter procedure 05/31/2025 3:45 PM EDT Appointment [facility] [address] [facility] [place] [address] Gordy Potter DO [address] [place] [address] [facility] Start: 05-31-2025 End: 05-31-2025 Patient encounter procedure 05/31/2025 1:30 PM EDT Infusion/Injection [facility] [place] [address] [place] [address] Deniz Echavarria MD [address] [facility] [place] [place] [address] Discharge Disposition: Home [facility] Start: 05-30-2025 End: 05-30-2025 Nursing evaluation of patient and report 05/30/2025 1:00 PM EDT Nurse Only [facility] [address] [place] [phone] Deniz Echavarria MD [address] [place] [address] Discharge Disposition: Home [facility] Start: 05-26-2025 End: 05-26-2025 Telemedicine consultation with patient 05/26/2025 1:45 PM EDT Telemedicine [facility] [address] [place] [address] Gordy Potter, [address] [place] [address] [facility] Start: 05-26-2025 End: 05-26-2025 Patient encounter procedure [facility] Start: 05-25-2025 End: 05-25-2025 Patient encounter procedure 05/25/2025 1:00 PM EDT Infusion/Injection [facility] [address] [phone] Deniz Echavarria MD [address] [place] [address] Discharge Disposition: [facility] Start: 05-23-2025 End: 05-23-2025 Nursing evaluation of patient and report 05/23/2025 2:30 PM EDT Nurse Only [facility] [address] [facility] [place] [place] [phone] [facility] Start: 05-22-2025 End: 05-15-2026 MR Lumbar spine WO and W contrast IV MR Lumbar Spine With And Without Contrast Imaging Routine Lumbar radiculopathy Expected: 05/22/2025 (Approximate), Expires: 05/15/2026 [facility] Work Phone: Comment on above: Expected: 05/22/2025 (Approximate), Expi res: 05/15/2026 Start: 05-19-2025 End: 05-19-2025 Admission to same day surgery center 05/19/2025 1:00 PM EDT - 05/19/2025 2:00 PM EDT Surgery [facility] [address] [place] [address] Generic, Radiologist [facility] Port Implant Chest [facility] Comment on above: [facility] Port Implant Chest Start: 05-19-2025 Subsequent hospital visit by physician 05/19/2025 1:00 PM EDT Hospital Encounter [facility] Procedural Care Unit [address] [place] [phone] [facility] Start: 05-17-2025 End: 05-17-2025 ambulatory 05/17/2025 10:00 PM EDT Radiation Oncology [facility] [address] [place] [phone] Ellen Bonilla MD [facility] [place] [address] [facility] Start: 05-14-2025 Hemoglobin A1c measurement [facility] Start: 05-11-2025 End: 07-11-2026 Echocardiography Echocardiogram complete Echocardiography Routine 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) Expected: 05/11/2025, Expires: 07/11/2026 [facility] Work Phone: Comment on above: Expected: 05/11/2025, Expires: Start: 05-11-2025 End: 05-10-2026 RF Guidance for percutaneous drainage and placement of drainage catheter of Biliary ducts IR [facility] Placement Imaging Routine 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) Other specified pleural conditions Expected: 05/11/2025, Expires: 05/10/2026 [facility] Comment on above: Expected: 05/11/2025, Expires: Start: 05-10-2025 End: 05-10-2025 Patient encounter procedure 05/10/2025 9:15 AM EDT Office Visit [facility] [address] [facility] [address] [place] [address] Deniz Echavarria MD [address] [facility] [place] [place] [address] [facility] Start: 05-04-2025 End: 05-04-2025 Patient encounter procedure 05/04/2025 11:45 AM EDT Office Visit [place] [address] [place] [phone] Jose Luna MD [address] [place] [address] [facility] Start: 04-27-2025 End: 04-27-2025 ambulatory 04/27/2025 1:15 PM EDT Radiation Oncology [facility] [address] [place] [phone] Ellen Bonilla MD [facility] [place] [address] [facility] Start: 04-25-2025 Potassium [Moles/volume] in Serum or Plasma POTASSIUM [facility] Start: 04-25-2025 End: 04-25-2025 Admission to same day surgery center [facility] Comment on above: ROBOTI BRONCHOSCOPY ENDOBRONCHIAL ULTRAS OUND, LUNG BIOPSY, LYMPH NODE BIOPSY, Start: 04-25-2025 End: 04-25-2025 Anesthesia consultation 04/25/2025 7:05 AM EDT Anesthesia Event [facility] [address] [place] [address] Juan Jose Verdin MD [address] [facility] [place] [address] [facility] Start: 04-25-2025 End: 04-25-2025 Bronchoscopy w/cptr-asst image-guided navigation [facility] Start: 04-25-2025 Subsequent hospital visit by physician [facility] Diagnostic [facility] Start: 04-18-2025 End: 04-18-2025 Patient encounter procedure [facility] Start: 04-17-2025 End: 04-17-2025 ambulatory 04/17/2025 10:00 PM EDT Radiation Oncology [facility] [address] [place] [phone] Ellen Bonilla MD [facility] [place] [address] Discharge Disposition: Home [facility] Start: 04-07-2025 End: 04-07-2025 Patient encounter procedure 04/07/2025 1:00 PM EDT Office Visit [facility] [address] [place] [address] [address] [place] [address] Deniz Echavarria MD [address] [place] [address] [facility] Start: 02-22-2025 Screening for malignant neoplasm of breast MAMMOGRAM [facility] Start: 02-20-2025 End: 08-22-2025 Complete blood count with white cell differential, automated CBC, EDIF, PLATELET Lab Routine Gastroesophageal reflux disease without esophagitis Expected: 02/20/2025, Expires: 08/22/2025 [facility] Comment on above: Expected: 02/20/2025, Expires: Start: 02-20-2025 Hemoglobin A1c measurement HBA1C TEST [facility] Start: 02-20-2025 End: 08-22-2025 Hemoglobin A1c/Hemoglobin.total in Blood HEMOGLOBIN A1C Lab Routine Type 2 diabetes mellitus with hyperglycemia, with long-term current use of insulin Expected: 02/20/2025, Expires: 08/22/2025 [facility] Comment on above: Expected: 02/20/2025, Expires: Start: 02-20-2025 End: 08-22-2025 LIPID PANEL W CALCULATED LDL LIPID PANEL W CALCULATED LDL Lab Routine Type 2 diabetes mellitus with hyperglycemia, with long-term current use of insulin Expected: 02/20/2025, Expires: 08/22/2025 [facility] Comment on above: Expected: 02/20/2025, Expires: Start: 02-20-2025 End: 08-22-2025 URINE PROTEIN/CREA RATIO, RANDOM URINE PROTEIN/CREA RATIO, RANDOM Fluids Routine Type 2 diabetes mellitus with hyperglycemia, with long-term current use of insulin Expected: 02/20/2025, Expires: 08/22/2025 [facility] Comment on above: Expected: 02/20/2025, Expires: Start: 02-08-2025 Lipid panel LIPIDS [facility] Start: 02-08-2025 Potassium [Moles/volume] in Serum or Plasma POTASSIUM [facility] Start: 02-08-2025 Urine screening for protein URINE MICROALBUMIN TEST [facility] Start: 01-30-2025 End: 01-30-2026 CT Abdomen and Pelvis W contrast IV CT ABDOMEN/PELVIS WITH CONTRAST Imaging Routine Abdominal pain, generalized Expected: 01/30/2025, Expires: 01/30/2026 [facility] Comment on above: Expected: 01/30/2025, Expires: Start: 12-19-2024 End: 12-19-2024 Patient encounter procedure 12/19/2024 1:00 PM EST Office Visit [facility] General Surgery [address] [place] [phone] Jessica Boykin DO [address] [place] [address] [facility] Start: 11-23-2024 Hemoglobin A1c measurement HBA1C TEST [facility] Start: 11-14-2024 End: 11-14-2024 Patient encounter procedure 11/14/2024 3:15 PM EST Office Visit [facility] Family Medicine [address] [place] [phone] Jose Luna MD [address] [place] [address] [facility] Start: 11-14-2024 End: 11-14-2025 US.doppler Lower extremity vein - bilateral VASC DUPLEX VENOUS WITH REFLUX BILATERAL LOWER Imaging Routine Chronic venous insufficiency Expected: 11/14/2024, Expires: 11/14/2025 [facility] Comment on above: Expected: 11/14/2024, Expires: Start: 08-22-2024 End: 08-22-2025 Comprehensive metabolic 2000 panel - Serum or Plasma COMPREHENSIVE METABOLIC PANEL Lab Routine Type 2 diabetes mellitus with hyperglycemia, with long-term current use of insulin Expected: 08/22/2024, Expires: 08/22/2025 [facility] Comment on above: Expected: 08/22/2024, Expires: Start: 08-22-2024 End: 08-22-2024 Patient encounter procedure 08/22/2024 2:00 PM EDT Office Visit [address] [phone] Jose Luna MD [address] [place] [address] [facility] Start: 08-20-2024 End: 02-16-2025 Complete blood count with white cell differential, automated CBC, EDIF, PLATELET Lab Routine Type 2 diabetes mellitus with hyperglycemia, with long-term current use of insulin Expected: 08/20/2024, Expires: 02/16/2025 [facility] Comment on above: Expected: 08/20/2024, Expires: Start: 08-20-2024 End: 02-16-2025 Comprehensive metabolic 2000 panel - Serum or Plasma COMPREHENSIVE METABOLIC PANEL Lab Routine Type 2 diabetes mellitus with hyperglycemia, with long-term current use of insulin Expected: 08/20/2024, Expires: 02/16/2025 [facility] Comment on above: Expected: 08/20/2024, Expires: Start: 08-20-2024 End: 02-16-2025 Hemoglobin A1c/Hemoglobin.total in Blood HEMOGLOBIN A1C Lab Routine Type 2 diabetes mellitus with hyperglycemia, with long-term current use of insulin Expected: 08/20/2024, Expires: 02/16/2025 [facility] Comment on above: Expected: 08/20/2024, Expires: Start: 08-10-2024 Hemoglobin A1c measurement HBA1C TEST [facility] Start: 07-03-2024 COVID-19 VACCINE ( season) COVID-19 VACCINE () [facility] Start: 07-03-2024 COVID-19 VACCINE () COVID-19 VACCINE () [facility] Start: 07-03-2024 Influenza vaccination [facility] Start: 05-23-2024 End: 05-23-2024 Patient encounter procedure 05/23/2024 2:00 PM EDT Office Visit [address] [phone] Jose Luna MD [address] [place] [address] [facility] [place] [address] [facility] Start: 05-16-2024 Hemoglobin A1c measurement HBA1C TEST [facility] Start: 05-03-2024 End: 05-03-2024 Patient encounter procedure 05/03/2024 2:00 PM EDT Appointment [facility] Echocardiography [address] [place] [phone] Jose Luna MD [address] [place] [address] [address] [facility] [place] [address] [facility]ocardi[facility] Start: 04-25-2024 End: 04-25-2024 Clinical Support Encounter 04/25/2024 2:00 PM EDT Clinical Support Encounter [address] [phone] [facility] Start: 03-23-2024 End: 03-23-2024 Clinical Support Encounter 03/23/2024 2:00 PM EDT Clinical Support Encounter [facility] Medicine [address] [place] [phone] [facility] Medicine Start: 2024 Respiratory Syncytial Virus Immunization: Risk, 60-74 Risk, or 75+ (1 - 1-dose 75+ series) Respiratory Syncytial Virus Immunization: Risk, 60-74 Risk, or 75+ (1 - 1-dose 75+ series) [facility] Start: 2024 RSV VACCINE (1 - 1-dose 75+ series) RSV VACCINE (1 - 1-dose 75+ series) [facility] Start: 02-23-2024 End: 02-23-2024 Patient encounter procedure 02/23/2024 1:45 PM EDT Appointment [facility] Mammography [address] [place] [phone] Jose Luna MD [address] [place] [address] [facility] Start: 02-19-2024 End: 02-18-2025 MG Breast - bilateral Screening MAMMO SCREENING WITH MAVERICK BILATERAL Imaging Routine Breast cancer screening by mammogram Expected: 02/19/2024, Expires: 02/18/2025 [facility] Comment on above: Expected: 02/19/2024, Expires: Start: 02-19-2024 End: 02-19-2024 Patient encounter procedure 02/19/2024 1:30 PM EDT Office Visit [facility] Medicine [address] [place] [phone] Jose Luna MD [address] [place] [phone] [facility] Start: 01-28-2024 Lipid panel LIPIDS [facility] Start: 01-28-2024 Potassium [Moles/volume] in Serum or Plasma POTASSIUM [facility] Start: 11-16-2023 End: 11-16-2024 CBC,PLATELETS CBC,PLATELETS Lab Routine Gastroesophageal reflux disease without esophagitis Expected: 11/16/2023, Expires: 11/16/2024 [facility] Comment on above: Expected: 11/16/2023, Expires: Start: 11-16-2023 End: 11-16-2024 Comprehensive metabolic 2000 panel - Serum or Plasma COMPREHENSIVE METABOLIC PANEL Lab Routine Type 2 diabetes mellitus with hyperglycemia, with long-term current use of insulin Expected: 11/16/2023, Expires: 11/16/2024 [facility] Comment on above: Expected: 11/16/2023, Expires: Start: 11-16-2023 End: 11-16-2024 Hemoglobin A1c/Hemoglobin.total in Blood HEMOGLOBIN A1C Lab Routine Type 2 diabetes mellitus with hyperglycemia, with long-term current use of insulin Expected: 11/16/2023, Expires: 11/16/2024 [facility] Comment on above: Expected: 11/16/2023, Expires: Start: 11-16-2023 End: 11-16-2024 LIPID PANEL W CALCULATED LDL LIPID PANEL W CALCULATED LDL Lab Routine Hyperlipidemia LDL goal <70 Expected: 11/16/2023, Expires: 11/16/2024 [facility] Comment on above: Expected: 11/16/2023, Expires: Start: 11-16-2023 End: 11-16-2024 MICROALBUMIN,RANDOM URINE MICROALBUMIN,RANDOM URINE Fluids Routine Type 2 diabetes mellitus with hyperglycemia, with long-term current use of insulin Expected: 11/16/2023, Expires: 11/16/2024 [facility] Comment on above: Expected: 11/16/2023, Expires: Start: 07-03-2023 COVID-19 VACCINE () COVID-19 VACCINE () [facility] Start: 07-03-2023 Influenza vaccination INFLUENZA VACCINE (#1) [facility] Start: 11-28-2022 LIPIDS LIPIDS [facility] Start: 08-30-2022 Hemoglobin A1c measurement HBA1C TEST [facility] Start: 08-12-2022 End: 08-12-2022 Patient encounter procedure 08/12/2022 Office Visit Family Medicine Devon Cuadra MD [address] [place] [phone] [facility] Medicine Start: 07-03-2022 Influenza vaccination INFLUENZA VACCINE (#1) [facility] Start: 06-23-2022 End: 06-23-2023 CT Abdomen and Pelvis WO contrast CT ABDOMEN/PELVIS WITHOUT CONTRAST Imaging Routine History of hernia repair Expected: 06/23/2022, Expires: 06/23/2023 [facility] Comment on above: Expected: 06/23/2022, Expires: Start: 05-28-2022 Hemoglobin A1c measurement HBA1C TEST [facility] Start: 05-27-2022 End: 05-27-2023 CBC,PLATELETS CBC,PLATELETS Lab Routine Cerebral ischemia-Moderate to severe Expected: 05/27/2022 (Approximate), Expires: 05/27/2023 [facility] Comment on above: Expected: 05/27/2022 (Approximate), Expi res: 05/27/2023 Start: 05-27-2022 End: 05-27-2023 Comprehensive metabolic 2000 panel - Serum or Plasma COMPREHENSIVE METABOLIC PANEL Lab Routine Hyperlipidemia LDL goal <70 Expected: 05/27/2022 (Approximate), Expires: 05/27/2023 [facility] Comment on above: Expected: 05/27/2022 (Approximate), Expi res: 05/27/2023 Start: 05-27-2022 End: 05-27-2023 Hemoglobin A1c/Hemoglobin.total in Blood HEMOGLOBIN A1C Lab Routine Type 2 diabetes mellitus with hyperglycemia, with long-term current use of insulin Expected: 05/27/2022 (Approximate), Expires: 05/27/2023 [facility] Comment on above: Expected: 05/27/2022 (Approximate), Expi res: 05/27/2023 Start: 05-27-2022 End: 05-27-2023 LIPID PANEL W CALCULATED LDL LIPID PANEL W CALCULATED LDL Lab Routine Hyperlipidemia LDL goal <70 Expected: 05/27/2022 (Approximate), Expires: 05/27/2023 [facility] Comment on above: Expected: 05/27/2022 (Approximate), Expi res: 05/27/2023 Start: 05-02-2022 Tetanus vaccination Tetanus: Every 10yrs [facility] Start: 02-28-2022 End: 02-28-2022 Patient encounter procedure 02/28/2022 Office Visit Family Medicine Purvi Humphreys, TELEPHONE RECORDER-ACADEMIC SUPPORT ASSISTANT [address] [facility] [place] [address] [facility] Medicine Start: 12-07-2021 LIPIDS LIPIDS [facility] Start: 07-07-2021 HbA1c (Bld) [Mass fraction] HBA1C TEST [facility] Start: 07-03-2021 Influenza vaccination INFLUENZA VACCINE (#1) [facility] Start: 06-06-2021 HbA1c (Bld) [Mass fraction] HBA1C TEST [facility] Start: 03-10-2021 End: 12-11-2021 HbA1c (Bld) [Mass fraction] HEMOGLOBIN A1C Lab Routine Type 2 diabetes mellitus, uncontrolled, with neuropathy Expected: 03/10/2021 (Approximate), Expires: 12/11/2021 [facility] Comment on above: Expected: 03/10/2021 (Approximate), Expi res: 12/11/2021 Start: 02-07-2021 End: 02-07-2021 Office Visit 02/07/2021 Office Visit Orthopaedics Mica Patel, TELEPHONE RECORDER-ACADEMIC SUPPORT ASSISTANT [address] [place] [address] [phone] [facility] Start: 01-24-2021 End: 01-24-2021 Hospital Encounter [facility] Comment on above: Impingement syndrome of left shoulder ARTHROSCOPY SHOULDER W/ ROTATOR CUFF REPAIR Start: 01-23-2021 End: 01-23-2021 Lab Encounter 01/23/2021 Lab Encounter Clinical Pathology/Laboratory Medicine Marlo Davenport MD [address] [place] [address] [phone] [facility] Clinical Lab Start: 01-17-2021 End: 01-17-2021 Office Visit 01/17/2021 Office Visit Family Medicine Petr Purvi, TELEPHONE RECORDER-ACADEMIC SUPPORT ASSISTANT [address] [facility] [place] [address] [phone] [facility] Medicine Start: 01-15-2021 End: 01-15-2021 Office Visit 01/15/2021 Office Visit Cardiovascular Medicine Max Pena MD [address] [place] [address], [place] [address] [phone] [facility] Card[facility] Start: 01-04-2021 End: 01-04-2021 Office Visit 01/04/2021 Office Visit Family Medicine Petr Purvi, TELEPHONE RECORDER-ACADEMIC SUPPORT ASSISTANT [address] [facility] [place] [address] [phone] [facility] Medicine Start: 12-24-2020 End: 12-24-2020 Office Visit 12/24/2020 Office Visit Orthopaedics Marlo Davenport MD [address] [place] [address], [place] [address] [phone] [facility] Start: 08-21-2020 End: 08-21-2020 Office Visit 08/21/2020 Office Visit Marlo Rehman MD [address] [place] [address], [place] [address] [phone] [facility] Start: 07-03-2020 Influenza vaccination [facility] Start: 05-30-2020 Colonoscopy [facility] Start: 05-30-2020 Screening for malignant neoplasm of colon COLORECTAL CANCER SCREENING DISCUSSION [facility] Start: 05-22-2020 End: 05-22-2020 Office Visit 05/22/2020 Office Visit Marlo Rehman MD [address] [place] [address] [phone] [facility] Start: 05-19-2020 LIPIDS LIPIDS [facility] Start: 01-30-2020 End: 01-30-2020 Office Visit 01/30/2020 Office Visit Marlo Rehman MD [address] [place] [address] [phone] [facility] Start: 12-15-2019 Mammography MAMMOGRAM [facility] Start: 12-14-2019 Mammography MAMMOGRAM [facility] Start: 12-14-2019 Screening for malignant neoplasm of breast MAMMOGRAM [facility] Start: 12-06-2019 LIPIDS LIPIDS [facility] Work Phone: Start: 11-19-2019 HbA1c (Bld) [Mass fraction] HBA1C TEST [facility] Start: 11-04-2019 End: 11-04-2019 Office Visit 11/04/2019 Office Visit Anesthesiology Pain Mgt Sherry Bee, TELEPHONE RECORDER-ACADEMIC SUPPORT ASSISTANT [address] [place] [address] [phone] [facility] Start: 10-21-2019 End: 10-20-2020 Radiography of shoulder [facility] Comment on above: Expected: 10/21/2019, Expires: 0 1 Occurrences starti ng 10/21/2019 until 10/21/2019 Start: 07-14-2019 Diabetic foot examination DIABETIC FOOT EXAM [facility] Start: 07-14-2019 Diabetic retinal eye exam [facility] Start: 07-14-2019 Glaucoma screening EYE EXAM [facility] Start: 07-14-2019 Microalbumin measurement, urine, quantitative URINE MICROALBUMIN TEST [facility] Start: 07-14-2019 Protein mass conc (U) URINE MICROALBUMIN TEST [facility] Work Phone: Start: 07-14-2019 Screening for malignant neoplasm of lung LUNG CANCER SCREENING [facility] Work Phone: Start: 07-14-2019 Urine screening for protein URINE MICROALBUMIN TEST [facility] Start: 07-03-2019 Influenza vaccination INFLUENZA VACCINE (#1) [facility] Start: 06-20-2019 End: 06-20-2019 Office Visit [facility] Start: 06-16-2019 LIPIDS LIPIDS [facility] Work Phone: Start: 06-14-2019 End: 06-14-2019 Office Visit 06/14/2019 Office Visit Neurology Robbin Barrientos, DO [address] [place] [address] [phone] [facility] Start: 06-10-2019 End: 06-10-2019 Office Visit [facility] Start: 06-08-2019 Colonoscopy COLON CANCER SCREENING DISCUSSION [facility] Work Phone: Start: 06-08-2019 Protein mass conc [facility] Work Phone: Start: 06-08-2019 Screening for malignant neoplasm of cervix PAP SMEAR DISCUSSION [facility] Work Phone: Start: 06-08-2019 Screening for osteoporosis DEXA SCAN DISCUSSION [facility] [employer] [facility] Start: 06-08-2019 Screening mammography MAMMOGRAM SCREENING DISCUSSION [facility] Work Phone: Start: 06-05-2019 Hemoglobin A1c/Hemoglobin.total mass fraction (Bld) HBA1C TEST [facility] Work Phone: Start: 06-03-2019 End: 06-03-2019 Office Visit [facility] Start: 06-01-2019 End: 06-01-2019 Office Visit 06/01/2019 Office Visit Anesthesiology Pain Mgt Nils Oliver MD [address] [place] [address] [facility] [place] [address] [phone] [facility] Start: 05-30-2019 End: 05-30-2019 Office Visit 05/30/2019 Office Visit Family Medicine Navneet Villegas DO [address] [place] [address] [address] [place] [address] [phone] [facility] Start: 05-25-2019 End: 05-25-2019 Office Visit [facility] Start: 05-23-2019 End: 05-23-2019 Office Visit [facility] Comment on above: Lumbar facet arthropathy (Primary Dx) Start: 05-13-2019 End: 05-13-2019 Office Visit [facility] Start: 04-15-2019 End: 04-15-2019 Office Visit 04/15/2019 Office Visit Anesthesiology Pain Mgt Sherry Bee, TELEPHONE RECORDER-ACADEMIC SUPPORT ASSISTANT [address] [place] [address] [phone] [facility] Start: 04-11-2019 End: 04-11-2019 Office Visit 04/11/2019 Office Visit Anesthesiology Pain Mgt Nils Oliver MD [address] [place] [address] [facility] Start: 03-25-2019 End: 03-25-2019 Office Visit 03/25/2019 Office Visit Anesthesiology Pain Mgt Sherry Bee, TELEPHONE RECORDER-ACADEMIC SUPPORT ASSISTANT [address] [place] [address] [phone] [facility] Start: 03-14-2019 End: 03-14-2019 Office Visit 03/14/2019 Office Visit Orthopaedics Marlo Davenport MD [address] [place] [address] [phone] [facility] Start: 03-11-2019 End: 03-11-2020 CK CK Lab Routine Left arm weakness Pain of left arm Small fiber polyneuropathy Vasovagal syncope History of arterial ischemic stroke Expected: 03/11/2019, Expires: 03/11/2020 [facility] Comment on above: Expected: 03/11/2019, Expires: 0 Start: 03-11-2019 End: 03-11-2020 Electromyography EMG & NERVE CONDUCTION Neurology Routine Left arm weakness Pain of left arm Small fiber polyneuropathy Vasovagal syncope History of arterial ischemic stroke Expected: 03/11/2019, Expires: 03/11/2020 [facility] Comment on above: Expected: 03/11/2019, Expires: 0 Start: 03-11-2019 End: 03-11-2020 MRI of cervical spine MRI SPINE CERVICAL WITHOUT CONTRAST Imaging Routine Left arm weakness Pain of left arm Small fiber polyneuropathy Vasovagal syncope History of arterial ischemic stroke Expected: 03/11/2019, Expires: 03/11/2020 [employer] Comment on above: Expected: 03/11/2019, Expires: 0 Start: 03-11-2019 End: 03-11-2019 Office Visit 03/11/2019 Office Visit Neurology Robbin Barrientos, DO [address] [place] [address] [phone] [facility] Start: 03-09-2019 End: 03-09-2019 Appointment 03/09/2019 Appointment Magnetic Resonance Imaging Marlo Davenport MD [address] [place] [address] [phone] [facility] MRI Start: 03-08-2019 Hemoglobin A1c/Hemoglobin.total mass fraction (Bld) HBA1C TEST [facility] Work Phone: Start: 03-02-2019 End: 03-01-2020 CBC, EDIF, PLATELET CBC, EDIF, PLATELET Lab Routine Type 2 diabetes mellitus, uncontrolled, with neuropathy-Insulin requiring Hyperlipidemia LDL goal <70 Chronic midline low back pain with bilateral sciatica Carotid artery stenosis, asymptomatic, bilateral-<50% bilateral stenosis Cerebral ischemia-Moderate to severe Chronic pain in left shoulder Tinea cruris Expected: 03/02/2019, Expires: 03/01/2020 [employer] Comment on above: Expected: 03/02/2019, Expires: 0 Start: 03-02-2019 End: 03-01-2020 Comprehensive metabolic 2000 panel COMPREHENSIVE METABOLIC PANEL Lab Routine Type 2 diabetes mellitus, uncontrolled, with neuropathy-Insulin requiring Hyperlipidemia LDL goal <70 Chronic midline low back pain with bilateral sciatica Carotid artery stenosis, asymptomatic, bilateral-<50% bilateral stenosis Cerebral ischemia-Moderate to severe Chronic pain in left shoulder Tinea cruris Expected: 03/02/2019, Expires: 03/01/2020 [employer] Comment on above: Expected: 03/02/2019, Expires: 0 Start: 03-02-2019 End: 03-01-2020 Hemoglobin A1c/Hemoglobin.total mass fraction (Bld) HEMOGLOBIN A1C Lab Routine Type 2 diabetes mellitus, uncontrolled, with neuropathy-Insulin requiring Tinea cruris Expected: 03/02/2019, Expires: 03/01/2020 [employer] Comment on above: Expected: 03/02/2019, Expires: 0 Start: 03-02-2019 End: 03-01-2020 LIPID PANEL W CALCULATED LDL LIPID PANEL W CALCULATED LDL Lab Routine Type 2 diabetes mellitus, uncontrolled, with neuropathy-Insulin requiring Hyperlipidemia LDL goal <70 Chronic midline low back pain with bilateral sciatica Carotid artery stenosis, asymptomatic, bilateral-<50% bilateral stenosis Cerebral ischemia-Moderate to severe Chronic pain in left shoulder Tinea cruris Expected: 03/02/2019, Expires: 03/01/2020 [employer] Comment on above: Expected: 03/02/2019, Expires: 0 Start: 03-02-2019 End: 03-01-2020 Thyrotropin Qn TSH Lab Routine Type 2 diabetes mellitus, uncontrolled, with neuropathy-Insulin requiring Hyperlipidemia LDL goal <70 Chronic midline low back pain with bilateral sciatica Carotid artery stenosis, asymptomatic, bilateral-<50% bilateral stenosis Cerebral ischemia-Moderate to severe Chronic pain in left shoulder Tinea cruris Expected: 03/02/2019, Expires: 03/01/2020 [employer] Comment on above: Expected: 03/02/2019, Expires: 0 Start: 03-02-2019 End: 03-01-2020 Urate mass conc URIC ACID Lab Routine Type 2 diabetes mellitus, uncontrolled, with neuropathy-Insulin requiring Chronic midline low back pain with bilateral sciatica Chronic pain in left shoulder Tinea cruris Expected: 03/02/2019, Expires: 03/01/2020 [employer] Comment on above: Expected: 03/02/2019, Expires: 0 Start: 03-02-2019 End: 03-01-2020 VITAMIN D (25-HYDROXY,TOTAL) VITAMIN D (25-HYDROXY,TOTAL) Lab Routine Vitamin D deficiency Expected: 03/02/2019, Expires: 03/01/2020 [employer] Comment on above: Expected: 03/02/2019, Expires: 0 Start: 02-28-2019 End: 02-28-2019 Office Visit 02/28/2019 Office Visit Anesthesiology Pain Mgt Nils Oliver MD [address] [place] [address] [facility] Management Start: 02-25-2019 End: 02-25-2019 Ambulatory [facility] Start: 02-15-2019 End: 02-15-2019 Office Visit 02/15/2019 Office Visit Neurology Robbin Barrientos, DO [address] [place] [address] [phone] [facility] Start: 02-09-2019 Zoster vaccine hzv live for subcutaneous use ZOSTER (SHINGLES) VACCINE (2 of 2) [facility] Start: 01-21-2019 End: 01-21-2019 Office Visit 01/21/2019 Office Visit Anesthesiology Pain Mgt Sherry Bee, TELEPHONE RECORDER-ACADEMIC SUPPORT ASSISTANT [address] [place] [address] [phone] [facility] Start: 01-18-2019 End: 01-18-2019 Ambulatory 01/18/2019 Office Visit Neurology Robbin Barrientos, DO [address] [place] [address] [phone] [facility] Start: 12-08-2018 End: 01-06-2020 MG Breast Views MAMMO SCREENING BILATERAL Routine Encounter for screening mammogram for breast cancer Expected: 12/08/2018, Expires: 01/06/[address] [facility] Work Phone: Comment on above: Expected: 12/08/2018, Expires: 0 Start: 12-08-2018 End: 12-08-2018 Ambulatory 12/08/2018 Office Visit Family Medicine Navneet Villegas DO [address] [address] [phone] [facility] Medicine Start: 12-01-2018 End: 12-01-2018 Ambulatory 12/01/2018 Office Visit Family Medicine Navneet Villgeas DO [address] [address] [phone] [facility] Medicine Start: 11-17-2018 End: 11-16-2019 Radiography of shoulder [facility] Work Phone: Comment on above: 1 Occurrences starting 11/17/2018 until 11/17/2018 Expected: 11/17/2018 , Expires: 11/16/2019 Start: 11-17-2018 End: 11-17-2018 Ambulatory 11/17/2018 Office Visit Orthopaedics Marlo Davenport MD [address] [place] [address] [phone] [facility] Start: 10-27-2018 End: 10-27-2019 CT angiography [facility] Work Phone: Comment on above: 1 Occurrences starting 10/27/2018 until 10/27/2018 Expected: 10/27/2018 , Expires: 10/27/2019 Start: 10-20-2018 End: 10-20-2018 Ambulatory 10/20/2018 Office Visit Cardiovascular Medicine Chantel Rice DO [address] [place] [address] [phone] [facility] Start: 10-19-2018 End: 10-19-2019 CREATININE SERUM CREATININE SERUM Routine Nonintractable headache, unspecified chronicity pattern, unspecified headache type Syncope, unspecified syncope type Abnormal carotid duplex scan Idiopathic small fiber peripheral neuropathy Left arm weakness Left shoulder pain, unspecified chronicity Expected: 10/19/2018, Expires: 10/19/[address] [facility] Work Phone: Comment on above: Expected: 10/19/2018, Expires: 9 Start: 10-19-2018 End: 10-19-2019 CT ANGIO CHEST (NONCORONARY) WITH AND WITHOUT CT ANGIO CHEST (NONCORONARY) WITH AND WITHOUT Routine Nonintractable headache, unspecified chronicity pattern, unspecified headache type Syncope, unspecified syncope type Abnormal carotid duplex scan Idiopathic small fiber peripheral neuropathy Left arm weakness Left shoulder pain, unspecified chronicity Expected: 10/19/2018, Expires: 10/19/[address] [facility] Work Phone: Comment on above: Expected: 10/19/2018, Expires: 9 Start: 10-19-2018 End: 10-19-2018 Ambulatory 10/19/2018 Office Visit Neurology Robbin Barrientos, DO [address] [place] [address] [phone] [facility] Start: 06-24-2018 eGFR Diabetes eGFR Diabetes [facility] Start: 06-24-2018 Urine screening for protein eGFR Diabetes [facility] Start: 2014 Fall risk assessment Falls Risk Assessment [facility] Start: 2009 RSV VACCINE (1 - 1-dose 60+ series) RSV VACCINE (1 - 1-dose 60+ series) [facility] Start: 1999 Administration of herpes zoster vaccine Zoster Vaccines (1 of 2) [facility] Start: 1999 Screening for malignant neoplasm of colon Flexible sigmoidoscopy [facility] Start: 1999 Zoster vaccine hzv live for subcutaneous use ZOSTER (SHINGLES) VACCINE (1 of 2) [facility] Start: 1968 Administration of herpes zoster vaccine Zoster Vaccines (1 of 2) [facility] Start: 1967 Hepatitis C screening Hepatitis C Screening [facility] Start: 1965 COVID-19 VACCINE (1 of 2) COVID-19 VACCINE (1 of 2) [facility] Start: 1965 COVID-19 VACCINE (1) COVID-19 VACCINE (1) [facility] Start: 1961 Depression screening using PHQ-9 (Patient Health Questionnaire 9) score Depression Screening/Follow-Up (PHQ-2/9) [facility] Start: 1959 Diabetic foot examination Diabetic Foot Exam [facility] Start: 1959 Glaucoma screening Diabetic Eye Exam [facility] Start: 1959 Urine screening for protein Urine (micro)albumin/creatini ne ratio - Diabetes [facility] Start: 1954 COVID-19 Vaccine (#1) COVID-19 Vaccine (#1) [facility] Start: 1954 COVID-19 VACCINE (1) COVID-19 VACCINE (1) [facility] Start: 1949 COVID-19 VACCINE (#1) COVID-19 VACCINE (#1) [facility] Start: 1949 Screening for malignant neoplasm of colon [facility] Start: 1949 Screening for osteoporosis Dexa Scan [facility] Bacteria identified in Blood by Culture Blood Culture Aerobic/Anaerobic Microbiology STAT 06/26/2025 5:59 PM EDT [facility] End: 04-13-2026 Basic metabolic 2000 panel - Serum or Plasma Basic Metabolic Panel Lab Routine Cavitating mass in right upper lung lobe 1 Occurrences starting 04/13/2025 until 04/13/2026 [facility] Comment on above: 1 Occurrences starting 04/13/2025 until 04/13/2026 End: 04-13-2026 CBC panel - Blood by Automated count CBC Lab Routine Cavitating mass in right upper lung lobe 1 Occurrences starting 04/13/2025 until 04/13/2026 [facility] Work Phone: Comment on above: 1 Occurrences starting 04/13/2025 until 04/13/2026 End: 05-24-2026 Complete blood count with white cell differential, manual CBC and Differential Lab STAT Primary malignant ne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) See Treatment Plan for 33 Occurrences starting 05/24/2025 until 05/24/2026, 1 completed [facility] Work Phone: Comment on above: See Treatment Plan for [address] arting 05/24/2025 until 05/24/2026, 1 completed End: 05-24-2026 Comprehensive metabolic 2000 panel - Serum or Plasma Comprehensive Metabolic Panel Lab STAT Primary malignant ne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) See Treatment Plan for 33 Occurrences starting 05/24/2025 until 05/24/2026, 1 completed [facility] Comment on above: See Treatment Plan for [address] arting 05/24/2025 until 05/24/2026, 1 completed End: 07-15-2022 CT Abdomen and Pelvis WO contrast [facility] Work Phone: Comment on above: 1 Occurrences starting 07/15/2022 until 07/15/2022 End: 10-27-2018 CT ANGIO CHEST (NONCORONARY) WITH AND WITHOUT CT ANGIO CHEST (NONCORONARY) WITH AND WITHOUT Routine Nonintractable headache, unspecified chronicity pattern, unspecified headache type Syncope, unspecified syncope type Abnormal carotid duplex scan Idiopathic small fiber peripheral neuropathy Left arm weakness Left shoulder pain, unspecified chronicity 1 Occurrences starting 10/27/2018 until 10/27/[address] [facility] Work Phone: Comment on above: 1 Occurrences starting 10/27/2018 until 10/27/[address] ANGIO CHEST (NONCORONARY) Routine Nonintractable headache, unspecified chronicity pattern, unspecified headache type Syncope, unspecified syncope type Abnormal carotid duplex scan Idiopathic small fiber peripheral neuropathy Left arm weakness Left shoulder pain, unspecified chronicity 10/27/2018 2:25 PM EST [facility] Work Phone: CT Chest WO contrast CT Chest Wi thout Contrast Imaging Routine Cavitating mass in right upper lung lobe 04/18/2025 10:34 AM EDT [facility] End: 05-19-2019 Diagnostic radiography of lumbar spine XR SPINE LUMBAR W BENDING Imaging Routine Low back pain, unspecified back pain laterality, unspecified chronicity, with sciatica presence unspecified 1 Occurrences starting 05/19/2019 until 05/19/2019 [employer] Comment on above: 1 Occurrences starting 05/19/2019 until 05/19/2019 Diagnostic radiograp hy of lumbar spine XR SPINE LUMBAR W BENDING Imaging Routine Low back pain, unspecified back pain laterality, unspecified chronicity, with sciatica presence unspecified 05/19/2019 3:05 PM EDT [employer] End: 05-03-2024 Echocardiography [facility] Comment on above: 1 Occurrences starting 05/03/2024 until 05/03/2024 Glucose [Mass/volume ] in Serum or Plasma POC Glucose Point of Care Testing Routine Primary malignant ne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) Abnormal glucose Ordered: 06/14/2025 [facility] Work Phone: Comment on above: Ordered: 06/14/2025 End: 04-13-2026 INR in Platelet poor plasma by Coagulation assay PT/INR Lab Routine Cavitating mass in right upper lung lobe 1 Occurrences starting 04/13/2025 until 04/13/2026 [facility] Comment on above: 1 Occurrences starting 04/13/2025 until 04/13/2026 LARGE JOINT INJECTIO N: L subacromial bursa LARGE JOINT INJECTION: L subacromial bursa Procedures Routine Shoulder impingement, left Rotator cuff tendinitis, left 03/14/2019 9:10 AM EDT [employer] End: 05-24-2026 Magnesium [Mass/volume] in Serum or Plasma Magnesium Lab STAT Primary malignant ne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) See Treatment Plan for 33 Occurrences starting 05/24/2025 until 05/24/2026, 1 completed [facility] Comment on above: See Treatment Plan for [address] arting 05/24/2025 until 05/24/2026, 1 completed End: 02-23-2024 MG Breast - bilateral Screening [facility] Comment on above: 1 Occurrences starting 02/23/2024 until 02/23/2024 End: 12-14-2018 MG Breast Views MAMMO SCREENING BILATERAL Imaging Routine Encounter for screening mammogram for breast cancer 1 Occurrences starting 12/14/2018 until 12/14/2018 [employer] Comment on above: 1 Occurrences starting 12/14/2018 until 12/14/2018 MG Breast Views MAMMO SCREENING BILATERAL Imaging Routine Encounter for screening mammogram for breast cancer 12/14/2018 3:00 PM EST [employer] End: 04-07-2019 MRI of cervical spine MRI SPINE CERVICAL WITHOUT CONTRAST Imaging Routine Left arm weakness Pain of left arm Small fiber polyneuropathy Vasovagal syncope History of arterial ischemic stroke 1 Occurrences starting 04/07/2019 until 04/07/2019 [employer] Comment on above: 1 Occurrences starting 04/07/2019 until 04/07/2019 MRI of cervical spine MRI SPINE CERVICAL WITHOUT CONTRAST Imaging Routine Left arm weakness Pain of left arm Small fiber polyneuropathy Vasovagal syncope History of arterial ischemic stroke 04/07/2019 3:08 PM EDT [employer] MRI of shoulder [employer] Comment on above: Ordered: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 May not reflect actual given/total prescription dose. TREATMENT INTENT: Curative SYSTEMIC THERAPY: Cisplatin / Etoposide Day 1-3 every 21-28 days x 4 cycles SUBJECTIVE Patient presents alone in clinic and continues to do reasonably well. She continues to have moderate fatigue but does not have any worsening esophagitis. Respiratory status is unchanged. OBJECTIVE PACU Vitals 06/26/25 150 BP: 108/66 Pulse: 96 Objective General: NAD. Alopecia. Appears fatigued. Respiratory: Breathing comfortably on room air. LABS Lab Results Component Value Date WBC 7.00 06/20/2025 HGB 11.5 (L) 06/20/2025 HCT 35.2 (L) 06/20/2025 MCV 84.6 06/20/2025 EXTMCV 88.5 04/24/2025 PLT 199 06/20/2025 RBC 4.16 06/20/2025 Lab Results Component Value Date GLUCOSE 237 (H) 06/20/2025 CALCIUM 9.0 06/20/2025 NA 131 (L) 06/20/2025 K 4.3 06/20/2025 CL 95 (L) 06/20/2025 BUN 25 06/20/2025 CREATININE 1.15 06/20/2025 LABS Toxicity Assessment Gastrointestinal Dysphagia: Grade 1 Esophagitis: Grade 1 General Disorders and Administration Site Conditions Fatigue: Grade 2 Respiratory, Thoracic, and Mediastinal Dyspnea: Grade 0 IMAGING AND SETUP Daily imaging reviewed, patient has been lining up well to date. Assessment: The patient is tolerating treatment as expected based on radiation dose to date. Plan: We will continue radiation therapy as planned, to a dose of 45 Gy. We will follow up next week or sooner if needed. No orders of the defined types were placed in this encounter. Please let me know if you have any questions. Ellen Bonilla M.D. Radiation Oncology 8:24 PM, 06/26/25 documented in this encounter [facility] 06-26-2025 Emergency department Note Category II Trauma, ETA 10 minutes 1640: 123 Called 1640: Trauma SHANA Called 1640: Dr. Cortes called 1642: 123 Paged overhead Trauma: Dr. Cortes ED Doctor: Dr. Qiu RN: Adiel Charge: Juliana [facility]: Fermín [facility] 06-23-2025 Note Addended by: ELLEN BONILLA on: 06/23/2025 03:14 PM Modules accepted: Orders [facility] 06-23-2025 Note Addended by: ELLEN BONILLA on: 06/23/2025 03:14 PM Modules accepted: Orders [facility] 06-23-2025 Miscellaneous Notes Addended by: ELLEN BONILLA on: 06/23/2025 03:14 PM Modules accepted: Orders documented in this encounter [facility] 06-22-2025 Note [facility] 06-22-2025 History of Present illness Narrative Images from the original note were not included. [facility] [address] [facility] [address] DO Ruth Rojas MD Praveen Dubey, MD Andrew Freeman, MD David Howell, MD Vijay Kudithipudi, MD Chelsea Miller, MD Michael Siedow, MD ON TREATMENT VISIT NOTE Patient Name: Mavis Jackson Date of : 1950 Date of Service: 06/22/2025 DIAGNOSIS: Primary malignant ne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) [C34.11] STAGE: Cancer Staging Primary malignant ne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) Staging form: Lung, AJCC V9 - Clinical stage from 04/17/2025: Stage IIIB (cT1c, cN3, cM0) - Signed by Ellen Bonilla MD on 06/02/2025 TREATMENT TO DATE: R LUNG MEDIA 06/22/2025 Value Treatment Date Reference Point R LUNG MEDIA 06/22/2025 Total Dose to Date (cGy) 2,100 06/22/2025 Prescription Dose (cGy) 4,500 06/22/2025 Fractions Treated to Date 14 06/22/2025 Total Fractions Prescribed 30 06/22/2025 Prescribed Dose per Fraction (cGy) 150 06/22/2025 Elapsed Days 8 06/22/2025 Unverified data imported from [employer]. May not reflect actual given/total prescription dose. TREATMENT INTENT: Curative SYSTEMIC THERAPY: Cisplatin / Etoposide Day 1-3 every 21-28 days x 4 cycles SUBJECTIVE Patient presents in clinic with her son-in-law and continues to have no significant side effects from her radiation therapy. She denies any respiratory charges or pain with swallowing. OBJECTIVE PACU Vitals 06/22/25 1515 BP: 109/65 Pulse: 75 SpO2: 100% PainLoc: Objective General: NAD. Alopecia. LABS Lab Results Component Value Date WBC 7.00 06/20/2025 HGB 11.5 (L) 06/20/2025 HCT 35.2 (L) 06/20/2025 MCV 84.6 06/20/2025 EXTMCV 88.5 04/24/2025 PLT 199 06/20/2025 RBC 4.16 06/20/2025 Lab Results Component Value Date GLUCOSE 237 (H) 06/20/2025 CALCIUM 9.0 06/20/2025 NA 131 (L) 06/20/2025 K 4.3 06/20/2025 CL 95 (L) 06/20/2025 BUN 25 06/20/2025 CREATININE 1.15 06/20/2025 LABS Toxicity Assessment Gastrointestinal Dysphagia: Grade 0 Esophagitis: Grade 0 General Disorders and Administration Site Conditions Fatigue: Grade 2 IMAGING AND SETUP Daily imaging reviewed, patient has been lining up well to date. Assessment: The patient is tolerating treatment as expected based on radiation dose to date. Plan: We will continue radiation therapy as planned, to a dose of 45 Gy. We will follow up next week or sooner if needed. No orders of the defined types were placed in this encounter. Please let me know if you have any questions. Ellen Bonilla M.D. Radiation Oncology 8:24 PM, 06/22/25 documented in this encounter [facility] 06-22-2025 History of Present illness Narrative Images from the original note were not included. [facility] [address] [facility] [address] DO Ruth Rojas MD Praveen Dubey, MD Andrew Freeman, MD David Howell, MD Vijay Kudithipudi, MD Chelsea Miller, MD Michael Siedow, MD ON TREATMENT VISIT NOTE Patient Name: Mavis Jackson Date of : 1950 Date of Service: 06/23/2025 DIAGNOSIS: Primary malignant ne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) [C34.11] STAGE: Cancer Staging Primary malignant ne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) Staging form: Lung, AJCC V9 - Clinical stage from 04/17/2025: Stage IIIB (cT1c, cN3, cM0) - Signed by Ellen Bonilla MD on 06/02/2025 TREATMENT TO DATE: R LUNG MEDIA 06/23/2025 Value Treatment Date Reference Point R LUNG MEDIA 06/23/2025 Total Dose to Date (cGy) 2,400 06/23/2025 Prescription Dose (cGy) 4,500 06/23/2025 Fractions Treated to Date 16 06/23/2025 Total Fractions Prescribed 30 06/23/2025 Prescribed Dose per Fraction (cGy) 150 06/23/2025 Elapsed Days 9 06/23/2025 Unverified data imported from [employer]. May not reflect actual given/total prescription dose. TREATMENT INTENT: Curative SYSTEMIC THERAPY: Cisplatin / Etoposide Day 1-3 every 21-28 days x 4 cycles SUBJECTIVE Patient presents in clinic with her son-in-law and continues to have no significant side effects from her radiation therapy. She denies any respiratory charges or pain with swallowing. OBJECTIVE PACU Vitals 06/22/25 1515 BP: 109/65 Pulse: 75 SpO2: 100% PainLoc: Objective General: NAD. Alopecia. LABS Lab Results Component Value Date WBC 7.00 06/20/2025 HGB 11.5 (L) 06/20/2025 HCT 35.2 (L) 06/20/2025 MCV 84.6 06/20/2025 EXTMCV 88.5 04/24/2025 PLT 199 06/20/2025 RBC 4.16 06/20/2025 Lab Results Component Value Date GLUCOSE 237 (H) 06/20/2025 CALCIUM 9.0 06/20/2025 NA 131 (L) 06/20/2025 K 4.3 06/20/2025 CL 95 (L) 06/20/2025 BUN 25 06/20/2025 CREATININE 1.15 06/20/2025 LABS Toxicity Assessment Gastrointestinal Dysphagia: Grade 0 Esophagitis: Grade 0 General Disorders and Administration Site Conditions Fatigue: Grade 2 IMAGING AND SETUP Daily imaging reviewed, patient has been lining up well to date. Assessment: The patient is tolerating treatment as expected based on radiation dose to date. Plan: We will continue radiation therapy as planned, to a dose of 45 Gy. We will follow up next week or sooner if needed. Patient was provided radiation esophagitis cocktail outlined below. Orders Placed This Encounter Radiation Therapy - unverified data imported from [employer] magic mouthwash susp equal parts viscous lidocaine 2%, diphenhydramine 12.5mg/5mL, maalox [id number]-[id number]-14st/5mL sucralfate (CARAFATE) 1 gram tablet omeprazole (PRILOSEC OTC) 20 MG tablet Please let me know if you have any questions. Ellen Bonilla M.D. Radiation Oncology 8:24 PM, 06/23/25 documented in this encounter [facility] 06-22-2025 History of Present illness Narrative Images from the original note were not included. [facility] [address] [facility] [address] DO Ruth Rojas MD Praveen Dubey, MD Andrew Freeman, MD David Howell, MD Vijay Kudithipudi, MD Chelsea Miller, MD Michael Siedow, MD ON TREATMENT VISIT NOTE Patient Name: Mavis Jackson Date of : 1950 Date of Service: 06/22/2025 DIAGNOSIS: Primary malignant ne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) [C34.11] STAGE: Cancer Staging Primary malignant ne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) Staging form: Lung, AJCC V9 - Clinical stage from 04/17/2025: Stage IIIB (cT1c, cN3, cM0) - Signed by Ellen Bonilla MD on 06/02/2025 TREATMENT TO DATE: R LUNG MEDIA 06/23/2025 Value Treatment Date Reference Point R LUNG MEDIA 06/23/2025 Total Dose to Date (cGy) 2,400 06/23/2025 Prescription Dose (cGy) 4,500 06/23/2025 Fractions Treated to Date 14 06/23/2025 Total Fractions Prescribed 30 06/23/2025 Prescribed Dose per Fraction (cGy) 150 06/23/2025 Elapsed Days 9 06/23/2025 Unverified data imported from [employer]. May not reflect actual given/total prescription dose. TREATMENT INTENT: Curative SYSTEMIC THERAPY: Cisplatin / Etoposide Day 1-3 every 21-28 days x 4 cycles SUBJECTIVE Patient presents in clinic with her son-in-law and continues to have no significant side effects from her radiation therapy. She denies any respiratory charges or pain with swallowing. OBJECTIVE PACU Vitals 06/22/25 1515 BP: 109/65 Pulse: 75 SpO2: 100% PainLoc: Objective General: NAD. Alopecia. LABS Lab Results Component Value Date WBC 7.00 06/20/2025 HGB 11.5 (L) 06/20/2025 HCT 35.2 (L) 06/20/2025 MCV 84.6 06/20/2025 EXTMCV 88.5 04/24/2025 PLT 199 06/20/2025 RBC 4.16 06/20/2025 Lab Results Component Value Date GLUCOSE 237 (H) 06/20/2025 CALCIUM 9.0 06/20/2025 NA 131 (L) 06/20/2025 K 4.3 06/20/2025 CL 95 (L) 06/20/2025 BUN 25 06/20/2025 CREATININE 1.15 06/20/2025 LABS Toxicity Assessment Gastrointestinal Dysphagia: Grade 0 Esophagitis: Grade 0 General Disorders and Administration Site Conditions Fatigue: Grade 2 IMAGING AND SETUP Daily imaging reviewed, patient has been lining up well to date. Assessment: The patient is tolerating treatment as expected based on radiation dose to date. Plan: We will continue radiation therapy as planned, to a dose of 45 Gy. We will follow up next week or sooner if needed. Patient was provided radiation esophagitis cocktail outlined below. Orders Placed This Encounter Radiation Therapy - unverified data imported from [employer] mouthwash susp equal parts viscous lidocaine 2%, diphenhydramine 12.5mg/5mL, maalox [id number]-05de/5mL sucralfate (CARAFATE) 1 gram tablet omeprazole (PRILOSEC OTC) 20 MG tablet Please let me know if you have any questions. Ellen Bonilla M.D. Radiation Oncology 8:24 PM, 06/23/25 documented in this encounter [facility] 06-21-2025 History of Present illness Narrative Mavis Jackson presents today for administration of magnesium replacement along with ordered pre-medications and post-medications. Patient's condition is currently appropriate to continue with administration of the medication as defined in the care plan. Medication(s) was administered and well-tolerated by the patient. Today's Vitals Blood pressure 117/68, pulse 80, temperature 98 F (36.7 C), temperature source Oral, resp. rate 18, SpO2 98%. Most recent labs Lab Results Component Value Date WBC 7.00 06/20/2025 HGB 11.5 (L) 06/20/2025 HCT 35.2 (L) 06/20/2025 MCV 84.6 06/20/2025 EXTMCV 88.5 04/24/2025 PLT 199 06/20/2025 RBC 4.16 06/20/2025 Lab Results Component Value Date GLUCOSE 237 (H) 06/20/2025 CALCIUM 9.0 06/20/2025 NA 131 (L) 06/20/2025 K 4.3 06/20/2025 CL 95 (L) 06/20/2025 BUN 25 06/20/2025 CREATININE 1.15 06/20/2025 Lab Results Component Value Date ALT 15 06/20/2025 AST 16 06/20/2025 ALKPHOS 122 06/20/2025 BILITOT 0.5 06/20/2025 Most recent external labs Lab Results Component Value Date EXTWBC 6.9 04/24/2025 EXTRBC 4.42 04/24/2025 EXTHGB 12.2 04/24/2025 EXTHCT 39.1 04/24/2025 EXTMCV 88.5 04/24/2025 EXTMCH 27.6 04/24/2025 EXTMCHC 31.2 (L) 04/24/2025 EXTRDW 15.2 (H) 04/24/2025 EXTPLATELETC 291 04/24/2025 EXTMPV 9.6 04/24/2025 EXTEOABS 0.0 12/25/2017 No results found for: EXTHEMOGLOBI Lab Results Component Value Date EXTCHOL 217 (H) 09/16/2017 EXTHDL 55 09/16/2017 EXTTRIG 130 (H) 09/16/2017 EXTCHOLHDL 4.0 09/16/2017 No results found for: EXTAST No results found for: EXTALT Lab Results Component Value Date EXTGLUCOSE 250 (H) 04/24/2025 EXTBUN 19 04/24/2025 EXTEGFR 79 04/24/2025 EXTBUNCREATR SEE NOTE: 04/24/2025 EXTNA 133 (L) 04/24/2025 EXTK 4.7 04/24/2025 EXTCL 100 04/24/2025 EXTCO2 27 04/24/2025 EXTCALCIUM 9.0 04/24/2025 documented in this encounter [facility] 06-21-2025 Note error AUTHENTICATED BY JENNIFER RYAN, ON 06/21/2025 07:56:32 [facility] 06-21-2025 History of Present illness Narrative error documented in this encounter [facility] 06-20-2025 Note [facility] 06-20-2025 History of Present illness Narrative Images from the original note were not included. [facility] [address] [facility] [address] Dept: [phone] Dept Loc: [phone] DO Ruth Rojas MD Praveen Dubey, MD Andrew Freeman, MD Shaakir Hasan, DO David Howell, MD Vijay Kudithipudi, MD Chelsea Miller, MD Michael Siedow, MD On Treatment Visit Note Patient Name: Mavis Jackson Date of : 1950 Date of Service: 06/20/2025 Diagnosis: Primary malignant ne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) [C34.11] Stage: Cancer Staging Primary malignant ne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) Staging form: Lung, AJCC V9 - Clinical stage from 04/17/2025: Stage IIIB (cT1c, cN3, cM0) - Signed by Ellen Bonilla MD on 06/02/2025 Treatment to Date: R LUNG MEDIA 06/20/2025 Value Treatment Date Reference Point R LUNG MEDIA 06/20/2025 Total Dose to Date (cGy) 1,500 06/20/2025 Prescription Dose (cGy) 4,500 06/20/2025 Fractions Treated to Date 10 06/20/2025 Total Fractions Prescribed 30 06/20/2025 Prescribed Dose per Fraction (cGy) 150 06/20/2025 Elapsed Days 6 06/20/2025 Unverified data imported from [employer]. May not reflect actual given/total prescription dose. Subjective Patient continues to tolerate treatment without any new or worsening complaints. Continued Lasix since last week and is back to normal weight. Objective PACU Vitals 06/20/25 1518 BP: 102/60 Pulse: 86 SpO2: 99% PainLoc: Wt Readings from Last 3 Encounters: 06/20/25 61.9 kg (136 lb 6.4 oz) 06/19/25 61.6 kg (135 lb 12.8 oz) 06/16/25 68.5 kg (151 lb) Physical Exam GENERAL: Patient appears like stated age, no acute distress HEENT: normocephalic, atraumatic, PEARLA Extremities: Bilateral +3 pitting edema Lab Results Component Value Date WBC 7.00 06/20/2025 HGB 11.5 (L) 06/20/2025 HCT 35.2 (L) 06/20/2025 MCV 84.6 06/20/2025 EXTMCV 88.5 04/24/2025 PLT 199 06/20/2025 RBC 4.16 06/20/2025 Lab Results Component Value Date GLUCOSE 413 (CH) 06/13/2025 CALCIUM 9.0 06/13/2025 NA 134 (L) 06/13/2025 K 4.3 06/13/2025 CL 96 (L) 06/13/2025 BUN 24 06/13/2025 CREATININE 1.12 06/13/2025 Toxicity Assessment Toxicity Assessment General Disorders and Administration Site Conditions Fatigue: Grade 1 Investigations Weight Loss: Grade 1 Imaging and Setup Daily image guidance been reviewed and approved with appropriate shifts. Assessment and Plan Patient tolerating treatment well thus far. Fermin Covarrubias DO Radiation Oncology documented in this encounter [facility] 06-16-2025 [facility] History of Present illness Narrative Images from the original note were not included. [facility] [address] [facility] [address] Dept: [phone] Dept Loc: [phone] DO Ruth Rojas MD Praveen Dubey, MD Andrew Freeman, MD Shaakir Hasan, DO David Howell, MD Vijay Kudithipudi, MD Chelsea Miller, MD Michael Siedow, MD On Treatment Visit Note Patient Name: Mavis Jackson Date of : 1950 Date of Service: 06/16/2025 Diagnosis: Primary malignant ne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) [C34.11] Stage: Cancer Staging Primary malignant ne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) Staging form: Lung, AJCC V9 - Clinical stage from 04/17/2025: Stage IIIB (cT1c, cN3, cM0) - Signed by Ellen Bonilla MD on 06/02/2025 Treatment to Date: R LUNG MEDIA 06/16/2025 Value Treatment Date Reference Point R LUNG MEDIA 06/16/2025 Total Dose to Date (cGy) 900 06/16/2025 Prescription Dose (cGy) 4,500 06/16/2025 Fractions Treated to Date 6 06/16/2025 Total Fractions Prescribed 30 06/16/2025 Prescribed Dose per Fraction (cGy) 150 06/16/2025 Elapsed Days 2 06/16/2025 Unverified data imported from [employer]. May not reflect actual given/total prescription dose. Subjective Patient continues to tolerate treatment without any new or worsening complaints. Of note the patient has gained approximately 8 pounds since last visit and she is quite edematous lower extremities. The patient notes that she has not taken her diuretic pills this week. Objective PACU Vitals 06/16/25 1523 BP: 139/89 Pulse: 85 SpO2: 98% Wt Readings from Last 3 Encounters: 06/16/25 68.5 kg (151 lb) 06/14/25 64.9 kg (143 lb) 06/13/25 64.7 kg (142 lb 10.2 oz) Physical Exam GENERAL: Patient appears like stated age, no acute distress HEENT: normocephalic, atraumatic, PEARLA Extremities: Bilateral +3 pitting edema Lab Results Component Value Date WBC 7.14 06/13/2025 HGB 10.5 (L) 06/13/2025 HCT 32.8 (L) 06/13/2025 MCV 85.9 06/13/2025 EXTMCV 88.5 04/24/2025 PLT 171 06/13/2025 RBC 3.82 (L) 06/13/2025 Lab Results Component Value Date GLUCOSE 413 (CH) 06/13/2025 CALCIUM 9.0 06/13/2025 NA 134 (L) 06/13/2025 K 4.3 06/13/2025 CL 96 (L) 06/13/2025 BUN 24 06/13/2025 CREATININE 1.12 06/13/2025 Toxicity Assessment Toxicity Assessment Gastrointestinal Dysphagia: Grade 0 Esophagitis: Grade 0 General Disorders and Administration Site Conditions Fatigue: Grade 1 Imaging and Setup Daily image guidance been reviewed and approved with appropriate shifts. Assessment and Plan Patient tolerating treatment well thus far. Advised to go back on standard medications especially diuretics. Fermin Covarrubias DO Radiation Oncology Pt ambulating independently in radiation. Denies any unsteadiness. Refusing to have blood sugar checked again and states I know my own body. Pt has also had an 8lb weight gain in the last 2 days. States she hasn't taken her water pill today. She states she will take it when she gets home. Dr Covarrubias notified. documented in this encounter [facility] 06-16-2025 History of Present illness Narrative Pt tx is complete. BS is now stable at 169. Pt is feeling stronger although still fatigued. Ambulated without assistance to front lobby where she wanted to wait for her ride to arrive. Will be assessed at Radiation appt soon as well. Mavis Jackson presents today for administration of Cisplatin, Etoposide and Normal Saline 0.9% along with ordered pre-medications and post-medications. Patient's condition is currently appropriate to continue with administration of the medication as defined in the care plan. Medication(s) was administered and well-tolerated by the patient. Today's Vitals Blood pressure 131/79, pulse 84, temperature 97.5 F (36.4 C), temperature source Oral, resp. rate 16, SpO2 96%. Most recent labs Lab Results Component Value Date WBC 7.14 06/13/2025 HGB 10.5 (L) 06/13/2025 HCT 32.8 (L) 06/13/2025 MCV 85.9 06/13/2025 EXTMCV 88.5 04/24/2025 PLT 171 06/13/2025 RBC 3.82 (L) 06/13/2025 Lab Results Component Value Date GLUCOSE 413 (CH) 06/13/2025 CALCIUM 9.0 06/13/2025 NA 134 (L) 06/13/2025 K 4.3 06/13/2025 CL 96 (L) 06/13/2025 BUN 24 06/13/2025 CREATININE 1.12 06/13/2025 Lab Results Component Value Date ALT 17 06/13/2025 AST 19 06/13/2025 ALKPHOS 150 06/13/2025 BILITOT 0.2 06/13/2025 Most recent external labs Lab Results Component Value Date EXTWBC 6.9 04/24/2025 EXTRBC 4.42 04/24/2025 EXTHGB 12.2 04/24/2025 EXTHCT 39.1 04/24/2025 EXTMCV 88.5 04/24/2025 EXTMCH 27.6 04/24/2025 EXTMCHC 31.2 (L) 04/24/2025 EXTRDW 15.2 (H) 04/24/2025 EXTPLATELETC 291 04/24/2025 EXTMPV 9.6 04/24/2025 EXTEOABS 0.0 12/25/2017 No results found for: EXTHEMOGLOBI Lab Results Component Value Date EXTCHOL 217 (H) 09/16/2017 EXTHDL 55 09/16/2017 EXTTRIG 130 (H) 09/16/2017 EXTCHOLHDL 4.0 09/16/2017 No results found for: EXTAST No results found for: EXTALT Lab Results Component Value Date EXTGLUCOSE 250 (H) 04/24/2025 EXTBUN 19 04/24/2025 EXTEGFR 79 04/24/2025 EXTBUNCREATR SEE NOTE: 04/24/2025 EXTNA 133 (L) 04/24/2025 EXTK 4.7 04/24/2025 EXTCL 100 04/24/2025 EXTCO2 27 04/24/2025 EXTCALCIUM 9.0 04/24/2025 1053 BS 104; pt resting comfortably in chair. States she is still cold and fatigued but the symptoms are slowly fading. RN provided Saud Castañeda RN in Radiation with this mornings blood sugars and symptoms upon her arrival to chemotherapy appt. post Radiation appt. Garry stated that she was with the patient this morning and she was not exhibiting these symptoms. Assuming at this time that the little physical exertion she had this morning exacerbated the hypoglycemic symptoms. This RN has asked for pts BS to be checked again when she is at her second Radiation apt today at 3pm to ensure her BS is stable prior to going home for the day d/t her increased fatigue. Pt arrived to apt appearing weak and sluggish. She stated she felt shaky and cold. Walked to bay with assistance with slow movements but is obvious she is weak. Pt stated she had not ate anything yet this morning. BS was immediately checked @0947, resulting with a 57. RN provided pt with orange juice and PB crackers as well as ordering pt a breakfast tray. Pt was able to eat 3 PB crackers and drank 8oz. [place] juice. Pt stated she was not able to eat dinner last night d/t feeling nauseated, took a PRN anti-emetic that she said helped and she went to bed. She stated her BS was low last night so she did not take any of her sugar medications. BS rechecked at 1009, resulting at 69. Pt did not like the omelet she ordered only eating a couple bites, she ate 1 piece of wheat toast with butter and is currently eating a chocolate covered granola bar with her coffee. Pt states she is feeling a little better but still cold and tired. Will continue to check BS through-out the appointment to ensure she is safe to discharge home. documented in this encounter [facility] 06-16-2025 History of Present illness Narrative OUTPATIENT ONCOLOGY DIETITIAN FOLLOW-UP Subjective/Interview: RDN met with patient briefly at infusion clinic this AM, pt had finished juice and was eating chocolate covered granola bar due to hypoglycemia this morning. RN reports pt did not eat last night or this morning prior to coming in for treatment. Pt reports she did attempt to eat last night but had 2 bites and felt nauseous so she stopped eating. She reports she took her nausea meds and felt better, but still did not attempt to eat anything else. She reports I eat when I want to, we don't do that breakfast lunch, dinner crap. She reports no current pain with swallowing and she does get relief from her anti-emetics when she uses them. Objective: Small Cell Lung Cancer, limited Stage receiving cisplatin /etoposide and RT Past Medical History: Diagnosis Date Diabetes mellitus (HCC) Type 2 Lung cancer (HCC) Lung mass Stroke (HCC) Wt Hx: Wt Readings from Last 5 Encounters: 06/14/25 64.9 kg (143 lb) 06/13/25 64.7 kg (142 lb 10.2 oz) 06/07/25 62.6 kg (138 lb) 05/24/25 62.8 kg (138 lb 6.4 oz) 05/19/25 61.2 kg (135 lb) Labs: Recent Labs 06/13/25 1517 NA 134* K 4.3 BICARB 25 CL 96* GLUCOSE 413* BUN 24 CREATININE 1.12 MG 1.6 HGB 10.5* HCT 32.8* Component Ref Range & Units 10:51 (06/16/25) 10:08 (06/16/25) 09:34 (06/16/25) 2 d ago (06/14/25) 2 d ago (06/14/25) Glucose 65 - 99 mg/dL 104 High 69 57 Low 245 High 350 High Estimated Nutritional Needs: (Based on weight of 63kg) Calorie needs: 7024-4309 kcal/day (25-28kcal/kg) Protein needs: 76 g pro/day (1.2g/kg) Fluid needs: 1750 ml/day (28ml/kg) Assessment: Weight is currently stable but she does remain at risk for inadequate nutrition and weight loss with issues of N/V and poor glucose control. Pt remains resistant to diet education to help with her symptoms and glucose control. Nutrition Diagnosis: Attitude Finding That Hinders Food and/or Nutrition Behavior Change related to pt acknowledging prior diet education but not following recommendations as evidenced by food recall of significantly high CHO, low PRO intake. Active Interventions: -MNT for Nausea & Vomiting discussed with pt: Make small frequent attempts at oral nutrition Choose bland, starchy foods and clear liquids, all served at room temperature Avoid greasy, high-fat foods and highly seasoned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 sounds. Abdominal: General: Bowel sounds are normal. Palpations: Abdomen is soft. Musculoskeletal: General: Normal range of motion. Cervical back: Normal range of motion and neck supple. Lymphadenopathy: Cervical: No cervical adenopathy. Skin: General: Skin is warm and dry. Neurological: Mental Status: She is alert and oriented to person, place, and time. Deep Tendon Reflexes: Reflexes are normal and symmetric. LABS / IMAGING Reviewed available labs and imaging IMPRESSION 75-year-old female smoker, diagnosed with limited stage small cell lung carcinoma. ASSESSMENT / PLAN Tx N3M0, stage IIIb at least, limited stage small cell lung carcinoma, reviewed the findings from EBUS at length, the histopathology, the radio and chemosensitive nature of the disease, option for concurrent chemoradiation therapy followed by maintenance immunotherapy. Discussed the chemotherapeutic agents, anticipated side effects, symptom management etc. In conversation with the radiation oncologist, it was felt prudent to initiate chemotherapy, reduce tumor volume to reduce the radiation lei and proceed with concurrent chemo RT with the second cycle of chemo. Reviewed the above plan with the patient and her daughter, patient is quite hesitant regarding the above plan and embarking on chemoradiation therapy, she had multiple questions regarding the potential complications, questioning whether she would be in pain , reviewed the anticipated side effects in detail, noted the curative intent of therapy etc. Daughter is very supportive, plan is for them to reviewed all of the above and update us in a day or 2 regarding decision to proceed with treatment versus not. small cell histology, noted the aggressive biology of the discussed the pros and cons of pursuing treatment versus not, rapid progression leading to metastasis and if definitive cancer directed therapy is not pursued. Recommend 1 CBC CMP today 2 port placement: 3. Chemo: Cisplatin (20% dose reduction due to pre-existing neuropathy) & Etoposide 4. Patient and family to discuss regarding overall goals of care and call us with decision Total time spent in [id number] conversation, record review, care coordination, documentation 45-minute 06/07/2025: Patient with history of limited stage small cell lung cancer, Tx N3M0, stage IIIb at least. Patient is tolerating chemotherapy extremely well except for cytopenias, growth factor support this week to enable keeping cycle 2 on schedule, discussed avoiding growth factor support during radiation therapy, she is being scheduled for twice daily radiation therapy, discussed potential anticipated side effects with concurrent chemoradiation therapy especially secondary to cytopenias with fatigue, mucositis, increased bruising etc. Patient to notify us of any worsening symptoms. Discussed goals of care. Patient and her son-in-law report that she is much more on board with the plan now and tolerating treatment very well. Increased bruising is secondary to thrombocytopenia and being on Plavix. Will hold Plavix if platelets less than 50K. Multiple questions answered. Recommendations: Proceed with chemotherapy/addition of growth factor support only with cycle 1. RTO in 4 weeks Thank you for the privilege of allowing me to participate in the care of Mavis Jackson. DENIZ ECHAVARRIA MD Template Design PNSHETH [1] Allergies Allergen Reactions Gabapentin Other (See Comments) Propoxyphene Itching Darvocett hives Darvocet Metformin Diarrhea Nsaids (Non-Steroidal Anti-Inflammatory Drug) Other (See Comments) Told not to take due to gerd [2] Social History Socioeconomic History Marital status: Tobacco Use Smoking status: Former Types: Cigarettes Smokeless tobacco: Never Tobacco comments: Stopped in 2021 Vaping Use Vaping status: Some Days Substances: Nicotine Substance and Sexual Activity Alcohol use: Not Currently Comment: occasional Drug use: Not Currently Sexual activity: Not Currently Partners: Male Social Drivers of Health Financial Resource Strain: Low Risk (03/23/2025) Received from [facility] Overall Financial Resource Strain (CARDIA) Difficulty of Paying Living Expenses: Not very hard Food Insecurity: No Food Insecurity (03/23/2025) Received from [facility] NCSS - Food Insecurity Worried About Running Out of Food in the Last Year: No Ran Out of Food in the Last Year: No Transportation Needs: No Transportation Needs (03/23/2025) Received from [facility] - Transportation Lack of Transportation: No Housing Stability: Not At Risk (03/23/2025) Received from [facility] - Housing/Utilities Has Housing: Yes Worried About Losing Housing: No Unable to Get Utilities: No documented in this encounter [facility] 06-06-2025 Note Radiation Oncology N [place]: Patient Name: Mavis Jackson Date of : 1950 Patient is known to my service and completed her radiation planning scan late last week. External beam radiation therapy details finalized, we are planning for 4500 cGy in 30 fractions delivered twice daily over 3 weeks given dose constraints associated with her 6600 cGy in 33 fraction plan. I discussed the above with the patient's daughter over the phone who will relay the information to her mother. She voiced understanding and fortunately the patient lives close to our facility in [place] making daily transportation more palatable. Please let me know if you have any questions. Ellen Bonilla M.D. Radiation Oncology 9:58 PM, 06/06/25 AUTHENTICATED BY ELLEN BONILLA, ON 06/06/2025 22:01:16 [facility] 06-06-2025 History of Present illness Narrative Radiation Oncology Note: Patient Name: Mavis Jackson Date of : 1950 Patient is known to my service and completed her radiation planning scan late last week. External beam radiation therapy details finalized, we are planning for 4500 cGy in 30 fractions delivered twice daily over 3 weeks given dose constraints associated with her 6600 cGy in 33 fraction plan. I discussed the above with the patient's daughter over the phone who will relay the information to her mother. She voiced understanding and fortunately the patient lives close to our facility in [place] making daily transportation more palatable. Please let me know if you have any questions. Ellen Bonilla M.D. Radiation Oncology 9:58 PM, 06/06/25 documented in this encounter [facility] 06-01-2025 Note [facility] 06-01-2025 History of Present illness Narrative Radiation Oncology Note: Patient Name: Mavis Jackson Date of : 1950 Patient is known to my service and was seen as an outpatient consult on 04/17/2025. Briefly, patient is a healthy 75-year-old female with limited stage small cell lung cancer. EBRT plan was generated from a planning scan in early May however given the bulk of disease it was decided to move forward with her first cycle of chemotherapy and aim to start concurrent chemoradiation with cycle 2. Patient initiated chemotherapy last week and appears to be tolerating this reasonably well. The patient completed radiation planning scan and we will aim to start concurrent chemoradiation the second week of June. Patient has my contact information with any questions or concerns forward. Please let me know if you have any questions. Ellen Bonilla M.D. Radiation Oncology 4:01 PM, 06/01/25 documented in this encounter [facility] 05-31-2025 History of Present illness Narrative Mavis Jackson presents today for administration of Magnesium along with ordered pre-medications and post-medications. Patient's condition is currently appropriate to continue with administration of the medication as defined in the care plan. Medication(s) was administered and well-tolerated by the patient. Today's Vitals Blood pressure 112/69, pulse 85, temperature 97.7 F (36.5 C), temperature source Oral, resp. rate 14, SpO2 98%. Most recent labs Lab Results Component Value Date WBC 5.55 05/30/2025 HGB 12.0 05/30/2025 HCT 38.0 05/30/2025 MCV 84.6 05/30/2025 EXTMCV 88.5 04/24/2025 PLT 180 05/30/2025 RBC 4.49 05/30/2025 Lab Results Component Value Date GLUCOSE 202 (H) 05/30/2025 CALCIUM 9.1 05/30/2025 NA 131 (L) 05/30/2025 K 5.5 (H) 05/30/2025 CL 97 (L) 05/30/2025 BUN 22 05/30/2025 CREATININE 0.77 05/30/2025 Lab Results Component Value Date ALT 17 05/30/2025 AST 21 05/30/2025 ALKPHOS 112 05/30/2025 BILITOT 0.3 05/30/2025 Most recent external labs Lab Results Component Value Date EXTWBC 6.9 04/24/2025 EXTRBC 4.42 04/24/2025 EXTHGB 12.2 04/24/2025 EXTHCT 39.1 04/24/2025 EXTMCV 88.5 04/24/2025 EXTMCH 27.6 04/24/2025 EXTMCHC 31.2 (L) 04/24/2025 EXTRDW 15.2 (H) 04/24/2025 EXTPLATELETC 291 04/24/2025 EXTMPV 9.6 04/24/2025 EXTEOABS 0.0 12/25/2017 No results found for: EXTHEMOGLOBI Lab Results Component Value Date EXTCHOL 217 (H) 09/16/2017 EXTHDL 55 09/16/2017 EXTTRIG 130 (H) 09/16/2017 EXTCHOLHDL 4.0 09/16/2017 No results found for: EXTAST No results found for: EXTALT Lab Results Component Value Date EXTGLUCOSE 250 (H) 04/24/2025 EXTBUN 19 04/24/2025 EXTEGFR 79 04/24/2025 EXTBUNCREATR SEE NOTE: 04/24/2025 EXTNA 133 (L) 04/24/2025 EXTK 4.7 04/24/2025 EXTCL 100 04/24/2025 EXTCO2 27 04/24/2025 EXTCALCIUM 9.0 04/24/2025 documented in this encounter [facility] 05-30-2025 History of Present illness Narrative Pt's daughter Jennifer notified of pt Mg and need for replacement. Pt scheduled to come in tomorrow prior to MRI. documented in this encounter [facility] 05-26-2025 History of Present illness Narrative Mavis Jackson presents today for administration of HYDRATION, CISPLATIN AND ETOPOSIDE along with ordered pre-medications and post-medications. Patient's condition is currently appropriate to continue with administration of the medication as defined in the care plan. Medication(s) was administered and well-tolerated by the patient. Today's Vitals Blood pressure (!) 140/74, pulse 65, temperature 97.7 F (36.5 C), temperature source Oral, resp. rate 16, SpO2 100%. Most recent labs Lab Results Component Value Date WBC 5.95 05/24/2025 HGB 11.7 (L) 05/24/2025 HCT 36.5 05/24/2025 MCV 84.3 05/24/2025 EXTMCV 88.5 04/24/2025 PLT 299 05/24/2025 RBC 4.33 05/24/2025 Lab Results Component Value Date GLUCOSE 353 (H) 05/24/2025 CALCIUM 9.5 05/24/2025 NA 139 05/24/2025 K 5.0 05/24/2025 CL 102 05/24/2025 BUN 14 05/24/2025 CREATININE 0.76 05/24/2025 Lab Results Component Value Date ALT 9 05/24/2025 AST 15 05/24/2025 ALKPHOS 139 05/24/2025 BILITOT 0.3 05/24/2025 Most recent external labs Lab Results Component Value Date EXTWBC 6.9 04/24/2025 EXTRBC 4.42 04/24/2025 EXTHGB 12.2 04/24/2025 EXTHCT 39.1 04/24/2025 EXTMCV 88.5 04/24/2025 EXTMCH 27.6 04/24/2025 EXTMCHC 31.2 (L) 04/24/2025 EXTRDW 15.2 (H) 04/24/2025 EXTPLATELETC 291 04/24/2025 EXTMPV 9.6 04/24/2025 EXTEOABS 0.0 12/25/2017 No results found for: EXTHEMOGLOBI Lab Results Component Value Date EXTCHOL 217 (H) 09/16/2017 EXTHDL 55 09/16/2017 EXTTRIG 130 (H) 09/16/2017 EXTCHOLHDL 4.0 09/16/2017 No results found for: EXTAST No results found for: EXTALT Lab Results Component Value Date EXTGLUCOSE 250 (H) 04/24/2025 EXTBUN 19 04/24/2025 EXTEGFR 79 04/24/2025 EXTBUNCREATR SEE NOTE: 04/24/2025 EXTNA 133 (L) 04/24/2025 EXTK 4.7 04/24/2025 EXTCL 100 04/24/2025 EXTCO2 27 04/24/2025 EXTCALCIUM 9.0 04/24/2025 documented in this encounter [facility] 05-26-2025 Instructions Gordy Potter DO - 05/26/2025 1:01 PM EDT If chronic opioids were prescribed, the risk of chronic opioid therapy includes, but not limited constipation, nausea, vomiting, hormonal changes, osteoporosis, developing a tolerance, dependence or addiction to the medication and the possibility of overdose and . Prior to initiating chronic opioid therapy, patient failed many non-opioid therapies including PT, injections/pain procedures, NSAIDs, Tylenol, muscle relaxers and nerve medications. The goal of opioid therapy is to reduce their chronic pain and improve their functional capacity and quality of life. The lowest effective dose will be utilized for the shortest duration possible. Weaning of opioids will always be considered whenever possible. The patient can NOT mix opioids with other sedating medications or substances including marijuana, benzodiazepines, muscle relaxers, nerve medication and alcohol. The patient can only take medication as prescribed. The patient can NOT sell, share or give away their medication. The patient must lock their medication in a safe location away from children and other family members. If patient has a history of sleep apnea or COPD, they are at increased risk of respiratory depression, overdose and given their underlying disease process. It is important to continue to using their CPAP and supplemental oxygen as prescribed. Patient should NOT take their pain medication if they have a respiratory illness as this puts them at increased risk of respiratory depression, overdose and . Narcan is the reversal agent for an opioid overdose. This should always be next to your opioid medication in the event of an opioid overdose. Narcan prescription was ordered upon initiation of chronic opioid therapy and will be offered or ordered at every follow-up visit or sooner if patient requests. Please refer to instructions on medication packet for proper use. Please discuss with your pharmacist if you have any further questions. Patient agrees to submit to drugs screens and pill counts as requested to ensure compliance and rule out any diversion, medication overuse, inappropriately taking other prescriptions medications or use of illicit substances. Patient understands if either a drug screen or pill count is inappropriate, they will be discharged from the practice. They have agreed to this by way of our mutually signed pain contract scanned into EMR. If a procedure was ordered, the risks of the procedure include, but not limited to, worsening pain, failure to improve pain, bruising, bleeding, infection, medication side effects or allergic reaction to the medications used, tissue injury, nerve injury, nerve palsy or paralysis, transient or permanent weakness, injection of local anesthetic intravascularly or intrathecally resulting in cardiac arrhythmias, fainting, respiratory arrest, spinal cord injury, heart attack, stroke and . If anesthesia or sedation will be used there is a risk for cardiac and respiratory complications including heart attack, stroke, cardiac arrest and . If steroid is given, this can increase blood sugar (if diabetic) and blood pressure (if history of high blood pressure) for several days following the injection.Patient should check both blood pressure and blood sugar regularly and if abnormal should follow-up with their primary care physician. If patient takes a blood thinner or anti-platelet medication, we will request written permission from the managing physician to hold the blood thinner or anti-platelet medication per the JASIEL guidelines. If the managing physician does not give approval to hold the medication for the duration requested, the procedure will be cancelled. Holding blood thinner or anti-platelet medication can result in increased risk of stroke, heart attack or even when approval by the managing physician is given. documented in this encounter [facility] 05-26-2025 Note [facility] Interventional Pain Management Office Note Patient Name: Mavis Jackson Referring Physician: No ref. provider found Date of : 1950 PCP: Jose Luna MD Date of Service: 05/26/25 Assessment & Plan Virtual Visit Consent Statement: I discussed risks, benefits and alternatives of telemedicine consultation with the patient (and any accompanying persons) including the risks that the patient's personal health details and medical records will be discussed over interactive video/audio/telecommunication technology, may be recorded, and that there are inherent diagnostic limitations compared to [id number] evaluations. They elected to proceed with the telemedicine visit. Today's visit was performed utilizing audio/video technology. Greater than 10 minutes was spent with the patient for evaluation, diagnosis and treatment. A level 4 MDM was billed today as we are managing multiple chronic medical conditions as well as prescription medication management. 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 This is a new diagnosis. She is scheduled to have her port placed on 05/19/2025. She will then start chemotherapy. After her first round of chemotherapy she will start concomitant radiation therapy. She is endorsing worsening lower back pain with radiation to her bilateral hips. She is also endorsing subjective leg weakness. CT of her chest and PET scan of her abdomen in March were reviewed. I do want to rule out any metastatic involvement of her lumbar spine. We did order an MRI of her lumbar spine with and without contrast that is scheduled for next week. She also has a component of diabetic peripheral polyneuropathy and is maintained on Lyrica 200 mg twice daily. Analgesia: Patient has adequate analgesia with the use of current opioid pain medication. Activities of Daily Living: Patient's activities of daily living and psychological functioning have improved sufficiently with use of the current opioid medication. Adverse Effects: Patient reports no adverse effects with use of the opioid pain medication. Aberrant Drug-Taking Behavior: Patient has demonstrated no aberrant drug taking behaviors with no deviation from prescription. She also has uncontrolled cancer related pain. She did trial oxycodone 5 mg which was not effective. UDS results reviewed today in office. Plan: Medications: Continue Oxycocone 10 mg BID prn; Continue Lyrica 200 mg BID prn Follow-up: Return in about 3 months (around 08/26/2025) for Follow-up. Compliance Pain Contract Signed: 05/26/25 OARRS/NARxCheck: 05/26/25 Drug Screen/Pill Count History: UDS 05/15/25: appropriate Narcan offered/ordered: 05/26/25 Opioid Risk Tool (ORT): Gender Male or Female: F (05/15/2025 12:00 PM) Family History of Substance Abuse (Alcohol): 0 (05/15/2025 12:00 PM) Family History of Substance Abuse (Illegal Drugs): 0 (05/15/2025 12:00 PM) Family History of Substance Abuse (Prescription Drugs): 0 (05/15/2025 12:00 PM) Personal History of Substance Abuse (Alcohol): 0 (05/15/2025 12:00 PM) Personal History of Substance Abuse (Illegal Drugs): 0 (05/15/2025 12:00 PM) Personal History of Substance Abuse (Prescription Drugs): 0 (05/15/2025 12:00 PM) History of Preadolescent Sexual Abuse: 0 (05/15/2025 12:00 PM) Psychological Disease: 0 (05/15/2025 12:00 PM) Psychological Disease (Depression): 0 (05/15/2025 12:00 PM) Total : 0 (05/15/2025 12:00 PM) Total Score Risk Category: Low Risk (0-3) (05/15/2025 12:00 PM) Oswestry Disability Index (JOMAR): Oswestry Low Back Disability Index My BACK PAIN at the moment is: 3 (05/15/2025 12:00 PM) Personal care: 1 (05/15/2025 12:00 PM) Lifitn (05/15/2025 12:00 PM) Walkin (05/15/2025 12:00 PM) Sittin (05/15/2025 12:00 PM) Standin (05/15/2025 12:00 PM) Sleepin (05/15/2025 12:00 PM) Sex Life: 0 (05/15/2025 12:00 PM) Social Life: 1 (05/15/2025 12:00 PM) Travelin (05/15/2025 12:00 PM) Oswestry Score: 15 (05/15/2025 12:00 PM) Oswestry Percentage Score: 30 (05/15/2025 12:00 PM) Current Opioid Misuse Measure (COMM): If chronic opioids were prescribed, the risk of chronic opioid therapy includes, but not limited constipation, nausea, vomiting, hormonal changes, osteoporosis, developing a tolerance, dependence or addiction to the medication and the possibility of overdose and . Prior to initiating chronic opioid therapy, patient failed many non-opioid therapies includin (more content not included)... [facility] 05-26-2025 History of Present illness Narrative [facility] Interventional Pain Management Office Note Patient Name: Mavis Jackson Referring Physician: No ref. provider found Date of : 1950 PCP: Jose Luna MD Date of Service: 05/26/25 Assessment & Plan Virtual Visit Consent Statement: I discussed risks, benefits and alternatives of telemedicine consultation with the patient (and any accompanying persons) including the risks that the patient s personal health details and medical records will be discussed over interactive video/audio/telecommunication technology, may be recorded, and that there are inherent diagnostic limitations compared to [id number] evaluations. They elected to proceed with the telemedicine visit. Today's visit was performed utilizing audio/video technology. Greater than 10 minutes was spent with the patient for evaluation, diagnosis and treatment. A level 4 MDM was billed today as we are managing multiple chronic medical conditions as well as prescription medication management. 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 This is a new diagnosis. She is scheduled to have her port placed on 05/19/2025. She will then start chemotherapy. After her first round of chemotherapy she will start concomitant radiation therapy. She is endorsing worsening lower back pain with radiation to her bilateral hips. She is also endorsing subjective leg weakness. CT of her chest and PET scan of her abdomen in March were reviewed. I do want to rule out any metastatic involvement of her lumbar spine. We did order an MRI of her lumbar spine with and without contrast that is scheduled for next week. She also has a component of diabetic peripheral polyneuropathy and is maintained on Lyrica 200 mg twice daily. Analgesia: Patient has adequate analgesia with the use of current opioid pain medication. Activities of Daily Living: Patient's activities of daily living and psychological functioning have improved sufficiently with use of the current opioid medication. Adverse Effects: Patient reports no adverse effects with use of the opioid pain medication. Aberrant Drug-Taking Behavior: Patient has demonstrated no aberrant drug taking behaviors with no deviation from prescription. She also has uncontrolled cancer related pain. She did trial oxycodone 5 mg which was not effective. UDS results reviewed today in office. Plan: Medications: Continue Oxycocone 10 mg BID prn; Continue Lyrica 200 mg BID prn Follow-up: Return in about 3 months (around 08/26/2025) for Follow-up. Compliance Pain Contract Signed: 05/26/25 OARRS/NARxCheck: 05/26/25 Drug Screen/Pill Count History: UDS 05/15/25: appropriate Narcan offered/ordered: 05/26/25 Opioid Risk Tool (ORT): Gender Male or Female: F (05/15/2025 12:00 PM) Family History of Substance Abuse (Alcohol): 0 (05/15/2025 12:00 PM) Family History of Substance Abuse (Illegal Drugs): 0 (05/15/2025 12:00 PM) Family History of Substance Abuse (Prescription Drugs): 0 (05/15/2025 12:00 PM) Personal History of Substance Abuse (Alcohol): 0 (05/15/2025 12:00 PM) Personal History of Substance Abuse (Illegal Drugs): 0 (05/15/2025 12:00 PM) Personal History of Substance Abuse (Prescription Drugs): 0 (05/15/2025 12:00 PM) History of Preadolescent Sexual Abuse: 0 (05/15/2025 12:00 PM) Psychological Disease: 0 (05/15/2025 12:00 PM) Psychological Disease (Depression): 0 (05/15/2025 12:00 PM) Total : 0 (05/15/2025 12:00 PM) Total Score Risk Category: Low Risk (0-3) (05/15/2025 12:00 PM) Oswestry Disability Index (JOMAR): Oswestry Low Back Disability Index My BACK PAIN at the moment is: 3 (05/15/2025 12:00 PM) Personal care: 1 (05/15/2025 12:00 PM) Lifitn (05/15/2025 12:00 PM) Walkin (05/15/2025 12:00 PM) Sittin (05/15/2025 12:00 PM) Standin (05/15/2025 12:00 PM) Sleepin (05/15/2025 12:00 PM) Sex Life: 0 (05/15/2025 12:00 PM) Social Life: 1 (05/15/2025 12:00 PM) Travelin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 , Rfl: insulin syringe-needle U-100 0.3 mL 30 gauge x 5/16 Syrg, Use qid to inject SC insulin ., Disp: 3 each, Rfl: 1 levocetirizine (XYZAL) 5 MG tablet, Take 1 (one) tablet (5 mg total) by mouth daily ., Disp: , Rfl: lidocaine-prilocaine (EMLA) cream, Apply topically as needed Apply a thin layer over port one hour prior to access as needed. ., Disp: 30 g, Rfl: 2 linaGLIPtin 5 mg Tab, Take 1 (one) tablet (5 mg total) by mouth daily ., Disp: , Rfl: meloxicam (MOBIC) 15 MG tablet, Take 1 (one) tablet (15 mg total) by mouth daily ., Disp: , Rfl: naloxone (NARCAN) 4 mg/actuation [place], Administer 1 spray into one nostril for known or suspected opioid overdose. If patient worsens or does not respond, may repeat in 2-3 minutes. ., Disp: 2 each, Rfl: 0 OLANZapine (ZYPREXA) 5 MG tablet, Take 1 (one) tablet (5 mg total) by mouth at bedtime Take once daily at bedtime for 6 days beginning day of chemotherapy ., Disp: 24 tablet, Rfl: 0 omeprazole (PRILOSEC) 20 MG capsule, TAKE 1 CAPSULE BY MOUTH TWICE DAILY BEFORE MEAL(S), Disp: , Rfl: ondansetron (ZOFRAN) 4 MG tablet, Take 1 (one) tablet (4 mg total) by mouth every 6 (six) hours as needed for nausea ., Disp: 30 tablet, Rfl: 2 oxyCODONE (ROXICODONE) 10 MG Tab, Take 1 (one) tablet (10 mg total) by mouth every 12 (twelve) hours as needed for pain (Days supply per fill: 14) ., Disp: 28 tablet, Rfl: 0 oxyCODONE-acetaminophen (PERCOCET) 5-325 mg per tablet, Take 1 (one) tablet by mouth every 6 (six) hours as needed for pain Prescribed by Dr Tylor Stafford ., Disp: , Rfl: pregabalin (LYRICA) 200 MG capsule, Take 1 (one) capsule (200 mg total) by mouth 2 (two) times a day ., Disp: 60 capsule, Rfl: 5 prochlorperazine (COMPAZINE) 5 MG tablet, Take 1 (one) tablet (5 mg total) by mouth every 6 (six) hours as needed (nausea and vomiting) ., Disp: 30 tablet, Rfl: 2 sitagliptin (Januvia) 100 MG tablet, Take 1 (one) tablet (100 mg total) by mouth daily . (Patient not taking: Reported on 05/10/2025 .), Disp: , Rfl: solifenacin (VESICARE) 10 MG tablet, Take 1 (one) tablet (10 mg total) by mouth daily ., Disp: , Rfl: No current facility-administered medications for this visit. Facility-Administered Medications Ordered in Other Visits: sodium chloride 0.9% (NS), 25 mL/hr, Intravenous, Continuous, Deniz Echavarria MD, Stopped at 05/24/25 1208 documented in this encounter [facility] 05-24-2025 History of Present illness Narrative Mavis Jackson presents today for administration of CISPLATIN/ETOPOSIDE along with ordered pre-medications and post-medications. Patient's condition is currently appropriate to continue with administration of the medication as defined in the care plan. Medication(s) was administered and well-tolerated by the patient. Today's Vitals Weight 62.8 kg (138 lb 6.4 oz). Most recent labs Lab Results Component Value Date WBC 5.95 05/24/2025 HGB 11.7 (L) 05/24/2025 HCT 36.5 05/24/2025 MCV 84.3 05/24/2025 EXTMCV 88.5 04/24/2025 PLT 299 05/24/2025 RBC 4.33 05/24/2025 Lab Results Component Value Date GLUCOSE 353 (H) 05/24/2025 CALCIUM 9.5 05/24/2025 NA 139 05/24/2025 K 5.0 05/24/2025 CL 102 05/24/2025 BUN 14 05/24/2025 CREATININE 0.76 05/24/2025 Lab Results Component Value Date ALT 9 05/24/2025 AST 15 05/24/2025 ALKPHOS 139 05/24/2025 BILITOT 0.3 05/24/2025 Most recent external labs Lab Results Component Value Date EXTWBC 6.9 04/24/2025 EXTRBC 4.42 04/24/2025 EXTHGB 12.2 04/24/2025 EXTHCT 39.1 04/24/2025 EXTMCV 88.5 04/24/2025 EXTMCH 27.6 04/24/2025 EXTMCHC 31.2 (L) 04/24/2025 EXTRDW 15.2 (H) 04/24/2025 EXTPLATELETC 291 04/24/2025 EXTMPV 9.6 04/24/2025 EXTEOABS 0.0 12/25/2017 No results found for: EXTHEMOGLOBI Lab Results Component Value Date EXTCHOL 217 (H) 09/16/2017 EXTHDL 55 09/16/2017 EXTTRIG 130 (H) 09/16/2017 EXTCHOLHDL 4.0 09/16/2017 No results found for: EXTAST No results found for: EXTALT Lab Results Component Value Date EXTGLUCOSE 250 (H) 04/24/2025 EXTBUN 19 04/24/2025 EXTEGFR 79 04/24/2025 EXTBUNCREATR SEE NOTE: 04/24/2025 EXTNA 133 (L) 04/24/2025 EXTK 4.7 04/24/2025 EXTCL 100 04/24/2025 EXTCO2 27 04/24/2025 EXTCALCIUM 9.0 04/24/2025 documented in this encounter [facility] 05-22-2025 History of Present illness Narrative Progress Note Mavis Manuel is here for Chief Complaint Patient presents with Diabetes Edema Urinary Incontinence Other Small Cell Carcinoma Hyperlipidemia Diabetes: Her last eye doctor visit was 2023. Her last HbA1c was done (date) 05/22/25 - 9.5. She admits to checking her blood sugar. If so, how often? 3 x a day(s). Current medication/treatments: glimepiride, Tresiba, Ozempic Edema: Located on her bilateral legs and she noticed it 2 year(s) ago. She denies seeping, denies redness, and She denies pain. She states: no to trying elevation, and no to trying elastic stockings/jimi hose for treatment. She would like refills on her solifenacin, which she uses for urinary incontinence. Hyperlipidemia: Her last lipid profile was done (date) 02/03/25 Ratio - 2.28. Current medication/treatments: Atorvastatin. She states: no to medication side effects. She states: no to other medications tried and failed? She would like refills on her Xyzal, which she uses for allergies. Review of Systems: Review of Systems Progress Note Mavis Jackson is here for Chief Complaint Patient presents with Diabetes Edema Urinary Incontinence Other Small Cell Carcinoma Hyperlipidemia Diabetes: Her last eye doctor visit was 2023. Her last HbA1c was done (date) 05/22/25 - 9.5. She admits to checking her blood sugar. If so, how often? 3 x a day(s). Current medication/treatments: glimepiride, Tresiba, Ozempic Edema: Located on her bilateral legs and she noticed it 2 year(s) ago. She denies seeping, denies redness, and She denies pain. She states: no to trying elevation, and no to trying elastic stockings/jimi hose for treatment. She would like refills on her solifenacin, which she uses for urinary incontinence. Hyperlipidemia: Her last lipid profile was done (date) 02/03/25 Ratio - 2.28. Current medication/treatments: Atorvastatin. She states: no to medication side effects. She states: no to other medications tried and failed? She would like refills on her Xyzal, which she uses for allergies. Review of Systems: Review of Systems Mavis Jackson is here for Chief Complaint Patient presents with Diabetes Edema Urinary Incontinence Other Small Cell Carcinoma Hyperlipidemia HPI: Mavis Jackson is a 75 y.o. year old female who presents to the office for Patient presents with: Diabetes Edema Urinary Incontinence Other: Small Cell Carcinoma Hyperlipidemia follow up and lab review. Diabetes She presents for her follow-up diabetic visit. She has type 2 diabetes mellitus. Disease course: A1C 9.5. Pertinent negatives for hypoglycemia include no headaches. Pertinent negatives for diabetes include no chest pain. There are no hypoglycemic complications. Symptoms are stable (A1C 9.5). There are no diabetic complications. Risk factors for coronary artery disease include post-menopausal, dyslipidemia and diabetes mellitus. Current diabetic treatment includes oral agent (monotherapy). She is compliant with treatment all of the time. Edema This is a chronic problem. The current episode started more than 1 year ago. The problem occurs rarely. The problem has been resolved. Pertinent negatives include no chest pain or headaches. Treatments tried: Furosemide. The treatment provided significant relief. Other This is a chronic problem. The current episode started more than 1 year ago. The problem occurs rarely. The problem has been unchanged. Pertinent negatives include no chest pain or headaches. Hyperlipidemia This is a chronic problem. The current episode started more than 1 year ago. The problem is controlled. Recent lipid tests were reviewed and are normal. Exacerbating diseases include diabetes. She has no history of chronic renal disease. There are no known factors aggravating her hyperlipidemia. Pertinent negatives include no chest pain. Current antihyperlipidemic treatment includes statins. The current treatment provides significant improvement of lipids. There are no compliance problems. Risk factors for coronary artery disease include diabetes mellitus, dyslipidemia and post-menopausal. Allergies: Allergies Allergen Reactions Gabapentin Abdominal Discomfort Propoxyphene Itching Darvocet Metformin Diarrhea Current Medications: Current Outpatient Medications: Atorvastatin 40 MG tablet, Take 1 tablet by mouth at bedtime., Disp: 90 tablet, Rfl: 1 cholecalciferol 50 MCG (1999 UT) capsule, Take 1 capsule by mouth daily., Disp: , Rfl: Clopidogrel (Plavix) 75 MG tablet, Take 1 tablet by mouth daily., Disp: 90 tablet, Rfl: 1 DISABILITY PLACARD, Disability placard end date 02/18/29, Disp: 1 Each, Rfl: 0 furOSEmide 20 MG tablet, Take 3 tablets by mouth daily., Disp: 90 tablet, Rfl: 5 gliMEPIride (Amaryl) 1 MG tablet, Take 1 tablet by mouth daily every morning., Disp: 90 tablet, Rfl: 1 GLUCOSE MONITOR LANCETS PRESCRIPTION, Test 1x a day, Disp: 100 Each, Rfl: 3 GLUCOSE MONITOR LANCETS PRESCRIPTION, Use to test daily, Disp: 100 Each, Rfl: 3 GLUCOSE MONITOR PRESCRIPTION, Insurance covered, Disp: 1 Each, Rfl: 0 GLUCOSE TEST STRIPS PRESCRIPTION, Testing 1x a day, Disp: 100 Each, Rfl: 3 Insulin Degludec (Tresiba FlexTouch) 100 UNIT/ML Solution Pen-injector injection, Inject 20 Units under the skin 2 times daily., Disp: 36 mL, Rfl: 0 Levocetirizine Dihydrochloride (Xyzal) 5 MG tablet, Take 1 tablet by mouth daily., Disp: 180 tablet, Rfl: 1 nystatin [id number] unit/gm Powder, Apply 1 Application topically every 8 hours as needed., Disp: 1 Bottle, Rfl: 2 omeprazole [address] capsule, Take 1 capsule by mouth 2 times daily (take before meals)., Disp: 180 capsule, Rfl: 1 oxyCODONE HCl 10 MG tablet, Take 1 tablet by mouth Every 12 hours as needed., Disp: , Rfl: Polyethylene glycol 17 g Pack packet, Take 1 packet by mouth daily., Disp: , Rfl: pregabalin 200 MG capsule, Take 1 capsule by mouth 2 times daily., Disp: 60 capsule, Rfl: 2 Semaglutide,0.25 or 0.5MG/DOS, (Ozempic, 0.25 or 0.5 MG/DOSE,) 2 MG/3ML Solution Pen-injector, Inject 0.25 mg under the skin once a week., Disp: 9 mL, Rfl: 1 solifenacin 10 MG tablet, Take 1 tablet by mouth daily., Disp: 90 tablet, Rfl: 1 triamcinolone 0.1 % Cream cream, Apply to affected area twice a day till clear (Patient taking differently: 2 times daily as needed. Apply to affected area twice a day till clear), Disp: 80 g, Rfl: 3 Zinc Sulfate (ZINC 15 PO), Take by mouth., Disp: , Rfl: Continuous Glucose Sensor (FreeStyle Jacque 3 Sensor) Misc, 1 Device by Unknown route every 14 days. (Patient not taking: Reported on 05/22/2025), Disp: 2 Each, Rfl: 1 phentermine 37.5 MG tablet, Take 1 tablet by mouth every morning before breakfast. 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 reports that she has quit smoking. Her smoking use included cigarettes. She has never used smokeless tobacco. She reports that she does not drink alcohol and does not use drugs. Past Surgical History: Procedure Laterality Date EXTRACTION EXTRACAPSULAR CATARACT W/ IMPLANT (ECCE IOL) Bilateral 2017 REPAIR HERNIA VENTRAL OPEN W/ MESH 1985 TUBAL LIGATION 1970 with reversal HYSTERECTOMY TOTAL ABDOMINAL OPEN (ISABEL) W/ REMOVAL TUBES/OVARIES 1970 TONSILLECTOMY ADENOIDECTOMY 1966 SECTION 1980,1982 Recent Labs: Recent Results (from the past 24 hours) POCT HEMOGLOBIN A1C Collection Time: 05/22/25 10:43 AM Result Value Ref Range POCT HEMOGLOBIN A1C 9.5 (A) 4.7 - 5.6 % Recent Imaging: No images are attached to the encounter. Physical Exam Physical Exam Vitals and nursing note reviewed. Constitutional: Appearance: Normal appearance. She is overweight. HENT: Head: Normocephalic and atraumatic. Nose: Nose normal. Mouth/Throat: Mouth: Mucous membranes are moist. Pharynx: Oropharynx is clear. Eyes: Extraocular Movements: Extraocular movements intact. Conjunctiva/sclera: Conjunctivae normal. Cardiovascular: Rate and Rhythm: Normal rate and regular rhythm. Pulses: Normal pulses. Heart sounds: Normal heart sounds. No murmur heard. No gallop. Pulmonary: Effort: Pulmonary effort is normal. No respiratory distress. Breath sounds: Normal breath sounds. No wheezing. Genitourinary: General: Normal vulva. Rectum: Normal. Musculoskeletal: General: Normal range of motion. Cervical back: Normal range of motion and neck supple. Skin: General: Skin is warm. Neurological: General: No focal deficit present. Mental Status: She is alert and oriented to person, place, and time. Mental status is at baseline. Psychiatric: Mood and Affect: Mood normal. Behavior: Behavior normal. Thought Content: Thought content normal. Judgment: Judgment normal. Assessment & Plan Mavis was seen today for diabetes, edema, urinary incontinence, other and hyperlipidemia. Diagnoses and all orders for this visit: Hyperlipidemia LDL goal <70 - Ratio 2.28, LDL 67. Continue current regimen at this time. - Atorvastatin 40 MG tablet; Take 1 tablet by mouth at bedtime. - COMPREHENSIVE METABOLIC PANEL; Future - LIPID PANEL W CALCULATED LDL; Future Edema leg - furOSEmide 20 MG tablet; Take 3 tablets by mouth daily. Type 2 diabetes mellitus with hyperglycemia, with long-term current use of insulin - A1C 9.5, uncontrolled. Patient reports januvia was too expensive so she did not start it. She would like to go back to Ozempic since it worked and had very little side effects at the lowest does. We will continue to monitor the medication and weight loss since she starts chemotherapy next week. - gliMEPIride (Amaryl) 1 MG tablet; Take 1 tablet by mouth daily every morning. - POCT HEMOGLOBIN A1C 9.5, - Semaglutide,0.25 or 0.5MG/DOS, (Ozempic, 0.25 or 0.5 MG/DOSE,) 2 MG/3ML Solution Pen-injector; Inject 0.25 mg under the skin once a week. - AMB REFERRAL TO PHARMACY MEDICATION ASSISTANCE - COMPREHENSIVE METABOLIC PANEL; Future - LIPID PANEL W CALCULATED LDL; Future - HEMOGLOBIN A1C; Future - CBC,PLATELETS; Future Seasonal allergic rhinitis due to pollen - Levocetirizine Dihydrochloride (Xyzal) 5 MG tablet; Take 1 tablet by mouth daily. Rash Urinary incontinence, unspecified type - solifenacin 10 MG tablet; Take 1 tablet by mouth daily. ICD-10-CM 1. Hyperlipidemia LDL goal <70 E78.5 2. Edema leg R60.0 3. Type 2 diabetes mellitus with hyperglycemia, with long-term current use of insulin E11.65 Z79.4 4. Seasonal allergic rhinitis due to pollen J30.1 5. Rash R21 6. Urinary incontinence, unspecified type R32 I would like to see Mavis Jackson back in 3 month(s) Jose Luna MD 05/22/2025 I spent at least 15 minutes in face to face time with patient, more than 50% of that time was spent on counseling and coordination of care. Plan discussed using plain language, and agreed to by team leader, and patient. Understanding in both team leader's and (when possible) patient's, verified by their paraphrasing them back to physician Total time: 20 minutes Pre-visit Charting time; min + Face to Face time: min + Post Visit Documentation Time: min = Total Time: Min documented in this encounter [facility]19[facility]2025 [facility] Instructions Gordy Potter DO - 05/15/2025 1:15 PM EDT If chronic opioids were prescribed, the risk of chronic opioid therapy includes, but not limited constipation, nausea, vomiting, hormonal changes, osteoporosis, developing a tolerance, dependence or addiction to the medication and the possibility of overdose and . Prior to initiating chronic opioid therapy, patient failed many non-opioid therapies including PT, injections/pain procedures, NSAIDs, Tylenol, muscle relaxers and nerve medications. The goal of opioid therapy is to reduce their chronic pain and improve their functional capacity and quality of life. The lowest effective dose will be utilized for the shortest duration possible. Weaning of opioids will always be considered whenever possible. The patient can NOT mix opioids with other sedating medications or substances including marijuana, benzodiazepines, muscle relaxers, nerve medication and alcohol. The patient can only take medication as prescribed. The patient can NOT sell, share or give away their medication. The patient must lock their medication in a safe location away from children and other family members. If patient has a history of sleep apnea or COPD, they are at increased risk of respiratory depression, overdose and given their underlying disease process. It is important to continue to using their CPAP and supplemental oxygen as prescribed. Patient should NOT take their pain medication if they have a respiratory illness as this puts them at increased risk of respiratory depression, overdose and . Narcan is the reversal agent for an opioid overdose. This should always be next to your opioid medication in the event of an opioid overdose. Narcan prescription was ordered upon initiation of chronic opioid therapy and will be offered or ordered at every follow-up visit or sooner if patient requests. Please refer to instructions on medication packet for proper use. Please discuss with your pharmacist if you have any further questions. Patient agrees to submit to drugs screens and pill counts as requested to ensure compliance and rule out any diversion, medication overuse, inappropriately taking other prescriptions medications or use of illicit substances. Patient understands if either a drug screen or pill count is inappropriate, they will be discharged from the practice. They have agreed to this by way of our mutually signed pain contract scanned into EMR. If a procedure was ordered, the risks of the procedure include, but not limited to, worsening pain, failure to improve pain, bruising, bleeding, infection, medication side effects or allergic reaction to the medications used, tissue injury, nerve injury, nerve palsy or paralysis, transient or permanent weakness, injection of local anesthetic intravascularly or intrathecally resulting in cardiac arrhythmias, fainting, respiratory arrest, spinal cord injury, heart attack, stroke and . If anesthesia or sedation will be used there is a risk for cardiac and respiratory complications including heart attack, stroke, cardiac arrest and . If steroid is given, this can increase blood sugar (if diabetic) and blood pressure (if history of high blood pressure) for several days following the injection.Patient should check both blood pressure and blood sugar regularly and if abnormal should follow-up with their primary care physician. If patient takes a blood thinner or anti-platelet medication, we will request written permission from the managing physician to hold the blood thinner or anti-platelet medication per the JASIEL guidelines. If the managing physician does not give approval to hold the medication for the duration requested, the procedure will be cancelled. Holding blood thinner or anti-platelet medication can result in increased risk of stroke, heart attack or even when approval by the managing physician is given. documented in this encounter [facility] 05-15-2025 Note [facility] Interventional Pain Management Office Note Patient Name: Mavis Jackson Referring Physician: No ref. provider found Date of : 1950 PCP: Jose Luna MD Date of Service: 05/15/25 Assessment & Plan Assessment: Metastatic non-small cell Lumbar degenerative disc disease Lumbar spondylosis Diabetic peripheral polyneuropathy Cancer related pain Chronic continuous opioid Anticoagulation: Plavix Diabetes: Yes; A1c 9.4 Smoking status: former, Quit 2022 Narrative: She presents today with chronic right rib cage pain secondary to metastatic non-small cell lung cancer. This is a new diagnosis. She is scheduled to have her port placed on 05/19/2025. She will then start chemotherapy. After her first round of chemotherapy she will start concomitant radiation therapy. She is endorsing worsening lower back pain with radiation to her bilateral hips. She is also endorsing subjective leg weakness. CT of her chest and PET scan of her abdomen in March were reviewed. I do want to rule out any metastatic involvement of her lumbar spine. I will order an MRI of her lumbar spine with and without contrast. She also has a component of diabetic peripheral polyneuropathy and is maintained on Lyrica 200 mg twice daily. We will take over managing this medication today. She also has uncontrolled cancer related pain. She did trial oxycodone 5 mg which was not effective. We will start a trial of oxycodone 10 mg twice daily as needed x 14 days. We will order a UDS today in office. We will see her back in 2 weeks to review the UDS and to discuss further medication adjustments Plan: Medications: Start Oxycocone 10 mg BID prn; Continue Lyrica 200 mg BID prn Follow-up: Return in about 2 weeks (around 05/29/2025). Compliance Pain Contract Signed: 05/15/25 OARRS/NARxCheck: 05/15/25 Drug Screen/Pill Count History: UDS 05/15/25: ordered Narcan offered/ordered: 05/15/25 Opioid Risk Tool (ORT): Gender Male or Female: F (05/15/2025 12:00 PM) Family History of Substance Abuse (Alcohol): 0 (05/15/2025 12:00 PM) Family History of Substance Abuse (Illegal Drugs): 0 (05/15/2025 12:00 PM) Family History of Substance Abuse (Prescription Drugs): 0 (05/15/2025 12:00 PM) Personal History of Substance Abuse (Alcohol): 0 (05/15/2025 12:00 PM) Personal History of Substance Abuse (Illegal Drugs): 0 (05/15/2025 12:00 PM) Personal History of Substance Abuse (Prescription Drugs): 0 (05/15/2025 12:00 PM) History of Preadolescent Sexual Abuse: 0 (05/15/2025 12:00 PM) Psychological Disease: 0 (05/15/2025 12:00 PM) Psychological Disease (Depression): 0 (05/15/2025 12:00 PM) Total : 0 (05/15/2025 12:00 PM) Total Score Risk Category: Low Risk (0-3) (05/15/2025 12:00 PM) Oswestry Disability Index (JOMAR): Oswestry Low Back Disability Index My BACK PAIN at the moment is: 3 (05/15/2025 12:00 PM) Personal care: 1 (05/15/2025 12:00 PM) Lifitn (05/15/2025 12:00 PM) Walkin (05/15/2025 12:00 PM) Sittin (05/15/2025 12:00 PM) Standin (05/15/2025 12:00 PM) Sleepin (05/15/2025 12:00 PM) Sex Life: 0 (05/15/2025 12:00 PM) Social Life: 1 (05/15/2025 12:00 PM) Travelin (05/15/2025 12:00 PM) Oswestry Score: 15 (05/15/2025 12:00 PM) Oswestry Percentage Score: 30 (05/15/2025 12:00 PM) Current Opioid Misuse Measure (COMM): If chronic opioids were prescribed, the risk of chronic opioid therapy includes, but not limited constipation, nausea, vomiting, hormonal changes, osteoporosis, developing a tolerance, dependence or addiction to the medication and the possibility of overdose and . Prior to initiating chronic opioid therapy, patient failed many non-opioid therapies including PT, injections/pain procedures, NSAIDs, Tylenol, muscle relaxers and nerve medications. The goal of opioid therapy is to reduce their chronic pain and improve their functional capacity and quality of life. The lowest effective dose will be utilized for the shortest duration possible. Weaning of opioids will always be considered whenever possible. The patient can NOT mix opioids with other sedating medications or substances including marijuana, benzodiazepines, muscle relaxers, nerve medication and alcohol. The patient can only take medication as prescribed. The patient can NOT sell, share or give away their medication. The patient must lock their medication in a safe location away from children and other family members. If patient has a history of sleep apnea or COPD, they are at increased risk of respiratory depression, overdose and given their underlying disease process. It is important to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 GLUCOSE MONITOR PRESCRIPTION, Insurance covered, Disp: 1 Each, Rfl: 0 GLUCOSE TEST STRIPS PRESCRIPTION, Testing 1x a day, Disp: 100 Each, Rfl: 3 Insulin Degludec (Tresiba FlexTouch) 100 UNIT/ML Solution Pen-injector injection, Inject 20 Units under the skin 2 times daily., Disp: 36 mL, Rfl: 0 Levocetirizine Dihydrochloride (Xyzal) 5 MG tablet, Take 1 tablet by mouth daily., Disp: 180 tablet, Rfl: 1 nystatin 820751 unit/gm Powder, Apply 1 Application topically every 8 hours as needed., Disp: 1 Bottle, Rfl: 2 omeprazole (PriLOSEC) [address] capsule, Take 1 capsule by mouth 2 times daily (take before meals)., Disp: 180 capsule, Rfl: 0 phentermine 37.5 MG tablet, Take 1 tablet by mouth every morning before breakfast., Disp: 30 tablet, Rfl: 2 pregabalin 200 MG capsule, Take 1 capsule by mouth 2 times daily., Disp: 60 capsule, Rfl: 2 solifenacin 10 MG tablet, Take 1 tablet by mouth daily., Disp: 90 tablet, Rfl: 1 triamcinolone 0.1 % Cream cream, Apply to affected area twice a day till clear (Patient taking differently: 2 times daily as needed. Apply to affected area twice a day till clear), Disp: 80 g, Rfl: 3 Zinc Sulfate (ZINC 15 PO), Take by mouth., Disp: , Rfl: [START ON 12/12/2024] Semaglutide,0.25 or 0.5MG/DOS, (Ozempic, 0.25 or 0.5 MG/DOSE,) 2 MG/3ML Solution Pen-injector, Inject 0.5 mg under the skin once a week., Disp: 3 mL, Rfl: 5 Current Facility-Administered Medications: lidocaine (PF) 2 % injection 10 mL, 10 mL, Other, Once (Outpt Clinic), Nils Oliver MD History: Past Medical History: Diagnosis Date Arthritis Bulging lumbar disc L3,4,5 COPD (chronic obstructive pulmonary disease) Depression Diabetes mellitus insulin dependent GERD (gastroesophageal reflux disease) Hyperlipidemia Lumbago with sciatica, unspecified side Migraine Stroke 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 reports that she has quit smoking. Her smoking use included cigarettes. She has never used smokeless tobacco. She reports that she does not drink alcohol and does not use drugs. Past Surgical History: Procedure Laterality Date EXTRACTION EXTRACAPSULAR CATARACT W/ IMPLANT (ECCE IOL) Bilateral 2017 REPAIR HERNIA VENTRAL OPEN W/ MESH 1985 TUBAL LIGATION 1970 with reversal HYSTERECTOMY TOTAL ABDOMINAL OPEN (ISABEL) W/ REMOVAL TUBES/OVARIES 1970 TONSILLECTOMY ADENOIDECTOMY 1966 SECTION 1980,1982 Recent Labs: Recent Results (from the past 24 hour(s)) POCT HEMOGLOBIN A1C Collection Time: 11/14/24 3:58 PM Result Value Ref Range POCT HEMOGLOBIN A1C 7.8 (A) 4.7 - 5.6 % Recent Imaging: No images are attached to the encounter. Physical Exam Physical Exam Vitals and nursing note reviewed. Constitutional: General: She is not in acute distress. Appearance: Normal appearance. She is obese. HENT: Head: Normocephalic and atraumatic. Nose: Nose normal. Mouth/Throat: Mouth: Mucous membranes are moist. Pharynx: Oropharynx is clear. Eyes: Extraocular Movements: Extraocular movements intact. Conjunctiva/sclera: Conjunctivae normal. Cardiovascular: Rate and Rhythm: Normal rate and regular rhythm. Pulses: Normal pulses. Heart sounds: Normal heart sounds. No murmur heard. No gallop. Pulmonary: Effort: Pulmonary effort is normal. No respiratory distress. Breath sounds: Normal breath sounds. No wheezing. Genitourinary: General: Normal vulva. Rectum: Normal. Musculoskeletal: General: Normal range of motion. Cervical back: Normal range of motion and neck supple. Skin: General: Skin is warm. Neurological: General: No focal deficit present. Mental Status: She is alert and oriented to person, place, and time. Mental status is at baseline. Psychiatric: Mood and Affect: Mood normal. Behavior: Behavior normal. Thought Content: Thought content normal. Judgment: Judgment normal. Assessment & Plan Mavis was seen today for hyperlipidemia, other, edema, diabetes, allergic rhinitis, gastroesophageal reflux disease, obesity, neuropathy and urinary incontinence. Diagnoses and all orders for this visit: Chronic venous insufficiency - VASC DUPLEX VENOUS WITH REFLUX BILATERAL LOWER; Future Hyperlipidemia LDL goal <70 - Atorvastatin 40 MG tablet; Take 1 tablet by mouth at bedtime. - Ratio 2.71, well controlled. History of CVA Cerebral ischemia-Moderate to severe - Clopidogrel (Plavix) 75 MG tablet; Take 1 tablet by mouth daily. Edema leg - furOSEmide 20 MG tablet; Take 3 tablets by mouth daily. Type 2 diabetes mellitus with hyperglycemia, with long-term current use of insulin - A1C 7.8, patient reports not taking ozempic for the past month due to cost. Will try resending medication as well as a referral to medication assistance. - gliMEPIride (Amaryl) 1 MG tablet; Take 1 tablet by mouth daily every morning. - Insulin Degludec (Tresiba FlexTouch) 100 UNIT/ML Solution Pen-injector injection; Inject 20 Units under the skin 2 times daily. - POCT HEMOGLOBIN A1C - Semaglutide,0.25 or 0.5MG/DOS, (Ozempic, 0.25 or 0.5 MG/DOSE,) 2 MG/3ML Solution Pen-injector; Inject 0.5 mg under the skin once a week. - AMB REFERRAL TO PHARMACY MEDICATION ASSISTANCE Seasonal allergic rhinitis due to pollen - Levocetirizine Dihydrochloride (Xyzal) 5 MG tablet; Take 1 tablet by mouth daily. Gastroesophageal reflux disease without esophagitis - omeprazole (PriLOSEC) [address] capsule; Take 1 capsule by mouth 2 times daily (take before meals). Class 1 obesity due to excess calories with body mass index (BMI) of 32.0 to 32.9 in adult, unspecified whether serious comorbidity present - phentermine 37.5 MG tablet; Take 1 tablet by mouth every morning before breakfast. - BMI 28.20 kg/m^2 - Patient reports loss of 4 lb recently but due to water weight gain from edema she has regained that in the past 2 days. She has been instructed to restart the furosemide 60 mg for the next 3 days. Also a venous duplex has been ordered. Neuropathy - pregabalin 200 MG capsule; Take 1 capsule by mouth 2 times daily. Urinary incontinence, unspecified type - solifenacin 10 MG tablet; Take 1 tablet by mouth daily. ICD-10-CM 1. Chronic venous insufficiency I87.2 2. Hyperlipidemia LDL goal <70 E78.5 3. Cerebral ischemia-Moderate to severe I67.82 4. Edema leg R60.0 5. Type 2 diabetes mellitus with hyperglycemia, with long-term current use of insulin E11.65 Z79.4 6. Seasonal allergic rhinitis due to pollen J30.1 7. Gastroesophageal reflux disease without esophagitis K21.9 8. Class 1 obesity due to excess calories with body mass index (BMI) of 32.0 to 32.9 in adult, unspecified whether serious comorbidity present E66.811 E66.09 Z68.32 9. Neuropathy G62.9 10. Urinary incontinence, unspecified type R32 I would like to see Mavis Jackson back in 6 month(s) Jose Luna MD 11/14/2024 I spent at least 15 minutes in face to face time with patient, more than 50% of that time was spent on counseling and coordination of care. Plan discussed using plain language, and agreed to by team leader, and patient. Understanding in both team leader's and (when possible) patient's, verified by their paraphrasing them back to physician Total time: 20 minutes Pre-visit Charting time; min + Face to Face time: min + Post Visit Documentation Time: min = Total Time: Min documented in this encounter [facility] 11-14-2024 Instructions Jose Luna MD - 11/14/2024 3:15 PM EST [email or web address] Go to website and enter information to obtain co-pay card Referral to medication management to see if we can get Ozempic more affordable. Central scheduling number [phone] documented in this encounter [facility] 08-22-2024 History of Present illness Narrative Progress Note Mavis Hoytdaphneyjasvir is here for Chief Complaint Patient presents with Diabetes Gastroesophageal Reflux Disease Obesity Neuropathy Diabetes: Her last eye doctor visit was 2023. Her last HbA1c was done (date) today 08/22/24 Last Micro albumin- 02/09/24. She admits to checking her blood sugar. If so, how often? 1 x a day(s). Current medication/treatments: Gen Acevedo Adipex: She is completing her 3 rd month of Adipex. She has lost 15 lbs in the past 3 month and her current Body mass index is 28.51 kg/m .. She states: yes to exercising regularly, and no to having any medication side effects. She started this on 02/19/24. Wt Readings from Last 3 Encounters: 08/22/24 66.2 kg (146 lb) 05/23/24 73.3 kg (161 lb 9.6 oz) 04/25/24 74.8 kg (165 lb) GERD: She denies heartburn, and she denies regurgitation, while being on her medication. Current medication/treatments: omeprazole Neuropathy: Located in her feet. She denies numbness/tingling, and she denies open sores. Current medication/treatments: pregabalin Patient has been having frequent pain to left lower back that radiates down her leg. Review of Systems: Review of Systems Cardiovascular: Positive for leg swelling (at times). Musculoskeletal: Positive for back pain (frequent). All other systems reviewed and are negative. Progress Note Mavis Jackson is here for Chief Complaint Patient presents with Diabetes Gastroesophageal Reflux Disease Obesity Neuropathy Diabetes: Her last eye doctor visit was 2023. Her last HbA1c was done (date) today 08/22/24 Last Micro albumin- 02/09/24. She admits to checking her blood sugar. If so, how often? 1 x a day(s). Current medication/treatments: Ed Acevedosiclaude Adipex: She is completing her 3 rd month of Adipex. She has lost 15 lbs in the past 3 month and her current Body mass index is 28.51 kg/m .. She states: yes to exercising regularly, and no to having any medication side effects. She started this on 02/19/24. Wt Readings from Last 3 Encounters: 08/22/24 66.2 kg (146 lb) 05/23/24 73.3 kg (161 lb 9.6 oz) 04/25/24 74.8 kg (165 lb) GERD: She denies heartburn, and she denies regurgitation, while being on her medication. Current medication/treatments: omeprazole Neuropathy: Located in her feet. She denies numbness/tingling, and she denies open sores. Current medication/treatments: pregabalin Patient has been having frequent pain to left lower back that radiates down her leg. Review of Systems: Review of Systems Cardiovascular: Positive for leg swelling (at times). Musculoskeletal: Positive for back pain (frequent). All other systems reviewed and are negative. Mavis Jackson is here for Chief Complaint Patient presents with Diabetes Gastroesophageal Reflux Disease Obesity Neuropathy HPI: Mavis Jackson is a 74 year old female who presents to the clinic for diabetes, GERD, weight management and neuropathy follow up. Diabetes She presents for her follow-up diabetic visit. She has type 2 diabetes mellitus. Her disease course has been stable. Pertinent negatives for hypoglycemia include no confusion or nervousness/anxiousness. Pertinent negatives for diabetes include no chest pain, no polydipsia, no polyphagia and no polyuria. Symptoms are stable. Diabetic complications include peripheral neuropathy. Risk factors for coronary artery disease include post-menopausal and dyslipidemia. Current diabetic treatment includes insulin injections. Neuropathy She has lost 15 lbs in 3 months which is >5% of 161 lb starting weight. Weight loss has been encouraged by following dietary restrictions (a balanced diet of mainly whole food plant-based diet with less animal protein, no refined CHO's (including wheat products), and fat), and aerobic exercise. BP and heart rate are in normal range. We discussed the state guidelines on the use of Adipex and that She may continue on the Adipex for an additional 3 months. She is to continue with the recommended low calorie diet and exercise program. I have checked an [place] report on this patient today and there is no/low risk with the prescribing of a controlled medication based on my review of the report. Allergies: Allergies Allergen Reactions Gabapentin Abdominal Discomfort Propoxyphene Itching Darvocet Metformin Diarrhea Current Medications: Current Outpatient Medications: Atorvastatin 40 MG tablet, Take 1 tablet by mouth at bedtime., Disp: 90 tablet, Rfl: 1 cholecalciferol 50 MCG (1999 UT) capsule, Take 1 capsule by mouth daily., Disp: , Rfl: Clopidogrel (Plavix) 75 MG tablet, Take 1 tablet by mouth daily., Disp: 90 tablet, Rfl: 1 DISABILITY PLACARD, Disability placard end date 02/18/29, Disp: 1 Each, Rfl: 0 furOSEmide 20 MG tablet, Take 3 tablets by mouth daily. (Patient taking differently: Take 3 tablets by mouth daily as needed.), Disp: 90 tablet, Rfl: 5 gliMEPIride (Amaryl) 1 MG tablet, Take 1 tablet by mouth daily every morning., Disp: 90 tablet, Rfl: 1 GLUCOSE MONITOR LANCETS PRESCRIPTION, Test 1x a day, Disp: 100 Each, Rfl: 3 GLUCOSE MONITOR PRESCRIPTION, Insurance covered, Disp: 1 Each, Rfl: 0 GLUCOSE TEST STRIPS PRESCRIPTION, Testing 1x a day, Disp: 100 Each, Rfl: 3 Insulin Degludec (Tresiba FlexTouch) 100 UNIT/ML Solution Pen-injector injection, Inject 20 Units under the skin 2 times daily., Disp: 36 mL, Rfl: 0 Levocetirizine Dihydrochloride (Xyzal) 5 MG tablet, Take 1 tablet by mouth daily., Disp: 180 tablet, Rfl: 1 nystatin 199302 unit/gm Powder, Apply 1 Application topically every 8 hours as needed., Disp: 1 Bottle, Rfl: 2 omeprazole (PriLOSEC) [address] capsule, Take 1 capsule by mouth 2 times daily (take before meals)., Disp: 180 capsule, Rfl: 0 phentermine 37.5 MG tablet, Take 1 tablet by mouth every morning before breakfast., Disp: 30 tablet, Rfl: 2 pregabalin 200 MG capsule, Take 1 capsule by mouth 2 times daily., Disp: 60 capsule, Rfl: 2 solifenacin 10 MG tablet, Take 1 tablet by mouth daily., Disp: 90 tablet, Rfl: 1 triamcinolone 0.1 % Cream cream, Apply to affected area twice a day till clear (Patient taking differently: 2 times daily as needed. Apply to affected area twice a day till clear), Disp: 80 g, Rfl: 3 Zinc Sulfate (ZINC 15 PO), Take by mouth., Disp: , Rfl: Continuous Glucose Sensor (FreeStyle Jacque 3 Sensor) Misc, 1 Device by Unknown route every 14 days. 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 reports that she has quit smoking. Her smoking use included cigarettes. She has never used smokeless tobacco. She reports that she does not drink alcohol and does not use drugs. Past Surgical History: Procedure Laterality Date EXTRACTION EXTRACAPSULAR CATARACT W/ IMPLANT (ECCE IOL) Bilateral 2017 REPAIR HERNIA VENTRAL OPEN W/ MESH 1985 TUBAL LIGATION 1971 with reversal HYSTERECTOMY TOTAL ABDOMINAL OPEN (ISABEL) W/ REMOVAL TUBES/OVARIES 1970 TONSILLECTOMY ADENOIDECTOMY 1966 SECTION 1980,1982 Recent Labs: Recent Results (from the past 24 hour(s)) POCT HEMOGLOBIN A1C Collection Time: 08/22/24 2:33 PM Result Value Ref Range POCT HEMOGLOBIN A1C 7.2 (A) 4.7 - 5.6 % Recent Imaging: No images are attached to the encounter. Physical Exam Physical Exam Vitals and nursing note reviewed. Constitutional: General: She is not in acute distress. Appearance: Normal appearance. She is normal weight. HENT: Head: Normocephalic and atraumatic. Nose: Nose normal. Mouth/Throat: Mouth: Mucous membranes are moist. Pharynx: Oropharynx is clear. Eyes: Extraocular Movements: Extraocular movements intact. Conjunctiva/sclera: Conjunctivae normal. Cardiovascular: Rate and Rhythm: Normal rate and regular rhythm. Pulses: Normal pulses. Heart sounds: Normal heart sounds. No murmur heard. No gallop. Pulmonary: Effort: Pulmonary effort is normal. No respiratory distress. Breath sounds: Normal breath sounds. No wheezing. Genitourinary: General: Normal vulva. Rectum: Normal. Musculoskeletal: General: Normal range of motion. Cervical back: Normal range of motion and neck supple. Skin: General: Skin is warm. Neurological: General: No focal deficit present. Mental Status: She is alert and oriented to person, place, and time. Mental status is at baseline. Psychiatric: Mood and Affect: Mood normal. Behavior: Behavior normal. Thought Content: Thought content normal. Judgment: Judgment normal. Assessment & Plan Mavis was seen today for diabetes, gastroesophageal reflux disease, obesity and neuropathy. Diagnoses and all orders for this visit: Type 2 diabetes mellitus with hyperglycemia, with long-term current use of insulin - Insulin Degludec (Tresiba FlexTouch) 100 UNIT/ML Solution Pen-injector injection; Inject 20 Units under the skin 2 times daily. - POCT HEMOGLOBIN A1C 7.2 (previously 9.3) patient's current regimen is helping with weight loss and glycemic control. Consider discontinuation of the glimeperide at her next scheduled visit. Repeat A1c and urine protein/cr ratio - Semaglutide, 1 MG/DOSE, 4 MG/3ML Solution Pen-injector; Inject 1 mg under the skin once a week. - HEMOGLOBIN A1C; Future - COMPREHENSIVE METABOLIC PANEL; Future - LIPID PANEL W CALCULATED LDL; Future - URINE PROTEIN/CREA RATIO, RANDOM; Future Gastroesophageal reflux disease without esophagitis - omeprazole (PriLOSEC) [address] capsule; Take 1 capsule by mouth 2 times daily (take before meals). - CBC, EDIF, PLATELET; Future Class 1 obesity due to excess calories with body mass index (BMI) of 32.0 to 32.9 in adult, unspecified whether serious comorbidity present - phentermine 37.5 MG tablet; Take 1 tablet by mouth every morning before breakfast. Neuropathy - pregabalin 200 MG capsule; Take 1 capsule by mouth 2 times daily. Abdominal wall hernia - AMB REFERRAL TO GENERAL SURGERY Family history of BRCA gene mutation - AMB REFERRAL TO GENETICS (CANCER) ICD-10-CM 1. Type 2 diabetes mellitus with hyperglycemia, with long-term current use of insulin E11.65 Z79.4 2. Gastroesophageal reflux disease without esophagitis K21.9 3. Class 1 obesity due to excess calories with body mass index (BMI) of 32.0 to 32.9 in adult, unspecified whether serious comorbidity present E66.811 E66.09 Z68.32 4. Neuropathy G62.9 5. Abdominal wall hernia K43.9 6. Family history of BRCA gene mutation Z84.81 I would like to see Mavis Jackson back in 3 month(s) Jose Luna MD 08/22/2024 I spent at least 15 minutes in face to face time with patient, more than 50% of that time was spent on counseling and coordination of care. Plan discussed using plain language, and agreed to by team leader, and patient. Understanding in both team leader's and (when possible) patient's, verified by their paraphrasing them back to physician Total time: 30 minutes Pre-visit Charting time; min + Face to Face time: min + Post Visit Documentation Time: min = Total Time: Min documented in this encounter [facility] 05-23-2024 History of Present illness Narrative Progress Note Mavis Jackson is here for Chief Complaint Patient presents with Hyperlipidemia Diabetes Edema Allergic Rhinitis Gastroesophageal Reflux Disease Obesity Neuropathy Urinary Incontinence Other Cerebral ischemia Hyperlipidemia: Her last lipid profile was done (date) 02/09/24 Ratio- 2.71. Current medication/treatments: atorvastain. She states: no to medication side effects. She states: no to other medications tried and failed? She would like refills on her clopidogrel, which she uses for cerebral ischemia. Diabetes: Her last eye doctor visit was 2023. Her last HbA1c was done (date) today 05/23/24 Last Micro albumin- 02/09/24. She admits to checking her blood sugar. If so, how often? 2 x a day(s). Current medication/treatments: Gen Acevedo Adipex: She is completing her 3rd month of Adipex. She has lost 4 lbs in the past month and her current Body mass index is 31.56 kg/m .. She states: yes to exercising regularly, and no to having any medication side effects. She started this on 02/19/24. Wt Readings from Last 3 Encounters: 05/23/24 73.3 kg (161 lb 9.6 oz) 04/25/24 74.8 kg (165 lb) 03/23/24 75.8 kg (167 lb) She would like refills on her levocetirizine, which she uses for allergies. GERD: She denies heartburn, and she denies regurgitation, while being on her medication. Current medication/treatments: omeprazole Neuropathy: Located in her feet. She denies numbness/tingling, and she denies open sores. Current medication/treatments: pregabalin Would like to discuss increasing d/t increased pain/burning. She would like refills on her solifenacin, which she uses for urinary incontinence. She would like refills on her nystatin powder, which she uses for rash under breasts.. Review of Systems: Review of Systems All other systems reviewed and are negative. Progress Note Mavis Jackson is here for Chief Complaint Patient presents with Hyperlipidemia Diabetes Edema Allergic Rhinitis Gastroesophageal Reflux Disease Obesity Neuropathy Urinary Incontinence Other Cerebral ischemia Hyperlipidemia: Her last lipid profile was done (date) 02/09/24 Ratio- 2.71. Current medication/treatments: atorvastain. She states: no to medication side effects. She states: no to other medications tried and failed? She would like refills on her clopidogrel, which she uses for cerebral ischemia. Diabetes: Her last eye doctor visit was 2023. Her last HbA1c was done (date) today 05/23/24 Last Micro albumin- 02/09/24. She admits to checking her blood sugar. If so, how often? 2 x a day(s). Current medication/treatments: Ed Acevedosiclaude Adipex: She is completing her 3rd month of Adipex. She has lost 4 lbs in the past month and her current Body mass index is 31.56 kg/m .. She states: yes to exercising regularly, and no to having any medication side effects. She started this on 02/19/24. Wt Readings from Last 3 Encounters: 05/23/24 73.3 kg (161 lb 9.6 oz) 04/25/24 74.8 kg (165 lb) 03/23/24 75.8 kg (167 lb) She would like refills on her levocetirizine, which she uses for allergies. GERD: She denies heartburn, and she denies regurgitation, while being on her medication. Current medication/treatments: omeprazole Neuropathy: Located in her feet. She denies numbness/tingling, and she denies open sores. Current medication/treatments: pregabalin Would like to discuss increasing d/t increased pain/burning. She would like refills on her solifenacin, which she uses for urinary incontinence. She would like refills on her nystatin powder, which she uses for rash under breasts.. Review of Systems: Review of Systems All other systems reviewed and are negative. Mavis Jackson is here for Chief Complaint Patient presents with Hyperlipidemia Diabetes Edema Allergic Rhinitis Gastroesophageal Reflux Disease Obesity Neuropathy Urinary Incontinence Other Cerebral ischemia HPI: Mavis Jackson is a 74 year old female who presents to the clinic for hyperlipidemia, diabetes, edema, allergic rhinitis, GERD, weight management, neuropathy and urinary incontinence follow up. Hyperlipidemia This is a chronic problem. The current episode started more than 1 year ago. The problem is controlled. Recent lipid tests were reviewed and are variable. Exacerbating diseases include diabetes and obesity. She has no history of chronic renal disease. Current antihyperlipidemic treatment includes statins. The current treatment provides significant improvement of lipids. There are no compliance problems. Risk factors for coronary artery disease include dyslipidemia, diabetes mellitus, hypertension, post-menopausal and obesity. Diabetes She presents for her follow-up diabetic visit. She has type 2 diabetes mellitus. Her disease course has been improving. Pertinent negatives for hypoglycemia include no dizziness. Associated symptoms include blurred vision, foot paresthesias and polyuria. Pertinent negatives for diabetes include no polydipsia and no polyphagia. Hypoglycemia complications include blackouts and required glucagon injection. Symptoms are improving. Diabetic complications include a CVA and peripheral neuropathy. Current diabetic treatment includes insulin injections and oral agent (dual therapy) (& Trulicity). She is compliant with treatment all of the time. An CHAVA inhibitor/angiotensin II receptor fabrice is being taken. She does not see a earth science technical officer.Eye exam is current. Edema This is a chronic problem. The current episode started more than 1 year ago. She has tried position changes (furosemide, compression stockings, BLE elevation) for the symptoms. The treatment provided significant relief. Neuropathy Allergies: Allergies Allergen Reactions Gabapentin Abdominal Discomfort Propoxyphene Itching Darvocet Metformin Diarrhea Current Medications: Current Outpatient Medications: Atorvastatin 40 MG tablet, Take 1 tablet by mouth at bedtime., Disp: 90 tablet, Rfl: 1 cholecalciferol 50 MCG (1999) capsule, Take 1 capsule by mouth daily., Disp: , Rfl: Clopidogrel (Plavix) 75 MG tablet, Take 1 tablet by mouth daily., Disp: 90 tablet, Rfl: 1 DISABILITY PLACARD, Disability placard end date 02/18/29, Disp: 1 Each, Rfl: 0 furOSEmide 20 MG tablet, Take 3 tablets by mouth daily., Disp: 90 tablet, Rfl: 5 gliMEPIride (Amaryl) 1 MG tablet, Take 1 tablet by mouth daily every morning., Disp: 90 tablet, Rfl: 1 GLUCOSE MONITOR LANCETS PRESCRIPTION, Test 1x a day, Disp: 100 Each, Rfl: 3 GLUCOSE MONITOR PRESCRIPTION, Insurance covered, Disp: 1 Each, Rfl: 0 GLUCOSE TEST STRIPS PRESCRIPTION, Testing 1x a day, Disp: 100 Each, Rfl: 3 Insulin Degludec (Tresiba FlexTouch) 100 UNIT/ML Solution Pen-injector injection, Inject 20 Units under the skin 2 times daily., Disp: 36 mL, Rfl: 1 Insulin Pen Needle (Ultra Henry Insulin Pen Sagola) 32G X 4 MM Misc, 1 Each by Unknown route 3 times daily as needed., Disp: 100 Each, Rfl: 5 Levocetirizine Dihydrochloride (Xyzal) 5 MG tablet, Take 1 tablet by mouth daily., Disp: 180 tablet, Rfl: 1 nystatin [id number] unit/gm Powder, Apply 1 Application topically every 8 hours as needed., Disp: 1 Bottle, Rfl: 2 omeprazole (PriLOSEC) [address] capsule, Take 1 capsule by mouth 2 times daily (take before meals)., Disp: 60 capsule, Rfl: 2 phentermine 37.5 MG tablet, Take 1 tablet by mouth every morning before breakfast., Disp: 30 tablet, Rfl: 2 pregabalin 100 MG capsule, Take 1 capsule by mouth 2 times daily., Disp: 60 capsule, Rfl: 2 solifenacin 10 MG tablet, Take 1 tablet by mouth daily., Disp: 90 tablet, Rfl: 1 triamcinolone 0.1 % Cream cream, Apply to affected area twice a day till clear, Disp: 80 g, Rfl: 3 Zinc Sulfate (ZINC 15 PO), Take by mouth., Disp: , Rfl: Continuous Glucose Sensor (FreeStyle Jacque 3 Sensor) Misc, 1 Device by Unknown route every 14 days., Disp: 2 Each, Rfl: 1 [START ON 07/18/2024] Semaglutide, 1 MG/DOSE, (Ozempic, 1 MG/DOSE,) 4 MG/3ML Solution Pen-injector, Inject 1 mg under the skin once a week., Disp: 3 mL, Rfl: 0 [START ON 06/20/2024] Semaglutide,0.25 or 0.5MG/DOS, (Ozempic, 0.25 or 0.5 MG/DOSE,) 2 MG/3ML Solution Pen-injector, Inject 0.5 mg under the skin once a week., Disp: 3 mL, Rfl: 0 Semaglutide,0.25 or 0.5MG/DOS, (Ozempic, 0.25 or 0.5 MG/DOSE,) 2 MG/3ML Solution Pen-injector, Inject 0.25 mg under the skin once a week., Disp: 3 mL, Rfl: 0 Current Facility-Administered Medications: lidocaine (PF) 2 % injection 10 mL, 10 mL, Other, Once (Outpt Clinic), Nils Oliver MD History: Past Medical History: Diagnosis Date Arthritis Bulging lumbar disc L3,4,5 COPD (chronic obstructive pulmonary disease) Depression Diabetes mellitus insulin dependent GERD (gastroesophageal reflux disease) Hyperlipidemia Lumbago with sciatica, unspecified side Migraine Stroke 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 reports that she has quit smoking. Her smoking use included cigarettes. She has never used smokeless tobacco. She reports that she does not drink alcohol and does not use drugs. Past Surgical History: Procedure Laterality Date EXTRACTION EXTRACAPSULAR CATARACT W/ IMPLANT (ECCE IOL) Bilateral 2017 REPAIR HERNIA VENTRAL OPEN W/ MESH 1985 TUBAL LIGATION 1970 with reversal HYSTERECTOMY TOTAL ABDOMINAL OPEN (ISABEL) W/ REMOVAL TUBES/OVARIES 1970 TONSILLECTOMY ADENOIDECTOMY 1966 SECTION 1980,1982 Recent Labs: Recent Results (from the past 24 hour(s)) POCT HEMOGLOBIN A1C Collection Time: 05/23/24 2:42 PM Result Value Ref Range POCT HEMOGLOBIN A1C 9.3 (A) 4.7 - 5.6 % Recent Imaging: No images are attached to the encounter. Physical Exam Physical Exam Vitals and nursing note reviewed. Constitutional: General: She is not in acute distress. Appearance: Normal appearance. She is obese. HENT: Head: Normocephalic and atraumatic. Nose: Nose normal. Mouth/Throat: Mouth: Mucous membranes are moist. Pharynx: Oropharynx is clear. Eyes: Extraocular Movements: Extraocular movements intact. Conjunctiva/sclera: Conjunctivae normal. Cardiovascular: Rate and Rhythm: Normal rate and regular rhythm. Pulses: Normal pulses. Heart sounds: Normal heart sounds. No murmur heard. No gallop. Pulmonary: Effort: Pulmonary effort is normal. No respiratory distress. Breath sounds: Normal breath sounds. No wheezing. Genitourinary: General: Normal vulva. Rectum: Normal. Musculoskeletal: General: Normal range of motion. Cervical back: Normal range of motion and neck supple. Right lower leg: No tenderness. 1+ Edema present. Left lower leg: No tenderness. 1+ Edema present. Skin: General: Skin is warm. Neurological: General: No focal deficit present. Mental Status: She is alert and oriented to person, place, and time. Mental status is at baseline. Psychiatric: Mood and Affect: Mood normal. Behavior: Behavior normal. Thought Content: Thought content normal. Judgment: Judgment normal. Assessment & Plan Mavis was seen today for hyperlipidemia, diabetes, edema, allergic rhinitis, gastroesophageal reflux disease, obesity, neuropathy, urinary incontinence and other. Diagnoses and all orders for this visit: Hyperlipidemia LDL goal <70 - Ratio 2.71 - Atorvastatin 40 MG tablet; Take 1 tablet by mouth at bedtime. Cerebral ischemia-Moderate to severe - Clopidogrel (Plavix) 75 MG tablet; Take 1 tablet by mouth daily. Type 2 diabetes mellitus with hyperglycemia, with long-term current use of insulin - gliMEPIride (Amaryl) 1 MG tablet; Take 1 tablet by mouth daily every morning. - Continue tresiba 20 units twice daily. - POCT HEMOGLOBIN A1C - Semaglutide,0.25 or 0.5MG/DOS, (Ozempic, 0.25 or 0.5 MG/DOSE,) 2 MG/3ML Solution Pen-injector; Inject 0.5 mg under the skin once a week. - Semaglutide,0.25 or 0.5MG/DOS, (Ozempic, 0.25 or 0.5 MG/DOSE,) 2 MG/3ML Solution Pen-injector; Inject 0.25 mg under the skin once a week. - Semaglutide, 1 MG/DOSE, (Ozempic, 1 MG/DOSE,) 4 MG/3ML Solution Pen-injector; Inject 1 mg under the skin once a week. - Discontinue trulicity due to side effects, substitute with ozempic and see back in 3 months. - Continuous Glucose Sensor (FreeStyle Jacque 3 Sensor) Misc; 1 Device by Unknown route every 14 days. - A1C 10.1 => 9.3, augmenting medication regimen to reach ultimate goal A1c 7.0 -7.5 Edema leg - furOSEmide 20 MG tablet; Take 3 tablets by mouth daily. - Continue wearing compression stocking and adhering to a reduced sodium diet. Continue leg elevation when available. Seasonal allergic rhinitis due to pollen - Levocetirizine Dihydrochloride (Xyzal) 5 MG tablet; Take 1 tablet by mouth daily. Class 1 obesity due to excess calories with body mass index (BMI) of 32.0 to 32.9 in adult, unspecified whether serious comorbidity present - phentermine 37.5 MG tablet; Take 1 tablet by mouth every morning before breakfast. Neuropathy - pregabalin 100 MG capsule; Take 1 capsule by mouth 2 times daily. Urinary incontinence, unspecified type - solifenacin 10 MG tablet; Take 1 tablet by mouth daily. Yeast infection of the skin - nystatin 400034 unit/gm Powder; Apply 1 Application topically every 8 hours as needed. ICD-10-CM 1. Hyperlipidemia LDL goal <70 E78.5 2. Cerebral ischemia-Moderate to severe I67.82 3. Type 2 diabetes mellitus with hyperglycemia, with long-term current use of insulin E11.65 Z79.4 4. Edema leg R60.0 5. Seasonal allergic rhinitis due to pollen J30.1 6. Class 1 obesity due to excess calories with body mass index (BMI) of 32.0 to 32.9 in adult, unspecified whether serious comorbidity present E66.09 Z68.32 7. Neuropathy G62.9 8. Urinary incontinence, unspecified type R32 9. Yeast infection of the skin B37.2 I would like to see Mavis Jackson back in 3 month(s) Jose Luna MD 05/23/2024 I spent at least 20 minutes in face to face time with patient, more than 50% of that time was spent on counseling and coordination of care. Plan discussed using plain language, and agreed to by team leader, and patient. Understanding in both team leader's and (when possible) patient's, verified by their paraphrasing them back to physician Total time: 31 minutes Pre-visit Charting time; min + Face to Face time: min + Post Visit Documentation Time: min = Total Time: Min documented in this encounter [facility] 04-25-2024 History of Present illness Narrative Mavis came in today for a weight check. She was concerned with swelling of her feet. This MA Finished getting vitals and going over medications, then went to speak with Dr. Luna regarding the swelling. Dr. Luna, advised she was ordering more labs and also an echo of her heart. Adipex is on hold for now. This MA called Mavis back advising of all the above information. Mavis voiced understanding and was going to get labs done now. documented in this encounter [facility] 03-23-2024 History of Present illness Narrative Obesity: She has not lost weight in the past 1 month(s) (Gained 7 lbs) She is following a recommended dietary plan of eating healthy and is exercising regularly. She is taking medication to help with weight loss ( Phentermine ). She denies having medication side effects. Wt Readings from Last 3 Encounters: 03/23/24 75.8 kg (167 lb) 02/19/24 72.7 kg (160 lb 3.2 oz) 11/16/23 74.8 kg (164 lb 12.8 oz) PATIENT STATES THAT SHE WEIGHED HERSELF AT HOME THIS MORNING AND SHE WAS 157 LBS.PATIENT HAS 2 + PITTING EDEMA TO BLLE'S.LEFT LOWER LEG APPEARS SHINY.PATIENT STATES IT IS HARD TO WALK AT TIMES.PATIENT HAS HAD EDEMA FOR A WHILE IT IS GETTING WORSE CURRENTLY ON LASIX 20 MG 3 TABS DAILY.PATIENT STATES SHE HAS BEEN FOLLOWING A DIET BUT WITH THE RETENTION OF FLUID IT IS HARD TO MONITOR WEIGHT LOSS.PLEASE ADVISE. documented in this encounter [facility] 02-19-2024 History of Present illness Narrative Diabetes: She is taking medications as ordered. She checks her sugars 4 times a day. The readings are elevated. Her last eye doctor visit was 6 months. Her last HgbA1C was 01/27/23 on 7.9. Today her HgbA1C was 9.5. She admits to having having polydipsia, admits to having polyuria, denies numbness of feet, denies visual disturbances. Complications of her diabetes include: none. States the Trulicity is giving her diarrhea, nausea, belching. She would like to discuss something else. Lab Results Component Value Date HGBA1C 10.1 (H) 02/09/2024 HGBA1C 9.5 (A) 11/16/2023 . Neuropathy: Her neuropathy is worsened. She is being treated for neuropathy. Symptoms include burning and pain. . Chief Complaint Patient presents with Diabetes Obesity Neuropathy Diabetes: She is taking medications as ordered. She checks her sugars 4 times a day. The readings are elevated. Her last eye doctor visit was 6 months. Her last HgbA1C was 01/27/23 on 7.9. Today her HgbA1C was 9.5. She admits to having having polydipsia, admits to having polyuria, denies numbness of feet, denies visual disturbances. Complications of her diabetes include: none. States the Trulicity is giving her diarrhea, nausea, belching. She would like to discuss something else. Lab Results Component Value Date HGBA1C 10.1 (H) 02/09/2024 HGBA1C 9.5 (A) 11/16/2023 . Neuropathy: Her neuropathy is worsened. She is being treated for neuropathy. Symptoms include burning and pain. . DONI Jackson is a 73 year old female who presents to the clinic for diabetes, obesity, and neuropathy follow up. Diabetes She presents for her follow-up diabetic visit. She has type 2 diabetes mellitus. Her disease course has been worsening. There are no hypoglycemic associated symptoms. Pertinent negatives for hypoglycemia include no dizziness or headaches. Associated symptoms include fatigue. Pertinent negatives for diabetes include no blurred vision, no chest pain, no polydipsia, no polyphagia and no polyuria. There are no hypoglycemic complications. Symptoms are worsening. Diabetic complications include peripheral neuropathy. Risk factors for coronary artery disease include diabetes mellitus, dyslipidemia, obesity and post-menopausal. Current diabetic treatment includes insulin injections (Trulicity). She is compliant with treatment most of the time. An CHAVA inhibitor/angiotensin II receptor fabrice is not being taken. She does not see a earth science technical officer.Eye exam is not current. Neuropathy The onset of symptoms is gradual. It is located in the RLE and LLE region. The distribution is symmetrical. Severity of pain: severe. Allergies Allergen Reactions Gabapentin Abdominal Discomfort Propoxyphene Itching Darvocet Metformin Diarrhea Outpatient Medications Prior to Visit Medication Sig Dispense Refill Atorvastatin 40 MG tablet Take 1 tablet by mouth at bedtime. 90 tablet 1 cholecalciferol 50 MCG (2000 UT) capsule Take 1 capsule by mouth daily. Clopidogrel (Plavix) 75 MG tablet Take 1 tablet by mouth daily. 90 tablet 1 Dulaglutide (Trulicity) 3 MG/0.5ML Solution Pen-injector Inject 3 mg under the skin once a week. 2 mL 5 GLUCOSE MONITOR PRESCRIPTION Insurance covered 1 Each 0 Levocetirizine Dihydrochloride (Xyzal) 5 MG tablet Take 1 tablet by mouth daily. 180 tablet 1 nystatin 208771 unit/gm Powder Apply 1 Application topically every 8 hours. 1 Bottle 2 omeprazole (PriLOSEC) [address] capsule Take 1 capsule by mouth 2 times daily (take before meals). 60 capsule 2 solifenacin 10 MG tablet Take 1 tablet by mouth daily. 90 tablet 1 triamcinolone 0.1 % Cream cream Apply to affected area twice a day till clear 80 g 3 Zinc Sulfate (ZINC 15 PO) Take by mouth. furOSEmide 40 MG tablet Take 1 tablet by mouth daily. 90 tablet 1 GLUCOSE MONITOR LANCETS PRESCRIPTION Test 1x a day 100 Each 3 GLUCOSE TEST STRIPS PRESCRIPTION Testing 1x a day 100 Each 3 Insulin Pen Needle (Pen Sagola 516) 30G X 8 MM Misc 1 Device by Unknown route at bedtime. 100 Each 3 Insulin Degludec (Tresiba FlexTouch) 100 UNIT/ML Solution Pen-injector injection Inject 40 Units under the skin at bedtime. 24 mL 0 phentermine 37.5 MG tablet Take 1 tablet by mouth every morning before breakfast. (Patient not taking: Reported on 02/19/2024) 30 tablet 2 pregabalin 75 MG capsule Take 1 capsule by mouth 2 times daily. 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 reports that she has been smoking cigarettes. She has never used smokeless tobacco. She reports that she does not drink alcohol and does not use drugs. Past Surgical History: Procedure Laterality Date EXTRACTION EXTRACAPSULAR CATARACT W/ IMPLANT (ECCE IOL) Bilateral 2017 REPAIR HERNIA VENTRAL OPEN W/ MESH 1984 TUBAL LIGATION 1970 with reversal HYSTERECTOMY TOTAL ABDOMINAL OPEN (ISABEL) W/ REMOVAL TUBES/OVARIES 1970 TONSILLECTOMY ADENOIDECTOMY 1966 SECTION 1980,1982 Review of Systems Visit Vitals BP 126/78 Pulse 74 Temp 97 F (36.1 C) (Temporal) Resp 18 Ht 1.524 m (5') Wt 72.7 kg (160 lb 3.2 oz) SpO2 98% BMI 31.29 kg/m Review of Systems Constitutional: Positive for fatigue. Negative for chills and fever. HENT: Negative for ear pain. Eyes: Negative for blurred vision and pain. Respiratory: Negative for cough, chest tightness, shortness of breath and wheezing. Cardiovascular: Negative for chest pain and leg swelling. Gastrointestinal: Negative for abdominal pain, blood in stool, constipation, diarrhea, nausea and vomiting. Endocrine: Negative. Negative for polydipsia, polyphagia and polyuria. Genitourinary: Negative for difficulty urinating and dysuria. Musculoskeletal: Negative for arthralgias and back pain. Skin: Negative for rash and wound. Neurological: Negative for dizziness, light-headedness and headaches. Hematological: Negative. Psychiatric/Behavioral: Negative for dysphoric mood and sleep disturbance. Physical Exam Physical Exam Vitals reviewed. Constitutional: General: She is not in acute distress. Appearance: Normal appearance. She is obese. HENT: Head: Normocephalic and atraumatic. Mouth/Throat: Mouth: Mucous membranes are moist. Pharynx: Oropharynx is clear. Eyes: Extraocular Movements: Extraocular movements intact. Pupils: Pupils are equal, round, and reactive to light. Cardiovascular: Rate and Rhythm: Normal rate and regular rhythm. Pulses: Normal pulses. Heart sounds: Normal heart sounds. No murmur heard. No friction rub. No gallop. Pulmonary: Effort: Pulmonary effort is normal. No respiratory distress. Breath sounds: Normal breath sounds. Skin: General: Skin is warm and dry. Neurological: General: No focal deficit present. Mental Status: She is alert and oriented to person, place, and time. Psychiatric: Mood and Affect: Mood normal. Behavior: Behavior normal. Assessment & Plan Problem List Items Addressed This Visit Respiratory Chronic obstructive pulmonary disease Relevant Medications DISABILITY PLACARD Nervous Osteoarthritis of spine with radiculopathy, lumbar region Relevant Medications DISABILITY PLACARD Other Visit Diagnoses Type 2 diabetes mellitus with hyperglycemia, with long-term current use of insulin - Primary Relevant Medications Insulin Degludec (Tresiba FlexTouch) 100 UNIT/ML Solution Pen-injector injection gliMEPIride (Amaryl) 1 MG tablet GLUCOSE TEST STRIPS PRESCRIPTION GLUCOSE MONITOR LANCETS PRESCRIPTION Continuous Glucose Sensor (Dexcom G7 Sensor) Misc Insulin Pen Needle (Ultra Henry Insulin Pen Sagola) 32G X 4 MM Misc Other Relevant Orders CBC, EDIF, PLATELET COMPREHENSIVE METABOLIC PANEL HEMOGLOBIN A1C 9.5 => 10.1 Class 1 obesity due to excess calories with body mass index (BMI) of 32.0 to 32.9 in adult, unspecified whether serious comorbidity present Relevant Medications phentermine 37.5 MG tablet Neuropathy Relevant Medications pregabalin 75 MG capsule Edema leg Relevant Medications furOSEmide 20 MG tablet (increased to 60 mg daily for increased edema) Breast cancer screening by mammogram Relevant Orders MAMMO SCREENING WITH MAEVRICK BILATERAL See back in 3 months for weight check after starting phentermine. Stopping Trulicity due to side effects. Will increase tresiba to 20 units twice daily. Adding Glimeperide 1 mg daily and repeat A1c in 3 months. Jose Luna MD 02/19/2024, 2:42 PM documented in this encounter [facility] 11-16-2023 History of Present illness Narrative Hyperlipidemia: She is taking medications as directed. Lab Results Component Value Date CHOLESTEROL 157 01/27/2023 TRIG 106 01/27/2023 HDL 55 01/27/2023 LDLCALC 81 01/27/2023 Her last lipid panel was done on 01/27/23, and her ratio of Total Cholesterol/HDL was 2.85. She is not having medication side effects. There is a FH of IHD or stroke. Anxiety: She Is taking her medication as ordered. She has not noticed a decrease in symptoms. Her symptoms include racing thoughts. She is taking Buspar for her anxiety and she denies side effects from medication. BRENDEN-7 score today is 21. Diabetes: She is taking medications as ordered. She checks her sugars 4 times a day. The readings are elevated. Her last eye doctor visit was 6 months. Her last HgbA1C was 01/27/23 on 7.9. Today her HgbA1C was 9.5. She received a letter stating that it is not being made any longer. She admits to having having polydipsia, admits to having polyuria, denies numbness of feet, denies visual disturbances. Complications of her diabetes include: none. Lab Results Component Value Date HGBA1C 7.9 (H) 01/27/2023 HGBA1C 6.9 (A) 02/28/2022 Edema: She has swelling of both lower legs(s). Her symptoms started years ago. Aggravating factors: increased salt intake. Relieving factors:diuretics and elevation of involved area. Associated symptoms include:nothing GERD: She admits to having heartburn, denies swallowing difficulties, denies chest pains, is taking her medication as prescribed. Neuropathy: Her neuropathy is worsened. She is being treated for neuropathy. Symptoms include burning and pain. She never started taking Vesicare for urinary incontinence. She didn't understand what it was for so she didn't take it. She would like to try it now. She has a umbilical hernia and another one on left side of ABD that she would like looked at. Chief Complaint Patient presents with Hyperlipidemia Anxiety Diabetes Edema Esophageal Reflux Neuropathy Urinary Incontinence Possible Hernia Hyperlipidemia: She is taking medications as directed. Lab Results Component Value Date CHOLESTEROL 157 01/27/2023 TRIG 106 01/27/2023 HDL 55 01/27/2023 LDLCALC 81 01/27/2023 Her last lipid panel was done on 01/27/23, and her ratio of Total Cholesterol/HDL was 2.85. She is not having medication side effects. There is a FH of IHD or stroke. Anxiety: She Is taking her medication as ordered. She has not noticed a decrease in symptoms. Her symptoms include racing thoughts. She is taking Buspar for her anxiety and she denies side effects from medication. BRENDEN-7 score today is 21. Diabetes: She is taking medications as ordered. She checks her sugars 4 times a day. The readings are elevated. Her last eye doctor visit was 6 months. Her last HgbA1C was 01/27/23 on 7.9. Today her HgbA1C was 9.5. She received a letter stating that it is not being made any longer. She admits to having having polydipsia, admits to having polyuria, denies numbness of feet, denies visual disturbances. Complications of her diabetes include: none. Lab Results Component Value Date HGBA1C 7.9 (H) 01/27/2023 HGBA1C 6.9 (A) 02/28/2022 Edema: She has swelling of both lower legs(s). Her symptoms started years ago. Aggravating factors: increased salt intake. Relieving factors:diuretics and elevation of involved area. Associated symptoms include:nothing GERD: She admits to having heartburn, denies swallowing difficulties, denies chest pains, is taking her medication as prescribed. Neuropathy: Her neuropathy is worsened. She is being treated for neuropathy. Symptoms include burning and pain. She never started taking Vesicare for urinary incontinence. She didn't understand what it was for so she didn't take it. She would like to try it now. She has a umbilical hernia and another one on left side of ABD that she would like looked at. DONI Jackson is a 73 year old female who presents to the clinic for hyperlipidemia, anxiety, diabetes, edema, esophageal reflux, urinary incontinence, neuropathy. Hyperlipidemia This is a chronic problem. The current episode started more than 1 year ago. The problem is controlled. Exacerbating diseases include diabetes and obesity. She has no history of hypothyroidism. Pertinent negatives include no chest pain or shortness of breath. Current antihyperlipidemic treatment includes statins. The current treatment provides significant improvement of lipids. There are no compliance problems. Risk factors for coronary artery disease include diabetes mellitus, dyslipidemia, obesity and post-menopausal. Anxiety Presents for follow-up visit. Symptoms include nervous/anxious behavior and palpitations. Patient reports no chest pain, dizziness, nausea or shortness of breath. Symptoms occur occasionally. The severity of symptoms is severe and interfering with daily activities. The quality of sleep is good. Nighttime awakenings: none. Compliance with medications is 76-100%. Diabetes She presents for her follow-up diabetic visit. She has type 2 diabetes mellitus. Her disease course has been worsening. Hypoglycemia symptoms include nervousness/anxiousness. Pertinent negatives for hypoglycemia include no dizziness or headaches. Pertinent negatives for diabetes include no chest pain, no fatigue, no polydipsia and no polyphagia. There are no hypoglycemic complications. Symptoms are stable. There are no diabetic complications. Risk factors for coronary artery disease include diabetes mellitus, dyslipidemia, obesity and post-menopausal. Current diabetic treatment includes insulin injections (+ trulicity). An CHAVA inhibitor/angiotensin II receptor fabrice is not being taken. She does not see a earth science technical officer.Eye exam is current. Edema Pertinent negatives include no abdominal pain, arthralgias, chest pain, chills, coughing, fatigue, fever, headaches, nausea, rash or vomiting. Esophageal Reflux She reports no abdominal pain, no chest pain, no coughing, no nausea or no wheezing. Pertinent negatives include no fatigue. Neuropathy Allergies Allergen Reactions Gabapentin Abdominal Discomfort Propoxyphene Itching Darvocet Metformin Diarrhea Outpatient Medications Prior to Visit Medication Sig Dispense Refill cholecalciferol 50 MCG (1999) capsule Take 1 capsule by mouth daily. GLUCOSE MONITOR LANCETS PRESCRIPTION Test 1x a day 100 Each 3 GLUCOSE TEST STRIPS PRESCRIPTION Testing 1x a day 100 Each 3 Insulin Pen Needle (Pen Sagola 5/16) 30G X 8 MM Misc 1 Device by Unknown route at bedtime. 100 Each 3 Zinc Sulfate (ZINC 15 PO) Take by mouth. Atorvastatin 40 MG tablet Take 1 tablet by mouth at bedtime. 90 tablet 1 busPIRone 10 MG tablet Take 1 tablet by mouth 2 times daily. 60 tablet 2 Clopidogrel (Plavix) 75 MG tablet Take 1 tablet by mouth daily. 90 tablet 1 Dulaglutide (Trulicity) 1.5 MG/0.5ML Solution Pen-injector injection Inject 0.5 mL under the skin once a week. 6 mL 1 furOSEmide 40 MG tablet Take 1 tablet by mouth daily. 30 tablet 3 GLUCOSE MONITOR PRESCRIPTION Insurance covered 1 Each 0 Insulin Degludec (Tresiba FlexTouch) 100 UNIT/ML Solution Pen-injector injection Inject 40 Units under the skin at bedtime. 24 mL 0 Levocetirizine Dihydrochloride (Xyzal) 5 MG tablet Take 1 tablet by mouth daily. 180 tablet 1 nystatin 843150 unit/gm Powder Apply 1 Application topically every 8 hours. As needed 1 Bottle 6 omeprazole (PriLOSEC) [address] capsule Take 1 capsule by mouth 2 times daily (take before meals). 60 capsule 2 pregabalin 75 MG capsule Take 1 capsule by mouth 2 times daily. 60 capsule 2 triamcinolone 0.1 % Cream cream Apply to affected area twice a day till clear 80 g 3 benzonatate 200 MG capsule Take 1 capsule by mouth 3 times daily as needed. (Patient not taking: Reported on 05/27/2022) 30 capsule 3 solifenacin 10 MG tablet Take 1 tablet by mouth daily. 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 reports that she has been smoking cigarettes. She has never used smokeless tobacco. She reports that she does not drink alcohol and does not use drugs. Past Surgical History: Procedure Laterality Date EXTRACTION EXTRACAPSULAR CATARACT W/ IMPLANT (ECCE IOL) Bilateral 2017 REPAIR HERNIA VENTRAL OPEN W/ MESH 1984 TUBAL LIGATION 1970 with reversal HYSTERECTOMY TOTAL ABDOMINAL OPEN (ISABEL) W/ REMOVAL TUBES/OVARIES 1971 TONSILLECTOMY ADENOIDECTOMY 1967 SECTION 1980,1982 Review of Systems Visit Vitals BP 124/64 Pulse 94 Temp 96.8 F (36 C) Ht 1.524 m (5') Wt 74.8 kg (164 lb 12.8 oz) SpO2 95% BMI 32.19 kg/m Review of Systems Constitutional: Negative for chills, fatigue and fever. HENT: Negative for ear pain. Eyes: Negative for pain. Respiratory: Negative for cough, chest tightness, shortness of breath and wheezing. Cardiovascular: Positive for palpitations. Negative for chest pain and leg swelling. Gastrointestinal: Negative for abdominal pain, blood in stool, constipation, diarrhea, nausea and vomiting. Endocrine: Negative. Negative for polydipsia and polyphagia. Genitourinary: Negative for difficulty urinating and dysuria. Musculoskeletal: Negative for arthralgias and back pain. Skin: Negative for rash and wound. Neurological: Negative for dizziness, light-headedness and headaches. Hematological: Negative. Psychiatric/Behavioral: Negative for dysphoric mood and sleep disturbance. The patient is nervous/anxious. Physical Exam Physical Exam Vitals reviewed. Constitutional: Appearance: Normal appearance. HENT: Head: Normocephalic and atraumatic. Mouth/Throat: Mouth: Mucous membranes are moist. Pharynx: Oropharynx is clear. Eyes: Extraocular Movements: Extraocular movements intact. Pupils: Pupils are equal, round, and reactive to light. Cardiovascular: Rate and Rhythm: Normal rate and regular rhythm. Pulses: Normal pulses. Heart sounds: Normal heart sounds. No murmur heard. No friction rub. No gallop. Pulmonary: Effort: Pulmonary effort is normal. No respiratory distress. Breath sounds: Normal breath sounds. Abdominal: General: Abdomen is flat. Bowel sounds are normal. There is no distension. Palpations: Abdomen is soft. There is no mass. Tenderness: There is no abdominal tenderness. There is no guarding. Skin: General: Skin is warm and dry. Neurological: General: No focal deficit present. Mental Status: She is alert and oriented to person, place, and time. Psychiatric: Mood and Affect: Mood normal. Behavior: Behavior normal. Assessment & Plan Problem List Items Addressed This Visit Cardiovascular Cerebral ischemia-Moderate to severe Relevant Medications Clopidogrel (Plavix) 75 MG tablet Digestive Gastroesophageal reflux disease without esophagitis Relevant Medications omeprazole (PriLOSEC) [address] capsule Other Relevant Orders CBC,PLATELETS Endocrine Hyperlipidemia LDL goal <70 Relevant Medications Atorvastatin 40 MG tablet Other Relevant Orders LIPID PANEL W CALCULATED LDL Other Visit Diagnoses Type 2 diabetes mellitus with hyperglycemia, with long-term current use of insulin - Primary Relevant Medications Insulin Degludec (Tresiba FlexTouch) 100 UNIT/ML Solution Pen-injector injection Dulaglutide (Trulicity) 3 MG/0.5ML Solution Pen-injector GLUCOSE MONITOR PRESCRIPTION Other Relevant Orders POCT HEMOGLOBIN A1C (Completed) HEMOGLOBIN A1C MICROALBUMIN,RANDOM URINE COMPREHENSIVE METABOLIC PANEL Anxiety Edema leg Relevant Medications furOSEmide 40 MG tablet Seasonal allergic rhinitis due to pollen Relevant Medications Levocetirizine Dihydrochloride (Xyzal) 5 MG tablet Neuropathy Relevant Medications pregabalin 75 MG capsule Class 1 obesity due to excess calories with body mass index (BMI) of 32.0 to 32.9 in adult, unspecified whether serious comorbidity present Relevant Medications phentermine 37.5 MG tablet Urinary incontinence, unspecified type Relevant Medications solifenacin 10 MG tablet Yeast infection of the skin Relevant Medications nystatin 181967 unit/gm Powder Rash Relevant Medications triamcinolone 0.1 % Cream cream Cigarette nicotine dependence without complication Relevant Orders MI SMOKE/TOBACCO COUNSELING, INTERMEDIATE, GREATER THAN 3 MINS UP TO 1O MINS Smoking cessation was discussed at this visit. Patient's current cigarette use is every day. Discussed health benefits of quitting and adverse effects of continuing smoking which includes COPD and cancer. Discussed in detail different modalities of smoking cessation intervention including pills, gum, patches and behavorial modification. Patient has chosen to continue cutting down at this time. We will discuss smoking cessation again at our next scheduled visit. Approximate time spent in discussion of 5 minutes. Increased trulicity to 3 mg weekly. Given information regarding low carb diet and discussed exercise changes that can be made to improve glycemic index. Jose Luna MD 11/16/2023, 5:37 PM documented in this encounter [facility] 06-23-2022 History and physical note CC: Chief Complaint Patient presents with New Patient HPI: She presents for evaluation of moderate epigastric pain. Onset of symptoms was several months ago, clinical course stable since that time. She describes the pain as aching and rates it at 5/10. The pain is associated with movement. The pain is worsened by: nothing. It is relieved by: nothing. Additional associated symptoms include: bulging. 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 90 tablet 1 cholecalciferol 50 MCG (2000 UT) capsule Take 2,000 Units by mouth daily. clopidogrel (Plavix) 75 MG tablet Take 1 tablet by mouth daily. 90 tablet 1 Dulaglutide (Trulicity) 1.5 MG/0.5ML Solution Pen-injector injection Inject 0.5 mL under the skin once a week. 6 mL 1 GLUCOSE MONITOR LANCETS PRESCRIPTION Test 1x a day 100 Each 3 GLUCOSE MONITOR PRESCRIPTION Insurance covered 1 Each 0 GLUCOSE TEST STRIPS PRESCRIPTION Testing 1x a day 100 Each 3 insulin detemir 100 UNIT/ML Solution Pen-injector injection Inject 13 Units under the skin at bedtime. 18 mL 3 Insulin Pen Needle (Pen Sagola 5/16) 30G X 8 MM Misc 1 Device by Unknown route at bedtime. 100 Each 3 Levocetirizine Dihydrochloride (Xyzal) 5 MG tablet Take 1 tablet by mouth daily. 180 tablet 1 nystatin [id number] unit/gm Powder Apply 1 Application topically every 8 hours. As needed 1 Bottle 6 omeprazole (PriLOSEC) [address] capsule Take 1 capsule by mouth 2 times daily (take before meals). 180 capsule 1 pregabalin 75 MG capsule Take 1 capsule by mouth 2 times daily. 180 capsule 0 Zinc Sulfate (ZINC 15 PO) Take by mouth. benzonatate 200 MG capsule Take 1 capsule by mouth 3 times daily as needed. (Patient not taking: No sig reported) 30 capsule 3 Insulin Degludec (Tresiba FlexTouch) 100 UNIT/ML Solution Pen-injector injection Inject 13 Units under the skin at bedtime. (Patient not taking: No sig reported) 18 mL 3 Facility-Administered Medications Prior to Visit Medication Dose Route Frequency Provider Last Rate Last Admin lidocaine (PF) 2 % injection 10 mL 10 mL Other Once (Outpt Clinic) Nils Oliver MD Allergies Allergen Reactions Gabapentin Abdominal Discomfort Propoxyphene Itching Darvocet Metformin Diarrhea Social History Socioeconomic History Marital status: Spouse name: Not on file Number of children: Not on file Years of education: Not on file Highest education level: Not on file Occupational History Not on file Tobacco Use Smoking status: Current Every Day Smoker Years: 46.00 Types: Cigarettes Smokeless tobacco: Never Used Tobacco comment: Uses eCigs as well Substance and Sexual Activity Alcohol use: Never Drug use: No Sexual activity: Not on file Other Topics Concern Not on file Social History Narrative Not on file Social Determinants of Health Financial Resource Strain: Not on file Food Insecurity: Not on file Transportation Needs: Not on file Physical Activity: Not on file Stress: Not on file Social Connections: Not on file Intimate Partner Violence: Not on file Housing Stability: Not on file Family History Problem Relation Age of Onset Lung Cancer Mother Diabetes Mother Coronary Artery Disease Mother Hypertension Mother Kidney Disease Mother Lung Cancer Father Review of Systems Constitutional: Negative. HENT: Negative. Eyes: Negative. Respiratory: Negative. Cardiovascular: Negative. Gastrointestinal: otherwise Negative. Musculoskeletal: Negative. Skin: Negative. Allergic/Immunologic: Negative. Neurological: Negative. Hematological: Negative. Psychiatric/Behavioral: Negative Physical Exam BP (!) 160/100 Ht 1.524 m (5') Wt 68.5 kg (151 lb) BMI 29.49 kg/m Smoking Status Current Every Day Smoker Wt Readings from Last 3 Encounters: 06/23/22 68.5 kg (151 lb) 05/27/22 68 kg (150 lb) 02/28/22 66.7 kg (147 lb) Body mass index is 29.49 kg/m . PHYSICAL EXAM VITAL SIGNS: BP (!) 160/100 Ht 1.524 m (5') Wt 68.5 kg (151 lb) BMI 29.49 kg/m Smoking Status Current Every Day Smoker Constitutional: Well developed, Well nourished, No acute distress, Non-toxic appearance. HENT: Normocephalic, Atraumatic, Oropharynx moist, Sclera anicteric, No oral exudates. Neck- No tenderness, Supple, No stridor. Eyes: Normal conjunctiva. Anicteric sclera. Respiratory: Normal breath sounds, No respiratory distress, No wheezing, No chest tenderness. Cardiovascular: Normal heart rate, Normal rhythm, No murmurs GI: Soft, No tenderness, No masses, No pulsatile masses. : No CVA tenderness Musculoskeletal: No deformity or tenderness in upper or lower extremities. Calves symmetric. No edema. Back- No tenderness. Integument: Warm, Dry, No rash. Lymphatic: No lymphadenopathy noted in neck or groin. Neurologic: Alert & oriented x 3, Normal motor function, Normal sensory function, No focal deficits noted. No meningismus. Psychiatric: Affect normal, Judgment normal, Mood normal. STUDIES: NA Mavis was seen today for new patient. Diagnoses and all orders for this visit: History of hernia repair - CT ABDOMEN/PELVIS WITHOUT CONTRAST; Future Epigastric pain PLAN 1. Diagnostic testing: rev 2. Labs rev 3. No definitive hernia I can tell. Hx of abdominal surgery + pain Admits to a bulge herself Given her surgical hx recommend CT AP in the event its subtle Further recs to follow This patient presented with a condition that required my immediate and ongoing attention. My presence and the care I provided were necessary to optimize the patients care in a situation that required a higher level of complexity. Significant time was spent prior to the consultation reviewing all available pertinent imaging and labs followed by time spent during the patient encounter to come to a complete assessment and plan. This included time at the bedside with the patient, time reviewing the medical record to understand the patients underlying medical history, time ordering tests, reviewing and interpreting test results, and time spent in discussion with the patient, family, nursing, and consultants. The time included here does not include time spent with procedures [facility] Work Phone: 06-23-2022 History and physical note CC: Chief Complaint Patient presents with New Patient HPI: She presents for evaluation of moderate epigastric pain. Onset of symptoms was several months ago, clinical course stable since that time. She describes the pain as aching and rates it at 5/10. The pain is associated with movement. The pain is worsened by: nothing. It is relieved by: nothing. Additional associated symptoms include: bulging. 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 90 tablet 1 cholecalciferol 50 MCG (1999 UT) capsule Take 2,000 Units by mouth daily. clopidogrel (Plavix) 75 MG tablet Take 1 tablet by mouth daily. 90 tablet 1 Dulaglutide (Trulicity) 1.5 MG/0.5ML Solution Pen-injector injection Inject 0.5 mL under the skin once a week. 6 mL 1 GLUCOSE MONITOR LANCETS PRESCRIPTION Test 1x a day 100 Each 3 GLUCOSE MONITOR PRESCRIPTION Insurance covered 1 Each 0 GLUCOSE TEST STRIPS PRESCRIPTION Testing 1x a day 100 Each 3 insulin detemir 100 UNIT/ML Solution Pen-injector injection Inject 13 Units under the skin at bedtime. 18 mL 3 Insulin Pen Needle (Pen Sagola 5/16) 30G X 8 MM Misc 1 Device by Unknown route at bedtime. 100 Each 3 Levocetirizine Dihydrochloride (Xyzal) 5 MG tablet Take 1 tablet by mouth daily. 180 tablet 1 nystatin 261713 unit/gm Powder Apply 1 Application topically every 8 hours. As needed 1 Bottle 6 omeprazole (PriLOSEC) [address] capsule Take 1 capsule by mouth 2 times daily (take before meals). 180 capsule 1 pregabalin 75 MG capsule Take 1 capsule by mouth 2 times daily. 180 capsule 0 Zinc Sulfate (ZINC 15 PO) Take by mouth. benzonatate 200 MG capsule Take 1 capsule by mouth 3 times daily as needed. (Patient not taking: No sig reported) 30 capsule 3 Insulin Degludec (Tresiba FlexTouch) 100 UNIT/ML Solution Pen-injector injection Inject 13 Units under the skin at bedtime. (Patient not taking: No sig reported) 18 mL 3 Facility-Administered Medications Prior to Visit Medication Dose Route Frequency Provider Last Rate Last Admin lidocaine (PF) 2 % injection 10 mL 10 mL Other Once (Outpt Clinic) Nils R [place], MD Allergies Allergen Reactions Gabapentin Abdominal Discomfort Propoxyphene Itching Darvocet Metformin Diarrhea Social History Socioeconomic History Marital status: Spouse name: Not on file Number of children: Not on file Years of education: Not on file Highest education level: Not on file Occupational History Not on file Tobacco Use Smoking status: Current Every Day Smoker Years: 46.00 Types: Cigarettes Smokeless tobacco: Never Used Tobacco comment: Uses eCigs as well Substance and Sexual Activity Alcohol use: Never Drug use: No Sexual activity: Not on file Other Topics Concern Not on file Social History Narrative Not on file Social Determinants of Health Financial Resource Strain: Not on file Food Insecurity: Not on file Transportation Needs: Not on file Physical Activity: Not on file Stress: Not on file Social Connections: Not on file Intimate Partner Violence: Not on file Housing Stability: Not on file Family History Problem Relation Age of Onset Lung Cancer Mother Diabetes Mother Coronary Artery Disease Mother Hypertension Mother Kidney Disease Mother Lung Cancer Father Review of Systems Constitutional: Negative. HENT: Negative. Eyes: Negative. Respiratory: Negative. Cardiovascular: Negative. Gastrointestinal: otherwise Negative. Musculoskeletal: Negative. Skin: Negative. Allergic/Immunologic: Negative. Neurological: Negative. Hematological: Negative. Psychiatric/Behavioral: Negative Physical Exam BP (!) 160/100 Ht 1.524 m (5') Wt 68.5 kg (151 lb) BMI 29.49 kg/m Smoking Status Current Every Day Smoker Wt Readings from Last 3 Encounters: 06/23/22 68.5 kg (151 lb) 05/27/22 68 kg (150 lb) 02/28/22 66.7 kg (147 lb) Body mass index is 29.49 kg/m . PHYSICAL EXAM VITAL SIGNS: BP (!) 160/100 Ht 1.524 m (5') Wt 68.5 kg (151 lb) BMI 29.49 kg/m Smoking Status Current Every Day Smoker Constitutional: Well developed, Well nourished, No acute distress, Non-toxic appearance. HENT: Normocephalic, Atraumatic, Oropharynx moist, Sclera anicteric, No oral exudates. Neck- No tenderness, Supple, No stridor. Eyes: Normal conjunctiva. Anicteric sclera. Respiratory: Normal breath sounds, No respiratory distress, No wheezing, No chest tenderness. Cardiovascular: Normal heart rate, Normal rhythm, No murmurs GI: Soft, No tenderness, No masses, No pulsatile masses. : No CVA tenderness Musculoskeletal: No deformity or tenderness in upper or lower extremities. Calves symmetric. No edema. Back- No tenderness. Integument: Warm, Dry, No rash. Lymphatic: No lymphadenopathy noted in neck or groin. Neurologic: Alert & oriented x 3, Normal motor function, Normal sensory function, No focal deficits noted. No meningismus. Psychiatric: Affect normal, Judgment normal, Mood normal. STUDIES: NA Mavis was seen today for new patient. Diagnoses and all orders for this visit: History of hernia repair - CT ABDOMEN/PELVIS WITHOUT CONTRAST; Future Epigastric pain PLAN 1. Diagnostic testing: rev 2. Labs rev 3. No definitive hernia I can tell. Hx of abdominal surgery + pain Admits to a bulge herself Given her surgical hx recommend CT AP in the event its subtle Further recs to follow This patient presented with a condition that required my immediate and ongoing attention. My presence and the care I provided were necessary to optimize the patients care in a situation that required a higher level of complexity. Significant time was spent prior to the consultation reviewing all available pertinent imaging and labs followed by time spent during the patient encounter to come to a complete assessment and plan. This included time at the bedside with the patient, time reviewing the medical record to understand the patients underlying medical history, time ordering tests, reviewing and interpreting test results, and time spent in discussion with the patient, family, nursing, and consultants. The time included here does not include time spent with procedures documented in this encounter [facility] 06-23-2022 History of Present illness Narrative Nurse Note: Review of Systems Nursing Assessment: Physical Exam Mavis Jackson is a 72 y.o. female Pt is here for a ventral hernia. First noticed about 4 years ago. has not grown in size to her knowledge Imaging: no recent admits to bulge. complains of Pain. Rates 6. Pain is when lifting denies Chills/Fever. denies Nausea/Vomiting. complains of Diarrhea. B/M's are everyday and multiple times daily - due to medication. documented in this encounter [facility] 05-27-2022 History of Present illness Narrative Hyperlipidemia: Her last lipid profile was done (date) 11/28/21. Current medication/treatments: atorvastain. She states: no to medication side effects. She states: no to other medications tried and failed? She would like refills on her clopidogrel, which she uses for cerebral ischemia. Diabetes: Her last eye doctor visit was 2021. Her last HbA1c was done (date) 02/28/22. She admits to checking her blood sugar. If so, how often? 1x a day(s). Current medication/treatments: detemir She would like refills on her levocetirizine, which she uses for allergies. GERD: She denies heartburn, and she denies regurgitation, while being on her medication. Current medication/treatments: omeprazole Neuropathy: Located in her feet. She admits to having numbness/tingling, and she denies open sores. Current medication/treatments: pregabalin Needs a new monitor and testing supplies ordered. Chief Complaint Patient presents with Hyperlipidemia 6 mo fu Other 6 mo fu cerebral ischemia Diabetes 6 mo fu Allergic Rhinitis 6 mo fu Heartburn 6 mo fu Neuropathy 3 mo fu Hyperlipidemia: Her last lipid profile was done (date) 11/28/21. Current medication/treatments: atorvastain. She states: no to medication side effects. She states: no to other medications tried and failed? She would like refills on her clopidogrel, which she uses for cerebral ischemia. Diabetes: Her last eye doctor visit was 2021. Her last HbA1c was done (date) 02/28/22. She admits to checking her blood sugar. If so, how often? 1x a day(s). Current medication/treatments: detemir She would like refills on her levocetirizine, which she uses for allergies. GERD: She denies heartburn, and she denies regurgitation, while being on her medication. Current medication/treatments: omeprazole Neuropathy: Located in her feet. She admits to having numbness/tingling, and she denies open sores. Current medication/treatments: pregabalin Needs a new monitor and testing supplies ordered. HPI Diabetes Mavis Jackson is here for recheck on his diabetes. She needs medication refill and any new labs reviewed with patient. New complications, no. No intolerances to medication, yes. Patient states that her compliance with medication and diet, yes. Attempting to exercise regularly, no. Lab Results Component Value Date HGBA1C 6.9 (A) 02/28/2022 HGBA1C 9.4 (H) 11/28/2021 HGBA1C 9.4 (A) 01/04/2021 GLUCOSE 143 (H) 11/28/2021 LDLCALC 148 (H) 11/28/2021 CREATSERUM 0.72 11/28/2021 Hyperlipidemia Mavis Jackson, an 72 y.o. female, is here for refill of her cholesterol medications. He has been compliant with his medicines. yes There have been no intolerances or side effects. yes Lab Results Component Value Date CHOLESTEROL 232 (H) 11/28/2021 CHOLESTEROL 181 12/07/2020 CHOLESTEROL 179 05/19/2019 TRIG 158 (H) 11/28/2021 TRIG 115 12/07/2020 TRIG 104 05/19/2019 HDL 52 11/28/2021 HDL 56 12/07/2020 HDL 58 05/19/2019 LDLCALC 148 (H) 11/28/2021 LDLCALC 102 (H) 12/07/2020 LDLCALC 100 05/19/2019 Reflux Mavis Jackson, an 72 y.o. female, is here for refill on her medication for her gastroesophageal reflux. Since being on the medication her symptoms have improved. Has had no problems with the medicine. yes He is compliant with taking the medication. yes He has noted no change in stools no blood or melena in the stool. yes Allergies Mavis Jackson is here for evaluation treatment of allergies. This is been a chronic problem. Shehas used [id number] medications in the past with moderate success. Symptoms include watery eyes and runny nose congestion. Neuropathy Patient here for refill of her medication. Medication has been effective in reducing symptoms. She has been compliant. Allergies Allergen Reactions Gabapentin Abdominal Discomfort Propoxyphene Itching Darvocet Metformin Diarrhea Outpatient Medications Prior to Visit Medication Sig Dispense Refill cholecalciferol 50 MCG (2000 UT) capsule Take 2,000 Units by mouth daily. nystatin 534496 unit/gm Powder Apply 1 Application topically every 8 hours. As needed 1 Bottle 6 Zinc Sulfate (ZINC 15 PO) Take by mouth. atorvastatin 40 MG tablet Take 1 tablet by mouth at bedtime. 90 tablet 1 clopidogrel (Plavix) 75 MG tablet Take 1 tablet by mouth daily. 90 tablet 1 insulin detemir 100 UNIT/ML Solution Pen-injector injection Inject 13 Units under the skin at bedtime. 18 mL 3 Insulin Pen Needle (Pen Sagola 5/16) 30G X 8 MM Misc 1 Device by Unknown route at bedtime. 100 Each 3 Levocetirizine Dihydrochloride (Xyzal) 5 MG tablet Take 1 tablet by mouth daily. 30 tablet 5 omeprazole (PriLOSEC) [address] capsule Take 1 capsule by mouth 2 times daily (take before meals). 60 capsule 0 pregabalin 75 MG capsule Take 1 capsule by mouth 2 times daily. 60 capsule 0 benzonatate 200 MG capsule Take 1 capsule by mouth 3 times daily as needed. (Patient not taking: Reported on 05/27/2022) 30 capsule 3 Insulin Degludec (Tresiba FlexTouch) 100 UNIT/ML Solution Pen-injector injection Inject 13 Units under the skin at bedtime. (Patient not taking: Reported on 05/27/2022) 18 mL 3 Dulaglutide (Trulicity) 1.5 MG/0.5ML Solution Pen-injector injection Inject 0.5 mL under the skin once a week. 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 reports that she has been smoking cigarettes. She has smoked for the past 46.00 years. She has never used smokeless tobacco. She reports that she does not drink alcohol and does not use drugs. Past Surgical History: Procedure Laterality Date EXTRACTION EXTRACAPSULAR CATARACT W/ IMPLANT (ECCE IOL) Bilateral 2017 REPAIR HERNIA VENTRAL OPEN W/ MESH 1985 TUBAL LIGATION 1971 with reversal HYSTERECTOMY TOTAL ABDOMINAL OPEN (ISABEL) W/ REMOVAL TUBES/OVARIES 1970 TONSILLECTOMY ADENOIDECTOMY 1966 SECTION 1980,1982 Review of Systems Visit Vitals BP 126/76 Pulse 80 Temp 97.4 F (36.3 C) (Temporal) Resp 18 Ht 1.524 m (5') Wt 68 kg (150 lb) SpO2 99% BMI 29.29 kg/m Review of Systems Constitutional: Negative for appetite change, chills, fever and unexpected weight change. HENT: Negative for congestion, ear pain, hearing loss, rhinorrhea, sore throat and trouble swallowing. Eyes: Negative for pain, discharge, redness and visual disturbance. Respiratory: Negative for chest tightness, shortness of breath and wheezing. Cardiovascular: Negative for chest pain, palpitations and leg swelling. Gastrointestinal: Negative for abdominal distention, abdominal pain, anal bleeding, blood in stool, constipation, diarrhea and nausea. Endocrine: Negative. Negative for polyphagia and polyuria. Genitourinary: Negative for decreased urine volume, difficulty urinating, dysuria, flank pain, frequency, hematuria and urgency. Musculoskeletal: Negative for arthralgias, back pain, gait problem, joint swelling, myalgias and neck pain. Skin: Negative. Allergic/Immunologic: Negative. Neurological: Negative for dizziness, tremors, syncope, weakness, light-headedness, numbness and headaches. Hematological: Negative. Psychiatric/Behavioral: Negative. Physical Exam Physical Exam Vitals and nursing note reviewed. Constitutional: Appearance: She is obese. HENT: Head: Normocephalic. Eyes: Conjunctiva/sclera: Conjunctivae normal. Pupils: Pupils are equal, round, and reactive to light. Neck: Thyroid: No thyromegaly. Cardiovascular: Rate and Rhythm: Normal rate and regular rhythm. Pulmonary: Effort: Pulmonary effort is normal. Breath sounds: Normal breath sounds. Skin: General: Skin is warm and dry. Neurological: Mental Status: She is alert and oriented to person, place, and time. Motor: No abnormal muscle tone. Psychiatric: Mood and Affect: Mood normal. Thought Content: Thought content normal. Comments: . Assessment & Plan Problem List Items Addressed This Visit Cardiovascular Cerebral ischemia-Moderate to severe Relevant Medications clopidogrel (Plavix) 75 MG tablet Other Relevant Orders CBC,PLATELETS Digestive Gastroesophageal reflux disease without esophagitis Relevant Medications omeprazole (PriLOSEC) [address] capsule Endocrine Hyperlipidemia LDL goal <70 Relevant Medications atorvastatin 40 MG tablet Other Relevant Orders COMPREHENSIVE METABOLIC PANEL LIPID PANEL W CALCULATED LDL Other Visit Diagnoses Type 2 diabetes mellitus with hyperglycemia, with long-term current use of insulin - Primary Relevant Medications insulin detemir 100 UNIT/ML Solution Pen-injector injection Insulin Pen Needle (Pen Sagola 516) 30G X 8 MM Misc GLUCOSE TEST STRIPS PRESCRIPTION GLUCOSE MONITOR PRESCRIPTION GLUCOSE MONITOR LANCETS PRESCRIPTION Dulaglutide (Trulicity) 1.5 MG/0.5ML Solution Pen-injector injection Other Relevant Orders HEMOGLOBIN A1C Seasonal allergic rhinitis due to pollen Relevant Medications Levocetirizine Dihydrochloride (Xyzal) 5 MG tablet Neuropathy Relevant Medications pregabalin 75 MG capsule Ventral hernia without obstruction or gangrene Relevant Orders AMB REFERRAL TO GENERAL SURGERY Devon Cuadra MD 05/27/2022, 12:22 PM documented in this encounter [facility] 01-28-2022 History of Present illness Narrative Patient is here for her 1 month weight check. She has lost 7lbs since her appt on 12/24/21. Chief Complaint Patient presents with Weight Loss Patient is here for her 1 month weight check. She has lost 7lbs since her appt on 12/24/21. HPI Obesity Mavis Jackson, an 71 y.o. female, is here to be evaluated for obesity. Patient has had good success with the medication. yes She would like to continue using medications for optimal weight loss. yes She has been successful in decreasing her carbohydrate intake and changing lifestyle. no Allergies Allergen Reactions Gabapentin Abdominal Discomfort Propoxyphene Itching Darvocet Metformin Diarrhea Outpatient Medications Prior to Visit Medication Sig Dispense Refill atorvastatin 40 MG tablet Take 1 tablet by mouth at bedtime. 90 tablet 1 clopidogrel (Plavix) 75 MG tablet Take 1 tablet by mouth daily. 90 tablet 1 Dulaglutide (Trulicity) 1.5 MG/0.5ML Solution Pen-injector injection Inject 0.5 mL under the skin once a week. 6 mL 1 ergocalciferol 1.25 MG (52991 UT) capsule Take 50,000 Units by mouth once a week. insulin detemir 100 UNIT/ML Solution Pen-injector injection Inject 10 Units under the skin at bedtime. 3 mL 1 Insulin Pen Needle (Pen Sagola 5/16) 30G X 8 MM Misc 1 Device by Unknown route at bedtime. 100 Each 3 nystatin 374904 unit/gm Powder Apply 1 Application topically every 8 hours. As needed 1 Bottle 6 omeprazole (PriLOSEC) [address] capsule Take 1 capsule by mouth 2 times daily (take before meals). 180 capsule 1 pregabalin 50 MG capsule Take 1 capsule by mouth 2 times daily. 60 capsule 0 Zinc Sulfate (ZINC 15 PO) Take by mouth. Aspirin [address] tablet Take by mouth. (Patient not taking: Reported on 12/24/2021) Insulin NPH Human, Isophane, (NOVOLIN N SC) Inject 20 Units under the skin daily every morning. (Patient not taking: Reported on 12/24/2021) insulin regular 1 unit/0.01 ml vial Inject 5 Units under the skin before meals & at bedtime. (Patient not taking: Reported on 12/24/2021) phentermine 37.5 MG tablet Take 1 tablet by mouth every morning before breakfast. 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 reports that she has been smoking cigarettes. She has smoked for the past 46.00 years. She has never used smokeless tobacco. She reports that she does not drink alcohol and does not use drugs. Past Surgical History: Procedure Laterality Date EXTRACTION EXTRACAPSULAR CATARACT W/ IMPLANT (ECCE IOL) Bilateral 2017 REPAIR HERNIA VENTRAL OPEN W/ MESH 1985 TUBAL LIGATION 1971 with reversal HYSTERECTOMY TOTAL ABDOMINAL OPEN (ISABEL) W/ REMOVAL TUBES/OVARIES 1971 TONSILLECTOMY ADENOIDECTOMY 1967 SECTION 1980,1982 Review of Systems Visit Vitals BP 124/70 (BP Location: Left arm, BP Position: Sitting) Pulse 93 Temp 98.2 F (36.8 C) (Temporal) Ht 1.524 m (5') Wt 68 kg (150 lb) SpO2 97% BMI 29.29 kg/m Review of Systems Constitutional: Negative for activity change and fatigue. Respiratory: Negative for shortness of breath. Cardiovascular: Negative for chest pain and palpitations. Gastrointestinal: Negative for nausea. No GERD Endocrine: Negative for cold intolerance and heat intolerance. Genitourinary: Negative for difficulty urinating and dysuria. Skin: Negative. Allergic/Immunologic: Positive for environmental allergies. Neurological: Negative for dizziness. Hematological: Negative for adenopathy. Psychiatric/Behavioral: Negative for dysphoric mood and sleep disturbance. The patient is not nervous/anxious. All other systems reviewed and are negative. Physical Exam Physical Exam Vitals and nursing note reviewed. Constitutional: Appearance: She is obese. HENT: Head: Normocephalic. Eyes: Pupils: Pupils are equal, round, and reactive to light. Neck: Thyroid: No thyromegaly. Cardiovascular: Rate and Rhythm: Normal rate and regular rhythm. Pulmonary: Effort: Pulmonary effort is normal. Breath sounds: Normal breath sounds. Skin: General: Skin is warm and dry. Neurological: Mental Status: She is alert and oriented to person, place, and time. Motor: No abnormal muscle tone. Psychiatric: Mood and Affect: Mood normal. Comments: . Assessment & Plan Problem List Items Addressed This Visit None Visit Diagnoses Seasonal allergic rhinitis due to pollen - Primary Relevant Medications Levocetirizine Dihydrochloride (Xyzal) 5 MG tablet benzonatate 200 MG capsule Class 1 obesity due to excess calories with serious comorbidity and body mass index (BMI) of 30.0 to 30.9 in adult Relevant Medications phentermine 37.5 MG tablet Devon Cuadra MD 01/28/2022, 2:15 PM documented in this encounter [facility] 03-18-2021 Note [facility] Medical Records Department [address] [place] [address] Discharge Summary 03/18/21 1301 MR#: [id number] Acct: [id number] Name: MAVIS JACKSON Rep #: [id number] : 1950 71 From: Dean MCGRAW PCP: Dr. Devon Cuadra MD Status:DIS MEL Location: [place] [address] Providers Date of Admission: 03/17/21 Primary Care Physician: Dr. Devon Cuadra MD Reason For Visit: TIA Diagnosis Discharge Diagnosis (1) Brain TIA: Status: Acute Code(s): G45.9 - Transient cerebral ischemic attack, unspecified Medications at Discharge Home Medications atorvastatin 40 mg PO QHS 04/16/18 clopidogrel 75 mg PO QHS 04/16/18 Novolin N 20 unit SQ DAILY 05/08/19 insulin regular human 8 - 10 unit SUBCUT TIDCM 05/08/19 omeprazole 20 mg PO BID 03/17/21 aspirin 81 mg PO DAILY #30 tab 03/18/21 furosemide [Lasix] 40 mg PO DAILY #30 tab 03/18/21 Hospital Course Summary of Care Provided Minutes Spent on Discharge: 35 Hospital Course: 1) TIA Patient is a 71-year-old female who presented to the ED at [facility] on 03/17/2021 with a chief complaint of hand and oral numbness. Patient was admitted for possible CVA. Brain MRI, head MRA, neck MRA were unremarkable and showed no stenosis or acute infarct. SOC telemetry neurology consult recommended continuation of aspirin, Plavix and statin regimen. Patient does not wish to go to halfway facility for placement, and is recommended for outpatient therapy per PT/OT. Plan; continue Plavix and statin. Aspirin initiated on discharge. Follow-up with neurology upon discharge. 2) Diabetes Hemoglobin A1c 7.5, POC glucose 168. Patient reports that she has been working with her primary care provider to help manage her diabetes. Does not wish to have medications adjusted at this time. Plan; follow-up your primary care provider within the next 1 to 2 weeks. Patient seen by Dean Morin PA-C, under the supervision of Dr. Vanegas. Physical Exam Narrative Patient is a 71-year-old female comfortably resting in bed, alert and oriented x3. Patient reports resolution of her oral and hand numbness on admission. Denies any progression of symptoms. Denies chest pain, shortness of breath, headache, vision changes, fever, chills, N/V/D. Const alert, oriented x3 and no apparent distress HEENT normocephalic, head/scalp atraumatic and hearing grossly normal bilaterally Eyes PERRL and EOMs intact bilaterally Neck no lymphadenopathy, supple and no JVD Resp normal respiratory effort, no retractions, no use of accessory muscles and clear to auscultation bilaterally Cardio regular rate, regular rhythm, no murmurs and no JVD GI normal to inspection, nondistended, normoactive bowel sounds, soft to palpation, non-tender and non- distended Extremity normal to inspection, full ROM and no clubbing, cyanosis or edema Skin no rashes or lesions noted and no wounds Neuro CN's II-XII intact bilaterally Psych affect normal ABG / Lab / Microbiology Data Result Diagrams: 03/17/21 01:00 03/17/21 01:00 Laboratory: Laboratory Results - last 24 hr 03/17/21 03/17/21 03/18/21 16:28 21:45 07:05 POC Glucose 150 H 241 H 168 H 03/18/21 11:40 POC Glucose 249 H Meaningful Use Info Meaningful Use Diagnoses (Choose all that apply): None applicable CVA Therapy Assessed for PT,OT and/or ST?: Yes Ischemic Stroke Antithrombotic order at d/c?: Yes Dx of Atrial fib/flutter?: No Statins at discharge?: Yes Discharge Plan Admission Admit Date/Time: 03/17/21 02:57 Attending Provider: Bogdan Vanegas Primary Care Provider: Devon Cuadra Discharge Orders/Prescriptions Prescriptions: New aspirin 81 mg tablet,delayed release (DR/EC) 81 mg PO DAILY Qty: 30 RF: 0 furosemide [Lasix] 40 mg tablet 40 mg PO DAILY Qty: 30 RF: 0 Continued atorvastatin 40 MG tablet 40 mg PO QHS RF: 0 clopidogrel 75 MG tablet 75 mg PO QHS RF: 0 insulin regular human 100 UNIT/ML solution 8 - 10 unit subcut TIDCM RF: 0 Novolin N 20 unit SQ DAILY RF: 0 omeprazole 20 mg Capsule,Delayed Release(Dr/Ec) 20 mg PO BID RF: 0 Referrals / Follow Up: Devon Cuadra MD [Primary Care Provider] - Care Physician,No Primary [NON-STAFF] - Disposition Disposition (needs filled in before D/C Order can be placed): Home, self care 03/18/21 1313 Cosigner Signature (if applicable): CC: MARILUZ Morin; Dr. Devon Cuadra MD; Dr. Bogdan Vanegas MD Signed ADDENDUM by MARILUZ Morin on 03/18/21 at 1631 Addendum Echocardiogram results from 03/18/2021 demonstrated normal LV size and systolic function, an estimated EF of 65% and stage I diastolic dysfunction. Results returned after initial documentation. Patient advised of results and was discharged. 03/18/21 1631 Cosigner Si (more content not included)... [facility] Evaluation note Diagnosis Seasonal allergic rhinitis due to pollen- Primary Class 1 obesity due to excess calories with serious comorbidity and body mass index (BMI) of 30.0 to 30.9 in adult [facility] Diagnosis Type 2 diabetes mellitus with hyperglycemia, with long-term current use of insulin- Primary Hyperlipidemia LDL goal <70 Other and unspecified hyperlipidemia Cerebral ischemia-Moderate to severe Other generalized ischemic cerebrovascular disease Seasonal allergic rhinitis due to pollen Gastroesophageal reflux disease without esophagitis Esophageal reflux Neuropathy Mononeuritis of unspecified site Ventral hernia without obstruction or gangrene Ventral hernia, unspecified, without mention of obstruction or gangrene [facility] Diagnosis History of hernia repair- Primary Other postprocedural status Epigastric pain Abdominal pain, epigastric [facility] Diagnosis History of hernia repair Other postprocedural status [facility] Diagnosis Type 2 diabetes mellitus with other circulatory complication, with long-term current use of insulin (HCC) documented in this encounter [facility] note* Diagnosis Type 2 diabetes mellitus with hyperglycemia, with long-term current use of insulin- Primary Hyperlipidemia LDL goal <70 Other and unspecified hyperlipidemia Anxiety Anxiety state, unspecified Cerebral ischemia-Moderate to severe Other generalized ischemic cerebrovascular disease Edema leg Edema Seasonal allergic rhinitis due to pollen Gastroesophageal reflux disease without esophagitis Esophageal reflux Neuropathy Mononeuritis of unspecified site Class 1 obesity due to excess calories with body mass index (BMI) of 32.0 to 32.9 in adult, unspecified whether serious comorbidity present Urinary incontinence, unspecified type Yeast infection of the skin Candidiasis of skin and nails Rash Rash and other nonspecific skin eruption Cigarette nicotine dependence without complication Tobacco use disorder [facility] Diagnosis Type 2 diabetes mellitus with hyperglycemia, with long-term current use of insulin- Primary Class 1 obesity due to excess calories with body mass index (BMI) of 32.0 to 32.9 in adult, unspecified whether serious comorbidity present Neuropathy Mononeuritis of unspecified site Chronic obstructive pulmonary disease, unspecified COPD type Osteoarthritis of spine with radiculopathy, lumbar region Edema leg Edema Breast cancer screening by mammogram [facility] Diagnosis Breast cancer screening by mammogram [facility] Diagnosis Class 1 obesity due to excess calories with body mass index (BMI) of 32.0 to 32.9 in adult, unspecified whether serious comorbidity present- Primary [facility] Diagnosis Edema leg Edema [facility] Diagnosis Hyperlipidemia LDL goal <70 Other and unspecified hyperlipidemia Cerebral ischemia-Moderate to severe Other generalized ischemic cerebrovascular disease Type 2 diabetes mellitus with hyperglycemia, with long-term current use of insulin Edema leg Edema Seasonal allergic rhinitis due to pollen Class 1 obesity due to excess calories with body mass index (BMI) of 32.0 to 32.9 in adult, unspecified whether serious comorbidity present Neuropathy Mononeuritis of unspecified site Urinary incontinence, unspecified type Yeast infection of the skin Candidiasis of skin and nails [facility] Diagnosis Type 2 diabetes mellitus with hyperglycemia, with long-term current use of insulin- Primary Gastroesophageal reflux disease without esophagitis Esophageal reflux Class 1 obesity due to excess calories with body mass index (BMI) of 32.0 to 32.9 in adult, unspecified whether serious comorbidity present Neuropathy Mononeuritis of unspecified site Abdominal wall hernia Ventral hernia, unspecified, without mention of obstruction or gangrene Family history of BRCA gene mutation [facility] Diagnosis Chronic venous insufficiency- Primary Unspecified venous (peripheral) insufficiency Hyperlipidemia LDL goal <70 Other and unspecified hyperlipidemia Cerebral ischemia-Moderate to severe Other generalized ischemic cerebrovascular disease Edema leg Edema Type 2 diabetes mellitus with hyperglycemia, with long-term current use of insulin Seasonal allergic rhinitis due to pollen Gastroesophageal reflux disease without esophagitis Esophageal reflux Class 1 obesity due to excess calories with body mass index (BMI) of 32.0 to 32.9 in adult, unspecified whether serious comorbidity present Neuropathy Mononeuritis of unspecified site Urinary incontinence, unspecified type [facility] Diagnosis Primary osteoarthritis of left shoulder- Primary [facility] Diagnosis Abdominal pain, generalized- Primary Abdominal wall bulge Abdominal or pelvic swelling, mass or lump, unspecified site [facility] Diagnosis Abdominal pain, generalized [facility] Diagnosis Type 2 diabetes mellitus with hyperglycemia, with long-term current use of insulin- Primary Yeast infection of the skin Candidiasis of skin and nails Class 1 obesity due to excess calories with body mass index (BMI) of 32.0 to 32.9 in adult, unspecified whether serious comorbidity present Neuropathy Mononeuritis of unspecified site Gastroesophageal reflux disease without esophagitis Esophageal reflux Pulmonary mass Swelling, mass, or lump in chest [facility] Diagnosis Cavitating mass in right upper lung lobe- Primary Paratracheal lymphadenopathy Goals of care, counseling/discussion Tobacco use disorder [facility] Diagnosis Cavitating mass in right upper lung lobe Paratracheal lymphadenopathy Primary malignant ne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)- Primary Cavitating mass in right upper lung lobe Paratracheal lymphadenopathy Pulmonary mass Cavitating mass in right upper lung lobe Paratracheal lymphadenopathy [facility] Diagnosis Thoracic lymphadenopathy- Primary Cavitating mass in right upper lung lobe Right upper lobe pulmonary nodule Cavitating mass in right upper lung lobe Paratracheal lymphadenopathy Cavitating mass in right upper lung lobe Paratracheal lymphadenopathy [facility] Diagnosis 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)- Primary Other specified pleural conditions Fatigue, unspecified type Neuropathy Mononeuritis of unspecified site Goals of care, counseling/discussion [facility] Diagnosis Malignant neoplasm of upper lobe of right lung (HCC) Lumbar radiculopathy- Primary Thoracic or lumbosacral neuritis or radiculitis, unspecified Neoplasm related pain Neoplasm related pain (acute) (chronic) Malignant neoplasm of upper lobe of right lung (HCC) [facility] Hyperlipidemia LDL goal <70 Other and unspecified hyperlipidemia Edema leg Edema Type 2 diabetes mellitus with hyperglycemia, with long-term current use of insulin Seasonal allergic rhinitis due to pollen Rash Rash and other nonspecific skin eruption Urinary incontinence, unspecified type [facility] Diagnosis 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)- Primary Primary malignant ne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)- Primary Primary malignant ne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)- Primary Primary malignant ne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)- Primary Primary malignant ne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)- Primary Primary malignant ne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)- Primary Primary malignant ne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)- Primary [facility] Diagnosis Primary malignant ne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)- Primary Primary malignant ne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)- Primary Primary malignant ne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)- Primary Primary malignant ne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)- Primary Primary malignant ne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)- Primary Primary malignant ne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)- Primary Primary malignant ne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)- Primary [facility] Primary malignant ne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)- Primary Primary malignant ne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)- Primary Primary malignant ne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)- Primary Primary malignant ne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)- Primary Primary malignant ne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)- Primary Primary malignant ne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)- Primary Primary malignant ne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)- Primary [facility] Diagnosis Neoplasm related pain- Primary Neoplasm related pain (acute) (chronic) Primary malignant ne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)- Primary Primary malignant ne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)- Primary Primary malignant ne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)- Primary Primary malignant ne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)- Primary Primary malignant ne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)- Primary Primary malignant ne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)- [facility] Primary malignant ne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)- Primary Primary malignant ne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)- Primary Primary malignant ne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)- Primary Primary malignant ne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)- Primary Primary malignant ne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)- Primary Primary malignant ne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)- Primary Primary malignant ne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)- Primary [facility] Diagnosis Primary malignant ne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)- Primary Primary malignant ne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)- Primary Primary malignant ne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)- Primary Primary malignant ne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)- Primary Primary malignant ne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)- Primary Primary malignant ne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)- Primary Primary malignant ne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)- [facility] Diagnosis Primary malignant ne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)- Primary Primary malignant ne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)- Primary Primary malignant ne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)- Primary Primary malignant ne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)- Primary Primary malignant ne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)- Primary Primary malignant ne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)- Primary Primary malignant ne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)- Primary [facility] Diagnosis Primary malignant ne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)- Primary Primary malignant ne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)- Primary Primary malignant ne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)- Primary Primary malignant ne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)- Primary Primary malignant ne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)- Primary Primary malignant ne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)- Primary [facility] Diagnosis Primary malignant ne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)- Primary Primary malignant ne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)- Primary Primary malignant ne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)- Primary Primary malignant ne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)- Primary Primary malignant ne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)- Primary Primary malignant ne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)- Primary [facility] Diagnosis Primary malignant ne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)- Primary Primary malignant ne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)- Primary Primary malignant ne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)- Primary Primary malignant ne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)- Primary Primary malignant ne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)- Primary Primary malignant ne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)- Primary Primary malignant ne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)- Primary Primary malignant ne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)- Primary [facility] Diagnosis Primary malignant ne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)- Primary Primary malignant ne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)- Primary Primary malignant ne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)- Primary Primary malignant ne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)- Primary Primary malignant ne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)- Primary Primary malignant ne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)- Primary Primary malignant ne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)- [facility] Diagnosis 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)- Primary Fatigue, unspecified type Goals of care, counseling/discussion Cytopenia Unspecified diseases of blood and blood-forming organs Primary malignant ne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)- Primary Primary malignant ne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)- Primary Primary malignant ne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)- Primary Primary malignant ne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)- Primary Primary malignant ne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)- [facility] Diagnosis Primary malignant ne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)- Primary Primary malignant ne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)- Primary Primary malignant ne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)- Primary Primary malignant ne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)- Primary Primary malignant ne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)- Primary Primary malignant ne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)- [facility] Diagnosis Primary malignant ne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)- Primary Primary malignant ne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)- Primary Primary malignant ne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)- Primary Primary malignant ne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)- Primary Primary malignant ne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)- [facility] Diagnosis Primary malignant ne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)- Primary Primary malignant ne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)- Primary Primary malignant ne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)- Primary Primary malignant ne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)- [facility] Diagnosis Primary malignant ne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)- Primary Primary malignant ne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)- Primary Primary malignant ne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)- Primary Primary malignant ne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)- Primary Primary malignant ne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)- [facility] Diagnosis Primary malignant ne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)- Primary Abnormal glucose Primary malignant ne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)- Primary Primary malignant ne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)- Primary Primary malignant ne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)- Primary Primary malignant ne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)- [facility] Diagnosis Primary malignant ne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)- Primary Primary malignant ne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)- Primary Primary malignant ne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)- Primary Primary malignant ne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)- [facility] Diagnosis 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)- Primary Primary malignant ne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)- Primary Primary malignant ne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)- Primary Primary malignant ne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)- [facility] Diagnosis Primary malignant ne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)- Primary Primary malignant ne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)- Primary Primary malignant ne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)- Primary Primary malignant ne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)- [facility] Diagnosis Primary malignant ne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)- Primary Primary malignant ne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)- Primary Primary malignant ne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)- Primary Primary malignant ne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)- Primary Primary malignant ne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)- Primary Primary malignant ne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)- Primary Primary malignant ne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)- [facility] Diagnosis Primary malignant ne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)- Primary Primary malignant ne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)- Primary Primary malignant ne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)- Primary Primary malignant ne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)- Primary Primary malignant ne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)- Primary Primary malignant ne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)- Primary Primary malignant ne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)- [facility] Diagnosis Primary malignant ne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)- Primary Primary malignant ne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)- Primary Primary malignant ne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)- Primary Primary malignant ne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)- Primary Primary malignant ne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)- Primary Primary malignant ne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)- [facility] Diagnosis Primary malignant ne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)- Primary Primary malignant ne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)- Primary Primary malignant ne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)- Primary Primary malignant ne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)- Primary Primary malignant ne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)- Primary Primary malignant ne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)- [facility] Diagnosis Primary malignant ne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)- Primary Primary malignant ne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)- Primary Primary malignant ne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)- Primary Primary malignant ne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)- Primary Primary malignant ne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)- Primary Primary malignant ne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)- [facility] Diagnosis Primary malignant ne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)- Primary Primary malignant ne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)- Primary Primary malignant ne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)- Primary Primary malignant ne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)- Primary Primary malignant ne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)- Primary Primary malignant ne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)- [facility] Primary malignant ne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)- Primary Primary malignant ne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)- Primary Primary malignant neoplasm of right upper lobe of lung (HCC)- Primary Primary malignant neoplasm of right upper lobe of lung (HCC)- Primary Primary malignant neoplasm of right upper lobe of lung (HCC)- Primary Primary malignant neoplasm of right upper lobe of lung (HCC)- [facility] Primary malignant neoplasm of right upper lobe of lung (HCC)- Primary Primary malignant neoplasm of right upper lobe of lung (HCC)- Primary Primary malignant neoplasm of right upper lobe of lung (HCC)- Primary Primary malignant neoplasm of right upper lobe of lung (HCC)- Primary Primary malignant neoplasm of right upper lobe of lung (HCC)- Primary Primary malignant neoplasm of right upper lobe of lung (HCC)- [facility] Diagnosis Primary malignant neoplasm of right upper lobe of lung (HCC)- Primary Primary malignant neoplasm of right upper lobe of lung (HCC)- Primary Primary malignant neoplasm of right upper lobe of lung (HCC)- Primary Primary malignant neoplasm of right upper lobe of lung (HCC)- Primary Primary malignant neoplasm of right upper lobe of lung (HCC)- Primary Primary malignant neoplasm of right upper lobe of lung (HCC)- Primary [facility] Diagnosis Infected venous access port, initial encounter- Primary Pancytopenia (HCC) Severe neutropenia (HCC) Cellulitis of chest wall Cellulitis and abscess of trunk [facility] Diagnosis Primary malignant neoplasm of right upper lobe of lung (HCC)- Primary Primary malignant neoplasm of right upper lobe of lung (HCC)- Primary Primary malignant neoplasm of right upper lobe of lung (HCC)- Primary Primary malignant neoplasm of right upper lobe of lung (HCC)- Primary Primary malignant neoplasm of right upper lobe of lung (HCC)- [facility] Att[facility]ments The following attachments cannot be sent through Care Everywhere. * CT Scan: Abdomen (Australian) * CT Scan: Pelvis (Australian) documented in this [facility]* Attachments The following attachments cannot be sent through Care Everywhere. * Low-Carbohydrate Diet: General Info (Australian) * Healthy Meals for Healthy Blood Sugar ([facility]) (Australian) * Smoking Cessation: Health Benefits: General Info (Australian) documented in this [facility]* Attachments The following attachments cannot be sent through Care Everywhere. * Sleep Health: General Info (Australian) documented in this [facility]* Attachments The following attachments cannot be sent through Care Everywhere. * Edema: Leg and Ankle (Australian) documented in this [facility]* Attachments The following attachments cannot be sent through Care Everywhere. * CT Scan: Abdomen (Australian) * CT Scan: Pelvis (Australian) [facility] Consultation (Routine) - New Request Specialty Diagnoses / Procedures Referred By Jayda martinez Referred To Contact General Surgery Diagnoses Ventral hernia without obstruction or gangrene Devon Cuadra MD [address] [place] [address] Jessica Boykin DO [address] [place] [address] Referral ID Status Reason Start Date Expiration Date V isits Requested Visits Authorized [id number] New Request 05/27/2022 06/21/2023 1 1 [facility] Consultation (Routine) - New Request Specialty Diagnoses / Procedures Referred By Contac t Referred To Contact Genetics Diagnoses Family history of BRCA gene mutation Jose Luna MD [address] [place] [phone] Referral ID Status Reason Start Date Expiration Date V isits Requested Visits Authorized [id number] New Request 08/22/2024 09/16/2025 1 1 * Consultation (Routine) - New Request Specialty Diagnoses / Procedures Referred By Jayda martinez Referred To Contact General Surgery Diagnoses Abdominal wall hernia Jose Luna MD [address] [place] [phone] Jessica Boykin, [address] [place] [phone] Referral ID Status Reason Start Date Expiration Date V isits Requested Visits Authorized [id number] New Request 08/22/2024 09/16/2025 1 1 [facility] for visit Narrative* MRI/CAT Scan (Routine) - Closed Specialty Diagnoses / Procedures Referred By Jayda martinez Referred To Contact Computerized Tomography Scan Diagnoses Abdominal pain, generalized Procedures CT ABDOMEN/PELVIS WITH CONTRAST CHG CT ABDOMEN & PELVIS W/CONTRAST MATERIAL Jessica Boykin, DO [address] [place] [address] Phone: tel: fax: [facility] CT Scan [address] [place] [phone] Phone: tel: fax: Referral ID Status Reason Start Date Expiration Date Visits Re quested Visits Authorized [id number] Closed 01/30/2025 02/24/2026 1 1 [facility] for visit Narrative* Episode Based Medication (Routine) - Authorized Specialty Diagnoses / Procedures Referred By Jayda martinez Referred To Contact Diagnoses Primary malignant neoplasm of right upper lobe of lung (HCC) Procedures MI INJECTION, CISPLATIN, POWDER OR SOLUTION, 10 MG MI INJECTION, ETOPOSIDE, 10 MG MI INJECTION, FOSAPREPITANT, 1 MG MI INJECTION, PALONOSETRON HCL, 25 MCG Deniz Echavarria MD [address] [place] [address] Phone: tel:[phone] fax: [facility] [address] [address] Phone: tel: fax: Referral ID Status Reason Start Date Expiration Date V isits Requested Visits Authorized [id number] Authorized 05/22/2025 05/22/2026 8 8 [facility] for visit Narrative* Episode Based Medication (Routine) - Authorized Specialty Diagnoses / Procedures Referred By Contac t Referred To Contact Diagnoses Primary malignant neoplasm of right upper lobe of lung (HCC) Procedures MI INJECTION, METHYLPREDNISOLONE SODIUM SUCCINATE, 5 MG MI INJECTION, MAGNESIUM SULFATE, PER 500 MG Deniz Echavarria MD [address] [place] [address] Phone: tel: fax: [facility] [place] [phone] Phone: tel: fax: Referral ID Status Reason Start Date Expiration Date V isits Requested Visits Authorized [id number] Authorized 05/10/2025 08/10/2025 30 30 [facility] for visit Narrative* Episode Based Medication (Routine) - Authorized Specialty Diagnoses / Procedures Referred By Contac t Referred To Contact Diagnoses Primary malignant neoplasm of right upper lobe of lung (HCC) Procedures MI INJECTION, FILGRASTIM-SNDZ, BIOSIMILAR, (ZARXIO), 1 MCG Deniz Echavarria MD [address] [place], [place] [id number] Phone: tel: fax: [facility] [address] [address] Phone: tel: fax: Referral ID Status Reason Start Date Expiration Date V isits Requested Visits Authorized [id number] Authorized 06/07/2025 11/01/2025 99 99 [facility] for visit Narrative* Episode Based Medication (Routine) - Closed Specialty Diagnoses / Procedures Referred By Contac t Referred To Contact Diagnoses Primary malignant neoplasm of right upper lobe of lung (HCC) Procedures MI INJECTION, FILGRASTIM-SNDZ, BIOSIMILAR, (ZARXIO), 1 MCG Deniz Echavarria MD [address] [place] [address] Phone: tel:[phone] fax: [facility] [address] [place] [phone] Phone: tel: fax: Referral ID Status Reason Start Date Expiration Date Visits Re quested Visits Authorized [id number] Closed 06/07/2025 11/01/2025 99 99 [facility] Summary Purpose Family History No Family History Records FoundNo Family History Records FoundNo Family History Records FoundNo Family History Records FoundNo Family History Records FoundNo Family History Records FoundNo Family History Records FoundNo Family History Records FoundNo Family History Records FoundNo Family History Records FoundNo Family History Records Found Advance Directives No Advanced Directives Records Found Date Activated Date Inactivated Comments 06/26/2025 8:52 PM 06/28/2025 6:09 PM Reason for Referral Status Reason Specialty Diagnoses / Procedures Referred By Contact Referred To Contact New Request Diagnoses Nonintractable headache, unspecified chronicity pattern, unspecified headache type Syncope, unspecified syncope type Abnormal carotid duplex scan Idiopathic small fiber peripheral neuropathy Left arm weakness Left shoulder pain, unspecified chronicity Procedures CT ANGIO CHEST (NONCORONARY) WITH AND WITHOUT Robbin Barrientos, [address] [place] [address] Status Reason Specialty Diagnoses / Procedures Referred By Contact Referred To Contact New Request Orthopaedics Diagnoses Nonintractable headache, unspecified chronicity pattern, unspecified headache type Syncope, unspecified syncope type Abnormal carotid duplex scan Idiopathic small fiber peripheral neuropathy Left arm weakness Left shoulder pain, unspecified chronicity Robbin Barrientos DO [address] [place] [address] Status Reason Specialty Diagnoses / Procedures Referre d By Contact Referred To Contact Closed Diagnoses Nonintractable headache, unspecified chronicity pattern, unspecified headache type Syncope, unspecified syncope type Abnormal carotid duplex scan Idiopathic small fiber peripheral neuropathy Left arm weakness Left shoulder pain, unspecified chronicity Procedures CT ANGIO CHEST (NONCORONARY) WITH AND WITHOUT Robbin Barrientos DO [address] [place] [address] Status Reason Specialty Diagnoses / Procedures Referred By Contact Referred To Contact Auth Not Needed Diagnoses Nonintractable headache, unspecified chronicity pattern, unspecified headache type Syncope, unspecified syncope type Abnormal carotid duplex scan Idiopathic small fiber peripheral neuropathy Left arm weakness Left shoulder pain, unspecified chronicity Procedures CT ANGIO CHEST (NONCORONARY) CT ANGIO CHEST (NONCORONARY) WITH AND WITHOUT MI CT ANGIO, CHEST (NON-CORON), COMBO, INCL IMG PROC Robbin Barrientos DO [address] [place] [address] Status Reason Specialty Diagnoses / Procedures Referre d By Contact Referred To Contact Closed Diagnoses Encounter for screening mammogram for breast cancer Procedures MAMMO SCREENING BILATERAL Navneet Villegas, [address] [place] [phone] Status Reason Specialty Diagnoses / Procedures Referred By Contact Referred To Contact Auth Not Needed Magnetic Resonance Imaging Diagnoses Acute pain of left shoulder Procedures MRI SHOULDER LEFT WITHOUT CONTRAST MI MRI, JOINT UPPER EXTREM Marlo Davenport MD [address] [facility] [place] [address] [facility] [address] [place] [address] Status Reason Specialty Diagnoses / Procedures Referred By Contact Referred To Contact New Request Diagnoses Left arm weakness Pain of left arm Small fiber polyneuropathy Vasovagal syncope History of arterial ischemic stroke Procedures EMG & NERVE CONDUCTION Robbin Barrientos DO [address] [place] [address] Status Reason Specialty Diagnoses / Procedures Referred By Contact Referred To Contact Auth Not Needed Diagnoses Left arm weakness Pain of left arm Small fiber polyneuropathy Vasovagal syncope History of arterial ischemic stroke Procedures MRI SPINE CERVICAL WITHOUT CONTRAST MI MRI, CERV SPINE Barrientos Robbin A, DO [address] [place] [address] Status Reason Specialty Diagnoses / Procedures Referred By Contact Referred To Contact Closed Magnetic Resonan ce Imaging Diagnoses Left arm weakness Pain of left arm Small fiber polyneuropathy Vasovagal syncope History of arterial ischemic stroke Procedures MRI SPINE CERVICAL WITHOUT CONTRAST MI MRI, CERV SPINE Robbin Barrientos, DO [address] [place] [address] [facility] [address] [place] [phone] Status Reason Specialty Diagnoses / Procedures Referred By Contact Referred To Contact Auth Not Needed Neurologic Surgery Diagnoses Spinal stenosis in cervical region Robbin Barrientos, DO [address] [place] [address] Status Reason Specialty Diagnoses / Procedures Referred By Contact Referred To Contact New Request Diagnoses Encounter for screening mammogram for breast cancer Procedures MAMMO SCREENING BILATERAL Navneet Villegas, DO [address] [address] Specialty Diagnoses / Procedures Referred By Jayda martinez Referred To Contact Diagnoses History of hernia repair Procedures CT ABDOMEN/PELVIS WITHOUT CONTRAST CHG CT SCAN,ABDOMENT AND PELVIS,W/O CONTRAST Jessica Boykin, DO [address] [place] [address] Referral ID Status Reason Start Date Expiration Date V isits Requested Visits Authorized [id number] New Request 06/23/2022 07/18/2023 1 1 Referral ID Status Reason Start Date Expiration Date Visits Re quested Visits Authorized [id number] Closed 06/23/2022 07/18/2023 1 1 Specialty Diagnoses / Procedures Referred By Contac t Referred To Contact Diagnoses Breast cancer screening by mammogram Procedures MAMMO SCREENING WITH MAVERICK BILATERAL Jose Luna MD [address] [place] [address] Referral ID Status Reason Start Date Expiration Date V isits Requested Visits Authorized [id number] Auth Not Needed 02/19/2024 03/15/2025 1 1 Referral ID Status Reason Start Date Expiration Date Visits Re quested Visits Authorized [id number] Closed 02/19/2024 03/15/2025 1 1 Specialty Diagnoses / Procedures Referred By Contac t Referred To Contact Diagnoses Edema leg Procedures ECHOCARDIOGRAM MI ECHO TTHRC R-T 2D W/WOM-MODE COMPL SPEC&COLR D Jose Luna MD [address] [place] [phone] Referral ID Status Reason Start Date Expiration Date Visits Re quested Visits Authorized [id number] Closed 04/25/2024 05/20/2025 1 1 Specialty Diagnoses / Procedures Referred By Contac t Referred To Contact Pharmacy Diagnoses Type 2 diabetes mellitus with hyperglycemia, with long-term current use of insulin Jose Luna MD [address] [place] [phone] Referral ID Status Reason Start Date Expiration Date V isits Requested Visits Authorized [id number] New Request 11/14/2024 12/09/2025 1 1 Specialty Diagnoses / Procedures Referred By Contac t Referred To Contact Diagnoses Chronic venous insufficiency Procedures VASC DUPLEX VENOUS WITH REFLUX BILATERAL LOWER MI DUP-SCAN XTR VEINS COMPLETE BILATERAL STUDY Jose Luna MD [address] [place] [phone] Referral ID Status Reason Start Date Expiration Date V isits Requested Visits Authorized [id number] New Request 11/14/2024 12/09/2025 1 1 Specialty Diagnoses / Procedures Referred By Contac t Referred To Contact Diagnoses Type 2 diabetes mellitus with hyperglycemia, with long-term current use of insulin Jose Luna MD [address] [facility] [place] [address] Referral ID Status Reason Start Date Expiration Date V isits Requested Visits Authorized [id number] Pending Review 11/14/2024 12/09/2025 1 1 History of Present Illness * Robbin Barrientos, DO - 10/19/2018 10:20 AM EST Formatting of this note may be different from the original. [facility] NOTE Chief complaint: Peripheral Neuropathy History of present illness: Mavis Jackson is a 68 y.o. right handed female who presents in followupfor small fiber peripheral neuropathy, syncope and a history of ischemic stroke. She has had diabetes mellitus for many years. TSH was unremarkable. She does describe burning, aching, stinging pain in her feet bilaterally. She does not have any significant numbness or weakness. She feels she has had these symptoms for at least 5 years. She did have an ischemic stroke in the past. She has some mild decreased vision to the right lower quadrant. She does take Plavix and atorvastatin for secondary stroke prevention. She feels it was due to the stress of her rzdzoxb-hi-qmt and sister's unexpected at the time. She also has had syncope in the past. She states that she had an episode in June 2018. [place] was in a casino and she was sitting at a machine and all of a sudden she felt hot all over, woozy, and sweaty and then slumped over the machine. She states it was less than a minute in length and she does not remember feeling confused or fatigued afterward and was able to discuss the symp toms with EMS. She did not have any postural change prior to the syncope and did not have any tongue biting, convulsive activity or urinary incontinence with the syncope. She denies any numbness or weakness in her arms. She denies any dysphagia, diplopia, dysarthria or ptosis. 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 She felt hot, flushed, sweaty and shaky and her eyes rolled back. It lasted 2-3 minutes and then went away. She did not lose consciousness. This was the first episode since May 2018. She did see cardiology Dr. Rice. 30 day heart monitor was done and results are pending at this time. Cardiac stress test was unremarkable. EEG was unremarkable. Her neuro pathic pain in her feet is worse at night. She has headaches as well. They are typically on the left side of the head and can be sharp and severe. They do spread to her forehead. It can occur any time of the day and last up to 5 minutes. She will grab her head and lay down when it occurs. MRI of the brain showed moderate to severe chronic small vessel disease. Encephalomalacia was seen in the left occipital lobe area and mild volume loss was noted. EMG/nerve conduction study of the left leg wasunremarkable. There was no evidence of large fiber peripheral neuropathy. Vitamin B1, SSA, SSB, ZION, DSDNA antibodies, Heavy metals, ESR, Vitamin B6, TSH, SPEP with immunofixation were unremarkable. B12 was 467. Vitamin E was low. She was started on oral B12 supplementation. MRI lumbar spine did not show any central canal or neuroforaminal stenosis. She was started on Topamax 25 mg BID for the headaches. She states that she has not had any episodes of syncope since she was last seen. She statesthat she is having less headaches since starting the topamax. She states that she is getting one or two headaches a week. She does have some mild nausea with the medication. She is seeing pain management and they are considering radiofrequency ablation. She was getting headaches every other day prior to starting the Topamax. She has noticed increased left shoulder pain and left deltoid weakness for some time and has never seen anyone for. Carotid ultrasound showed less than 50% stenosis bilatera lly but did show retrograde flow in the right vertebral artery concerning for proximal subclavian artery stenosis on that side. Review of Systems: Comments Neurological As above General/constitutional No fevers, weight change, chills, fatigue, night sweats Skin No rash, edema, bruising HEENT No diplopia, dysphagia, dizziness, tinnitus, hearing loss Cardiovascular No dyspnea or chest pain, palpitaitons, peripheral edema Respiratory No SOB, wheezing, rhonchi, cough or rales Gastrointestinal No loss of bowel control, constipation, diarrhea, abdominal pain, nausea or vomiting Genitourinary No loss of bladder control, no sexual dysfunction, hematuria, dysuria Musculoskeletal No myalgias, weakness, atrophy, joint pain, neck pain or back pain Psychiatric No depression, anxeity, hallucinations, delusions Endocrine No changes to hair or nails, abnormal sweating, hot flashess, excessive thirst, polyuria Hematologic No easy bruising, bleeding, swollen lymph nodes Unless directly addressed in ROS or in assessment and plan, patient was instructed to followup positive ROS findings with PCP. Past Medical History: Diagnosis Date Arthritis COPD (chronic obstructive pulmonary disease) Depression Diabetes mellitus GERD (gastroesophageal reflux disease) Glaucoma Hyperlipidemia Stroke Past Surgical History: Procedure Laterality Date EXTRACTION EXTRACAPSULAR CATARACT W/ IMPLANT (ECCE IOL) Bilateral 2017 REPAIR HERNIA INCISIONAL/VENTRAL OPEN W/ MESH 1984 TUBAL LIGATION 1970 with reversal HYSTERECTOMY TOTAL ABDOMINAL OPEN (ISABEL) W/ REMOVAL TUBES/OVARIES 1970 TONSILLECTOMY ADENOIDECTOMY 1966 SECTION 1980,1982 Family History Problem Relation Age of Onset Lung Cancer Mother Diabetes Mother Coronary Artery Disease Mother Hypertension Mother Kidney Disease Mother Lung Cancer Father Social History Social History Marital status: Spouse name: N/A Number of children: N/A Years of education: N/A Occupational History Not on file. Social History Main Topics Smoking status: Current Every Day Smoker Packs/day: 0.75 Years: 46.00 Types: Cigarettes Smokeless tobacco: Never Used Alcohol use Yes Comment: rare Drug use: No Sexual activity: Not on file Other Topics Concern Not on file Social History Narrative No narrative on file Allergies Allergen Reactions Propoxyphene Itching Darvocet Current Outpatient Prescriptions Medication Sig Dispense Refill atorvastatin 40 MG Tab tablet Take 1 tablet by mouth at bedtime. 30 tablet 2 buPROPion (WELLBUTRIN XL) 300 MG tablet XL Take 1 tablet by mouth every morning before breakfast. 30 tablet 2 clopidogrel (PLAVIX) 75 MG Tab tablet Take 1 tablet by mouth daily. 30 tablet 2 escitalopram (LEXAPRO) 10 MG Tab tablet Take 1 tablet by mouth daily. (Patient not taking: Reportedon 09/14/2018 ) 30 tablet 2 insulin NPH (NOVOLIN N) 100 UNIT/ML injection Inject 15 Units under the skin daily every morning. insulin regular 1 unit/0.01 ml vial 6 U AC breakfast, 6 U AC Lunch, 8 U AC Dinner MAXIMUM D3 49473 units Cap 1 q weekly. JOANNE, Multiple Vitamin (MULTIVITAMIN) Tab Take 1 tablet by mouth daily. nicotine 21 MG/24HR Patch [address] 1 patch on skin every 24 hours. (Patient not taking: Reported on 09/14/2018 ) omeprazole (PRILOSEC OTC) [address] tablet Take 1 tablet by mouth 2 times daily (take before meals). tizanidine 2 MG Tab Take 1 tablet by mouth at bedtime as needed. 30 tablet 1 topiramate 25 MG Tab tablet Take 1 tablet by mouth 2 times daily. 60 tablet 1 No current facility-administered medications for this visit. Physical Exam: Vitals: 10/19/18 1007 BP: 136/90 Pulse: 84 Resp: 20 Weight: 75.7 kg (166 lb 14.4 oz) Height: 1.524 m (5') General: In no acute distress. HENT: Normal oropharynx and mucosa. Normal external appearance of ears and nose. Neck: Supple, no pain or tenderness CV: RRR without murmur. No peripheral edema. Pulmonary: Clear to auscultation bilaterally. Normal respiratory effort. Abdomen: positive bowel sounds, soft, non-tender. Normal liver and spleen size. Ext: No cyanosis, edema, or deformity Skin: No rash. Normal palpation of skin. Musculoskeletal: full range of motion; no joint tenderness. Normal digits and nails by inspection. No clubbing. Neurological Examination Mental status: awake and alert; oriented to person, place, year, and month; good attention. Normal mood and affect. Normal insight into condition. Speech/language: fluent; comprehension intact; object naming intact; repetition intact Cranial nerves: CN II: Visual lei intact to confrontation. PERRL. Normal conjunctivae and lids. Fundoscopic examwithin normal limits. No evidence of hemorrhage or papilledema. Optic nerve within normal limits. executive secretary III, IV and : extraocular movements intact. No nystagmus. CN V: Facial sensation is intact to light touch. CN VII: Facial strength normal with symmetric movement. CN VIII: Hearing is grossly intact. CN IX and X: Soft palate elevates symmetrically in the midline CN XI: Shoulder shrug and sternocleidomastoid strength (R/L) 5/5 CN XII: Tongue is midline with normal movement; no fasciculations. Motor: Normal bulk and tone. No pronator drift. SA EE EF WE WF DI HF KE KF DF PF Right 5 5 5 5 5 5 5 5 5 5 5 Left 3 5 5 5 5 5 5 5 5 5 5 Reflexes: Right Left Comments Biceps 2 2 Triceps 2 2 Brachioradialis 2 2 Patellar 2 2 Achilles 2 2 Jaw jerk Peralta Babinski Down Down Coordination: [id number]-td-[id number] intact bilaterally. Rcon-vi-npuj intact bilaterally. Rapid alternatingmovements are normal. Sensation: Comments Light touch Decreased below the ankles Pin prick Decreased below the ankles Temperature Decreased below the ankles Vibration Decreased below the ankles Proprioception Decreaesed below the ankles Gait: Normal stride length, arm swing, and base width. Negative Romberg. All pertinent labs and images were reviewed with the patient. Assessment and Plan: 1. Nonintractable headache, unspecified chronicity pattern, unspecified headache type - AMB REFERRAL TO ORTHOPAEDICS - CT ANGIO CHEST (NONCORONARY) WITH AND WITHOUT; Future - CREATININE SERUM; Future 2. Syncope, unspecified syncope type - AMB REFERRAL TO ORTHOPAEDICS - CT ANGIO CHEST (NONCORONARY) WITH AND WITHOUT; Future - CREATININE SERUM; Future 3. Abnormal carotid duplex scan - AMB REFERRAL TO ORTHOPAEDICS - CT ANGIO CHEST (NONCORONARY) WITH AND WITHOUT; Future - CREATININE SERUM; Future 4. Idiopathic small fiber peripheral neuropathy - AMB REFERRAL TO ORTHOPAEDICS - CT ANGIO CHEST (NONCORONARY) WITH AND WITHOUT; Future - CREATININE SERUM; Future 5. Left arm weakness - AMB REFERRAL TO ORTHOPAEDICS - CT ANGIO CHEST (NONCORONARY) WITH AND WITHOUT; Future - CREATININE SERUM; Future 6. Left shoulder pain, unspecified chronicity - AMB REFERRAL TO ORTHOPAEDICS - CT ANGIO CHEST (NONCORONARY) WITH AND WITHOUT; Future - CREATININE SERUM; Future At this time Mrs. Jackson is doing well overall. Her headaches have improved somewhat. She will continue Topamax 25 mg twice a day for headache prevention. Side effects of Topamax were reviewed with the patient which include but are not limited to acute angle closure glaucoma, myopia, paresthesia, eye pain, word finding difficulty, cognitive abnormalities, memory disturbances, poor concentration,kidney stones, weight loss, metabolic acidosis, cleft lip and cleft palate when given to women, nausea, diarrhea, abnormal taste, abdominal pain. Carotid ultrasound did show some findings concerning for proximal subclavian artery stenosis and they have recommended a CTA of the chest to evaluate this further. We will order that at this time. We will check a creatinine level. She will be referred to orthopedics for evaluation of whether or not she has a torn rotator cuff on the left shoulder or other shoulder abnormality. She has not had any syncopal episodes since she was last seen. 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 I would recommend consideration of a tilt table test given her syncope to rule out a vagal cause. We will see her back in the outpatient neurology clinic in 3 months. She will call us immediately should she have any significant worsening of symptoms or should any new symptomsarise. Greater than 51% of this visit was spent in [id number] time counseling the patient her condition. Echocardiogram and stress test was unremarkable. She does have tingling and numbness in her feet as well as stinging and burning neuropathic pain in her feet consistent with small fiber peripheral neuropathy due to her diabetes mellitus. She will continue to follow with pain management for her lumbar spine abnormalities. This dictation was done by using the [employer] dictation system.It has been proofread but still may contain unrecognized voice recognition errors. in this encounter* Chantel Rice, - 10/20/2018 8:30 AM EST Formatting of this note may be different from the original. Chief Complaint Patient presents with Follow-up 8 week follow up. Stress/Holter 08/31/18. Denies chest pain, palpitations, shortness of breath, or swelling. States she has dizziness sometimes with getting up to fast. History of Present Illness 68 y.o. female past medical history significant for CVA, dyslipidemia, diabetes mellitus, tobacco abuse, who presents to my office today for for follow-up on stress testing. Patient denies any recent episodes of syncope. She denies any episodes of chest pain. She states that she still gets dizziness when she is shifting positions from sitting to standing and occasionallyshe does get feelings of hot flashes which she has recent anxiety.. Allergies Allergen Reactions Propoxyphene Itching Darvocet Outpatient Medications Prior to Visit Medication Sig Dispense Refill atorvastatin 40 MG Tab tablet Take 1 tablet by mouth at bedtime. 30 tablet 2 buPROPion (WELLBUTRIN XL) 300 MG tablet XL Take 1 tablet by mouth every morning before breakfast. 30 tablet 2 clopidogrel (PLAVIX) 75 MG Tab tablet Take 1 tablet by mouth daily. 30 tablet 2 insulin NPH (NOVOLIN N) 100 UNIT/ML injection Inject 15 Units under the skin daily every morning. insulin regular 1 unit/0.01 ml vial 6 U AC breakfast, 6 U AC Lunch, 8 U AC Dinner MAXIMUM D3 72594 units Cap 1 q weekly. JOANNE, Multiple Vitamin (MULTIVITAMIN) Tab Take 1 tablet by mouth daily. omeprazole (PRILOSEC OTC) [address] tablet Take 1 tablet by mouth 2 times daily (take before meals). tizanidine 2 MG Tab Take 1 tablet by mouth at bedtime as needed. 30 tablet 1 topiramate 25 MG Tab tablet Take 1 tablet by mouth 2 times daily. 60 tablet 2 escitalopram (LEXAPRO) 10 MG Tab tablet Take 1 tablet by mouth daily. (Patient not taking: Reportedon 09/14/2018 ) 30 tablet 2 nicotine 21 MG/24HR Patch [address] 1 patch on skin every 24 hours. (Patient not taking: Reported on 09/14/2018 ) No facility-administered medications prior to visit. Family History Problem Relation Age of Onset Lung Cancer Mother Diabetes Mother Coronary Artery Disease Mother Hypertension Mother Kidney Disease Mother Lung Cancer Father has a past surgical history that includes repair hernia incisional/ventral open w/ mesh (1984); tubal ligation (1970); tonsillectomy adenoidectomy (1966); section (1980,1982); hysterectomy total abdominal open (isabel) w/ removal tubes/ovaries (1970); and extraction extracapsular cataract w/ implant (ecce iol) (Bilateral, 2016). Social History Social History Marital status: Spouse name: N/A Number of children: N/A Years of education: N/A Occupational History Not on file. Social History Main Topics Smoking status: Current Every Day Smoker Packs/day: 0.25 Years: 46.00 Types: Cigarettes Smokeless tobacco: Never Used Alcohol use Yes Comment: rare Drug use: No Sexual activity: Not on file Other Topics Concern Not on file Social History Narrative No narrative on file Review of System Constitutional: positive forfatigue, significant weight loss Hematologic: Negative anemia, cancer, clotting disorder Endocrine: positive for diabetes, thyroid abnormality, flushing Skin: Negative rash, no ulcerations, no jaundice HEENT: positive for peripheral visual field deficits from history of previous stroke Cardiovascular: occasional palpitations palpitations, chest pain, syncope as per history of presentillness , edema Respiratory: Negative shortness of breath, cough, wheeze Gastrointestinal: Negative for abdominal pain, hepatic upper or lower GI abnormalities Genitourinary: Negative for , dysuria, hematuria, nephrolithiasis Neurological: Negative for dizziness,history of TIA, history of CVA, paresthesia Psychiatric: Negative depression, anxiety, psychiatric disorder Musculoskeletal: Negative for joint pain, swelling, deformity Blood pressure 124/70, pulse 80, resp. rate 18, height 1.524 m (5'), weight 76.1 kg (167 lb 11.2 oz), SpO2 97 %. Body mass index is 32.75 kg/m . Physical Exam General appearance - alert and oriented, well developed, well nourished HEENT AT/NC, EOMI, Trachea midline Neck - , No JVD or bruits. No thyromegaly Lungs - clear to auscultation, no wheezes,no rales or rhonchi. Good inspiratory effort Heart - regular rate and regular rhythm, normal S1 and S2 , no significant murmurs,no click rub or lift , No shifting in PMI Abdomen - soft, nontender, no organomegaly, intact BS Extremities -no Edema, warm feet bilateral no open sores or lesions , intact pedal pulses B/L Psych- appropriate mood, appropriate affect Musculoskeletal - no joint deformity, or significant edema Neurological: CN II-XII GI , no focal motor or sensory deficits Lab Results: Lab Results Component Value Date SODIUM 138 09/08/2018 POTASSIUM 3.9 09/08/2018 CALCIUM 9.5 09/08/2018 CHLORIDE 101 09/08/2018 TP 7.6 09/08/2018 TP 6.8 09/08/2018 BUN 15 09/08/2018 CREATSERUM 0.9 09/08/2018 ALBUMIN 4.1 09/08/2018 ALBUMIN 3.5 09/08/2018 BILITOTAL 0.8 09/08/2018 AST 20 09/08/2018 ALKPHOS 118 09/08/2018 CO2 26 09/08/2018 AGRATIO 1.2 (L) 09/08/2018 AGRATIO 1.1 09/08/2018 ALT 18 09/08/2018 GFR >60 09/08/2018 GFRAA >60 09/08/2018 GFRCOMMENT Average GFR for 60-69 years old = 85. 09/08/2018 GLUCOSE 96 09/08/2018 Lab Results Component Value Date CHOLESTEROL 155 06/16/2018 TRIG 144 06/16/2018 HDL 47 06/16/2018 LDLCALC 79 06/16/2018 BLDL 29 (H) 06/16/2018 TCHHDLMANENT 3.30 06/16/2018 Lab Results Component Value Date WBC 7.1 06/16/2018 RBC 5.21 06/16/2018 HGB 16.0 06/16/2018 HCT 46.4 06/16/2018 MCV 89.0 06/16/2018 MEANCELHGB 30.7 06/16/2018 MEANCELHGCON 34.4 06/16/2018 RBCDISTRIBU 13.1 06/16/2018 PLATELET 267 06/16/2018 MPV 8.3 06/16/2018 NEUTROPHILS 53.5 06/16/2018 LYMPHOCYTES 33.0 06/16/2018 MONOCYTE 7.5 06/16/2018 EOSINOPHILS 5.3 06/16/2018 EOSINOPHILS 0.40 06/16/2018 BASOPHILS 0.7 06/16/2018 BASOPHILS 0.1 06/16/2018 DIFFTYPE AUTO DIFF 06/16/2018 HGBA1C 7.9 (H) 09/08/2018 ESTAVGGLUCOS 180 09/08/2018 TSH 1.421 09/08/2018 Assessment & Plan .chest pain with no further recurrence. Stress testing did not show any evidence of reversible ischemia TID was 1.17 however note that this was with [facility] which has higher TID threshold at 1.36. . Continue with Plavix, atorvastatin . She was given specific instructions that should she have any further chest pain to contact my office immediately she is also to go to the nearest ER if she was experienced any chest pain that is not resolving.. . Presyncope/syncope: event monitor was bbenign . Patient's symptoms most likely are vasovagal. Asked patient to increase hydration and were compression stockings . History of CVA: with residual peripheral vision deficits . Continue with Plavix and atorvastatin . Encouraged tobacco cessation . Diabetes mellitus: . Management per PCP . Dyslipidemia: . Continue with atorvastatin, last LDL 79 . Tobacco habituation . Currently on Wellbutrin which seems to be helping with her quitting We'll see me back in one year Chantel Rice DO 10/20/2018 10:22 AM in this encounter* Marlo Davenport MD - 11/17/2018 1:40 PM EST Formatting of this note may be different from the original. Chief Complaint Patient presents with Shoulder Pain Left Shoulder. NKI. Patient states that she has had pain for a couple years. Pain is felt on the lateral side of her arm and radiates to the bicep. She states that she has trouble sleeping at night, and usually needs to be elevated to sleep. She is also states that she has to use her right arm to raise her left arm overhead. No prior injections. HPI: The patient is a pleasant 68 y.o. year old female with a complaint of left shoulder pain. Symptoms started approximately two years ago. There is no history of trauma and no history of dislocations orinstability. Pain is present at night when laying on the left side. Prior treatment has included rest and NSAIDS. The patient has not had injections. No neurovascular complaints or other concerns. PMH: Past medical history, family history, social history, allergies and medications have been reviewed and are documented in the electronic record. ROS: Review of Systems System Neg/Pos Details Constitutional Negative Chills, fatigue, fever and night sweats. ENMT Negative Dysphagia, hearing loss, nasal congestion and vertigo. Eyes Negative Blurred vision and vision loss. Respiratory Negative Chest pain, cough, dyspnea, known TB exposure and wheezing. Cardio Negative Chest pain, cyanosis, heart murmur, irregular heartbeat/palpitations and syncope. GI Negative Abdominal pain, black tarry stools, constipation, diarrhea, heartburn, nausea and vomiting. Negative Dysuria, frequent urination, hematuria, nocturia and urinary incontinence. Endocrine Negative Weight gain and weight loss. Neuro Negative Difficulty walking, headache, paresthesia, poor coordination and seizures. Psych Negative Anxiety, depression and insomnia. Integumentary Negative Frequent skin infections, itching skin, rash and skin lesion. MS Negative Except as noted in HPI and chief complaint and muscle weakness. Red/Lymph Negative Bruising and easy bleeding. Allergic/Immuno Negative Contact dermatitis, environmental allergies, food allergies, infections and seasonal allergies. Vitals: 11/17/18 1301 Temp: 97.9 degrees F (36.6 degrees C) Weight: 76.1 kg (167 lb 11.2 oz) Height: 1.524 m (5') Physical Exam: Exam Findings Details Constitutional Normal No acute distress. Well developed. Head/Face Comments normal cephallic/ Atraumatic, negative spurling's maneuver Head/Face Normal Facial features - Normal. Skull - Normal. Hair and scalp - Normal. Respiratory Normal Cough - Absent. Effort - Normal. Skin * Detailed inspection - Visual lesions: none. Skin Comments other than as noted otherwise below in extremity exam Skin Normal Palpation/texture - Normal. Nails - Normal. Hair - Normal. Psychiatric Normal Orientation - Oriented to time, place, person & situation. left Shoulder Exam Inspection: No swelling. No atrophy. No deformity. ROM: FF 90/110, IR L4, ER 70/70. No scapular dyskinesia. Strength: Supraspinatus 4-/5, ER 5/5, Internal Rotation 5/5 Impingement signs: Hawkin's test:Positive, Neer's Sign:Positive Apprehension: Negative Elk's test: Negative Biceps tenderness: Positive Speed's test: Positive,Yergason's test:Not Tested/Assessed AC tenderness: positive Distally neurovascular intact with 2+ radial pulses and full sensation in R/U/M/axillary nerve distribution. Uninvolved Shoulder Exam: ROM: FF 180/180, Abd: 180/180, IR:T2, ER: 80/80 Strength: Supraspinatus 5/5, ER 5/5, IR 5/5. Distally neurovascular intact with 2+ radial pulses. Review of Images: See procedure note Assessment: ICD-10-CM 1. Left shoulder pain, unspecified chronicity M25.512 2. Shoulder impingement, left M75.42 Plan: At this time we have discussed the natural history and progression of shoulder impingement with thepatient as well as both conservative vs surgical treatment. The patient understands the various options and agrees to the following plan: I would recommend that we begin with some physical therapy, NSAIDS use, and a subacromial injection at this time. If the patient does not improve after the next eight or so weeks then we would consider an MRI. We will see them back at that time for repeat evaluation. If there are any questions in the meantime, they are free to call the office earlier. LARGE JOINT INJECTION Date/Time: 11/17/2018 2:13 PM Consent: Consent was obtained prior to the procedure after discussion of the risks, benefits and alternatives, and expected outcomes were discussed with the patient. The possibilities of reaction to medication, bleeding, infection, the need for additional procedures, failure to diagnosis a condition, and creating a complication requiring operation were discussed with the patient. The patient concurred with the proposed plan, giving consent. Supporting Documentation Indications: pain Procedure Details Location: shoulder - L subacromial bursa Local Anesthetic Used: mL of ethyl chloride (cold spray) Preparation: Patient was prepped in the usual sterile fashion with alcohol. Needle size: 22 G Approach: posterior Medication Verification: I have personally verified and performed the final check of the medication(s) used in this procedure prior to administration. The following items were included during the verification process for medication(s) administered: drug name, strength, volume, expiration, physical integrity and appearance of the medication(s). Medications administered: 2 mL bupivacaine 0.5 %; 4 mL lidocaine 10 mg/mL; 40 mg methylPREDNISoloneacetate 40 MG/ML Patient tolerance: patient tolerated the procedure well with no immediate complications Breana Yates, AT/OTC was acting as a scribe today for this note. I have performed all essential components of the history, and physical exam. I have confirmed the diagnosis and developed a plan of care at this visit. I have reviewed the note following the visit and have add edits as appropriate to my evaluation and plan of care. Marlo Davenport MD * Marlo Davenport MD - 11/17/2018 1:40 PM EST Procedures Four views were obtained of the left shoulder in our office today and interpreted by me show: no fractures, subluxations, or dislocations. They reveal a type III acromion. There are arthritic changesof the acromioclavicular joint- severe. There are not arthritic changes of the glenohumeral joint- . There is evidence of impingement with tuberosity changes. There are not calcific tendinitis changes. There is not superior migration of the humeral head. The glenohumeral joint is reduced. No other osseous abnormalities. * Breana Yates ATC - 11/17/2018 1:40 PM EST Associated Order(s): LARGE JOINT INJECTION Formatting of this note may be different from the original. Chief Complaint Patient presents with Shoulder Pain Left Shoulder. NKI. Patient states that she has had pain for a couple years. Pain is felt on the lateral side of her arm and radiates to the bicep. She states that she has trouble sleeping at night, and usually needs to be elevated to sleep. She is also states that she has to use her right arm to raise her left arm overhead. No prior injections. HPI: The patient is a pleasant 68 y.o. year old female with a complaint of left shoulder pain. Symptoms started approximately two years ago. There is no history of trauma and no history of dislocations orinstability. Pain is present at night when laying on the left side. Prior treatment has included rest and NSAIDS. The patient has not had injections. No neurovascular complaints or other concerns. PMH: Past medical history, family history, social history, allergies and medications have been reviewed and are documented in the electronic record. ROS: Review of Systems System Neg/Pos Details Constitutional Negative Chills, fatigue, fever and night sweats. ENMT Negative Dysphagia, hearing loss, nasal congestion and vertigo. Eyes Negative Blurred vision and vision loss. Respiratory Negative Chest pain, cough, dyspnea, known TB exposure and wheezing. Cardio Negative Chest pain, cyanosis, heart murmur, irregular heartbeat/palpitations and syncope. GI Negative Abdominal pain, black tarry stools, constipation, diarrhea, heartburn, nausea and vomiting. Negative Dysuria, frequent urination, hematuria, nocturia and urinary incontinence. Endocrine Negative Weight gain and weight loss. Neuro Negative Difficulty walking, headache, paresthesia, poor coordination and seizures. Psych Negative Anxiety, depression and insomnia. Integumentary Negative Frequent skin infections, itching skin, rash and skin lesion. MS Negative Except as noted in HPI and chief complaint and muscle weakness. Red/Lymph Negative Bruising and easy bleeding. Allergic/Immuno Negative Contact dermatitis, environmental allergies, food allergies, infections and seasonal allergies. Vitals: 11/17/18 1301 Temp: 97.9 degrees F (36.6 degrees C) Weight: 76.1 kg (167 lb 11.2 oz) Height: 1.524 m (5') Physical Exam: Exam Findings Details Constitutional Normal No acute distress. Well developed. Head/Face Comments normal cephallic/ Atraumatic, negative spurling's maneuver Head/Face Normal Facial features - Normal. Skull - Normal. Hair and scalp - Normal. Respiratory Normal Cough - Absent. Effort - Normal. Skin * Detailed inspection - Visual lesions: none. Skin Comments other than as noted otherwise below in extremity exam Skin Normal Palpation/texture - Normal. Nails - Normal. Hair - Normal. Psychiatric Normal Orientation - Oriented to time, place, person & situation. left Shoulder Exam Inspection: No swelling. No atrophy. No deformity. ROM: FF 90/110, IR L4, ER 70/70. No scapular dyskinesia. Strength: Supraspinatus 4-/5, ER 5/5, Internal Rotation 5/5 Impingement signs: Hawkin's test:Positive, Neer's Sign:Positive Apprehension: Negative Elk's test: Negative Biceps tenderness: Positive Speed's test: Positive,Yergason's test:Not Tested/Assessed AC tenderness: positive Distally neurovascular intact with 2+ radial pulses and full sensation in R/U/M/axillary nerve distribution. Uninvolved Shoulder Exam: ROM: FF 180/180, Abd: 180/180, IR:T2, ER: 80/80 Strength: Supraspinatus 5/5, ER 5/5, IR 5/5. Distally neurovascular intact with 2+ radial pulses. Review of Images: See procedure note Assessment: ICD-10-CM 1. Left shoulder pain, unspecified chronicity M25.512 2. Shoulder impingement, left M75.42 Plan: At this time we have discussed the natural history and progression of shoulder impingement with thepatient as well as both conservative vs surgical treatment. The patient understands the various options and agrees to the following plan: I would recommend that we begin with some physical therapy, NSAIDS use, and a subacromial injection at this time. If the patient does not improve after the next eight or so weeks then we would consider an MRI. We will see them back at that time for repeat evaluation. If there are any questions in the meantime, they are free to call the office earlier. LARGE JOINT INJECTION Date/Time: 11/17/2018 2:13 PM Consent: Consent was obtained prior to the procedure after discussion of the risks, benefits and alternatives, and expected outcomes were discussed with the patient. The possibilities of reaction to medication, bleeding, infection, the need for additional procedures, failure to diagnosis a condition, and creating a complication requiring operation were discussed with the patient. The patient concurred with the proposed plan, giving consent. Supporting Documentation Indications: pain Procedure Details Location: shoulder - L subacromial bursa Local Anesthetic Used: mL of ethyl chloride (cold spray) Preparation: Patient was prepped in the usual sterile fashion with alcohol. Needle size: 22 G Approach: posterior Medication Verification: I have personally verified and performed the final check of the medication(s) used in this procedure prior to administration. The following items were included during the verification process for medication(s) administered: drug name, strength, volume, expiration, physical integrity and appearance of the medication(s). Medications administered: 2 mL bupivacaine 0.5 %; 4 mL lidocaine 10 mg/mL; 40 mg methylPREDNISoloneacetate 40 MG/ML Patient tolerance: patient tolerated the procedure well with no immediate complications in this encounter* Navneet Villegas, DO - 03/02/2019 11:00 AM EDT History of Present Illness HISTORY OF PRESENT ILLNESS: 68 y.o. female presents with complaints of: Encounter Diagnoses Name Primary? Type 2 diabetes mellitus, uncontrolled, with neuropathy-Insulin requiring Yes Hyperlipidemia LDL goal <70 Chronic midline low back pain with bilateral sciatica Carotid artery stenosis, asymptomatic, bilateral-<50% bilateral stenosis Cerebral ischemia-Moderate to severe Chronic obstructive pulmonary disease, unspecified COPD type Chronic pain in left shoulder Menopause Urinary frequency Smoker Tobacco abuse counseling Electronic cigarette use Tinea cruris Vitamin D deficiency Type 2 DM, CVA, Memory loss, chronic left shoulder pain and COPD. Needs refills. Possibly having left shoulder surgery on 03-24-[address] Davenport. Will have MRI Left shoulder soon with Dr. Davenport. Smoker. Trying to quit. Using eCigs. +Fam hx DM. +Mild edema. +Left shoulder pain, daily, moderate, for 1 year. No injury. No radiation. No swelling. +LBP, daily, moderate. Worse with activity. +Radiat ion to LE's. +Weakness or LE's. No numbness. No C.P., SOB, Palpitations, Dizziness, Fatigue, GERD, Melena, Hematochezia, Dysuria. +Frequency. All others negative on ROS. Recent Mammogram is WNL. Review of Systems Constitutional: Negative for fatigue and unexpected weight change. Eyes: Negative for visual disturbance. Respiratory: Negative for shortness of breath. Cardiovascular: Negative for chest pain, palpitations and leg swelling. Gastrointestinal: Negative for abdominal pain and blood in stool. No GERD Genitourinary: Positive for frequency. Negative for dysuria. Musculoskeletal: Positive for arthralgias (Left shoulder) and back pain. Neurological: Positive for weakness (LE'S). Negative for dizziness and numbness. Psychiatric/Behavioral: Positive for confusion. Negative for dysphoric mood and sleep disturbance. The patient is not nervous/anxious. All other systems reviewed and are negative. Vitals: Blood pressure 129/84, pulse 90, temperature 98.3 F (36.8 C), temperature source Temporal, height 1.524 m (5'), weight 76.2 kg (168 lb), SpO2 97 %. Physical Exam Constitutional: She is oriented to person, place, and time. HENT: Head: Normocephalic and atraumatic. Right Ear: External ear normal. Left Ear: External ear normal. Nose: Nose normal. Mouth/Throat: Oropharynx is clear and moist. No oropharyngeal exudate. Eyes: Pupils are equal, round, and reactive to light. Conjunctivae and EOM are normal. Neck: No thyromegaly present. Cardiovascular: Normal rate, regular rhythm, normal heart sounds and intact distal pulses. No murmur heard. Pulmonary/Chest: Effort normal and breath sounds normal. She has no wheezes. She exhibits no tenderness. Abdominal: Soft. Bowel sounds are normal. She exhibits no distension and no mass. There is no tenderness. There is no rebound and no guarding. Musculoskeletal: She exhibits no edema, tenderness or deformity. Decr ROM L-spine on flexion Lymphadenopathy: She has no cervical adenopathy. Neurological: She is alert and oriented to person, place, and time. She displays normal reflexes. No cranial nerve deficit or sensory deficit. She exhibits normal muscle tone. Coordination normal. Psychiatric: She has a normal mood and affect. Her behavior is normal. Judgment and thought contentnormal. Discussed the importance of sharing/withholding information with the patient. The patient denies suicide or homicide intent, and is competent. Neurologic Exam Mental Status Oriented to person, place, and time. Cranial Nerves CN III, IV, Pupils are equal, round, and reactive to light. Extraocular motions are normal. Assessment and Plan Refills given all meds requested. Hold Plavix 1 week prior to planned surgery tentatively oin 03-24-[address] Davenport, and check MRI Left shoulder and PAT with him prior to surgery. Refer to Dr. Rogelio Rice for pre-op clearance, and re- eval with Dr. Barrientos on 03-11-19 for per-op clearance as well. Pre-op clearance given today, pending clearance also from Drs. Rogelio Rice to whom she was referred today and also from Dr. Barrientos with whom she has an appt on 03-11-19. Check PFT today and annually in . [place] Smoking and eCigs use.SMOKING/TOBACCO CESSATION COUNSELING GIVEN for 3 minutes. Discussed withpatient the importance of Smoking cessation, and the immediate and alf health benefits. Discussed behavioral changes, and various aids including medications and other alternatives. Helene 05-13-19with Ms. Bee. Check fasting CBC, CMP, A1C, Lipid, TSH, UA, Vit D on approx 05-18-19 at [facility]. RX written and give for Handicap placard. Rx #1 Bottle with 2 rf's of Mycostatin powder to use TIDunder the breasts during the warm months. Helene 05-23-[address] Oliver and also on 06-03-19. Helene 05-25-19 for F/U and refer to [facility], [facility] prn. Helene annual Carotid doppler in . Helene with Dr. Rogelio Rice for annual helene. Helene Mammogram in . Helene annual PFT in . Helene Colon [id number]. No PAP needed.OARRS report was received and assessed, and is consistent with the medications prescribed.Thank you for choosing Dr. Navneet Villegas s Office at [facility] for your healthcare needs.The patients' entire past medical, surgical, family, social history, allergies, medications, recent labs, recent imaging and senior analytic consultant letters were reviewed and updated. ASSESSMENT & PLAN: Encounter Diagnoses Name Primary? Type 2 diabetes mellitus, uncontrolled, with neuropathy-Insulin requiring Yes Hyperlipidemia LDL goal <70 Chronic midline low back pain with bilateral sciatica Carotid artery stenosis, asymptomatic, bilateral-<50% bilateral stenosis Cerebral ischemia-Moderate to severe Chronic obstructive pulmonary disease, unspecified COPD type Chronic pain in left shoulder Menopause Urinary frequency Smoker Tobacco abuse counseling Electronic cigarette use Tinea cruris Vitamin D deficiency Orders Placed This Encounter Procedures CBC, EDIF, PLATELET Draw extra [place] top tube please. Copies to Dr. Sandie Rice and Robbin Barrientos Standing Status: Future Standing Expiration Date: 03/01/2020 Order Specific Question: Select research study to bill: Answer: NONE [NO STUDY] COMPREHENSIVE METABOLIC PANEL Standing Status: Future Standing Expiration Date: 03/01/2020 Order Specific Question: Select research study to bill: Answer: NONE [NO STUDY] HEMOGLOBIN A1C Standing Status: Future Standing Expiration Date: 03/01/2020 Order Specific Question: Select research study to bill: Answer: NONE [NO STUDY] LIPID PANEL W CALCULATED LDL Standing Status: Future Standing Expiration Date: 03/01/2020 Order Specific Question: Select research study to bill: Answer: NONE [NO STUDY] TSH Standing Status: Future Standing Expiration Date: 03/01/2020 Order Specific Question: Select research study to bill: Answer: NONE [NO STUDY] URIC ACID Standing Status: Future Standing Expiration Date: 03/01/2020 Order Specific Question: Select research study to bill: Answer: NONE [NO STUDY] VITAMIN D (25-HYDROXY,TOTAL) Standing Status: Future Standing Expiration Date: 03/01/2020 Order Specific Question: Select research study to bill: Answer: NONE [NO STUDY] Medications Discontinued During This Encounter Medication Reason escitalopram (LEXAPRO) 10 MG Tab tablet omeprazole (PRILOSEC) [address] capsule Reorder insulin regular 1 unit/0.01 ml vial insulin NPH (NOVOLIN N) 100 UNIT/ML injection clopidogrel (PLAVIX) 75 MG Tab tablet Reorder buPROPion (WELLBUTRIN XL) 300 MG tablet XL Reorder atorvastatin 40 MG Tab tablet Reorder Current Outpatient Medications Medication Sig Dispense Refill atorvastatin 40 MG Tab tablet Take 1 tablet by mouth at bedtime. 30 tablet 2 buPROPion (WELLBUTRIN XL) 300 MG tablet XL Take 1 tablet by mouth every morning before breakfast. 30 tablet 2 clopidogrel (PLAVIX) 75 MG Tab tablet Take 1 tablet by mouth daily. 30 tablet 2 CUSTOM MEDICATION The patient requires a handicap placard for 5 years, as she is unable to wlak more than 200 feet without stopping to rest, due to her medical conditions. 1 Each 0 escitalopram 20 MG Tab tablet Take 1 tablet by mouth daily. Cancel previous refills of Lexapro 10 mg 30 tablet 2 gabapentin 100 MG Cap capsule For the first week take one at bedtime, can increase to 2 at bedtime after one week, if no relief can increase to 3 at bedtime at week 3. (Patient not taking: Reported on 01/21/2019) 90 capsule 0 insulin NPH (NOVOLIN N) 100 UNIT/ML injection Inject 20 Units under the skin daily every morning. 2Each 1 insulin regular 1 unit/0.01 ml vial 20 U AC breakfast, 8 U AC Lunch, 8 U AC Dinner. 2 Each 1 MAXIMUM D3 06428 units Cap 1 q weekly. JOANNE, Multiple Vitamin (MULTIVITAMIN) Tab Take 1 tablet by mouth daily. nystatin 235035 unit/gm Powder Apply 1 Application topically every 8 hours. 1 Bottle 2 omeprazole (PRILOSEC) [address] capsule Take 1 capsule by mouth 2 times daily (take before meals). 60 capsule 2 tizanidine 2 MG Tab Take 1 tablet by mouth at bedtime as needed. 30 tablet 1 topiramate 25 MG Tab tablet Take 1 tablet by mouth 2 times daily. 60 tablet 2 No current facility-administered medications for this visit. Ready to quit: Yes Counseling given: Yes Comment: Uses eCigs as well Follow up appointment(s) have been discussed with the patient. The patient is given an After Visit Summary sheet that lists all of their medications with directions, their allergies, orders placed during this encounter, immunization dates, and follow- up instructions. Navneet Villegas DO [address] [place] [id number] This note is electronically signed in the electronic medical record. documented in this encounter* Marlo Davenport MD - 02/25/2019 10:00 AM EDT Chief Complaint Patient presents with Shoulder Pain Lt Shoulder. Patient received a subacromial injection on 11/17/18. The injections seemed to last about a month and the pain came back, states this past month she has been able to lift her hand above her head but the pain is still there. The pain is felt in the front of the shoulder and in the bicep. HPI: The patient presents for left shoulder follow up. She noticed improvement with the subacromial injection for approximately one month. She states at this point she is unable to tolerate the pain and unable to sleep at night. Nearly all daily activities are limited by pain. NO neurovascular complaints or other concerns. To recap the previous visit: The patient is a pleasant 68 y.o. year old female with a complaint of left shoulder pain. Symptoms started approximately two years ago. There is no history of trauma and no history of dislocations or instability. Pain is present at night when laying on the left side. Prior treatment has included rest and NSAIDS. The patient has not had injections. No neurovascular complaints or other concerns. PMH: Past medical history, family history, social history, allergies and medications have been reviewed and are documented in the electronic record. ROS: Review of Systems System Neg/Pos Details Constitutional Negative Chills and fever. Respiratory Negative Chest pain and dyspnea. Cardio Negative Chest pain. Negative Nocturia. Integumentary Negative Skin lesion. MS Negative Except as noted in HPI and chief complaint. Vitals: 02/25/19 0948 Temp: 97.8 degrees F (36.6 degrees C) Weight: 76.4 kg (168 lb 6 oz) Height: 1.524 m (5') Physical Exam: Exam Findings Details Constitutional Normal No acute distress. Well developed. Head/Face Comments normal cephallic/ Atraumatic, negative spurling's maneuver Head/Face Normal Facial features - Normal. Skull - Normal. Hair and scalp - Normal. Respiratory Normal Cough - Absent. Effort - Normal. Skin * Detailed inspection - Visual lesions: none. Skin Comments other than as noted otherwise below in extremity exam Skin Normal Palpation/texture - Normal. Nails - Normal. Hair - Normal. Psychiatric Normal Orientation - Oriented to time, place, person & situation. left Shoulder Exam Inspection: No swelling. No atrophy. No deformity. ROM: FF 110/150, IR L4, ER 70/70. No scapular dyskinesia. Strength: Supraspinatus 4/5, ER 5/5, Internal Rotation 5/5 Impingement signs: Hawkin's test:Positive, Neer's Sign:Positive Apprehension: Negative Elk's test: Negative Biceps tenderness: Positive Speed's test: Positive,Yergason's test:Not Tested/Assessed AC tenderness: positive Distally neurovascular intact with 2+ radial pulses and full sensation in R/U/M/axillary nerve distribution. Uninvolved Shoulder Exam: ROM: FF 180/180, Abd: 180/180, IR:T2, ER: 80/80 Strength: Supraspinatus 5/5, ER 5/5, IR 5/5. Distally neurovascular intact with 2+ radial pulses. Assessment: ICD-10-CM 1. Acute pain of left shoulder M25.512 Plan: The patient has signs and symptoms which may point to left rotator cuff pathology with failed conservative treatment. Given that we will order an MRI of the left shoulder to evaluate. After approval of the MRI, they will follow-up with us a day or two after for repeat evaluation and treatment considerations. If there are any questions in the meantime they will contact the clinic. Otherwise follow-up after the MRI. I recommend continued NSAIDs and ice for any pain and swelling for now. Breana Yates, AT/OT was acting as a scribe today for this note. I have performed all essential components of the history, and physical exam. I have confirmed the diagnosis and developed a plan of care at this visit. I have reviewed the note following the visit and have add edits as appropriate to my evaluation and plan of care. Marlo Davenport MD * Breana Yates, [facility] - 02/25/2019 10:00 AM EDT Chief Complaint Patient presents with Shoulder Pain Lt Shoulder. Patient received a subacromial injection on 11/17/18. The injections seemed to last about a month and the pain came back, states this past month she has been able to lift her hand above her head but the pain is still there. The pain is felt in the front of the shoulder and in the bicep. HPI: The patient presents for left shoulder follow up. She noticed improvement with the subacromial injection for approximately one month. She states at this point she is unable to tolerate the pain and unable to sleep at night. Nearly all daily activities are limited by pain. NO neurovascular complaints or other concerns. To recap the previous visit: The patient is a pleasant 68 y.o. year old female with a complaint of left shoulder pain. Symptoms started approximately two years ago. There is no history of trauma and no history of dislocations or instability. Pain is present at night when laying on the left side. Prior treatment has included rest and NSAIDS. The patient has not had injections. No neurovascular complaints or other concerns. PMH: Past medical history, family history, social history, allergies and medications have been reviewed and are documented in the electronic record. ROS: Review of Systems System Neg/Pos Details Constitutional Negative Chills and fever. Respiratory Negative Chest pain and dyspnea. Cardio Negative Chest pain. Negative Nocturia. Integumentary Negative Skin lesion. MS Negative Except as noted in HPI and chief complaint. Vitals: 02/25/19 0948 Temp: 97.8 degrees F (36.6 degrees C) Weight: 76.4 kg (168 lb 6 oz) Height: 1.524 m (5') Physical Exam: Exam Findings Details Constitutional Normal No acute distress. Well developed. Head/Face Comments normal cephallic/ Atraumatic, negative spurling's maneuver Head/Face Normal Facial features - Normal. Skull - Normal. Hair and scalp - Normal. Respiratory Normal Cough - Absent. Effort - Normal. Skin * Detailed inspection - Visual lesions: none. Skin Comments other than as noted otherwise below in extremity exam Skin Normal Palpation/texture - Normal. Nails - Normal. Hair - Normal. Psychiatric Normal Orientation - Oriented to time, place, person & situation. left Shoulder Exam Inspection: No swelling. No atrophy. No deformity. ROM: FF 110/150, IR L4, ER 70/70. No scapular dyskinesia. Strength: Supraspinatus 4/5, ER 5/5, Internal Rotation 5/5 Impingement signs: Hawkin's test:Positive, Neer's Sign:Positive Apprehension: Negative Elk's test: Negative Biceps tenderness: Positive Speed's test: Positive,Yergason's test:Not Tested/Assessed AC tenderness: positive Distally neurovascular intact with 2+ radial pulses and full sensation in R/U/M/axillary nerve distribution. Uninvolved Shoulder Exam: ROM: FF 180/180, Abd: 180/180, IR:T2, ER: 80/80 Strength: Supraspinatus 5/5, ER 5/5, IR 5/5. Distally neurovascular intact with 2+ radial pulses. Assessment: ICD-10-CM 1. Acute pain of left shoulder M25.512 Plan: The patient has signs and symptoms which may point to left rotator cuff pathology with failed conservative treatment. Given that we will order an MRI of the left shoulder to evaluate. After approval of the MRI, they will follow-up with us a day or two after for repeat evaluation and treatment considerations. If there are any questions in the meantime they will contact the clinic. Otherwise follow-up after the MRI. I recommend continued NSAIDs and ice for any pain and swelling for now. documented in this encounter* Robbin Barrientos, - 03/11/2019 9:00 AM EDT [facility] NOTE Chief complaint: Small fiber peripheral Neuropathy History of present illness: Mavis Jackson is a 69 y.o. right handed female who presents in followupfor small fiber peripheral neuropathy, syncope and a history of ischemic stroke. She has diabetes mellitus. She does describe burning, stinging pain in her feet bilaterally. She does not have any significant numbness or weakness. She has had thses symptoms since 2012. She did have an ischemic stroke in the past. She has some mild decreased vision to the right lower quadrant. She does take Plavix and atorvastatin for secondary stroke prevention. She feels it was due to the stress of her [id number] and sister's unexpected at the time. She also has had syncope in June 2018. She was in a casino and she was sitting at a machine and all of a sudden she felt hot all over, woozy, and sweaty and then slumped over the machine. It was less than a minute in length and she was not confusedor fatigued afterward and was able to discuss the symptoms with EMS. She did not have any postural change prior to the syncope and did not have any tongue biting, convulsive activity or urinary incontinence with the syncope. She denies any numbness or weakness in her arms. She denies any dysphagia,diplopia, dysarthria or ptosis. 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 It lasted 2-3 minutes and then went away. She did not lose consciousness. 30 day heart monitor was done and was unremarkable. Cardiacstress test was unremarkable. EEG was unremarkable. Her neuropathic pain in her feet is worse at night. She has headaches. They are typically on the left side of the head and can be sharp and severe.They do spread to her forehead. It can occur any time of the day and last up to 5 minutes. She willgrab her head and lay down when it occurs. MRI of the brain showed moderate to severe chronic smallvessel disease. Encephalomalacia was seen in the left occipital lobe area and mild volume loss was noted. EMG/nerve conduction study of the left leg was unremarkable. There was no evidence of large fiber peripheral neuropathy. Vitamin B1, SSA, SSB, ZION, DSDNA antibodies, Heavy metals, ESR, Vitamin B6, TSH, SPEP with immunofixation were unremarkable. B12 was 467. Vitamin E was low. She was startedon oral B12 supplementation. MRI lumbar spine did not show any central canal or neuroforaminal stenosis. She was started on Topamax 25 mg BID for the headache prevention. She is seeing pain management and they are considering radiofrequency ablation. Carotid ultrasound showed less than 50% stenosisbilaterally. CTA chest did not show any stenosis or occlusion. SHe was started on Gabapentin 300 mgat bedtime for neuropathic pain. She has done well since she was last seen. She has not had any spells of passing out. She states that her headaches are doing well. She is on Topamax 25 mg BID. She is on Gabapentin 100 mg BID at this time. She states that this has helped the burning and stinging inthe feet. Review of Systems: Comments Neurological As above General/constitutional No fevers, weight change, chills, fatigue, night sweats Skin No rash, edema, bruising HEENT No diplopia, dysphagia, dizziness, tinnitus, hearing loss Cardiovascular No dyspnea or chest pain, palpitaitons, peripheral edema Respiratory No SOB, wheezing, rhonchi, cough or rales Gastrointestinal No loss of bowel control, constipation, diarrhea, abdominal pain, nausea or vomiting Genitourinary No loss of bladder control, no sexual dysfunction, hematuria, dysuria Musculoskeletal No myalgias, weakness, atrophy, joint pain, neck pain or back pain Psychiatric No depression, anxeity, hallucinations, delusions Endocrine No changes to hair or nails, abnormal sweating, hot flashess, excessive thirst, polyuria Hematologic No easy bruising, bleeding, swollen lymph nodes Unless directly addressed in ROS or in assessment and plan, patient was instructed to followup positive ROS findings with PCP. Past Medical History: Diagnosis Date Arthritis COPD (chronic obstructive pulmonary disease) Depression Diabetes mellitus GERD (gastroesophageal reflux disease) Glaucoma Hyperlipidemia Stroke Past Surgical History: Procedure Laterality Date EXTRACTION EXTRACAPSULAR CATARACT W/ IMPLANT (ECCE IOL) Bilateral 2017 REPAIR HERNIA INCISIONAL/VENTRAL OPEN W/ MESH 1985 TUBAL LIGATION 1971 with reversal HYSTERECTOMY TOTAL ABDOMINAL OPEN (ISABEL) W/ REMOVAL TUBES/OVARIES 1971 TONSILLECTOMY ADENOIDECTOMY 1967 SECTION 1980,1982 Family History Problem Relation Age of Onset Lung Cancer Mother Diabetes Mother Coronary Artery Disease Mother Hypertension Mother Kidney Disease Mother Lung Cancer Father Social History Socioeconomic History Marital status: Spouse name: Not on file Number of children: Not on file Years of education: Not on file Highest education level: Not on file Occupational History Not on file Social Needs Financial resource strain: Not on file Food insecurity: Worry: Not on file Inability: Not on file Transportation needs: Medical: Not on file Non-medical: Not on file Tobacco Use Smoking status: Current Every Day Smoker Years: 46.00 Types: Cigarettes Smokeless tobacco: Never Used Tobacco comment: Uses eCigs as well Substance and Sexual Activity Alcohol use: Never Frequency: Never Drug use: No Sexual activity: Not on file Lifestyle Physical activity: Days per week: Not on file Minutes per session: Not on file Stress: Not on file Relationships Social connections: Talks on phone: Not on file Gets together: Not on file Attends buddhism service: Not on file Active member of club or organization: Not on file Attends meetings of clubs or organizations: Not on file Relationship status: Not on file Intimate partner violence: Fear of current or ex partner: Not on file Emotionally abused: Not on file Physically abused: Not on file Forced sexual activity: Not on file Other Topics Concern Not on file Social History Narrative Not on file Allergies Allergen Reactions Propoxyphene Itching Darvocet Current Outpatient Medications Medication Sig Dispense Refill atorvastatin 40 MG Tab tablet Take 1 tablet by mouth at bedtime. 30 tablet 2 buPROPion (WELLBUTRIN XL) 300 MG tablet XL Take 1 tablet by mouth every morning before breakfast. 30 tablet 2 clopidogrel (PLAVIX) 75 MG Tab tablet Take 1 tablet by mouth daily. 30 tablet 2 CUSTOM MEDICATION The patient requires a handicap placard for 5 years, as she is unable to wlak more than 200 feet without stopping to rest, due to her medical conditions. 1 Each 0 escitalopram 20 MG Tab tablet Take 1 tablet by mouth daily. Cancel previous refills of Lexapro 10 mg 30 tablet 2 gabapentin 100 MG Cap capsule For the first week take one at bedtime, can increase to 2 at bedtime after one week, if no relief can increase to 3 at bedtime at week 3. (Patient not taking: Reported on 01/21/2019) 90 capsule 0 insulin NPH (NOVOLIN N) 100 UNIT/ML injection Inject 20 Units under the skin daily every morning. 2Each 1 insulin regular 1 unit/0.01 ml vial 20 U AC breakfast, 8 U AC Lunch, 8 U AC Dinner. 2 Each 1 MAXIMUM D3 69189 units Cap 1 q weekly. JOANNE, Multiple Vitamin (MULTIVITAMIN) Tab Take 1 tablet by mouth daily. nystatin 138895 unit/gm Powder Apply 1 Application topically every 8 hours. 1 Bottle 2 omeprazole (PRILOSEC) [address] capsule Take 1 capsule by mouth 2 times daily (take before meals). 60 capsule 2 tizanidine 2 MG Tab Take 1 tablet by mouth at bedtime as needed. 30 tablet 1 topiramate 25 MG Tab tablet Take 1 tablet by mouth 2 times daily. 60 tablet 2 No current facility-administered medications for this visit. Physical Exam: Vitals: 03/11/19 0849 BP: 124/70 Pulse: 80 Resp: 16 Weight: 75.4 kg (166 lb 4.8 oz) Height: 1.524 m (5') General: In no acute distress. HENT: Normal oropharynx and mucosa. Normal external appearance of ears and nose. Neck: Supple, no pain or tenderness CV: RRR without murmur. No peripheral edema. Pulmonary: Clear to auscultation bilaterally. Normal respiratory effort. Abdomen: positive bowel sounds, soft, non-tender. Normal liver and spleen size. Ext: No cyanosis, edema, or deformity Skin: No rash. Normal palpation of skin. Musculoskeletal: full range of motion; no joint tenderness. Normal digits and nails by inspection. No clubbing. Neurological Examination Mental status: awake and alert; oriented to person, place, year, and month; good attention. Normal mood and affect. Normal insight into condition. Speech/language: fluent; comprehension intact; object naming intact; repetition intact Cranial nerves: CN II: Visual lei intact to confrontation. PERRL. Normal conjunctivae and lids. executive secretary III, IV and : extraocular movements intact. No nystagmus. CN V: Facial sensation is intact to light touch. CN VII: Facial strength normal with symmetric movement. CN VIII: Hearing is grossly intact. CN IX and X: Soft palate elevates symmetrically in the midline CN XI: Shoulder shrug and sternocleidomastoid strength (R/L) 5/5 CN XII: Tongue is midline with normal movement; no fasciculations. Motor: Normal bulk and tone. No pronator drift. SA EE EF WE WF DI HF KE KF DF PF Right 5 5 5 5 5 5 5 5 5 5 5 Left 4 5- 5 5 5 5 5 5 5 5 5 Reflexes: Right Left Comments Biceps 2 2 Triceps 2 2 Brachioradialis 2 2 Patellar 2 2 Achilles 2 2 Jaw jerk Peralta Babinski Down Down Coordination: [id number]-ccnv intact bilaterally. Izcb-xa-[id number] intact bilaterally. Rapid alternatingmovements are normal. Sensation: Comments Light touch Intact throughout Pin prick Intact throughout Temperature Intact throughout Vibration Decreased below ankles Proprioception Decreased below ankles Gait: Normal stride length, arm swing, and base width. Able to toe, heel, and tandem walk. NegativeRomberg. All pertinent labs and images were reviewed with the patient. Assessment and Plan: 1. Left arm weakness - MRI SPINE CERVICAL WITHOUT CONTRAST; Future - EMG & NERVE CONDUCTION; Future - CK; Future - topiramate 25 MG Tab tablet; Take 1 tablet by mouth 2 times daily. Dispense: 60 tablet; Refill: 2 - gabapentin 100 MG Cap capsule; Take 1 capsule by mouth 2 times daily. . Dispense: 60 capsule; Refill: 2 2. Pain of left arm - MRI SPINE CERVICAL WITHOUT CONTRAST; Future - EMG & NERVE CONDUCTION; Future - CK; Future - topiramate 25 MG Tab tablet; Take 1 tablet by mouth 2 times daily. Dispense: 60 tablet; Refill: 2 - gabapentin 100 MG Cap capsule; Take 1 capsule by mouth 2 times daily. . Dispense: 60 capsule; Refill: 2 3. Small fiber polyneuropathy - MRI SPINE CERVICAL WITHOUT CONTRAST; Future - EMG & NERVE CONDUCTION; Future - CK; Future - topiramate 25 MG Tab tablet; Take 1 tablet by mouth 2 times daily. Dispense: 60 tablet; Refill: 2 - gabapentin 100 MG Cap capsule; Take 1 capsule by mouth 2 times daily. . Dispense: 60 capsule; Refill: 2 4. Vasovagal syncope - MRI SPINE CERVICAL WITHOUT CONTRAST; Future - EMG & NERVE CONDUCTION; Future - CK; Future - topiramate 25 MG Tab tablet; Take 1 tablet by mouth 2 times daily. Dispense: 60 tablet; Refill: 2 - gabapentin 100 MG Cap capsule; Take 1 capsule by mouth 2 times daily. . Dispense: 60 capsule; Refill: 2 5. History of arterial ischemic stroke - MRI SPINE CERVICAL WITHOUT CONTRAST; Future - EMG & NERVE CONDUCTION; Future - CK; Future - topiramate 25 MG Tab tablet; Take 1 tablet by mouth 2 times daily. Dispense: 60 tablet; Refill: 2 - gabapentin 100 MG Cap capsule; Take 1 capsule by mouth 2 times daily. . Dispense: 60 capsule; Refill: 2 6. Nonintractable headache, unspecified chronicity pattern, unspecified headache type - topiramate 25 MG Tab tablet; Take 1 tablet by mouth 2 times daily. Dispense: 60 tablet; Refill: 2 - gabapentin 100 MG Cap capsule; Take 1 capsule by mouth 2 times daily. . Dispense: 60 capsule; Refill: 2 7. Idiopathic small fiber peripheral neuropathy - topiramate 25 MG Tab tablet; Take 1 tablet by mouth 2 times daily. Dispense: 60 tablet; Refill: 2 - gabapentin 100 MG Cap capsule; Take 1 capsule by mouth 2 times daily. . Dispense: 60 capsule; Refill: 2 8. Neuropathic pain - topiramate 25 MG Tab tablet; Take 1 tablet by mouth 2 times daily. Dispense: 60 tablet; Refill: 2 - gabapentin 100 MG Cap capsule; Take 1 capsule by mouth 2 times daily. . Dispense: 60 capsule; Refill: 2 At this time Mrs. Jackson is doing well overall. She will continue Topamax 25 mg twice a day for headache prevention. Side effects of Topamax were reviewed with the patient which include but are not limited to acute angle closure glaucoma, myopia, paresthesia, eye pain, word finding difficulty, cognitive abnormalities, memory disturbances, poor concentration, kidney stones, weight loss, metabolic acidosis, cleft lip and cleft palate when given to women, nausea, diarrhea, abnormal taste, abdominal pain. Carotid ultrasound and CTA chest were unremarkable. She has not had any syncopal episodes since she was last seen. She will continue to follow with cardiology. Stress echocardiogram,24 day savings teller were unremarkable. I would recommend consideration of a tilt table test given her syncope to rule out a vagal cause if her symptoms continue. We will see her back in the outpatient neurology clinic in 3 months. She will call us immediately should she have any significant worsening of symptoms or should any new symptoms arise. Greater than 51% of this visit was spent in kodx-ul-burm time counseling the patient her condition. Her small fiber peripheral neuropathy is due to her diabetes mellitus. She will continue Gabapentin 100 mg BID at this time. Side effects of gabapentin were reviewed with the patient which include but are not limited to Ataxia, nystagmus, fever, dizziness, drowsiness, fatigue, and viral infection. Other side effects include blurred vision, diplopia, peripheral edema, tremor, amblyopia, and xerostomia. She will continue to follow with pain management for her lumbar spine abnormalities. This dictation was done by using the [employer] dictation system. It has been proofread but still may contain unrecognized voice recognition errors. OARRSwas checked and uptodate. She is following with orthopaedics for her left arm and shoulder pain andweakness. She will have an MRI cervical spine at this time to ensure that it is not referred pain from her cervical spine. She will have an EMG/NCS of the left arm to ensure that it is not a left cervical radiculopathy. documented in this encounter* Marlo Davenport MD - 03/14/2019 9:10 AM EDT Chief Complaint Patient presents with MRI Results Lt Shoulder. Patient presents for MRI F/U. She states that she saw on 03/11/19 and he order a EMG and a MRI of her cervical spine. HPI: The patient presents for left shoulder MRI follow up. She noticed improvement with the subacromial injection for approximately one month. She states she is unable to tolerate the pain and unable to sleep at night. Nearly all daily activities are limited by pain. She recently saw Dr. Barrientos whom informed her there is no rotator cuff tear. He ordered an EMG of the upper extremity and MRI of the cervical spine although the tests have not been performed at this point. NO neurovascular complaints or other concerns. To recap the previous visit: The patient is a pleasant 69 y.o. year old female with a complaint of left shoulder pain. Symptoms started approximately two years ago. There is no history of trauma and no history of dislocations or instability. Pain is present at night when laying on the left side. Prior treatment has included rest and NSAIDS. The patient has not had injections. No neurovascular complaints or other concerns. PMH: Past medical history, family history, social history, allergies and medications have been reviewed and are documented in the electronic record. ROS: Review of Systems System Neg/Pos Details Constitutional Negative Chills and fever. Respiratory Negative Chest pain and dyspnea. Cardio Negative Chest pain. Negative Nocturia. Integumentary Negative Skin lesion. MS Negative Except as noted in HPI and chief complaint. Vitals: 03/14/19 0858 Weight: 75.4 kg (166 lb 4.8 oz) Height: 1.524 m (5') Physical Exam: Exam Findings Details Constitutional Normal No acute distress. Well developed. Head/Face Comments normal cephallic/ Atraumatic, negative spurling's maneuver Head/Face Normal Facial features - Normal. Skull - Normal. Hair and scalp - Normal. Respiratory Normal Cough - Absent. Effort - Normal. Skin * Detailed inspection - Visual lesions: none. Skin Comments other than as noted otherwise below in extremity exam Skin Normal Palpation/texture - Normal. Nails - Normal. Hair - Normal. Psychiatric Normal Orientation - Oriented to time, place, person & situation. left Shoulder Exam Inspection: No swelling. No atrophy. No deformity. ROM: FF 110/150, IR L4, ER 70/70. No scapular dyskinesia. Strength: Supraspinatus 4/5, ER 5/5, Internal Rotation 5/5 Impingement signs: Hawkin's test:Positive, Neer's Sign:Positive Apprehension: Negative Elk's test: Negative Biceps tenderness: Positive Speed's test: Positive,Yergason's test:Not Tested/Assessed AC tenderness: positive Distally neurovascular intact with 2+ radial pulses and full sensation in R/U/M/axillary nerve distribution. Uninvolved Shoulder Exam: ROM: FF 180/180, Abd: 180/180, IR:T2, ER: 80/80 Strength: Supraspinatus 5/5, ER 5/5, IR 5/5. Distally neurovascular intact with 2+ radial pulses. Assessment: ICD-10-CM 1. Shoulder impingement, left M75.42 2. 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 Bicipital tendinitis, left M75.22 4. Rotator cuff tendinitis, left M75.82 Plan: We reviewed the MRI results and discussed both conservative versus surgical interventions for a rotator cuff tendinitis, shoulder impingement, bicipital tendinitis, and AC arthritis. We discussed shewould like to continue conservative treatments as the MRI is negative for a full thickness rotator cuff tear. Her symptoms today are primarily related to the shoulder impingement and she remains unable to sleep. Due to this, she was offered a left subacromial injection and consents to this today. She will begin a home exercise program, with exercises demonstrated in the office today. Continue to proceed with the MRI and EMG as ordered by Dr. Barrientos. She will follow up with progress in 2-3 months and will call with concerns otherwise. LARGE JOINT INJECTION: L subacromial bursa Date/Time: 03/14/2019 10:10 AM Supporting Documentation Indications: pain Procedure Details Location: shoulder - L subacromial bursa Local Anesthetic Used: mL of ethyl chloride (cold spray) Needle size: 22 G Approach: posterior Medication Verification: I have personally verified and performed the final check of the medication(s) used in this procedure prior to administration. The following items were included during the verification process for medication(s) administered: drug name, strength, volume, expiration, physical integrity and appearance of the medication(s). Medications administered: 2 mL bupivacaine 0.5 %; 4 mL lidocaine 10 mg/mL; 40 mg methylPREDNISoloneacetate 40 MG/ML Patient tolerance: patient tolerated the procedure well with no immediate complications Consent: Consent was obtained prior to the procedure after discussion of the risks, benefits and alternatives, and expected outcomes were discussed with the patient. The possibilities of reaction to medication, bleeding, infection, the need for additional procedures, failure to diagnosis a condition, and creating a complication requiring operation were discussed with the patient. The patient concurred with the proposed plan, giving consent. Preparation: Patient was prepped in the usual sterile fashion with alcohol. Breana Yates AT/[facility] was acting as a scribe today for this note. I have performed all essential components of the history, and physical exam. I have confirmed the diagnosis and developed a plan of care at this visit. I have reviewed the note following the visit and have add edits as appropriate to my evaluation and plan of care. Marlo Davenport MD * Breana Yates, JIM - 03/14/2019 9:10 AM EDT Associated Order(s): LARGE JOINT INJECTION: L subacromial bursa Chief Complaint Patient presents with MRI Results Lt Shoulder. Patient presents for MRI F/U. She states that she saw on 03/11/19 and he order a EMG and a MRI of her cervical spine. HPI: The patient presents for left shoulder MRI follow up. She noticed improvement with the subacromial injection for approximately one month. She states she is unable to tolerate the pain and unable to sleep at night. Nearly all daily activities are limited by pain. She recently saw Dr. Barrientos whom informed her there is no rotator cuff tear. He ordered an EMG of the upper extremity and MRI of the cervical spine although the tests have not been performed at this point. NO neurovascular complaints or other concerns. To recap the previous visit: The patient is a pleasant 69 y.o. year old female with a complaint of left shoulder pain. Symptoms started approximately two years ago. There is no history of trauma and no history of dislocations or instability. Pain is present at night when laying on the left side. Prior treatment has included rest and NSAIDS. The patient has not had injections. No neurovascular complaints or other concerns. PMH: Past medical history, family history, social history, allergies and medications have been reviewed and are documented in the electronic record. ROS: Review of Systems System Neg/Pos Details Constitutional Negative Chills and fever. Respiratory Negative Chest pain and dyspnea. Cardio Negative Chest pain. Negative Nocturia. Integumentary Negative Skin lesion. MS Negative Except as noted in HPI and chief complaint. Vitals: 03/14/19 0858 Weight: 75.4 kg (166 lb 4.8 oz) Height: 1.524 m (5') Physical Exam: Exam Findings Details Constitutional Normal No acute distress. Well developed. Head/Face Comments normal cephallic/ Atraumatic, negative spurling's maneuver Head/Face Normal Facial features - Normal. Skull - Normal. Hair and scalp - Normal. Respiratory Normal Cough - Absent. Effort - Normal. Skin * Detailed inspection - Visual lesions: none. Skin Comments other than as noted otherwise below in extremity exam Skin Normal Palpation/texture - Normal. Nails - Normal. Hair - Normal. Psychiatric Normal Orientation - Oriented to time, place, person & situation. left Shoulder Exam Inspection: No swelling. No atrophy. No deformity. ROM: FF 110/150, IR L4, ER 70/70. No scapular dyskinesia. Strength: Supraspinatus 4/5, ER 5/5, Internal Rotation 5/5 Impingement signs: Hawkin's test:Positive, Neer's Sign:Positive Apprehension: Negative Elk's test: Negative Biceps tenderness: Positive Speed's test: Positive,Yergason's test:Not Tested/Assessed AC tenderness: positive Distally neurovascular intact with 2+ radial pulses and full sensation in R/U/M/axillary nerve distribution. Uninvolved Shoulder Exam: ROM: FF 180/180, Abd: 180/180, IR:T2, ER: 80/80 Strength: Supraspinatus 5/5, ER 5/5, IR 5/5. Distally neurovascular intact with 2+ radial pulses. Assessment: ICD-10-CM 1. Shoulder impingement, left M75.42 2. 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 Bicipital tendinitis, left M75.22 4. Rotator cuff tendinitis, left M75.82 Plan: We reviewed the MRI results and discussed both conservative versus surgical interventions for a rotator cuff tendinitis, shoulder impingement, bicipital tendinitis, and AC arthritis. We discussed shewould like to continue conservative treatments as the MRI is negative for a full thickness rotator cuff tear. Her symptoms today are primarily related to the shoulder impingement and she remains unable to sleep. Due to this, she was offered a left subacromial injection and consents to this today. She will begin a home exercise program, with exercises demonstrated in the office today. Continue to proceed with the MRI and EMG as ordered by Dr. Barrientos. She will follow up with progress in 2-3 months and will call with concerns otherwise. LARGE JOINT INJECTION: L subacromial bursa Date/Time: 03/14/2019 10:10 AM Supporting Documentation Indications: pain Procedure Details Location: shoulder - L subacromial bursa Local Anesthetic Used: mL of ethyl chloride (cold spray) Needle size: 22 G Approach: posterior Medication Verification: I have personally verified and performed the final check of the medication(s) used in this procedure prior to administration. The following items were included during the verification process for medication(s) administered: drug name, strength, volume, expiration, physical integrity and appearance of the medication(s). Medications administered: 2 mL bupivacaine 0.5 %; 4 mL lidocaine 10 mg/mL; 40 mg methylPREDNISoloneacetate 40 MG/ML Patient tolerance: patient tolerated the procedure well with no immediate complications Consent: Consent was obtained prior to the procedure after discussion of the risks, benefits and alternatives, and expected outcomes were discussed with the patient. The possibilities of reaction to medication, bleeding, infection, the need for additional procedures, failure to diagnosis a condition, and creating a complication requiring operation were discussed with the patient. The patient concurred with the proposed plan, giving consent. Preparation: Patient was prepped in the usual sterile fashion with alcohol. documented in this encounter* Navneet Villegas DO - 05/30/2019 2:30 PM EDT History of Present Illness HISTORY OF PRESENT ILLNESS: 69 y.o. female presents with complaints of: Encounter Diagnoses Name Primary? Type 2 diabetes mellitus, uncontrolled, with neuropathy-Insulin requiring Yes Hyperlipidemia LDL goal <70 Vitamin D deficiency Chronic midline low back pain with bilateral sciatica Carotid artery stenosis, asymptomatic, bilateral-<50% bilateral stenosis Chronic obstructive pulmonary disease, unspecified COPD type Cerebral ischemia-Moderate to severe Gastroesophageal reflux disease without esophagitis Tinea cruris Smoker Tobacco abuse counseling Type 2 DM, Hyperlipidemia, Lumbago, Bilateral sciatica, and HNP C5 with Bulging disc C6. No helene needed with Dr. Cabrera. Smoker. Trying to quit. +Fam Hx DM. Needs refills. +LBP, daily, moderate, worse with activity. +Radiation to LE's. +LE's numbness and weakness intermittently. No neck pain. No C.P., SOB, Edema, Palpitations, Dizziness, Fatigue, GERD, Melena, Hematochezia, Dysuria. + Frequency. All others negative on ROS. Recent Glucose 143, A1C 8.2, and LDL 100. All other labs WNL. Has been getting steroid injections by both Drs. Oliver and Issac. Review of Systems Constitutional: Negative for fatigue and unexpected weight change. Eyes: Negative for visual disturbance. Respiratory: Negative for shortness of breath. Cardiovascular: Negative for chest pain, palpitations and leg swelling. Gastrointestinal: Negative for abdominal pain and blood in stool. No GERD Genitourinary: Positive for frequency. Negative for dysuria. Musculoskeletal: Positive for back pain. Negative for arthralgias and neck pain. Neurological: Positive for weakness (LE's) and numbness (LE's). Negative for dizziness. Psychiatric/Behavioral: Negative for dysphoric mood and sleep disturbance. The patient is not nervous/anxious. All other systems reviewed and are negative. Vitals: Blood pressure 123/79, pulse 96, temperature 98.7 F (37.1 C), height 1.524 m (5'), weight 74.5 kg (164 lb 4.8 oz). Physical Exam Constitutional: She is oriented to person, place, and time. HENT: Head: Normocephalic and atraumatic. Right Ear: External ear normal. Left Ear: External ear normal. Nose: Nose normal. Mouth/Throat: Oropharynx is clear and moist. No oropharyngeal exudate. Eyes: Pupils are equal, round, and reactive to light. Conjunctivae and EOM are normal. Neck: No thyromegaly present. Cardiovascular: Normal rate, regular rhythm, normal heart sounds and intact distal pulses. No murmur heard. Pulmonary/Chest: Effort normal and breath sounds normal. She has no wheezes. She exhibits no tenderness. Abdominal: Soft. Bowel sounds are normal. There is no tenderness. There is no guarding. Musculoskeletal: She exhibits no edema, tenderness or deformity. Decr ROM L-spine on flexion Lymphadenopathy: She has no cervical adenopathy. Neurological: She is alert and oriented to person, place, and time. She displays normal reflexes. No cranial nerve deficit or sensory deficit. She exhibits normal muscle tone. Coordination normal. Psychiatric: She has a normal mood and affect. Her behavior is normal. Judgment and thought contentnormal. Discussed the importance of sharing/withholding information with the patient. The patient denies suicide or homicide intent, and is competent. Neurologic Exam Mental Status Oriented to person, place, and time. Cranial Nerves CN III, IV, Pupils are equal, round, and reactive to light. Extraocular motions are normal. Assessment and Plan Refills given all meds requested. DC Lexapro and Wellbutrin at patients' request. DC Gabapentin dueto GI intolerance. DC Topamax as didn't help. Helene 06-01-[address] Oliver for injection and helene 06-03-19 with MS. Bee. Helene 06-14-[address] Barrientos. Helene 06-20-[address] Davenport. Helene 08-22-19 for F/U and refer to adair Barrett prgenie. Helene Carotid doppler in . Helene 2018 for annual helene with Dr. Rogelio Rice. Helene annual albs, UA, Vit D, A1C in 2019. Diet and exercise reviewed. Helene Mammogram in . Helene PFT anually in . Helene Colon in 2023. No Pap needed.OARRS report was received and assessed, and is consistent with the medications prescribed.Thank you for choosing Dr. Navneet Villegas s Office at [facility] for your healthcare needs.The patients' entire past medical, surgical, family, social history, allergies, medications, recent labs, recent imaging and senior analytic consultant letters were reviewed and updated. ASSESSMENT & PLAN: Encounter Diagnoses Name Primary? Type 2 diabetes mellitus, uncontrolled, with neuropathy-Insulin requiring Yes Hyperlipidemia LDL goal <70 Vitamin D deficiency Chronic midline low back pain with bilateral sciatica Carotid artery stenosis, asymptomatic, bilateral-<50% bilateral stenosis Chronic obstructive pulmonary disease, unspecified COPD type Cerebral ischemia-Moderate to severe Gastroesophageal reflux disease without esophagitis Tinea cruris Smoker Tobacco abuse counseling No orders of the defined types were placed in this encounter. Medications Discontinued During This Encounter Medication Reason tizanidine 2 MG Tab escitalopram 20 MG Tab tablet buPROPion (WELLBUTRIN XL) 300 MG tablet XL topiramate 25 MG Tab tablet gabapentin 100 MG Cap capsule omeprazole (PRILOSEC) [address] capsule Reorder nystatin 649759 unit/gm Powder Reorder insulin regular 1 unit/0.01 ml vial Reorder insulin NPH (NOVOLIN N) 100 UNIT/ML injection Reorder clopidogrel (PLAVIX) 75 MG Tab tablet Reorder atorvastatin 40 MG Tab tablet Reorder Current Outpatient Medications Medication Sig Dispense Refill atorvastatin 40 MG Tab tablet Take 1 tablet by mouth at bedtime. 30 tablet 2 clopidogrel (PLAVIX) 75 MG Tab tablet Take 1 tablet by mouth daily. 30 tablet 2 CUSTOM MEDICATION The patient requires a handicap placard for 5 years, as she is unable to wlak more than 200 feet without stopping to rest, due to her medical conditions. 1 Each 0 insulin NPH (NOVOLIN N) 100 UNIT/ML injection Inject 20 Units under the skin daily every morning. 2Each 1 insulin regular 1 unit/0.01 ml vial 20 U AC breakfast, 8 U AC Lunch, 8 U AC Dinner. 2 Each 1 MAXIMUM D3 39075 units Cap 1 q weekly. JOANNE, Multiple Vitamin (MULTIVITAMIN) Tab Take 1 tablet by mouth daily. nystatin 213486 unit/gm Powder Apply 1 Application topically every 8 hours. 1 Bottle 2 omeprazole (PRILOSEC) [address] capsule Take 1 capsule by mouth 2 times daily (take before meals). 60 capsule 2 Current Facility-Administered Medications Medication Dose Route Frequency Provider Last Rate Last Dose bupivacaine (PF) (MARCAINE) 0.25 % 4 mL syringe 3 mL Other Once (Outpt Clinic) Nils Oliver MD lidocaine (PF) 2 % injection 3 mL 3 mL Other Once (Outpt Clinic) Nils Oliver MD Ready to quit: Not Answered Counseling given: Not Answered Comment: Uses e[employer] as well Follow up appointment(s) have been discussed with the patient. The patient is given an After Visit Summary sheet that lists all of their medications with directions, their allergies, orders placed during this encounter, immunization dates, and follow- up instructions. Navneet Villegas DO [address] [id number] This note is electronically signed in the electronic medical record. documented in this encounter* Marlo Davenport MD - 10/21/2019 8:50 AM EST Chief Complaint Patient presents with Shoulder Pain Left Shoulder. Received a subacromial injection on 03/14/2019. The injection seemed to last until about 2 months ago, states the pain came back but not as bad as the first tome. Shoulder Pain OPNP Right Shoulder. This shoulder started to hurt after she stained her deck, States the pain is felt in the front of the shoulder and the bi-cep. HPI: Patient presents with left shoulder pain. Received a SA injection on 03.14.19. The injection seemedto last until about a month 2 months ago, states the pain came back but not as bad as the first time. OPNP: Patient presents with Right shoulder pain. This shoulder started to hurt after she stained her deck. States the pain is felt in the front of the shoulder and the bicep. R>L To recap last visit: The patient presents for left shoulder MRI follow up. She noticed improvement with the subacromial injection for approximately one month. She states she is unable to tolerate the pain and unable to sleep at night. Nearly all daily activities are limited by pain. She recently saw Dr. Barrientos whom informed her there is no rotator cuff tear. He ordered an EMG of the upper extremity and MRI of the cervical spine although the tests have not been performed at this point. NO neurovascular complaints or other concerns. PMH: Past medical history, family history, social history, allergies and medications have been reviewed and are documented in the electronic record. ROS: Review of Systems System Neg/Pos Details Constitutional Negative Chills and fever. Respiratory Negative Chest pain and dyspnea. Cardio Negative Chest pain. Negative Nocturia. Integumentary Negative Skin lesion. MS Negative Except as noted in HPI and chief complaint. Vitals: 10/21/19 0849 Temp: 97.7 degrees F (36.5 degrees C) Weight: 73.9 kg (163 lb) Height: 1.524 m (5') Physical Exam: Exam Findings Details Constitutional Normal No acute distress. Well developed. Head/Face Comments normal cephallic/ Atraumatic, negative spurling's maneuver Head/Face Normal Facial features - Normal. Skull - Normal. Hair and scalp - Normal. Respiratory Normal Cough - Absent. Effort - Normal. Skin * Detailed inspection - Visual lesions: none. Skin Comments other than as noted otherwise below in extremity exam Skin Normal Palpation/texture - Normal. Nails - Normal. Hair - Normal. Psychiatric Normal Orientation - Oriented to time, place, person & situation. left Shoulder Exam Inspection: No swelling. No atrophy. No deformity. ROM: FF 110/160, IR L4, ER 70/70. No scapular dyskinesia. Strength: Supraspinatus 4+/5, ER 5/5, Internal Rotation 5/5 Impingement signs: Hawkin's test:Positive, Neer's Sign:Positive Apprehension: Negative Elk's test: Negative Biceps tenderness: Positive Speed's test: Positive,Yergason's test:Not Tested/Assessed AC tenderness: positive Distally neurovascular intact with 2+ radial pulses and full sensation in R/U/M/axillary nerve distribution. Right Shoulder Exam Inspection: No swelling. No atrophy. No deformity. ROM: FF 110/140, IR L4, ER 70/70. No scapular dyskinesia. Strength: Supraspinatus 4+/5, ER 5/5, Internal Rotation 5/5 Impingement signs: Hawkin's test:Positive, Neer's Sign:Positive Apprehension: Negative Elk's test: Negative Biceps tenderness: Positive Speed's test: Positive,Yergason's test:Not Tested/Assessed AC tenderness: positive Distally neurovascular intact with 2+ radial pulses and full sensation in R/U/M/axillary nerve distribution. Assessment: ICD-10-CM 1. Left shoulder pain, unspecified chronicity M25.512 2. Impingement syndrome of left shoulder M75.42 3. Impingement syndrome of right shoulder M75.41 Plan: At this time we have discussed the natural history and progression of shoulder impingement with thepatient as well as both conservative vs surgical treatment. The patient understands the various options and agrees to the following plan: I would recommend that we begin with NSAIDS use, and a bilateral subacromial injection at this time. If the patient does not improve after the next eight or so weeks then we would consider an MRI. We will see them back at that time for repeat evaluation. If there are any questions in the meantime, they are free to call the office earlier. LARGE JOINT INJECTION: R subacromial bursa Date/Time: 10/21/2019 9:35 AM Supporting Documentation Indications: pain Procedure Details Location: shoulder - R subacromial bursa Local Anesthetic Used: mL of ethyl chloride (cold spray) Needle size: 22 G Approach: posterior Medication Verification: I have personally verified and performed the final check of the medication(s) used in this procedure prior to administration. The following items were included during the verification process for medication(s) administered: drug name, strength, volume, expiration, physical integrity and appearance of the medication(s). Medications administered: 4 mL lidocaine 10 mg/mL; 40 mg methylPREDNISolone acetate 40 MG/ML Patient tolerance: patient tolerated the procedure well with no immediate complications Consent: Consent was obtained prior to the procedure after discussion of the risks, benefits and alternatives, and expected outcomes were discussed with the patient. The possibilities of reaction to medication, bleeding, infection, the need for additional procedures, failure to diagnosis a condition, and creating a complication requiring operation were discussed with the patient. The patient concurred with the proposed plan, giving consent. Preparation: Patient was prepped in the usual sterile fashion with alcohol. LARGE JOINT INJECTION: L subacromial bursa Date/Time: 10/21/2019 9:35 AM Supporting Documentation Indications: pain Procedure Details Location: shoulder - L subacromial bursa Local Anesthetic Used: mL of ethyl chloride (cold spray) Needle size: 22 G Approach: posterior Medication Verification: I have personally verified and performed the final check of the medication(s) used in this procedure prior to administration. The following items were included during the verification process for medication(s) administered: drug name, strength, volume, expiration, physical integrity and appearance of the medication(s). Medications administered: 2 mL bupivacaine 0.5 %; 4 mL lidocaine 10 mg/mL; 40 mg methylPREDNISoloneacetate 40 MG/ML Patient tolerance: patient tolerated the procedure well with no immediate complications Consent: Consent was obtained prior to the procedure after discussion of the risks, benefits and alternatives, and expected outcomes were discussed with the patient. The possibilities of reaction to medication, bleeding, infection, the need for additional procedures, failure to diagnosis a condition, and creating a complication requiring operation were discussed with the patient. The patient concurred with the proposed plan, giving consent. Preparation: Patient was prepped in the usual sterile fashion with alcohol. HIMANSHU Ramon was acting as a scribe today for this note. I have performed all essential components of the history, and physical exam. I have confirmed the diagnosis and developed a plan of care atthis visit. I have reviewed the note following the visit and have add edits as appropriate to my evaluation and plan of care. Marlo Davenport MD Cruz Foley [facility] - 10/21/2019 8:50 AM EST Associated Order(s): LARGE JOINT INJECTION: R subacromial bursa; LARGE JOINT INJECTION: L subacromial bursa Post-Procedure Diagnose(s): Impingement syndrome of right shoulder; Impingement syndrome of left shoulder LARGE JOINT INJECTION: R subacromial bursa Date/Time: 10/21/2019 9:35 AM Supporting Documentation Indications: pain Procedure Details Location: shoulder - R subacromial bursa Local Anesthetic Used: mL of ethyl chloride (cold spray) Needle size: 22 G Approach: posterior Medication Verification: I have personally verified and performed the final check of the medication(s) used in this procedure prior to administration. The following items were included during the verification process for medication(s) administered: drug name, strength, volume, expiration, physical integrity and appearance of the medication(s). Medications administered: 4 mL lidocaine 10 mg/mL; 40 mg methylPREDNISolone acetate 40 MG/ML Patient tolerance: patient tolerated the procedure well with no immediate complications Consent: Consent was obtained prior to the procedure after discussion of the risks, benefits and alternatives, and expected outcomes were discussed with the patient. The possibilities of reaction to medication, bleeding, infection, the need for additional procedures, failure to diagnosis a condition, and creating a complication requiring operation were discussed with the patient. The patient concurred with the proposed plan, giving consent. Preparation: Patient was prepped in the usual sterile fashion with alcohol. LARGE JOINT INJECTION: L subacromial bursa Date/Time: 10/21/2019 9:35 AM Supporting Documentation Indications: pain Procedure Details Location: shoulder - L subacromial bursa Local Anesthetic Used: mL of ethyl chloride (cold spray) Needle size: 22 G Approach: posterior Medication Verification: I have personally verified and performed the final check of the medication(s) used in this procedure prior to administration. The following items were included during the verification process for medication(s) administered: drug name, strength, volume, expiration, physical integrity and appearance of the medication(s). Medications administered: 2 mL bupivacaine 0.5 %; 4 mL lidocaine 10 mg/mL; 40 mg methylPREDNISoloneacetate 40 MG/ML Patient tolerance: patient tolerated the procedure well with no immediate complications Consent: Consent was obtained prior to the procedure after discussion of the risks, benefits and alternatives, and expected outcomes were discussed with the patient. The possibilities of reaction to medication, bleeding, infection, the need for additional procedures, failure to diagnosis a condition, and creating a complication requiring operation were discussed with the patient. The patient concurred with the proposed plan, giving consent. Preparation: Patient was prepped in the usual sterile fashion with alcohol. * Cruz Manzano [facility] - 10/21/2019 8:50 AM EST Chief Complaint Patient presents with Shoulder Pain Left Shoulder. Received a subacromial injection on 03/14/2019. The injection seemed to last until about 2 months ago, states the pain came back but not as bad as the first tome. Shoulder Pain OPNP Right Shoulder. This shoulder started to hurt after she stained her deck, States the pain is felt in the front of the shoulder and the bi-cep. HPI: Patient presents with left shoulder pain. Received a SA injection on 03.14.19. The injection seemedto last until about a month 2 months ago, states the pain came back but not as bad as the first time. OPNP: Patient presents with Right shoulder pain. This shoulder started to hurt after she stained her deck. States the pain is felt in the front of the shoulder and the bicep. R>L To recap last visit: The patient presents for left shoulder MRI follow up. She noticed improvement with the subacromial injection for approximately one month. She states she is unable to tolerate the pain and unable to sleep at night. Nearly all daily activities are limited by pain. She recently saw Dr. Barrientos whom informed her there is no rotator cuff tear. He ordered an EMG of the upper extremity and MRI of the cervical spine although the tests have not been performed at this point. NO neurovascular complaints or other concerns. PMH: Past medical history, family history, social history, allergies and medications have been reviewed and are documented in the electronic record. ROS: Review of Systems System Neg/Pos Details Constitutional Negative Chills and fever. Respiratory Negative Chest pain and dyspnea. Cardio Negative Chest pain. Negative Nocturia. Integumentary Negative Skin lesion. MS Negative Except as noted in HPI and chief complaint. Vitals: 10/21/19 0849 Temp: 97.7 degrees F (36.5 degrees C) Weight: 73.9 kg (163 lb) Height: 1.524 m (5') Physical Exam: Exam Findings Details Constitutional Normal No acute distress. Well developed. Head/Face Comments normal cephallic/ Atraumatic, negative spurling's maneuver Head/Face Normal Facial features - Normal. Skull - Normal. Hair and scalp - Normal. Respiratory Normal Cough - Absent. Effort - Normal. Skin * Detailed inspection - Visual lesions: none. Skin Comments other than as noted otherwise below in extremity exam Skin Normal Palpation/texture - Normal. Nails - Normal. Hair - Normal. Psychiatric Normal Orientation - Oriented to time, place, person & situation. left Shoulder Exam Inspection: No swelling. No atrophy. No deformity. ROM: FF 110/160, IR L4, ER 70/70. No scapular dyskinesia. Strength: Supraspinatus 4+/5, ER 5/5, Internal Rotation 5/5 Impingement signs: Hawkin's test:Positive, Neer's Sign:Positive Apprehension: Negative Elk's test: Negative Biceps tenderness: Positive Speed's test: Positive,Yergason's test:Not Tested/Assessed AC tenderness: positive Distally neurovascular intact with 2+ radial pulses and full sensation in R/U/M/axillary nerve distribution. Right Shoulder Exam Inspection: No swelling. No atrophy. No deformity. ROM: FF 110/140, IR L4, ER 70/70. No scapular dyskinesia. Strength: Supraspinatus 4+/5, ER 5/5, Internal Rotation 5/5 Impingement signs: Hawkin's test:Positive, Neer's Sign:Positive Apprehension: Negative Elk's test: Negative Biceps tenderness: Positive Speed's test: Positive,Yergason's test:Not Tested/Assessed AC tenderness: positive Distally neurovascular intact with 2+ radial pulses and full sensation in R/U/M/axillary nerve distribution. Assessment: ICD-10-CM 1. Left shoulder pain, unspecified chronicity M25.512 2. Impingement syndrome of left shoulder M75.42 3. Impingement syndrome of right shoulder M75.41 Plan: At this time we have discussed the natural history and progression of shoulder impingement with thepatient as well as both conservative vs surgical treatment. The patient understands the various options and agrees to the following plan: I would recommend that we begin with NSAIDS use, and a bilateral subacromial injection at this time. If the patient does not improve after the next eight or so weeks then we would consider an MRI. We will see them back at that time for repeat evaluation. If there are any questions in the meantime, they are free to call the office earlier. * Marlo Davenport MD - 10/21/2019 8:50 AM EST Procedures Four views were obtained of the right shoulder in our office today and interpreted by me show: no fractures, subluxations, or dislocations. They reveal a type II acromion. There are arthritic changesof the acromioclavicular joint- moderate. There are arthritic changes of the glenohumeral joint- mild. There is evidence of impingement with tuberosity changes. There are not calcific tendinitis changes. There is not superior migration of the humeral head. The glenohumeral joint is reduced. No other osseous abnormalities. documented in this encounter* Sherry Bee, TELEPHONE RECORDER-ACADEMIC SUPPORT ASSISTANT - 11/04/2019 1:45 PM EST HPI: Mavis Jackson Presents for evaluation and treatment of low back pain. Pain originates in the low back and radiates to both hips. Pain is described as Aching and Burning and is rated 7/10. Pain is increased with standing and walking and is relieved by Aleve works occasionally. The patient admits to h aving numbness/tingling in her buttocks. she admits to having weakness . The patient denies bowel/bladder incontinence. The patient responded with 20% relief to the most recent procedure which was a Left L3-S1 RFA on 08/31/19. Current Outpatient Medications: atorvastatin 40 MG Tab tablet, Take 1 tablet by mouth at bedtime., Disp: 30 tablet, Rfl: 2 clopidogrel (PLAVIX) 75 MG Tab tablet, Take 1 tablet by mouth daily., Disp: 30 tablet, Rfl: 2 CUSTOM MEDICATION, The patient requires a handicap placard for 5 years, as she is unable to wlak more than 200 feet without stopping to rest, due to her medical conditions., Disp: 1 Each, Rfl: 0 insulin NPH (NOVOLIN N) 100 UNIT/ML injection, Inject 20 Units under the skin daily every morning.,Disp: 2 Each, Rfl: 1 insulin regular 1 unit/0.01 ml vial, 20 U AC breakfast, 8 U AC Lunch, 8 U AC Dinner., Disp: 2 Each,Rfl: 1 MAXIMUM D3 89329 units Cap, 1 q weekly. JOANNE,, Disp: , Rfl: nystatin 882335 unit/gm Powder, Apply 1 Application topically every 8 hours., Disp: 1 Bottle, Rfl: 2 omeprazole (PRILOSEC) [address] capsule, Take 1 capsule by mouth 2 times daily (take before meals)., Disp: 60 capsule, Rfl: 2 Current Facility-Administered Medications: lidocaine (PF) 2 % injection 10 mL, 10 mL, Other, Once (Outpt Clinic), Mainor Oliver MD Past Medical History: Diagnosis Date Arthritis COPD (chronic obstructive pulmonary disease) Depression Diabetes mellitus GERD (gastroesophageal reflux disease) Glaucoma Hyperlipidemia Lumbago with sciatica, unspecified side Stroke Past Surgical History: Procedure Laterality Date EXTRACTION EXTRACAPSULAR CATARACT W/ IMPLANT (ECCE IOL) Bilateral 2017 REPAIR HERNIA VENTRAL OPEN W/ MESH 1985 TUBAL LIGATION 1970 with reversal HYSTERECTOMY TOTAL ABDOMINAL OPEN (ISABEL) W/ REMOVAL TUBES/OVARIES 1970 TONSILLECTOMY ADENOIDECTOMY 1966 SECTION 1980,1982 Family History Problem Relation Age of Onset Lung Cancer Mother Diabetes Mother Coronary Artery Disease Mother Hypertension Mother Kidney Disease Mother Lung Cancer Father Review of Systems: General: Denies fevers, chills, or night sweats Abdominal: Denies nausea, vomiting, diarrhea Respiratory: Denies cough, sputum production Genitourinary: Denies dysuria or frequency Vitals: 11/04/19 1326 BP: 132/80 Pulse: 82 Resp: 16 Physical Examination: Vitals: 11/04/19 1326 BP: 132/80 Pulse: 82 Resp: 16 Constitutional The patient is awake, alert, well developed, well nourished and well groomed. The patient is pleasant and cooperative. The patient is a good historian and is very helpful with the history and physical examination. Musculoskeletal The patient has moderate difficulty transitioning from sitting to standing. The patient has a(n) antalgic gait. The lumbar spine demonstrates a flexion biased curve. Palpation reveals tenderness overthe left lumbar, left sacral spine. Lumbosacral range of motion is limited in extension, left rotation, left lateral bend. Lumbar facet loading produces pain on the left. There is no deformity to thelumbosacral spine. SANTINO Lan test produces pain in the left lumbar spine, left sacral spine. There is mild abnormality in muscle tone in the lumbosacral spine. Trigger points are not present in the lumbosacral spine musculature. Muscle strength is 5/5 in the bilateral lower extremities. Seated straight leg raise is negative in the lower extremity for leg pain radiating to the foot from the low back. Neurologic Cranial Nerves 2-12 were tested and are grossly intact. The deep tendon reflexes of the in upper and lower extremities are symmetrical; they are graded at 2/4. Plantar reflexes (Babinski): toes are downgoing. Cerebellar function is normal; Romberg's test is negative. The gait is abnormal. Sensory testing for pain (pinprick), light touch, position, and vibration is intact. Psychiatric The patient is oriented to person, place, and time. Speech is fluent and words are clear. Thought processes are coherent, insight is good. There are no obsessive, compulsive, phobic or delusional thoughts; there are no illusions or hallucinations. The patient's fund of knowledge: awareness of current events and past history is appropriate for age. The patient's higher cognitive functions are intact. The patient's mood is neutral and the affect appropriate; there are no loose associations. Assessment: ICD-10-CM 1. Chronic midline low back pain, unspecified whether sciatica present M54.5 G89.29 Plan: 1. Recently attempted a left lumbar facet ablation but was not able to complete the procedure. Dr. Oliver dictated the needles were in place however, the RFA was not completed. She is asking if she can repeat the procedure with sedation. I spoke with Lynda Baeza RN, credit analysis manager, and she will discuss with Dr. Oliver on Thursday and call pt on Thursday. 2. RTC after RFA * Isela Park - 11/04/2019 1:45 PM EST HPI: Mavis Jackson Presents for evaluation and treatment of low back pain. Pain originates in the low back and radiates to both hips. Pain is described as Aching and Burning and is rated 7/10. Pain is increased with standing and walking and is relieved by Aleve works occasionally. The patient admits to h aving numbness/tingling in her buttocks. she admits to having weakness . The patient denies bowel/bladder incontinence. The patient responded with 20% relief to the most recent procedure which was a Left L3-S1 RFA on 08/31/19. Current Outpatient Medications Medication Sig atorvastatin 40 MG Tab tablet Take 1 tablet by mouth at bedtime. clopidogrel (PLAVIX) 75 MG Tab tablet Take 1 tablet by mouth daily. CUSTOM MEDICATION The patient requires a handicap placard for 5 years, as she is unable to wlak more than 200 feet without stopping to rest, due to her medical conditions. insulin NPH (NOVOLIN N) 100 UNIT/ML injection Inject 20 Units under the skin daily every morning. insulin regular 1 unit/0.01 ml vial 20 U AC breakfast, 8 U AC Lunch, 8 U AC Dinner. MAXIMUM D3 49532 units Cap 1 q weekly. JOANNE, nystatin 440906 unit/gm Powder Apply 1 Application topically every 8 hours. omeprazole (PRILOSEC) [address] capsule Take 1 capsule by mouth 2 times daily (take before meals). Review of Systems: General: Denies fevers, chills, or night sweats Abdominal: Denies nausea, vomiting, diarrhea Respiratory: Denies cough, sputum production Genitourinary: Denies dysuria or frequency documented in this encounter* Marlo Davenport MD - 02/21/2020 2:40 PM EDT Chief Complaint Patient presents with Shoulder Pain Bilateral Shoulder. Received bilateral subacromial injection on 10-21-2019. States the injections seemed to help until about 2 weeks ago when the pain came back. States the pain is felt in the whole shoulder bilaterally. Would like repeat injections today. HPI: Patient presents with bilateral shoulder pain. Received bilateral subacromial injections on 10/21/2019. States injection seemed to help until about 2 weeks ago and the pain came back. States the painis felt in the whole shoulder bilaterally. Would like repeat injections today. Recap previous visit: Patient presents with left shoulder pain. Received a SA injection on 03.14.19. The injection seemedto last until about a month 2 months ago, states the pain came back but not as bad as the first time. OPNP: Patient presents with Right shoulder pain. This shoulder started to hurt after she stained her deck. States the pain is felt in the front of the shoulder and the bicep. R>L PMH: Past medical history, family history, social history, allergies and medications have been reviewed and are documented in the electronic record. ROS: Review of Systems System Neg/Pos Details Constitutional Negative Chills and fever. Respiratory Negative Chest pain and dyspnea. Cardio Negative Chest pain. Negative Nocturia. Integumentary Negative Skin lesion. MS Negative Except as noted in HPI and chief complaint. Vitals: 02/21/20 1450 Temp: 97.9 degrees F (36.6 degrees C) Weight: 70.8 kg (156 lb 3 oz) Height: 1.524 m (5') Physical Exam: Exam Findings Details Constitutional Normal No acute distress. Well developed. Head/Face Comments normal cephallic/ Atraumatic, negative spurling's maneuver Head/Face Normal Facial features - Normal. Skull - Normal. Hair and scalp - Normal. Respiratory Normal Cough - Absent. Effort - Normal. Skin * Detailed inspection - Visual lesions: none. Skin Comments other than as noted otherwise below in extremity exam Skin Normal Palpation/texture - Normal. Nails - Normal. Hair - Normal. Psychiatric Normal Orientation - Oriented to time, place, person & situation. left Shoulder Exam Inspection: No swelling. No atrophy. No deformity. ROM: FF 110/160, IR L4, ER 70/70. No scapular dyskinesia. Strength: Supraspinatus 4+/5, ER 5/5, Internal Rotation 5/5 Impingement signs: Hawkin's test:Positive, Neer's Sign:Positive Apprehension: Negative Elk's test: Negative Biceps tenderness: Positive Speed's test: Positive,Yergason's test:Not Tested/Assessed AC tenderness: positive Distally neurovascular intact with 2+ radial pulses and full sensation in R/U/M/axillary nerve distribution. Right Shoulder Exam Inspection: No swelling. No atrophy. No deformity. ROM: FF 110/140, IR L4, ER 70/70. No scapular dyskinesia. Strength: Supraspinatus 4+/5, ER 5/5, Internal Rotation 5/5 Impingement signs: Hawkin's test:Positive, Neer's Sign:Positive Apprehension: Negative Elk's test: Negative Biceps tenderness: Positive Speed's test: Positive,Yergason's test:Not Tested/Assessed AC tenderness: positive Distally neurovascular intact with 2+ radial pulses and full sensation in R/U/M/axillary nerve distribution. Assessment: ICD-10-CM 1. Impingement syndrome of right shoulder M75.41 2. Impingement syndrome of left shoulder M75.42 Plan: At this time we have discussed the natural history and progression of shoulder impingement with thepatient as well as both conservative vs surgical treatment. The patient understands the various options and agrees to the following plan: I would recommend that we begin with NSAIDS use, repeat bilateral subacromial injection at this time. If the patient does not improve after the next eight or so weeks then we would consider an MRI. We will see them back at that time for repeat evaluation. If there are any questions in the meantime, they are free to call the office earlier. LARGE JOINT/BURSA INJECTION AND/OR ASPIRATION: R subacromial bursa Date/Time: 02/21/2020 2:40 PM Supporting Documentation Indications: pain Procedure Details: Location: shoulder - R subacromial bursa Local Anesthetic: ethyl chloride (cold spray) Needle size: 22 G Approach: posterior Medication Verification: I have personally verified and performed the final check of the medication(s) used in this procedure prior to administration. The following items were included during the verification process for medication(s) administered: drug name, strength, volume, expiration, physical integrity and appearance of the medication(s). Medications administered: 4 mL lidocaine 10 mg/mL; 40 mg methylPREDNISolone acetate 40 MG/ML Patient tolerance: patient tolerated the procedure well with no immediate complications Consent: Consent was obtained prior to the procedure after discussion of the risks, benefits and alternatives, and expected outcomes were discussed with the patient. The possibilities of reaction to medication, bleeding, infection, the need for additional procedures, failure to diagnosis a condition, and creating a complication requiring operation were discussed with the patient. The patient concurred with the proposed plan, giving consent. Preparation: Patient was prepped in the usual sterile fashion. The patient was prepped with alcohol. LARGE JOINT/BURSA INJECTION AND/OR ASPIRATION: L subacromial bursa Date/Time: 02/21/2020 2:40 PM Supporting Documentation Indications: pain Procedure Details: Location: shoulder - L subacromial bursa Local Anesthetic: ethyl chloride (cold spray) Needle size: 22 G Approach: posterior Medication Verification: I have personally verified and performed the final check of the medication(s) used in this procedure prior to administration. The following items were included during the verification process for medication(s) administered: drug name, strength, volume, expiration, physical integrity and appearance of the medication(s). Medications administered: 2 mL bupivacaine 0.5 %; 4 mL lidocaine 10 mg/mL; 40 mg methylPREDNISoloneacetate 40 MG/ML Patient tolerance: patient tolerated the procedure well with no immediate complications Consent: Consent was obtained prior to the procedure after discussion of the risks, benefits and alternatives, and expected outcomes were discussed with the patient. The possibilities of reaction to medication, bleeding, infection, the need for additional procedures, failure to diagnosis a condition, and creating a complication requiring operation were discussed with the patient. The patient concurred with the proposed plan, giving consent. Preparation: Patient was prepped in the usual sterile fashion. The patient was prepped with alcohol. HIMANSHU Ramon was acting as a scribe today for this note. I have performed all essential components of the history, and physical exam. I have confirmed the diagnosis and developed a plan of care atthis visit. I have reviewed the note following the visit and have add edits as appropriate to my evaluation and plan of care. Marlo Davenport MD * [facility] Manzano, [facility] - 02/21/2020 2:40 PM EDT Associated Order(s): LARGE JOINT/BURSA INJECTION AND/OR ASPIRATION: R subacromial bursa; LARGE JOINT/BURSA INJECTION AND/OR ASPIRATION: L subacromial bursa Post-Procedure Diagnose(s): Impingement syndrome of right shoulder; Impingement syndrome of left shoulder LARGE JOINT/BURSA INJECTION AND/OR ASPIRATION: R subacromial bursa Date/Time: 02/21/2020 2:40 PM Supporting Documentation Indications: pain Procedure Details: Location: shoulder - R subacromial bursa Local Anesthetic: ethyl chloride (cold spray) Needle size: 22 G Approach: posterior Medication Verification: I have personally verified and performed the final check of the medication(s) used in this procedure prior to administration. The following items were included during the verification process for medication(s) administered: drug name, strength, volume, expiration, physical integrity and appearance of the medication(s). Medications administered: 4 mL lidocaine 10 mg/mL; 40 mg methylPREDNISolone acetate 40 MG/ML Patient tolerance: patient tolerated the procedure well with no immediate complications Consent: Consent was obtained prior to the procedure after discussion of the risks, benefits and alternatives, and expected outcomes were discussed with the patient. The possibilities of reaction to medication, bleeding, infection, the need for additional procedures, failure to diagnosis a condition, and creating a complication requiring operation were discussed with the patient. The patient concurred with the proposed plan, giving consent. Preparation: Patient was prepped in the usual sterile fashion. The patient was prepped with alcohol. LARGE JOINT/BURSA INJECTION AND/OR ASPIRATION: L subacromial bursa Date/Time: 02/21/2020 2:40 PM Supporting Documentation Indications: pain Procedure Details: Location: shoulder - L subacromial bursa Local Anesthetic: ethyl chloride (cold spray) Needle size: 22 G Approach: posterior Medication Verification: I have personally verified and performed the final check of the medication(s) used in this procedure prior to administration. The following items were included during the verification process for medication(s) administered: drug name, strength, volume, expiration, physical integrity and appearance of the medication(s). Medications administered: 2 mL bupivacaine 0.5 %; 4 mL lidocaine 10 mg/mL; 40 mg methylPREDNISoloneacetate 40 MG/ML Patient tolerance: patient tolerated the procedure well with no immediate complications Consent: Consent was obtained prior to the procedure after discussion of the risks, benefits and alternatives, and expected outcomes were discussed with the patient. The possibilities of reaction to medication, bleeding, infection, the need for additional procedures, failure to diagnosis a condition, and creating a complication requiring operation were discussed with the patient. The patient concurred with the proposed plan, giving consent. Preparation: Patient was prepped in the usual sterile fashion. The patient was prepped with alcohol. * Cruz Manzano [facility] - 02/21/2020 2:40 PM EDT Chief Complaint Patient presents with Shoulder Pain Bilateral Shoulder. Received bilateral subacromial injection on 10-21-2019. States the injections seemed to help until about 2 weeks ago when the pain came back. States the pain is felt in the whole shoulder bilaterally. Would like repeat injections today. HPI: Patient presents with bilateral shoulder pain. Received bilateral subacromial injections on 10/21/2019. States injection seemed to help until about 2 weeks ago and the pain came back. States the painis felt in the whole shoulder bilaterally. Would like repeat injections today. Recap previous visit: Patient presents with left shoulder pain. Received a SA injection on 03.14.19. The injection seemedto last until about a month 2 months ago, states the pain came back but not as bad as the first time. OPNP: Patient presents with Right shoulder pain. This shoulder started to hurt after she stained her deck. States the pain is felt in the front of the shoulder and the bicep. R>L PMH: Past medical history, family history, social history, allergies and medications have been reviewed and are documented in the electronic record. ROS: Review of Systems System Neg/Pos Details Constitutional Negative Chills and fever. Respiratory Negative Chest pain and dyspnea. Cardio Negative Chest pain. Negative Nocturia. Integumentary Negative Skin lesion. MS Negative Except as noted in HPI and chief complaint. Vitals: 02/21/20 1450 Temp: 97.9 degrees F (36.6 degrees C) Weight: 70.8 kg (156 lb 3 oz) Height: 1.524 m (5') Physical Exam: Exam Findings Details Constitutional Normal No acute distress. Well developed. Head/Face Comments normal cephallic/ Atraumatic, negative spurling's maneuver Head/Face Normal Facial features - Normal. Skull - Normal. Hair and scalp - Normal. Respiratory Normal Cough - Absent. Effort - Normal. Skin * Detailed inspection - Visual lesions: none. Skin Comments other than as noted otherwise below in extremity exam Skin Normal Palpation/texture - Normal. Nails - Normal. Hair - Normal. Psychiatric Normal Orientation - Oriented to time, place, person & situation. left Shoulder Exam Inspection: No swelling. No atrophy. No deformity. ROM: FF 110/160, IR L4, ER 70/70. No scapular dyskinesia. Strength: Supraspinatus 4+/5, ER 5/5, Internal Rotation 5/5 Impingement signs: Hawkin's test:Positive, Neer's Sign:Positive Apprehension: Negative Elk's test: Negative Biceps tenderness: Positive Speed's test: Positive,Yergason's test:Not Tested/Assessed AC tenderness: positive Distally neurovascular intact with 2+ radial pulses and full sensation in R/U/M/axillary nerve distribution. Right Shoulder Exam Inspection: No swelling. No atrophy. No deformity. ROM: FF 110/140, IR L4, ER 70/70. No scapular dyskinesia. Strength: Supraspinatus 4+/5, ER 5/5, Internal Rotation 5/5 Impingement signs: Hawkin's test:Positive, Neer's Sign:Positive Apprehension: Negative Elk's test: Negative Biceps tenderness: Positive Speed's test: Positive,Yergason's test:Not Tested/Assessed AC tenderness: positive Distally neurovascular intact with 2+ radial pulses and full sensation in R/U/M/axillary nerve distribution. Assessment: ICD-10-CM 1. Impingement syndrome of right shoulder M75.41 2. Impingement syndrome of left shoulder M75.42 Plan: At this time we have discussed the natural history and progression of shoulder impingement with thepatient as well as both conservative vs surgical treatment. The patient understands the various options and agrees to the following plan: I would recommend that we begin with NSAIDS use, repeat bilateral subacromial injection at this time. If the patient does not improve after the next eight or so weeks then we would consider an MRI. We will see them back at that time for repeat evaluation. If there are any questions in the meantime, they are free to call the office earlier. documented in this encounter* Marlo Davenport MD - 05/22/2020 11:00 AM EDT Chief Complaint Patient presents with Shoulder Pain B/L Shoulder. Recieved B/L Subacromial injections 02-21-20. Patient states injections helped a lot. She states she doesn't feel like it has worn off. She would like repeat injections today. HPI: Patient presents bilateral shoulder pain. Received bilateral subacromial injections on 02/21/2020. Patient states injections helped. She states she feels as though they are beginning to wear off. She would like repeat injections today Previous visit: Patient presents with bilateral shoulder pain. Received bilateral subacromial injections on 10/21/2019. States injection seemed to help until about 2 weeks ago and the pain came back. States the painis felt in the whole shoulder bilaterally. Would like repeat injections today. PMH: Past medical history, family history, social history, allergies and medications have been reviewed and are documented in the electronic record. ROS: Review of Systems System Neg/Pos Details Constitutional Negative Chills and fever. Respiratory Negative Chest pain and dyspnea. Cardio Negative Chest pain. Negative Nocturia. Integumentary Negative Skin lesion. MS Negative Except as noted in HPI and chief complaint. Vitals: 05/22/20 1058 Temp: 98.6 degrees F (37 degrees C) Weight: 71.8 kg (158 lb 6.4 oz) Height: 1.524 m (5') Physical Exam: Exam Findings Details Constitutional Normal No acute distress. Well developed. Head/Face Comments normal cephallic/ Atraumatic, negative spurling's maneuver Head/Face Normal Facial features - Normal. Skull - Normal. Hair and scalp - Normal. Respiratory Normal Cough - Absent. Effort - Normal. Skin * Detailed inspection - Visual lesions: none. Skin Comments other than as noted otherwise below in extremity exam Skin Normal Palpation/texture - Normal. Nails - Normal. Hair - Normal. Psychiatric Normal Orientation - Oriented to time, place, person & situation. left Shoulder Exam Inspection: No swelling. No atrophy. No deformity. ROM: FF 110/160, IR L4, ER 70/70. No scapular dyskinesia. Strength: Supraspinatus 4+/5, ER 5/5, Internal Rotation 5/5 Impingement signs: Hawkin's test:Positive, Neer's Sign:Positive Apprehension: Negative Elk's test: Negative Biceps tenderness: Positive Speed's test: Positive,Yergason's test:Not Tested/Assessed AC tenderness: positive Distally neurovascular intact with 2+ radial pulses and full sensation in R/U/M/axillary nerve distribution. Right Shoulder Exam Inspection: No swelling. No atrophy. No deformity. ROM: FF 110/140, IR L4, ER 70/70. No scapular dyskinesia. Strength: Supraspinatus 4+/5, ER 5/5, Internal Rotation 5/5 Impingement signs: Hawkin's test:Positive, Neer's Sign:Positive Apprehension: Negative Elk's test: Negative Biceps tenderness: Positive Speed's test: Positive,Yergason's test:Not Tested/Assessed AC tenderness: positive Distally neurovascular intact with 2+ radial pulses and full sensation in R/U/M/axillary nerve distribution. Assessment: ICD-10-CM 1. Impingement syndrome of right shoulder M75.41 2. Impingement syndrome of left shoulder M75.42 Plan: At this time we have discussed the natural history and progression of shoulder impingement with thepatient as well as both conservative vs surgical treatment. The patient understands the various options and agrees to the following plan: I would recommend that we begin with NSAIDS use, repeat bilateral subacromial injection at this time. If the patient does not improve after the next eight or so weeks then we would consider an MRI. We will see them back at that time for repeat evaluation. If there are any questions in the meantime, they are free to call the office earlier. Chief Complaint Patient presents with Shoulder Pain B/L Shoulder. Recieved B/L Subacromial injections 02-21-20. Patient states injections helped a lot. She states she doesn't feel like it has worn off. She would like repeat injections today. HPI: Patient presents with bilateral shoulder pain. Received bilateral subacromial injections on 10/21/2019. States injection seemed to help until about 2 weeks ago and the pain came back. States the painis felt in the whole shoulder bilaterally. Would like repeat injections today. Recap previous visit: Patient presents with left shoulder pain. Received a SA injection on 03.14.19. The injection seemedto last until about a month 2 months ago, states the pain came back but not as bad as the first time. OPNP: Patient presents with Right shoulder pain. This shoulder started to hurt after she stained her deck. States the pain is felt in the front of the shoulder and the bicep. R>L PMH: Past medical history, family history, social history, allergies and medications have been reviewed and are documented in the electronic record. ROS: Review of Systems System Neg/Pos Details Constitutional Negative Chills and fever. Respiratory Negative Chest pain and dyspnea. Cardio Negative Chest pain. Negative Nocturia. Integumentary Negative Skin lesion. MS Negative Except as noted in HPI and chief complaint. Vitals: 05/22/20 1058 Temp: 98.6 degrees F (37 degrees C) Weight: 71.8 kg (158 lb 6.4 oz) Height: 1.524 m (5') Physical Exam: Exam Findings Details Constitutional Normal No acute distress. Well developed. Head/Face Comments normal cephallic/ Atraumatic, negative spurling's maneuver Head/Face Normal Facial features - Normal. Skull - Normal. Hair and scalp - Normal. Respiratory Normal Cough - Absent. Effort - Normal. Skin * Detailed inspection - Visual lesions: none. Skin Comments other than as noted otherwise below in extremity exam Skin Normal Palpation/texture - Normal. Nails - Normal. Hair - Normal. Psychiatric Normal Orientation - Oriented to time, place, person & situation. left Shoulder Exam Inspection: No swelling. No atrophy. No deformity. ROM: FF 110/160, IR L4, ER 70/70. No scapular dyskinesia. Strength: Supraspinatus 4+/5, ER 5/5, Internal Rotation 5/5 Impingement signs: Hawkin's test:Positive, Neer's Sign:Positive Apprehension: Negative Elk's test: Negative Biceps tenderness: Positive Speed's test: Positive,Yergason's test:Not Tested/Assessed AC tenderness: positive Distally neurovascular intact with 2+ radial pulses and full sensation in R/U/M/axillary nerve distribution. Right Shoulder Exam Inspection: No swelling. No atrophy. No deformity. ROM: FF 110/140, IR L4, ER 70/70. No scapular dyskinesia. Strength: Supraspinatus 4+/5, ER 5/5, Internal Rotation 5/5 Impingement signs: Hawkin's test:Positive, Neer's Sign:Positive Apprehension: Negative Elk's test: Negative Biceps tenderness: Positive Speed's test: Positive,Yergason's test:Not Tested/Assessed AC tenderness: positive Distally neurovascular intact with 2+ radial pulses and full sensation in R/U/M/axillary nerve distribution. Assessment: ICD-10-CM 1. Impingement syndrome of right shoulder M75.41 2. Impingement syndrome of left shoulder M75.42 Plan: At this time we have discussed the natural history and progression of shoulder impingement with thepatient as well as both conservative vs surgical treatment. The patient understands the various options and agrees to the following plan: I would recommend that we begin with NSAIDS use, repeat bilateral subacromial injection at this time. If the patient does not improve after the next eight or so weeks then we would consider an MRI. We will see them back at that time for repeat evaluation. If there are any questions in the meantime, they are free to call the office earlier. LARGE JOINT/BURSA INJECTION AND/OR ASPIRATION: R subacromial bursa Date/Time: 05/22/2020 11:00 AM Supporting Documentation Indications: pain Procedure Details: Location: shoulder - R subacromial bursa Local Anesthetic: ethyl chloride (cold spray) Needle size: 22 G Approach: posterior Medication Verification: I have personally verified and performed the final check of the medication(s) used in this procedure prior to administration. The following items were included during the verification process for medication(s) administered: drug name, strength, volume, expiration, physical integrity and appearance of the medication(s). Medications administered: 4 mL lidocaine 10 mg/mL; 40 mg methylPREDNISolone acetate 40 MG/ML Patient tolerance: patient tolerated the procedure well with no immediate complications Consent: Consent was obtained prior to the procedure after discussion of the risks, benefits and alternatives, and expected outcomes were discussed with the patient. The possibilities of reaction to medication, bleeding, infection, the need for additional procedures, failure to diagnosis a condition, and creating a complication requiring operation were discussed with the patient. The patient concurred with the proposed plan, giving consent. Preparation: Patient was prepped in the usual sterile fashion. The patient was prepped with alcohol. LARGE JOINT/BURSA INJECTION AND/OR ASPIRATION: L subacromial bursa Date/Time: 05/22/2020 11:00 AM Supporting Documentation Indications: pain Procedure Details: Location: shoulder - L subacromial bursa Local Anesthetic: ethyl chloride (cold spray) Needle size: 22 G Approach: posterior Medication Verification: I have personally verified and performed the final check of the medication(s) used in this procedure prior to administration. The following items were included during the verification process for medication(s) administered: drug name, strength, volume, expiration, physical integrity and appearance of the medication(s). Medications administered: 2 mL bupivacaine 0.5 %; 4 mL lidocaine 10 mg/mL; 40 mg methylPREDNISoloneacetate 40 MG/ML Patient tolerance: patient tolerated the procedure well with no immediate complications Consent: Consent was obtained prior to the procedure after discussion of the risks, benefits and alternatives, and expected outcomes were discussed with the patient. The possibilities of reaction to medication, bleeding, infection, the need for additional procedures, failure to diagnosis a condition, and creating a complication requiring operation were discussed with the patient. The patient concurred with the proposed plan, giving consent. Preparation: Patient was prepped in the usual sterile fashion. The patient was prepped with alcohol. HIMANSHU Ramon was acting as a scribe today for this note. I have performed all essential components of the history, and physical exam. I have confirmed the diagnosis and developed a plan of care atthis visit. I have reviewed the note following the visit and have add edits as appropriate to my evaluation and plan of care. Marlo Davenport MD * [facility] Manzano, [facility] - 05/22/2020 11:00 AM EDT Associated Order(s): LARGE JOINT/BURSA INJECTION AND/OR ASPIRATION: R subacromial bursa; LARGE JOINT/BURSA INJECTION AND/OR ASPIRATION: L subacromial bursa Post-Procedure Diagnose(s): Impingement syndrome of right shoulder; Impingement syndrome of left shoulder LARGE JOINT/BURSA INJECTION AND/OR ASPIRATION: R subacromial bursa Date/Time: 05/22/2020 11:00 AM Supporting Documentation Indications: pain Procedure Details: Location: shoulder - R subacromial bursa Local Anesthetic: ethyl chloride (cold spray) Needle size: 22 G Approach: posterior Medication Verification: I have personally verified and performed the final check of the medication(s) used in this procedure prior to administration. The following items were included during the verification process for medication(s) administered: drug name, strength, volume, expiration, physical integrity and appearance of the medication(s). Medications administered: 4 mL lidocaine 10 mg/mL; 40 mg methylPREDNISolone acetate 40 MG/ML Patient tolerance: patient tolerated the procedure well with no immediate complications Consent: Consent was obtained prior to the procedure after discussion of the risks, benefits and alternatives, and expected outcomes were discussed with the patient. The possibilities of reaction to medication, bleeding, infection, the need for additional procedures, failure to diagnosis a condition, and creating a complication requiring operation were discussed with the patient. The patient concurred with the proposed plan, giving consent. Preparation: Patient was prepped in the usual sterile fashion. The patient was prepped with alcohol. LARGE JOINT/BURSA INJECTION AND/OR ASPIRATION: L subacromial bursa Date/Time: 05/22/2020 11:00 AM Supporting Documentation Indications: pain Procedure Details: Location: shoulder - L subacromial bursa Local Anesthetic: ethyl chloride (cold spray) Needle size: 22 G Approach: posterior Medication Verification: I have personally verified and performed the final check of the medication(s) used in this procedure prior to administration. The following items were included during the verification process for medication(s) administered: drug name, strength, volume, expiration, physical integrity and appearance of the medication(s). Medications administered: 2 mL bupivacaine 0.5 %; 4 mL lidocaine 10 mg/mL; 40 mg methylPREDNISoloneacetate 40 MG/ML Patient tolerance: patient tolerated the procedure well with no immediate complications Consent: Consent was obtained prior to the procedure after discussion of the risks, benefits and alternatives, and expected outcomes were discussed with the patient. The possibilities of reaction to medication, bleeding, infection, the need for additional procedures, failure to diagnosis a condition, and creating a complication requiring operation were discussed with the patient. The patient concurred with the proposed plan, giving consent. Preparation: Patient was prepped in the usual sterile fashion. The patient was prepped with alcohol. * Cruz Manzano ATC - 05/22/2020 11:00 AM EDT Chief Complaint Patient presents with Shoulder Pain B/L Shoulder. Recieved B/L Subacromial injections 02-21-20. Patient states injections helped a lot. She states she doesn't feel like it has worn off. She would like repeat injections today. HPI: Patient presents bilateral shoulder pain. Received bilateral subacromial injections on 02/21/2020. Patient states injections helped. She states she feels as though they are beginning to wear off. She would like repeat injections today Previous visit: Patient presents with bilateral shoulder pain. Received bilateral subacromial injections on 10/21/2019. States injection seemed to help until about 2 weeks ago and the pain came back. States the painis felt in the whole shoulder bilaterally. Would like repeat injections today. PMH: Past medical history, family history, social history, allergies and medications have been reviewed and are documented in the electronic record. ROS: Review of Systems System Neg/Pos Details Constitutional Negative Chills and fever. Respiratory Negative Chest pain and dyspnea. Cardio Negative Chest pain. Negative Nocturia. Integumentary Negative Skin lesion. MS Negative Except as noted in HPI and chief complaint. Vitals: 05/22/20 1058 Temp: 98.6 degrees F (37 degrees C) Weight: 71.8 kg (158 lb 6.4 oz) Height: 1.524 m (5') Physical Exam: Exam Findings Details Constitutional Normal No acute distress. Well developed. Head/Face Comments normal cephallic/ Atraumatic, negative spurling's maneuver Head/Face Normal Facial features - Normal. Skull - Normal. Hair and scalp - Normal. Respiratory Normal Cough - Absent. Effort - Normal. Skin * Detailed inspection - Visual lesions: none. Skin Comments other than as noted otherwise below in extremity exam Skin Normal Palpation/texture - Normal. Nails - Normal. Hair - Normal. Psychiatric Normal Orientation - Oriented to time, place, person & situation. left Shoulder Exam Inspection: No swelling. No atrophy. No deformity. ROM: FF 110/160, IR L4, ER 70/70. No scapular dyskinesia. Strength: Supraspinatus 4+/5, ER 5/5, Internal Rotation 5/5 Impingement signs: Hawkin's test:Positive, Neer's Sign:Positive Apprehension: Negative Elk's test: Negative Biceps tenderness: Positive Speed's test: Positive,Yergason's test:Not Tested/Assessed AC tenderness: positive Distally neurovascular intact with 2+ radial pulses and full sensation in R/U/M/axillary nerve distribution. Right Shoulder Exam Inspection: No swelling. No atrophy. No deformity. ROM: FF 110/140, IR L4, ER 70/70. No scapular dyskinesia. Strength: Supraspinatus 4+/5, ER 5/5, Internal Rotation 5/5 Impingement signs: Hawkin's test:Positive, Neer's Sign:Positive Apprehension: Negative Elk's test: Negative Biceps tenderness: Positive Speed's test: Positive,Yergason's test:Not Tested/Assessed AC tenderness: positive Distally neurovascular intact with 2+ radial pulses and full sensation in R/U/M/axillary nerve distribution. Assessment: ICD-10-CM 1. Impingement syndrome of right shoulder M75.41 2. Impingement syndrome of left shoulder M75.42 Plan: At this time we have discussed the natural history and progression of shoulder impingement with thepatient as well as both conservative vs surgical treatment. The patient understands the various options and agrees to the following plan: I would recommend that we begin with NSAIDS use, repeat bilateral subacromial injection at this time. If the patient does not improve after the next eight or so weeks then we would consider an MRI. We will see them back at that time for repeat evaluation. If there are any questions in the meantime, they are free to call the office earlier. Chief Complaint Patient presents with Shoulder Pain B/L Shoulder. Recieved B/L Subacromial injections 02-21-20. Patient states injections helped a lot. She states she doesn't feel like it has worn off. She would like repeat injections today. HPI: Patient presents with bilateral shoulder pain. Received bilateral subacromial injections on 10/21/2019. States injection seemed to help until about 2 weeks ago and the pain came back. States the painis felt in the whole shoulder bilaterally. Would like repeat injections today. Recap previous visit: Patient presents with left shoulder pain. Received a SA injection on 03.14.19. The injection seemedto last until about a month 2 months ago, states the pain came back but not as bad as the first time. OPNP: Patient presents with Right shoulder pain. This shoulder started to hurt after she stained her deck. States the pain is felt in the front of the shoulder and the bicep. R>L PMH: Past medical history, family history, social history, allergies and medications have been reviewed and are documented in the electronic record. ROS: Review of Systems System Neg/Pos Details Constitutional Negative Chills and fever. Respiratory Negative Chest pain and dyspnea. Cardio Negative Chest pain. Negative Nocturia. Integumentary Negative Skin lesion. MS Negative Except as noted in HPI and chief complaint. Vitals: 05/22/20 1058 Temp: 98.6 degrees F (37 degrees C) Weight: 71.8 kg (158 lb 6.4 oz) Height: 1.524 m (5') Physical Exam: Exam Findings Details Constitutional Normal No acute distress. Well developed. Head/Face Comments normal cephallic/ Atraumatic, negative spurling's maneuver Head/Face Normal Facial features - Normal. Skull - Normal. Hair and scalp - Normal. Respiratory Normal Cough - Absent. Effort - Normal. Skin * Detailed inspection - Visual lesions: none. Skin Comments other than as noted otherwise below in extremity exam Skin Normal Palpation/texture - Normal. Nails - Normal. Hair - Normal. Psychiatric Normal Orientation - Oriented to time, place, person & situation. left Shoulder Exam Inspection: No swelling. No atrophy. No deformity. ROM: FF 110/160, IR L4, ER 70/70. No scapular dyskinesia. Strength: Supraspinatus 4+/5, ER 5/5, Internal Rotation 5/5 Impingement signs: Hawkin's test:Positive, Neer's Sign:Positive Apprehension: Negative Elk's test: Negative Biceps tenderness: Positive Speed's test: Positive,Yergason's test:Not Tested/Assessed AC tenderness: positive Distally neurovascular intact with 2+ radial pulses and full sensation in R/U/M/axillary nerve distribution. Right Shoulder Exam Inspection: No swelling. No atrophy. No deformity. ROM: FF 110/140, IR L4, ER 70/70. No scapular dyskinesia. Strength: Supraspinatus 4+/5, ER 5/5, Internal Rotation 5/5 Impingement signs: Hawkin's test:Positive, Neer's Sign:Positive Apprehension: Negative Elk's test: Negative Biceps tenderness: Positive Speed's test: Positive,Yergason's test:Not Tested/Assessed AC tenderness: positive Distally neurovascular intact with 2+ radial pulses and full sensation in R/U/M/axillary nerve distribution. Assessment: ICD-10-CM 1. Impingement syndrome of right shoulder M75.41 2. Impingement syndrome of left shoulder M75.42 Plan: At this time we have discussed the natural history and progression of shoulder impingement with thepatient as well as both conservative vs surgical treatment. The patient understands the various options and agrees to the following plan: I would recommend that we begin with NSAIDS use, repeat bilateral subacromial injection at this time. If the patient does not improve after the next eight or so weeks then we would consider an MRI. We will see them back at that time for repeat evaluation. If there are any questions in the meantime, they are free to call the office earlier. documented in this encounter* Marlo Davenport MD - 08/21/2020 11:00 AM EDT Chief Complaint Patient presents with Shoulder Pain B/L Shoulder. Recieved B/L Subacromial injections 05-22-20. PT states that the injections helped with the pain. Pt states that she would like to repeat the injections today. HPI: Patient presents with bilateral shoulder pain. Received bilateral subacromial injections on 05/22/2020. Patient states the injections helped with the pain. Patient states that she would like repeat injections today. To recap previous visit: Patient presents bilateral shoulder pain. Received bilateral subacromial injections on 02/21/2020. Patient states injections helped. She states she feels as though they are beginning to wear off. She would like repeat injections today PMH: Past medical history, family history, social history, allergies and medications have been reviewed and are documented in the electronic record. ROS: Review of Systems System Neg/Pos Details Constitutional Negative Chills and fever. Respiratory Negative Chest pain and dyspnea. Cardio Negative Chest pain. Negative Nocturia. Integumentary Negative Skin lesion. MS Negative Except as noted in HPI and chief complaint. Vitals: 08/21/20 1112 Temp: 97.8 degrees F (36.6 degrees C) TempSrc: Temporal Weight: 71.3 kg (157 lb 3.2 oz) Height: 1.524 m (5') Physical Exam: Exam Findings Details Constitutional Normal No acute distress. Well developed. Head/Face Comments normal cephallic/ Atraumatic, negative spurling's maneuver Head/Face Normal Facial features - Normal. Skull - Normal. Hair and scalp - Normal. Respiratory Normal Cough - Absent. Effort - Normal. Skin * Detailed inspection - Visual lesions: none. Skin Comments other than as noted otherwise below in extremity exam Skin Normal Palpation/texture - Normal. Nails - Normal. Hair - Normal. Psychiatric Normal Orientation - Oriented to time, place, person & situation. left Shoulder Exam Inspection: No swelling. No atrophy. No deformity. ROM: FF 110/160, IR L4, ER 70/70. No scapular dyskinesia. Strength: Supraspinatus 4+/5, ER 5/5, Internal Rotation 5/5 Impingement signs: Hawkin's test:Positive, Neer's Sign:Positive Apprehension: Negative Elk's test: Negative Biceps tenderness: Positive Speed's test: Positive,Yergason's test:Not Tested/Assessed AC tenderness: positive Distally neurovascular intact with 2+ radial pulses and full sensation in R/U/M/axillary nerve distribution. Right Shoulder Exam Inspection: No swelling. No atrophy. No deformity. ROM: FF 110/140, IR L4, ER 70/70. No scapular dyskinesia. Strength: Supraspinatus 4+/5, ER 5/5, Internal Rotation 5/5 Impingement signs: Hawkin's test:Positive, Neer's Sign:Positive Apprehension: Negative Elk's test: Negative Biceps tenderness: Positive Speed's test: Positive,Yergason's test:Not Tested/Assessed AC tenderness: positive Distally neurovascular intact with 2+ radial pulses and full sensation in R/U/M/axillary nerve distribution. Assessment: ICD-10-CM 1. Impingement syndrome of right shoulder M75.41 2. Impingement syndrome of left shoulder M75.42 Plan: At this time we have discussed the natural history and progression of shoulder impingement with thepatient as well as both conservative vs surgical treatment. The patient understands the various options and agrees to the following plan: I would recommend that we begin with NSAIDS use, repeat bilateral subacromial injection at this time. If the patient does not improve after the next eight or so weeks then we would consider an MRI. We will see them back at that time for repeat evaluation. If there are any questions in the meantime, they are free to call the office earlier. Chief Complaint Patient presents with Shoulder Pain B/L Shoulder. Recieved B/L Subacromial injections 05-22-20. PT states that the injections helped with the pain. Pt states that she would like to repeat the injections today. HPI: Patient presents with bilateral shoulder pain. Received bilateral subacromial injections on 10/21/2019. States injection seemed to help until about 2 weeks ago and the pain came back. States the painis felt in the whole shoulder bilaterally. Would like repeat injections today. Recap previous visit: Patient presents with left shoulder pain. Received a SA injection on 03.14.19. The injection seemedto last until about a month 2 months ago, states the pain came back but not as bad as the first time. OPNP: Patient presents with Right shoulder pain. This shoulder started to hurt after she stained her deck. States the pain is felt in the front of the shoulder and the bicep. R>L PMH: Past medical history, family history, social history, allergies and medications have been reviewed and are documented in the electronic record. ROS: Review of Systems System Neg/Pos Details Constitutional Negative Chills and fever. Respiratory Negative Chest pain and dyspnea. Cardio Negative Chest pain. Negative Nocturia. Integumentary Negative Skin lesion. MS Negative Except as noted in HPI and chief complaint. Vitals: 08/21/20 1112 Temp: 97.8 degrees F (36.6 degrees C) TempSrc: Temporal Weight: 71.3 kg (157 lb 3.2 oz) Height: 1.524 m (5') Physical Exam: Exam Findings Details Constitutional Normal No acute distress. Well developed. Head/Face Comments normal cephallic/ Atraumatic, negative spurling's maneuver Head/Face Normal Facial features - Normal. Skull - Normal. Hair and scalp - Normal. Respiratory Normal Cough - Absent. Effort - Normal. Skin * Detailed inspection - Visual lesions: none. Skin Comments other than as noted otherwise below in extremity exam Skin Normal Palpation/texture - Normal. Nails - Normal. Hair - Normal. Psychiatric Normal Orientation - Oriented to time, place, person & situation. left Shoulder Exam Inspection: No swelling. No atrophy. No deformity. ROM: FF 110/160, IR L4, ER 70/70. No scapular dyskinesia. Strength: Supraspinatus 4+/5, ER 5/5, Internal Rotation 5/5 Impingement signs: Hawkin's test:Positive, Neer's Sign:Positive Apprehension: Negative Elk's test: Negative Biceps tenderness: Positive Speed's test: Positive,Yergason's test:Not Tested/Assessed AC tenderness: positive Distally neurovascular intact with 2+ radial pulses and full sensation in R/U/M/axillary nerve distribution. Right Shoulder Exam Inspection: No swelling. No atrophy. No deformity. ROM: FF 110/140, IR L4, ER 70/70. No scapular dyskinesia. Strength: Supraspinatus 4+/5, ER 5/5, Internal Rotation 5/5 Impingement signs: Hawkin's test:Positive, Neer's Sign:Positive Apprehension: Negative Elk's test: Negative Biceps tenderness: Positive Speed's test: Positive,Yergason's test:Not Tested/Assessed AC tenderness: positive Distally neurovascular intact with 2+ radial pulses and full sensation in R/U/M/axillary nerve distribution. Assessment: ICD-10-CM 1. Impingement syndrome of right shoulder M75.41 2. Impingement syndrome of left shoulder M75.42 Plan: At this time we have discussed the natural history and progression of shoulder impingement with thepatient as well as both conservative vs surgical treatment. The patient understands the various options and agrees to the following plan: I would recommend that we begin with NSAIDS use, repeat bilateral subacromial injection at this time. If the patient does not improve after the next eight or so weeks then we would consider an MRI. We will see them back at that time for repeat evaluation. If there are any questions in the meantime, they are free to call the office earlier. LARGE JOINT/BURSA INJECTION AND/OR ASPIRATION: R subacromial bursa Date/Time: 08/21/2020 11:00 AM Supporting Documentation Indications: pain Procedure Details: Location: shoulder - R subacromial bursa Local Anesthetic: ethyl chloride (cold spray) Needle size: 22 G Approach: posterior Medication Verification: I have personally verified and performed the final check of the medication(s) used in this procedure prior to administration. The following items were included during the verification process for medication(s) administered: drug name, strength, volume, expiration, physical integrity and appearance of the medication(s). Medications administered: 4 mL lidocaine 10 mg/mL; 40 mg methylPREDNISolone acetate 40 MG/ML Patient tolerance: patient tolerated the procedure well with no immediate complications Consent: Consent was obtained prior to the procedure after discussion of the risks, benefits and alternatives, and expected outcomes were discussed with the patient. The possibilities of reaction to medication, bleeding, infection, the need for additional procedures, failure to diagnosis a condition, and creating a complication requiring operation were discussed with the patient. The patient concurred with the proposed plan, giving consent. Preparation: Patient was prepped in the usual sterile fashion. The patient was prepped with alcohol. LARGE JOINT/BURSA INJECTION AND/OR ASPIRATION: L subacromial bursa Date/Time: 08/21/2020 11:00 AM Supporting Documentation Indications: pain Procedure Details: Location: shoulder - L subacromial bursa Local Anesthetic: ethyl chloride (cold spray) Needle size: 22 G Approach: posterior Medication Verification: I have personally verified and performed the final check of the medication(s) used in this procedure prior to administration. The following items were included during the verification process for medication(s) administered: drug name, strength, volume, expiration, physical integrity and appearance of the medication(s). Medications administered: 2 mL bupivacaine 0.5 %; 4 mL lidocaine 10 mg/mL; 40 mg methylPREDNISoloneacetate 40 MG/ML Patient tolerance: patient tolerated the procedure well with no immediate complications Consent: Consent was obtained prior to the procedure after discussion of the risks, benefits and alternatives, and expected outcomes were discussed with the patient. The possibilities of reaction to medication, bleeding, infection, the need for additional procedures, failure to diagnosis a condition, and creating a complication requiring operation were discussed with the patient. The patient concurred with the proposed plan, giving consent. Preparation: Patient was prepped in the usual sterile fashion. The patient was prepped with alcohol. HIMANSHU Ramon was acting as a scribe today for this note. I have performed all essential components of the history, and physical exam. I have confirmed the diagnosis and developed a plan of care atthis visit. I have reviewed the note following the visit and have add edits as appropriate to my evaluation and plan of care. Marlo Davenport MD * Cruz Manzano [facility] - 08/21/2020 11:00 AM EDT Associated Order(s): LARGE JOINT/BURSA INJECTION AND/OR ASPIRATION: R subacromial bursa; LARGE JOINT/BURSA INJECTION AND/OR ASPIRATION: L subacromial bursa Post-Procedure Diagnose(s): Impingement syndrome of right shoulder; Impingement syndrome of left shoulder LARGE JOINT/BURSA INJECTION AND/OR ASPIRATION: R subacromial bursa Date/Time: 08/21/2020 11:00 AM Supporting Documentation Indications: pain Procedure Details: Location: shoulder - R subacromial bursa Local Anesthetic: ethyl chloride (cold spray) Needle size: 22 G Approach: posterior Medication Verification: I have personally verified and performed the final check of the medication(s) used in this procedure prior to administration. The following items were included during the verification process for medication(s) administered: drug name, strength, volume, expiration, physical integrity and appearance of the medication(s). Medications administered: 4 mL lidocaine 10 mg/mL; 40 mg methylPREDNISolone acetate 40 MG/ML Patient tolerance: patient tolerated the procedure well with no immediate complications Consent: Consent was obtained prior to the procedure after discussion of the risks, benefits and alternatives, and expected outcomes were discussed with the patient. The possibilities of reaction to medication, bleeding, infection, the need for additional procedures, failure to diagnosis a condition, and creating a complication requiring operation were discussed with the patient. The patient concurred with the proposed plan, giving consent. Preparation: Patient was prepped in the usual sterile fashion. The patient was prepped with alcohol. LARGE JOINT/BURSA INJECTION AND/OR ASPIRATION: L subacromial bursa Date/Time: 08/21/2020 11:00 AM Supporting Documentation Indications: pain Procedure Details: Location: shoulder - L subacromial bursa Local Anesthetic: ethyl chloride (cold spray) Needle size: 22 G Approach: posterior Medication Verification: I have personally verified and performed the final check of the medication(s) used in this procedure prior to administration. The following items were included during the verification process for medication(s) administered: drug name, strength, volume, expiration, physical integrity and appearance of the medication(s). Medications administered: 2 mL bupivacaine 0.5 %; 4 mL lidocaine 10 mg/mL; 40 mg methylPREDNISoloneacetate 40 MG/ML Patient tolerance: patient tolerated the procedure well with no immediate complications Consent: Consent was obtained prior to the procedure after discussion of the risks, benefits and alternatives, and expected outcomes were discussed with the patient. The possibilities of reaction to medication, bleeding, infection, the need for additional procedures, failure to diagnosis a condition, and creating a complication requiring operation were discussed with the patient. The patient concurred with the proposed plan, giving consent. Preparation: Patient was prepped in the usual sterile fashion. The patient was prepped with alcohol. * Cruz Manzano ATC - 08/21/2020 11:00 AM EDT Chief Complaint Patient presents with Shoulder Pain B/L Shoulder. Recieved B/L Subacromial injections 05-22-20. PT states that the injections helped with the pain. Pt states that she would like to repeat the injections today. HPI: Patient presents with bilateral shoulder pain. Received bilateral subacromial injections on 05/22/2020. Patient states the injections helped with the pain. Patient states that she would like repeat injections today. To recap previous visit: Patient presents bilateral shoulder pain. Received bilateral subacromial injections on 02/21/2020. Patient states injections helped. She states she feels as though they are beginning to wear off. She would like repeat injections today PMH: Past medical history, family history, social history, allergies and medications have been reviewed and are documented in the electronic record. ROS: Review of Systems System Neg/Pos Details Constitutional Negative Chills and fever. Respiratory Negative Chest pain and dyspnea. Cardio Negative Chest pain. Negative Nocturia. Integumentary Negative Skin lesion. MS Negative Except as noted in HPI and chief complaint. Vitals: 08/21/20 1112 Temp: 97.8 degrees F (36.6 degrees C) TempSrc: Temporal Weight: 71.3 kg (157 lb 3.2 oz) Height: 1.524 m (5') Physical Exam: Exam Findings Details Constitutional Normal No acute distress. Well developed. Head/Face Comments normal cephallic/ Atraumatic, negative spurling's maneuver Head/Face Normal Facial features - Normal. Skull - Normal. Hair and scalp - Normal. Respiratory Normal Cough - Absent. Effort - Normal. Skin * Detailed inspection - Visual lesions: none. Skin Comments other than as noted otherwise below in extremity exam Skin Normal Palpation/texture - Normal. Nails - Normal. Hair - Normal. Psychiatric Normal Orientation - Oriented to time, place, person & situation. left Shoulder Exam Inspection: No swelling. No atrophy. No deformity. ROM: FF 110/160, IR L4, ER 70/70. No scapular dyskinesia. Strength: Supraspinatus 4+/5, ER 5/5, Internal Rotation 5/5 Impingement signs: Hawkin's test:Positive, Neer's Sign:Positive Apprehension: Negative Elk's test: Negative Biceps tenderness: Positive Speed's test: Positive,Yergason's test:Not Tested/Assessed AC tenderness: positive Distally neurovascular intact with 2+ radial pulses and full sensation in R/U/M/axillary nerve distribution. Right Shoulder Exam Inspection: No swelling. No atrophy. No deformity. ROM: FF 110/140, IR L4, ER 70/70. No scapular dyskinesia. Strength: Supraspinatus 4+/5, ER 5/5, Internal Rotation 5/5 Impingement signs: Hawkin's test:Positive, Neer's Sign:Positive Apprehension: Negative Elk's test: Negative Biceps tenderness: Positive Speed's test: Positive,Yergason's test:Not Tested/Assessed AC tenderness: positive Distally neurovascular intact with 2+ radial pulses and full sensation in R/U/M/axillary nerve distribution. Assessment: ICD-10-CM 1. Impingement syndrome of right shoulder M75.41 2. Impingement syndrome of left shoulder M75.42 Plan: At this time we have discussed the natural history and progression of shoulder impingement with thepatient as well as both conservative vs surgical treatment. The patient understands the various options and agrees to the following plan: I would recommend that we begin with NSAIDS use, repeat bilateral subacromial injection at this time. If the patient does not improve after the next eight or so weeks then we would consider an MRI. We will see them back at that time for repeat evaluation. If there are any questions in the meantime, they are free to call the office earlier. Chief Complaint Patient presents with Shoulder Pain B/L Shoulder. Recieved B/L Subacromial injections 05-22-20. PT states that the injections helped with the pain. Pt states that she would like to repeat the injections today. HPI: Patient presents with bilateral shoulder pain. Received bilateral subacromial injections on 10/21/2019. States injection seemed to help until about 2 weeks ago and the pain came back. States the painis felt in the whole shoulder bilaterally. Would like repeat injections today. Recap previous visit: Patient presents with left shoulder pain. Received a SA injection on 03.14.19. The injection seemedto last until about a month 2 months ago, states the pain came back but not as bad as the first time. OPNP: Patient presents with Right shoulder pain. This shoulder started to hurt after she stained her deck. States the pain is felt in the front of the shoulder and the bicep. R>L PMH: Past medical history, family history, social history, allergies and medications have been reviewed and are documented in the electronic record. ROS: Review of Systems System Neg/Pos Details Constitutional Negative Chills and fever. Respiratory Negative Chest pain and dyspnea. Cardio Negative Chest pain. Negative Nocturia. Integumentary Negative Skin lesion. MS Negative Except as noted in HPI and chief complaint. Vitals: 08/21/20 1112 Temp: 97.8 degrees F (36.6 degrees C) TempSrc: Temporal Weight: 71.3 kg (157 lb 3.2 oz) Height: 1.524 m (5') Physical Exam: Exam Findings Details Constitutional Normal No acute distress. Well developed. Head/Face Comments normal cephallic/ Atraumatic, negative spurling's maneuver Head/Face Normal Facial features - Normal. Skull - Normal. Hair and scalp - Normal. Respiratory Normal Cough - Absent. Effort - Normal. Skin * Detailed inspection - Visual lesions: none. Skin Comments other than as noted otherwise below in extremity exam Skin Normal Palpation/texture - Normal. Nails - Normal. Hair - Normal. Psychiatric Normal Orientation - Oriented to time, place, person & situation. left Shoulder Exam Inspection: No swelling. No atrophy. No deformity. ROM: FF 110/160, IR L4, ER 70/70. No scapular dyskinesia. Strength: Supraspinatus 4+/5, ER 5/5, Internal Rotation 5/5 Impingement signs: Hawkin's test:Positive, Neer's Sign:Positive Apprehension: Negative Elk's test: Negative Biceps tenderness: Positive Speed's test: Positive,Yergason's test:Not Tested/Assessed AC tenderness: positive Distally neurovascular intact with 2+ radial pulses and full sensation in R/U/M/axillary nerve distribution. Right Shoulder Exam Inspection: No swelling. No atrophy. No deformity. ROM: FF 110/140, IR L4, ER 70/70. No scapular dyskinesia. Strength: Supraspinatus 4+/5, ER 5/5, Internal Rotation 5/5 Impingement signs: Hawkin's test:Positive, Neer's Sign:Positive Apprehension: Negative Elk's test: Negative Biceps tenderness: Positive Speed's test: Positive,Yergason's test:Not Tested/Assessed AC tenderness: positive Distally neurovascular intact with 2+ radial pulses and full sensation in R/U/M/axillary nerve distribution. Assessment: ICD-10-CM 1. Impingement syndrome of right shoulder M75.41 2. Impingement syndrome of left shoulder M75.42 Plan: At this time we have discussed the natural history and progression of shoulder impingement with thepatient as well as both conservative vs surgical treatment. The patient understands the various options and agrees to the following plan: I would recommend that we begin with NSAIDS use, repeat bilateral subacromial injection at this time. If the patient does not improve after the next eight or so weeks then we would consider an MRI. We will see them back at that time for repeat evaluation. If there are any questions in the meantime, they are free to call the office earlier. documented in this encounter* Devon Cuadra MD - 12/11/2020 1:30 PM EST Chief Complaint Patient presents with Follow-up Lab Review Mavis Jackson states she is here today to follow up from her last visit on 11/26/20, due to diabetes. 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 She says the cost was 3590. With coupons it came to 1800. She says she can't afford that. 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 She says these are the cheapest they have on the market. She had labs through [facility], to be reviewed at today's visit. WBC (WHITE BLOOD COUNT) Date Value Ref Range Status 12/07/2020 7.4 3.6 - 11.0 10*3/uL Final HEMATOCRIT (HCT) Date Value Ref Range Status 12/07/2020 48.1 (H) 36.0 - 48.0 % Final CHOLESTEROL Date Value Ref Range Status 12/07/2020 181 100 - 199 MG/DL Final TRIGLYCERIDE Date Value Ref Range Status 12/07/2020 115 <150 MG/DL Final HDL CHOLESTEROL Date Value Ref Range Status 12/07/2020 56 40 - 60 MG/DL Final ALT Date Value Ref Range Status 12/07/2020 13 (L) 14 - 54 IU/L Final AST Date Value Ref Range Status 12/07/2020 14 (L) 15 - 41 IU/L Final SODIUM Date Value Ref Range Status 12/07/2020 136 136 - 145 MMOL/L Final POTASSIUM Date Value Ref Range Status 12/07/2020 4.0 3.5 - 5.1 MMOL/L Final CHLORIDE Date Value Ref Range Status 12/07/2020 100 98 - 107 MMOL/L Final CREATININE SERUM Date Value Ref Range Status 12/07/2020 0.78 0.5 - 1.0 MG/DL Final BUN Date Value Ref Range Status 12/07/2020 18 7.0 - 20.0 MG/DL Final CARBON DIOXIDE (CO2) Date Value Ref Range Status 12/07/2020 26 22 - 30 MMOL/L Final TSH Date Value Ref Range Status 05/19/2019 1.436 0.45 - 5.33 uIU/ML Final GLUCOSE Date Value Ref Range Status 12/07/2020 162 (H) 70 - 100 MG/DL Final Comment: NORMAL <100 mg/dL PREDIABETES 101-126 mg/dL DIABETES 126 mg/dL or higher HEMOGLOBIN A1C Date Value Ref Range Status 12/07/2020 8.6 (H) <6 % Final Comment: NORMAL <5.7% PREDIABETES 5.7-6.4% DIABETES 6.5% OR HIGHER HPI Diabetes Mavis Jackson is here for recheck on his diabetes. She needs medication refill and any new labs reviewed with patient. New complications, no. No intolerances to medication, yes. Patient states that her compliance with medication and diet, no. Could not afford the new medication is back on the Novolin insulin Attempting to exercise regularly, no. Lab Results Component Value Date HGBA1C 8.6 (H) 12/07/2020 HGBA1C 8.2 (H) 05/19/2019 HGBA1C 7.7 (H) 12/06/2018 GLUCOSE 162 (H) 12/07/2020 LDLCALC 102 (H) 12/07/2020 CREATSERUM 0.78 12/07/2020 Allergies Allergen Reactions Gabapentin Abdominal Discomfort Propoxyphene Itching Darvocet Metformin Diarrhea Outpatient Medications Prior to Visit Medication Sig Dispense Refill atorvastatin 40 MG tablet Take 1 tablet by mouth at bedtime. 90 tablet 1 clopidogrel (Plavix) 75 MG tablet Take 1 tablet by mouth daily. 90 tablet 1 nystatin 627984 unit/gm Powder Apply 1 Application topically every 8 hours. 1 Bottle 6 omeprazole (PriLOSEC) [address] capsule Take 1 capsule by mouth 2 times daily (take before meals). 180 capsule 1 Insulin Pen Needle (Pen Sagola 03/17) 30G X 8 MM Misc 1 Device by Unknown route at bedtime. (Patient not taking: Reported on 12/11/2020) 100 Each 3 Empagliflozin (Jardiance) 25 MG tablet Take 1 tablet by mouth daily. (Patient not taking: Reported on 12/11/2020) 90 tablet 1 insulin detemir 100 UNIT/ML Solution Pen-injector injection Inject 16 Units under the skin daily every morning. (Patient not taking: Reported on 12/11/2020) 1 Prefilled Pen/Syringe 1 Liraglutide (Victoza) 18 MG/3ML Solution Pen-injector injection Inject 1.8 mg under the skin daily.(Patient not taking: Reported on 12/11/2020) 3 Syringe 1 MAXIMUM D3 50592 units Cap 1 q weekly. JOANNE, (Patient not taking: Reported on 12/11/2020) Facility-Administered Medications Prior to Visit Medication Dose Route Frequency Provider Last Rate Last Admin lidocaine (PF) 2 % injection 10 mL 10 mL Other Once (Outpt Clinic) Mainor Oliver MD Past Medical History: Diagnosis Date Arthritis COPD (chronic obstructive pulmonary disease) Depression Diabetes mellitus GERD (gastroesophageal reflux disease) Glaucoma Hyperlipidemia Lumbago with sciatica, unspecified side Stroke family history includes Coronary Artery Disease in her mother; Diabetes in her mother; Hypertensionin her mother; Kidney Disease in her mother; Lung Cancer in her father and mother. reports that she has been smoking cigarettes. She has smoked for the past 46.00 years. She has never used smokeless tobacco. She reports that she does not drink alcohol and does not use drugs. Past Surgical History: Procedure Laterality Date EXTRACTION EXTRACAPSULAR CATARACT W/ IMPLANT (ECCE IOL) Bilateral 2017 REPAIR HERNIA VENTRAL OPEN W/ MESH 1985 TUBAL LIGATION 1970 with reversal HYSTERECTOMY TOTAL ABDOMINAL OPEN (ISABEL) W/ REMOVAL TUBES/OVARIES 1970 TONSILLECTOMY ADENOIDECTOMY 1966 SECTION 1980,1982 Review of Systems Visit Vitals BP 118/76 Pulse 93 Temp 97.6 F (36.4 C) (Temporal) Resp 16 Ht 1.544 m (5' 0.8) Wt 72.4 kg (159 lb 9.6 oz) SpO2 98% BMI 30.35 kg/m Review of Systems Constitutional: Negative for fatigue and unexpected weight change. Eyes: Negative for visual disturbance. Respiratory: Negative for shortness of breath. Cardiovascular: Negative for chest pain and palpitations. Gastrointestinal: Negative for blood in stool and nausea. No GERD Genitourinary: Negative for difficulty urinating and dysuria. Neurological: Positive for weakness (LE's) and numbness (LE's). Negative for dizziness. Hematological: Negative for adenopathy. Psychiatric/Behavioral: Negative for dysphoric mood and sleep disturbance. The patient is not nervous/anxious. All other systems reviewed and are negative. Physical Exam Physical Exam Vitals and nursing note reviewed. HENT: Head: Normocephalic. Neck: Thyroid: No thyromegaly. Vascular: No carotid bruit. Cardiovascular: Rate and Rhythm: Normal rate and regular rhythm. Heart sounds: Normal heart sounds. No murmur. Pulmonary: Effort: Pulmonary effort is normal. Breath sounds: Normal breath sounds. Musculoskeletal: General: No tenderness or deformity. Comments: Decr ROM L-spine on flexion Lymphadenopathy: Cervical: No cervical adenopathy. Skin: General: Skin is warm and dry. Neurological: Mental Status: She is alert and oriented to person, place, and time. Cranial Nerves: No cranial nerve deficit. Motor: No abnormal muscle tone. Psychiatric: Mood and Affect: Mood normal. Thought Content: Thought content normal. Judgment: Judgment normal. Comments: Discussed the importance of sharing/withholding information with the patient. The patientdenies suicide or homicide intent, and is competent. Assessment & Plan Problem List Items Addressed This Visit Endocrine Type 2 diabetes mellitus, uncontrolled, with neuropathy-Insulin requiring - Primary Relevant Orders HEMOGLOBIN A1C Patient unable to afford medications we ordered to try and eliminate some of her fingersticks. She is wanting to get Medicaid in the meantime for also referred her to [facility] for help on her prescriptions. We will recheck AC in 3 months. Encourage low-carb diet and continue her Novolin sliding scale. Devon Cuadra MD 12/11/2020, 2:15 PM * Chayo Gallardo LPN - 12/11/2020 1:30 PM EST Mavis Jackson states she is here today to follow up from her last visit on 11/26/20, due to diabetes. 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 She says the cost was 3590. With coupons it came to 1800. She says she can't afford that. 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 She says these are the cheapest they have on the market. She had labs through [facility], to be reviewed at today's visit. WBC (WHITE BLOOD COUNT) Date Value Ref Range Status 12/07/2020 7.4 3.6 - 11.0 10*3/uL Final HEMATOCRIT (HCT) Date Value Ref Range Status 12/07/2020 48.1 (H) 36.0 - 48.0 % Final CHOLESTEROL Date Value Ref Range Status 12/07/2020 181 100 - 199 MG/DL Final TRIGLYCERIDE Date Value Ref Range Status 12/07/2020 115 <150 MG/DL Final HDL CHOLESTEROL Date Value Ref Range Status 12/07/2020 56 40 - 60 MG/DL Final ALT Date Value Ref Range Status 12/07/2020 13 (L) 14 - 54 IU/L Final AST Date Value Ref Range Status 12/07/2020 14 (L) 15 - 41 IU/L Final SODIUM Date Value Ref Range Status 12/07/2020 136 136 - 145 MMOL/L Final POTASSIUM Date Value Ref Range Status 12/07/2020 4.0 3.5 - 5.1 MMOL/L Final CHLORIDE Date Value Ref Range Status 12/07/2020 100 98 - 107 MMOL/L Final CREATININE SERUM Date Value Ref Range Status 12/07/2020 0.78 0.5 - 1.0 MG/DL Final BUN Date Value Ref Range Status 12/07/2020 18 7.0 - 20.0 MG/DL Final CARBON DIOXIDE (CO2) Date Value Ref Range Status 12/07/2020 26 22 - 30 MMOL/L Final TSH Date Value Ref Range Status 05/19/2019 1.436 0.45 - 5.33 uIU/ML Final GLUCOSE Date Value Ref Range Status 12/07/2020 162 (H) 70 - 100 MG/DL Final Comment: NORMAL <100 mg/dL PREDIABETES 101-126 mg/dL DIABETES 126 mg/dL or higher HEMOGLOBIN A1C Date Value Ref Range Status 12/07/2020 8.6 (H) <6 % Final Comment: NORMAL <5.7% PREDIABETES 5.7-6.4% DIABETES 6.5% OR HIGHER documented in this encounter* Marlo Davenport MD - 12/24/2020 2:10 PM EST Patient was seen and evaluated with the ACADEMIC SUPPORT ASSISTANT or AT/OTC at today's visit. I performed all essential elements of the history and physical exam at today's visit. I have confirmed the diagnosis at today'svisit. I have determined the plan of care for today's visit. Please refer to the ACADEMIC SUPPORT ASSISTANT or AT/OTC's note for further details from today's visit. I have reviewed the note following the visit have added edits as appropriate to my evaluation and plan of care. Chief Complaint Patient presents with Shoulder Pain Bilateral shoulder. Received bilateral SA injections on 08/21/20. Pt states that the injections only helped with the pain for a few weeks. HPI: She presents for bilateral shoulder pain follow up. She received bilateral subacromial injections on 08/21/20. She states that the injections only provided relief for a few weeks. The pain has returned and is slowly worsening. To recap previous visit: Patient presents with bilateral shoulder pain. Received bilateral subacromial injections on 05/22/2020. Patient states the injections helped with the pain. Patient states that she would like repeat injections today. Past Medical History: Diagnosis Date Arthritis COPD (chronic obstructive pulmonary disease) Depression Diabetes mellitus GERD (gastroesophageal reflux disease) Glaucoma Hyperlipidemia Lumbago with sciatica, unspecified side Stroke Past Surgical History: Procedure Laterality Date EXTRACTION EXTRACAPSULAR CATARACT W/ IMPLANT (ECCE IOL) Bilateral 2017 REPAIR HERNIA VENTRAL OPEN W/ MESH 1985 TUBAL LIGATION 1971 with reversal HYSTERECTOMY TOTAL ABDOMINAL OPEN (ISABEL) W/ REMOVAL TUBES/OVARIES 1970 TONSILLECTOMY ADENOIDECTOMY 1967 SECTION 1980,1982 Family History Problem Relation Age of Onset Lung Cancer Mother Diabetes Mother Coronary Artery Disease Mother Hypertension Mother Kidney Disease Mother Lung Cancer Father Social History Socioeconomic History Marital status: Spouse name: Not on file Number of children: Not on file Years of education: Not on file Highest education level: Not on file Occupational History Not on file Tobacco Use Smoking status: Current Every Day Smoker Years: 46.00 Types: Cigarettes Smokeless tobacco: Never Used Tobacco comment: Uses eCigs as well Substance and Sexual Activity Alcohol use: Never Drug use: No Sexual activity: Not on file Other Topics Concern Not on file Social History Narrative Not on file Social Determinants of Health Financial Resource Strain: Difficulty of Paying Living Expenses: Not on file Food Insecurity: Worried About Running Out of Food in the Last Year: Not on file Ran Out of Food in the Last Year: Not on file Transportation Needs: Lack of Transportation (Medical): Not on file Lack of Transportation (Non-Medical): Not on file Physical Activity: Days of Exercise per Week: Not on file Minutes of Exercise per Session: Not on file Stress: Feeling of Stress : Not on file Social Connections: Frequency of Communication with Friends and Family: Not on file Frequency of Social Gatherings with Friends and Family: Not on file Attends Sikhism Services: Not on file Active Member of Clubs or Organizations: Not on file Attends Club or Organization Meetings: Not on file Marital Status: Not on file Intimate Partner Violence: Fear of Current or Ex-Partner: Not on file Emotionally Abused: Not on file Physically Abused: Not on file Sexually Abused: Not on file Allergies Allergen Reactions Gabapentin Abdominal Discomfort Propoxyphene Itching Darvocet Metformin Diarrhea Vitals: 12/24/20 1445 Temp: 97.3 degrees F (36.3 degrees C) TempSrc: Temporal Weight: 73.1 kg (161 lb 3.2 oz) Height: 1.549 m (5' 1) Physical Exam: left Shoulder Exam Inspection: No swelling. No atrophy. No deformity. ROM: FF 110/160, IR L4, ER 70/70. No scapular dyskinesia. Strength: Supraspinatus 4+/5, ER 5/5, Internal Rotation 5/5 Impingement signs: Hawkin's test:Positive, Neer's Sign:Positive Apprehension: Negative Elk's test: Negative Biceps tenderness: Positive Speed's test: Positive,Yergason's test:Not Tested/Assessed AC tenderness: positive Distally neurovascular intact with 2+ radial pulses and full sensation in R/U/M/axillary nerve distribution. Assessment: ICD-10-CM 1. Impingement syndrome of left shoulder M75.42 2. Biceps tendinitis, left M75.22 3. Arthritis of left acromioclavicular joint M19.012 Plan: At this time, we have reviewed the past medical notes pertaining to her chief complaint today, as well as her MRI of the left shoulder which shows tendinopathy of the rotator cuff, bicep tendinitis, signs of impingement syndrome, and moderate AC joint arthritis. We have discussed various treatment o ptions from conservative to surgical. As she has failed several steroid injections and therapy exercises, we will offer her a left shoulder arthroscopy, possible rotator cuff repair, bicep tenodesis,AC resection, SAD, and other interventions as needed. She voices understanding and wishes to proceed with surgery. We will have her cleared by her PCP for surgery. She will call the office with any questions or concerns, otherwise we will see her the day of surgery. Consent: Both Surgical and Non-surgical methods of treatment were discussed with the patient and they have elected to proceed with surgery. The risks and benefits were thoroughly explained including but not limited to: infection, bleeding, neurovascular damage, blood clots which may lead to pulmonary embolism, the need for further surgery stroke, and . It was also explained that the goal of surgery is to correct structural abnormalities that may be resulting in their pain but may not get rid of allthe pain they are experiencing. At this time, the patients quality of life has decreased with the pain they are experiencing and they cannot perform daily functions. The patient voiced full understanding and wishes to proceed with surgery. They will be scheduled in the near future. We have discussed that she has an increased risk of developing COVID19 from having a surgery performed at this time. she voices understanding and wishes to proceed with surgery. left shoulder arthroscopy, possible rotator cuff repair, bicep tenodesis, AC resection, SAD, and other interventions as needed * Mica Patel, TELEPHONE RECORDER-ACADEMIC SUPPORT ASSISTANT - 12/24/2020 2:10 PM EST Chief Complaint Patient presents with Shoulder Pain Bilateral shoulder. Received bilateral SA injections on 08/21/20. Pt states that the injections only helped with the pain for a few weeks. HPI: She presents for bilateral shoulder pain follow up. She received bilateral subacromial injections on 08/21/20. She states that the injections only provided relief for a few weeks. The pain has returned and is slowly worsening. To recap previous visit: Patient presents with bilateral shoulder pain. Received bilateral subacromial injections on 05/22/2020. Patient states the injections helped with the pain. Patient states that she would like repeat injections today. Past Medical History: Diagnosis Date Arthritis COPD (chronic obstructive pulmonary disease) Depression Diabetes mellitus GERD (gastroesophageal reflux disease) Glaucoma Hyperlipidemia Lumbago with sciatica, unspecified side Stroke Past Surgical History: Procedure Laterality Date EXTRACTION EXTRACAPSULAR CATARACT W/ IMPLANT (ECCE IOL) Bilateral 2017 REPAIR HERNIA VENTRAL OPEN W/ MESH 1984 TUBAL LIGATION 1970 with reversal HYSTERECTOMY TOTAL ABDOMINAL OPEN (ISABEL) W/ REMOVAL TUBES/OVARIES 1971 TONSILLECTOMY ADENOIDECTOMY 1967 SECTION 1980,1982 Family History Problem Relation Age of Onset Lung Cancer Mother Diabetes Mother Coronary Artery Disease Mother Hypertension Mother Kidney Disease Mother Lung Cancer Father Social History Socioeconomic History Marital status: Spouse name: Not on file Number of children: Not on file Years of education: Not on file Highest education level: Not on file Occupational History Not on file Tobacco Use Smoking status: Current Every Day Smoker Years: 46.00 Types: Cigarettes Smokeless tobacco: Never Used Tobacco comment: Uses eCigs as well Substance and Sexual Activity Alcohol use: Never Drug use: No Sexual activity: Not on file Other Topics Concern Not on file Social History Narrative Not on file Social Determinants of Health Financial Resource Strain: Difficulty of Paying Living Expenses: Not on file Food Insecurity: Worried About Running Out of Food in the Last Year: Not on file Ran Out of Food in the Last Year: Not on file Transportation Needs: Lack of Transportation (Medical): Not on file Lack of Transportation (Non-Medical): Not on file Physical Activity: Days of Exercise per Week: Not on file Minutes of Exercise per Session: Not on file Stress: Feeling of Stress : Not on file Social Connections: Frequency of Communication with Friends and Family: Not on file Frequency of Social Gatherings with Friends and Family: Not on file Attends Sikhism Services: Not on file Active Member of Clubs or Organizations: Not on file Attends Club or Organization Meetings: Not on file Marital Status: Not on file Intimate Partner Violence: Fear of Current or Ex-Partner: Not on file Emotionally Abused: Not on file Physically Abused: Not on file Sexually Abused: Not on file Allergies Allergen Reactions Gabapentin Abdominal Discomfort Propoxyphene Itching Darvocet Metformin Diarrhea Vitals: 12/24/20 1445 Temp: 97.3 degrees F (36.3 degrees C) TempSrc: Temporal Weight: 73.1 kg (161 lb 3.2 oz) Height: 1.549 m (5' 1) Physical Exam: left Shoulder Exam Inspection: No swelling. No atrophy. No deformity. ROM: FF 110/160, IR L4, ER 70/70. No scapular dyskinesia. Strength: Supraspinatus 4+/5, ER 5/5, Internal Rotation 5/5 Impingement signs: Hawkin's test:Positive, Neer's Sign:Positive Apprehension: Negative Elk's test: Negative Biceps tenderness: Positive Speed's test: Positive,Yergason's test:Not Tested/Assessed AC tenderness: positive Distally neurovascular intact with 2+ radial pulses and full sensation in R/U/M/axillary nerve distribution. Assessment: ICD-10-CM 1. Impingement syndrome of left shoulder M75.42 2. Biceps tendinitis, left M75.22 3. Arthritis of left acromioclavicular joint M19.012 Plan: At this time, we have reviewed the past medical notes pertaining to her chief complaint today, as well as her MRI of the left shoulder which shows tendinopathy of the rotator cuff, bicep tendinitis, signs of impingement syndrome, and moderate AC joint arthritis. We have discussed various treatment o ptions from conservative to surgical. As she has failed several steroid injections and therapy exercises, we will offer her a left shoulder arthroscopy, possible rotator cuff repair, bicep tenodesis,AC resection, SAD, and other interventions as needed. She voices understanding and wishes to proceed with surgery. We will have her cleared by her PCP for surgery. She will call the office with any questions or concerns, otherwise we will see her the day of surgery. Consent: Both Surgical and Non-surgical methods of treatment were discussed with the patient and they have elected to proceed with surgery. The risks and benefits were thoroughly explained including but not limited to: infection, bleeding, neurovascular damage, blood clots which may lead to pulmonary embolism, the need for further surgery stroke, and . It was also explained that the goal of surgery is to correct structural abnormalities that may be resulting in their pain but may not get rid of allthe pain they are experiencing. At this time, the patients quality of life has decreased with the pain they are experiencing and they cannot perform daily functions. The patient voiced full understanding and wishes to proceed with surgery. They will be scheduled in the near future. We have discussed that she has an increased risk of developing COVID19 from having a surgery performed at this time. she voices understanding and wishes to proceed with surgery. left shoulder arthroscopy, possible rotator cuff repair, bicep tenodesis, AC resection, SAD, and other interventions as needed documented in this encounter* Robbin Barrientos DO - 01/18/2019 10:00 AM EDT [facility] NOTE Chief complaint: Small fiber neuropathy History of present illness: Mvais Jackson is a 68 y.o. right handed female who presents in followupfor small fiber peripheral neuropathy, syncope and a history of ischemic stroke. She has diabetes mellitus. TSH was unremarkable. She does describe burning, aching, stinging pain in her feet bilaterally. She does not have any significant numbness or weakness. She has had thses symptoms since 2012. She did have an ischemic stroke in the past. She has some mild decreased vision to the right lower quadrant. She does take Plavix and atorvastatin for secondary stroke prevention. She feels it was dueto the stress of her zstqjmn-kj-euk and sister's unexpected at the time. She also has had sync ope in the past. She states that she had an episode in June 2018. She was in a casino and she wassitting at a machine and all of a sudden she felt hot all over, woozy, and sweaty and then slumped over the machine. It was less than a minute in length and she does not remember feeling confused or fatigued afterward and was able to discuss the symptoms with EMS. She did not have any postural change prior to the syncope and did not have any tongue biting, convulsive activity or urinary incontinence with the syncope. She denies any numbness or weakness in her arms. She denies any dysphagia, diplopia, dysarthria or ptosis. 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 Shefelt hot, flushed, sweaty and shaky and her eyes rolled back. It lasted 2-3 minutes and then went away. She did not lose consciousness. She did see cardiology Dr. Rice. 30 day heart monitor was done and was unremarkable. Cardiac stress test was unremarkable. EEG was unremarkable. Her neuropathic pain in her feet is worse at night. She has headaches. They are typically on the left side of the headand can be sharp and severe. They do spread to her forehead. It can occur any time of the day and last up to 5 minutes. She will grab her head and lay down when it occurs. MRI of the brain showed moderate to severe chronic small vessel disease. Encephalomalacia was seen in the left occipital lobe area and mild volume loss was noted. EMG/nerve conduction study of the left leg was unremarkable. There was no evidence of large fiber peripheral neuropathy. Vitamin B1, SSA, SSB, ZION, DSDNA antibodies, Heavy metals, ESR, Vitamin B6, TSH, SPEP with immunofixation were unremarkable. B12 was 467. Vitamin E was low. She was started on oral B12 supplementation. MRI lumbar spine did not show any centralcanal or neuroforaminal stenosis. She was started on Topamax 25 mg BID for the headache prevention.She is seeing pain management and they are considering radiofrequency ablation. Carotid ultrasound showed less than 50% stenosis bilaterally but did show retrograde flow in the right vertebral artery concerning for proximal subclavian artery stenosis on that side. CTA chest did not show any stenosis or occlusion. She is getting about 1 or 2 headaches a month at this time. She is tolerating the Topamax well. Burning, aching and stinging pain is present in her feet and lower legs. The more activeshe is the worse the burning is. It is worse some days then others. Review of Systems: Comments Neurological As above General/constitutional No fevers, weight change, chills, fatigue, night sweats Skin No rash, edema, bruising HEENT No diplopia, dysphagia, dizziness, tinnitus, hearing loss Cardiovascular No dyspnea or chest pain, palpitaitons, peripheral edema Respiratory No SOB, wheezing, rhonchi, cough or rales Gastrointestinal No loss of bowel control, constipation, diarrhea, abdominal pain, nausea or vomiting Genitourinary No loss of bladder control, no sexual dysfunction, hematuria, dysuria Musculoskeletal No myalgias, weakness, atrophy, joint pain, neck pain or back pain Psychiatric No depression, anxeity, hallucinations, delusions Endocrine No changes to hair or nails, abnormal sweating, hot flashess, excessive thirst, polyuria Hematologic No easy bruising, bleeding, swollen lymph nodes Unless directly addressed in ROS or in assessment and plan, patient was instructed to followup positive ROS findings with PCP. Past Medical History: Diagnosis Date Arthritis COPD (chronic obstructive pulmonary disease) Depression Diabetes mellitus GERD (gastroesophageal reflux disease) Glaucoma Hyperlipidemia Stroke Past Surgical History: Procedure Laterality Date EXTRACTION EXTRACAPSULAR CATARACT W/ IMPLANT (ECCE IOL) Bilateral 2017 REPAIR HERNIA INCISIONAL/VENTRAL OPEN W/ MESH 1984 TUBAL LIGATION 1970 with reversal HYSTERECTOMY TOTAL ABDOMINAL OPEN (ISABEL) W/ REMOVAL TUBES/OVARIES 1970 TONSILLECTOMY ADENOIDECTOMY 1967 SECTION 1980,1982 Family History Problem Relation Age of Onset Lung Cancer Mother Diabetes Mother Coronary Artery Disease Mother Hypertension Mother Kidney Disease Mother Lung Cancer Father Social History Socioeconomic History Marital status: Spouse name: Not on file Number of children: Not on file Years of education: Not on file Highest education level: Not on file Occupational History Not on file Social Needs Financial resource strain: Not on file Food insecurity: Worry: Not on file Inability: Not on file Transportation needs: Medical: Not on file Non-medical: Not on file Tobacco Use Smoking status: Current Every Day Smoker Packs/day: 0.25 Years: 46.00 Pack years: 11.50 Types: Cigarettes Smokeless tobacco: Never Used Substance and Sexual Activity Alcohol use: Yes Comment: rare Drug use: No Sexual activity: Not on file Lifestyle Physical activity: Days per week: Not on file Minutes per session: Not on file Stress: Not on file Relationships Social connections: Talks on phone: Not on file Gets together: Not on file Attends buddhism service: Not on file Active member of club or organization: Not on file Attends meetings of clubs or organizations: Not on file Relationship status: Not on file Intimate partner violence: Fear of current or ex partner: Not on file Emotionally abused: Not on file Physically abused: Not on file Forced sexual activity: Not on file Other Topics Concern Not on file Social History Narrative Not on file Allergies Allergen Reactions Propoxyphene Itching Darvocet Current Outpatient Medications Medication Sig Dispense Refill atorvastatin 40 MG Tab tablet Take 1 tablet by mouth at bedtime. 30 tablet 2 buPROPion (WELLBUTRIN XL) 300 MG tablet XL Take 1 tablet by mouth every morning before breakfast. 30 tablet 2 clopidogrel (PLAVIX) 75 MG Tab tablet Take 1 tablet by mouth daily. 30 tablet 2 escitalopram (LEXAPRO) 10 MG Tab tablet Take 1 tablet by mouth daily. 30 tablet 2 insulin NPH (NOVOLIN N) 100 UNIT/ML injection Inject 17 Units under the skin daily every morning. insulin regular 1 unit/0.01 ml vial 7 U AC breakfast, 7 U AC Lunch, 10 U AC Dinner MAXIMUM D3 73013 units Cap 1 q weekly. JOANNE, Multiple Vitamin (MULTIVITAMIN) Tab Take 1 tablet by mouth daily. nicotine 21 MG/24HR Patch [address] 1 patch on skin every 24 hours. omeprazole (PRILOSEC) [address] capsule Take 1 capsule by mouth 2 times daily (take before meals). 60 capsule 2 tizanidine 2 MG Tab Take 1 tablet by mouth at bedtime as needed. 30 tablet 1 topiramate 25 MG Tab tablet Take 1 tablet by mouth 2 times daily. 60 tablet 2 No current facility-administered medications for this visit. Physical Exam: Vitals: 01/18/19 0950 BP: 114/68 Pulse: 76 Resp: 24 Weight: 77 kg (169 lb 11.2 oz) Height: 1.524 m (5') General: In no acute distress. HENT: Normal oropharynx and mucosa. Normal external appearance of ears and nose. Neck: Supple, no pain or tenderness CV: RRR without murmur. No peripheral edema. Pulmonary: Clear to auscultation bilaterally. Normal respiratory effort. Abdomen: positive bowel sounds, soft, non-tender. Normal liver and spleen size. Ext: No cyanosis, edema, or deformity Skin: No rash. Normal palpation of skin. Musculoskeletal: full range of motion; no joint tenderness. Normal digits and nails by inspection. No clubbing. Neurological Examination Mental status: awake and alert; oriented to person, place, year, and month; good attention. Normal mood and affect. Normal insight into condition. Speech/language: fluent; comprehension intact; object naming intact; repetition intact Cranial nerves: CN II: Visual lei intact to confrontation. PERRL. Normal conjunctivae and lids. executive secretary III, IV and : extraocular movements intact. No nystagmus. CN V: Facial sensation is intact to light touch. CN VII: Facial strength normal with symmetric movement. CN VIII: Hearing is grossly intact. CN IX and X: Soft palate elevates symmetrically in the midline CN XI: Shoulder shrug and sternocleidomastoid strength (R/L) 5/5 CN XII: Tongue is midline with normal movement; no fasciculations. Motor: Normal bulk and tone. No pronator drift. SA EE EF WE WF DI HF KE KF DF PF Right 5 5 5 5 5 5 5 5 5 5 5 Left 3 5 5 5 5 5 5 5 5 5 5 Reflexes: Right Left Comments Biceps 2 2 Triceps 2 2 Brachioradialis 2 2 Patellar 2 2 Achilles 2 2 Jaw jerk Peralta Babinski Down Down Coordination: Zizxfw-lq-tpaw intact bilaterally. Jfmp-sd-fxqy intact bilaterally. Rapid alternatingmovements are normal. Sensation: Comments Light touch Decreased from the midfoot to the toes Pin prick Decreased from the midfoot to the toes Temperature Decreased from the midfoot to the toes Vibration Decreased in the toes Proprioception Decreased in the toes Gait: Normal stride length, arm swing, and base width. Negative Romberg. All pertinent labs and images were reviewed with the patient. Assessment and Plan: 1. Idiopathic small fiber peripheral neuropathy - gabapentin 100 MG Cap capsule; For the first week take one at bedtime, can increase to 2 at bedtime after one week, if no relief can increase to 3 at bedtime at week 3. Dispense: 90 capsule; Refill: 0 2. Nonintractable headache, unspecified chronicity pattern, unspecified headache type - gabapentin 100 MG Cap capsule; For the first week take one at bedtime, can increase to 2 at bedtime after one week, if no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
[2025-07-02 16:04] VITALS: BP 118/65; PULSE 99; RESP 16; O2SAT 94
[2025-07-02 16:47] VITALS: BP 132/78; PULSE 60; RESP 16; TEMP 38.1; O2SAT 96
--- NOTE | 2025-07-02 16:48 | ED.RN ---
pt refused to have another access/straight stick for her 2nd set of bc's. after fluids this nurse attempted to get the second set of bc's and the line would not draw. got very minimal in each bottle. called lab to advise them the 2nd set might not be an adequate blood collection
== END 2025-07-02 16:44 | disposition home or self-care (01) ==
PROVIDERS: Emergency Provider Emergency Medicine; PCP Internal Medicine; Visit Provider Emergency Medicine
DX: R41.82 Altered mental status, unspecified (principal); E11.9 Type 2 diabetes mellitus without complications; R50.9 Fever, unspecified; Z87.891 Personal history of nicotine dependence; Z86.73 Personal history of transient ischemic attack (TIA), and cerebral infarction without residual deficits
CPT/HCPCS: 70450; 71046; 80053; 81001; 83605; 85025; 85610; 85730; 87040; 87086; 93005; 96360; 99285; P9612